=== PATIENT | female | born 1965 | race Two or more races ===

== ENCOUNTER 2016-09-30 14:18 | Emergency (ER) | payer MEDICARE, MEDICAID ==
--- NOTE | 2016-09-30 17:50 | RAD ---
Indication: Right knee pain and swelling. 4 views of the right knee demonstrates no fracture. Mild medial osteophyte formation is noted. No fracture is identified. IMPRESSION: No fracture of the right knee is noted.
[2016-09-30] MEDS ORDERED: HYDROcodone/ACETAMIN 5-325 MG* 1 TAB PO ONE (18:24)
--- NOTE | 2016-09-30 19:05 | RAD ---
Indication: Pain and swelling of the right knee. CT of the right knee was obtained in the axial plane. Coronal and sagittal reconstructed images were obtained. In the subcutaneous tissue of the right knee in the lateral aspect of the right knee there is a large fluid collection measuring 8.5 cm in length x 8.8 cm in width x 3.8 cm in AP dimension. It is heterogeneous in density with some areas of hypodensity and this is consistent with a subcutaneous hematoma. This does not appear to be within the joint space. There is no fracture of the knee joint. Degenerative changes of the patellofemoral joint is noted. IMPRESSION: LARGE FLUID COLLECTION IN THE LATERAL ASPECT OF THE RIGHT KNEE MEASURING 8.5 X 8.8 X 3.8 CM WHICH IS HETEROGENEOUS AND IS CONSISTENT WITH A SUBCUTANEOUS HEMATOMA. NO EXTENSION INTO THE KNEE JOINT IS NOTED. NO FRACTURE OF THE KNEE IS IDENTIFIED. DEGENERATIVE CHANGES OF THE PATELLOFEMORAL JOINT IS PRESENT.
[2016-09-30 19:55] VITALS: BP 133/78
--- NOTE | 2016-09-30 20:06 | ED ---
Lower Extremity - HPI Summary HPI Summary: Patient presents with right knee pain and swelling. She fell 3 weeks ago on her knee, but did not have any issues with walking or activity. This morning she awoke with her symptoms. She denies new injury or insult to the knee. She has known arthritis. She is active and admits she could have squated or bent yesterday, but does not remember any moment of pain. She took one of her husbands [place] 10/325mg with good relief. She has an ulcer and is unable to take NSAIDs. She has not iced or elevated the knee. No N/T. No calf pain or pain with weight bearing, but the knee "feels tight". 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 Mechanism Of Injury: Unknown Onset of Pain: Hours Onset/Duration: Still Present Severity Initially: Moderate Severity Currently: Mild Pain Intensity: 2 Pain Scale Used: 0-10 Numeric Timing: Constant Location: Is Discrete @ - right knee Character Of Pain: Aching, Stiffness Associated Signs And Symptoms: Positive: Swelling, Bruising - mature, Knee Pain Aggravating Factor(s): Movement Alleviating Factor(s): Nothing Able to Bear Weight: Yes - Allergies/Home Medications Allergies/Adverse Reactions: Allergies Allergy/AdvReac Type Severity Reaction Status Date / Time Aspirin [ASA] Allergy See Comment Verified 09/11/15 16:24 PMH/Surg Hx/FS Hx/Imm Hx Endocrine/Hematology History: Denies: Hx Diabetes Cardiovascular History: Denies: Hx Congestive Heart Failure - Surgical History Surgery Procedure, Year, and Place: left oophrectomy Infectious Disease History: No Infectious Disease History: Denies: Traveled Outside the [place] in Last 30 Days - Family History Known Family History: Positive: None - Social History Occupation: Employed Part-time Lives: With Family Alcohol Use: None Substance Use Type: Reports: None Smoking Status (MU): Current Some Day Smoker Cessation Counseling: Patient Advised to Stop Review of Systems Negative: Fever Negative: Shortness Of Breath Positive: Myalgia, Decreased ROM, Edema Positive: Bruising Negative: Paresthesia, Numbness All Other Systems Reviewed And Are Negative: Yes Physical Exam Triage Information Reviewed: Yes Vital Signs On Initial Exam: Initial Vitals Temp Pulse Resp BP Pulse Ox 97 F 91 15 148/87 97 09/30/16 14:22 09/30/16 14:22 09/30/16 14:22 09/30/16 14:22 09/30/16 14:22 Vital Signs Reviewed: Yes Appearance: Positive: Well-Appearing, Well-Nourished, Pain Distress Skin: Positive: Warm, Skin Color Reflects Adequate Perfusion, Dry, Soft Head/Face: Positive: Normal Head/Face Inspection Eyes: Positive: EOMI, JEANETTE, Conjunctiva Clear ENT: Positive: Hearing grossly normal Respiratory/Lung Sounds: Positive: Breath Sounds Present Cardiovascular: Positive: RRR Musculoskeletal: Positive: Limited @ - extension to -10, flexion to 90 with pain , Pain @ - TTP medial joint line, Edema Right - knee Neurological: Positive: Sensory/Motor Intact, Alert, Oriented to Person Place, Time, NV Bundle Intact Distally, Abnormal Gait Psychiatric: Positive: Affect/Mood Appropriate AVPU Assessment: Alert Diagnostics - Vital Signs Vital Signs Temp Pulse Resp BP Pulse Ox 09/30/16 19:54 97.3 F 86 16 133/78 09/30/16 15:45 96.9 F 85 20 136/85 98 09/30/16 14:22 97 F 91 15 148/87 97 - Laboratory Lab Statement: Any lab studies that have been ordered have been reviewed, and results considered in the medical decision making process. - Radiology No standard instances Xray Interpretation: No Acute Changes Radiology Interpretation Completed By: Radiologist - CT No standard instances CT Interpretation: Positive (See Comments) CT Interpretation Completed By: Radiologist - joint effusion Lower Extremity Course/Dx - Diagnoses Differential Diagnosis/HQI/PQRI: Positive: Arthritis, Bursitis, Cellulitis, Contusion, Dislocation, Fracture (Closed), Infection, Sprain, Strain Provider Diagnoses: Right knee pain, Effusion of right knee Discharge - Discharge Plan Condition: Stable Disposition: HOME Prescriptions: traMADol TAB* [Ultram*] 50 mg PO Q6HR PRN #20 tab MDD 4 PRN Reason: Pain Patient Education Materials: Swollen Knee Joint (ED), RICE Therapy (ED) Referrals: Duglas Rosario MD [Primary Care Provider] - Additional Instructions: Elevate your knee above your heart, wear your MANPREET bandage for compression, and apply ice for 20 minutes several times daily to decrease swelling and pain. Use Tramadol to decrease pain and rest your knee. Follow-up with your primary care provider in 5-7 days for evaluation and possible referral to an orthopedic doctor. Return to the emergency department if your symptoms worsen.
== END 2016-09-30 19:54 | disposition home or self-care (01) ==
LOC: ED 14:18
DX: M25.461 Effusion, right knee (principal); M25.561 Pain in right knee
CPT/HCPCS: 99282

== ENCOUNTER 2018-01-05 17:11 | Inpatient (IN) | payer MEDICARE, MEDICAID ==
--- OUTSIDE RECORDS SUMMARY | 2018-01-05 18:11 | XMS REPORT ---
:1965 External Reference #:[id number] Author Organization [employer] Address [address] [place] [address] Phone [phone] Care Team Providers Name Role Phone Duglas Rosario MD Primary Care Physician Unavailable Payers Type Date Identification Numbers Payment Provider Subscriber Medicare Primary Policy Number: [id number] Medicare [place] PayID: [id number] [address] [place] [address] [facility] Policy Number: [id number] Medicaid [place] Group Name: 1 1 [address] PayID: [id number] [place] [address] Problems Description No Information Family History Date Family Member(s) Problem(s) Comments General Cancer General Rheumatoid Arthritis Social History Type Date Description Comments Marital Status Lives With Occupation Currently Working Cigarette Use current cigarette smoker Cigarette Use Patient is a current cigarette smoker, smokes every day ETOH Use Denies alcohol use Smoking Patient is a current smoker, smokes every day Recreational Drug Use Denies Drug Use Daily Caffeine Consumes on average 5-10 cups of regular coffee per day Exercise Type/Frequency Exercises sporadically Allergies, Adverse Reactions, Alerts Date Description Reaction Status Severity Comments 11/05/2016 Aspirin active Medications Medication Date Status Form Strength Qnty SIG Indications Ordering Provider Plaquenil 01/05 Active Tablets 200mg 60tab 1 by mouth s every day for 1 [place], week then 2 by M.D. mouth daily ongoing Prednisone 01/05 Active Tablets 10mg 60tab take 4 tabs by s mouth daily for [place], 4 days then 3 M.D. tabs daily for 4 days then 4 tabs for 2 days then 1 tab for 4 days then d/c Methotrexate 04/07 Active Tablets 2.5mg 60tab take 4 s capsules/tablet [place], s by mouth once M.D. weekly on saturdays Folic Acid 04/07 Active Tablets 1mg 180ta take 2 bs capsule/tablet [place], daily by mouth M.D. Polyethylene Active Unknown Glycol 1000 0000 Metoprolol Active Tablets 50mg 1 by mouth Unknown Succinate ER /0000 ER 24HR every day Combivent Active Aerosol 20-100mcg 1 puffs 4-6 Unknown Respimat /0000 /Act times daily as needed Voltaren Active Gel 1% apply 2 grams Unknown /0000 twice daily as needed for pain to the hands Paxil Active Tablets 40mg 1 by mouth Unknown /0000 every day Breo Ellipta Active Aerosol 100-25mcg 1 puff inhaled Unknown /0000 /Inh daily Ferrous Active Tablets 325mg 1 by mouth Unknown Sulfate /0000 every day Multivitamin Active Tablets 1 by mouth Unknown Adult /0000 every day Vitamin C Active Capsules 500-400mg 1 by mouth Unknown /0000 -Unit every day W/Vitamin E Nexium Active Capsules 40mg 1 by mouth Unknown /0000 DR every day Ranitidine 150 Active Tablets 150mg one by mouth Unknown Maximum /0000 twice a day Strength Ondansetron Active Tablets 8mg 1 by mouth Unknown /0000 Dispers three times a day as needed nausea or headache Hydrocodone-Ac Active Tablets 5-325mg 1 tab by mouth Unknown etaminophen /0000 every 4- 6 hours as needed pain Pravastatin Active Tablets 40mg 1 tablet daily Unknown Sodium /0000 at bedtime Meclizine HCL Active Tablets 25mg 1 tablet every Unknown /0000 8 hours as needed for vertigo Astepro Active Solution 0.15% 1 spray each Unknown /0000 annmarie twice a day as needed Soma Active Tablets 350mg 1 tab by mouth Unknown /0000 every day and 1 tab by mouth as needed Singulair Active Packet 4mg Unknown /0000 Reglan Active Tablets 10mg 1 tablet every Unknown /0000 6 hours as needed nausea; may crush Zolpidem Active Tablets 5mg Unknown Tartrate Diclofenac Active Tablets 75mg take 1 tablet Unknown Sodium 0000 DR twice a day with food Prednisone 11/12 Hx Tablets 10mg 90tab take 4 tabs by s mouth daily for [place], - 2 days then 3 M.D. 01/05 tabs daily for 2 days then 2 tabs for 2 days then 1 tab daily ongoing Enbrel 11/12 Hx Solution 50mg/ml 4unit [facility] R[facility] [place], - ct 50mg every week M.D. 01/05 Plaquenil Hx Tablets 200mg 1 by mouth Unknown /0000 every day for 1 - week then 2 by 05/23 mouth daily ongoing Tramadol HCL Hx Tablets 50mg 1-2 tablets Unknown /0000 every 6 hours - as needed 04/07 Immunizations CPT Code Status Date Vaccine Reaction Lot # [id number] Given 05/26/2017 Pneumococcal Conjugate no immediate reaction [id number] Vaccine 13 Valent For noted Intramuscular Use Vital Signs Date Vital Result Comment 01/05/2018 Height 63 inches 5'3" Heart Rate 101 /min BP Systolic Sitting 112 mmHg BP Diastolic Sitting 78 mmHg Respiratory Rate 14 /min O2 % BldC Oximetry 94 % 11/12/2017 Height 63 inches 5'3" Heart Rate 80 /min BP Systolic Sitting 110 mmHg BP Diastolic Sitting 70 mmHg Respiratory Rate 14 /min Pain Level 7 10/27/2017 Height 63 inches 5'3" Weight 179.00 lb Heart Rate 88 /min BP Systolic Sitting 124 mmHg BP Diastolic Sitting 78 mmHg Respiratory Rate 14 /min Pain Level 5 BMI (Body Mass Index) 31.7 kg/m2 05/26/2017 Height 63 inches 5'3" Weight 191.00 lb Heart Rate 80 /min BP Systolic Sitting 110 mmHg BP Diastolic Sitting 70 mmHg Respiratory Rate 14 /min Pain Level 6 BMI (Body Mass Index) 33.8 kg/m2 05/26/2017 Height 63 inches 5'3" Weight 189.00 lb w/ shoes Heart Rate 88 /min BP Systolic 94 mmHg Lue, reg cuff BP Diastolic 38 mmHg Lue, reg cuff BP Systolic Sitting 94 mmHg Rue, reg cuff BP Diastolic Sitting 60 mmHg Rue, reg cuff Respiratory Rate 16 /min O2 % BldC Oximetry 95 % on Ra BMI (Body Mass Index) 33.5 kg/m2 Neck Circumference in inches 14 04/07/2017 Height 63 inches 5'3" Weight 184.00 lb Heart Rate 75 /min BP Systolic Sitting 121 mmHg BP Diastolic Sitting 89 mmHg Respiratory Rate 14 /min Pain Level 6 BMI (Body Mass Index) 32.6 kg/m2 11/05/2016 Height 63 inches 5'3" Weight 176.00 lb Heart Rate 80 /min BP Systolic 120 mmHg BP Diastolic 80 mmHg Respiratory Rate 16 /min Body Temperature 97.8 F BMI (Body Mass Index) 31.2 kg/m2 Results Test Date Test Result H/L Range Note Quantiferon Gold TB 12/01/2017 QuantiFERON-Tb Gold Plus Negative Negative 1 TB1 Ag minus Nil Result 0 IU/mL TB2 Ag minus Nil Result -0.01 IU/mL TB Mitogen minus Nil Result > 10.00 IU/mL TB Nil Result 0.03 IU/mL 2 Laboratory test finding 10/27/2017 Erythrocyte Sed Rate 51 mm/Hr High 0- 30 C Reactive Protein 81.18 mg/L High < 5.00 3 CBC Auto Diff 10/27/2017 White Blood Count 8.4 10^3/uL 3.5-10.8 Red Blood Count 4.04 10^6/uL 4.00-5.40 Hemoglobin 13.0 g/dL 12.0-16.0 Hematocrit 39 % 35-47 Mean Corpuscular Volume 96 fL 80-97 Mean Corpuscular Hemoglobin 32 pg High 27-31 Mean Corpuscular HGB Conc 34 g/dL 31-36 Red Cell Distribution Width 16 % High 10.5-15 Platelet Count 412 10^3/uL 150-450 Mean Platelet Volume 7.5 um3 7.4-10.4 Abs Neutrophils 6.0 10^3/uL 1.5-7.7 Abs Lymphocytes 1.4 10^3/uL 1.0-4.8 Abs Monocytes 0.8 10^3/uL 0-0.8 Abs Eosinophils 0.1 10^3/uL 0-0.6 Abs Basophils 0 10^3/uL 0-0.2 Abs Nucleated RBC 0 10^3/uL Granulocyte % 71.9 % 38-83 Lymphocyte % 16.7 % Low 25-47 Monocyte % 9.4 % High 0-7 Eosinophil % 1.4 % 0-6 Basophil % 0.6 % 0-2 Nucleated Red Blood Cells % 0 Comp Metabolic Panel 10/27/2017 Sodium 138 mmol/L Low 139-145 Potassium 4.1 mmol/L 3.5-5.0 Chloride 108 mmol/L 101-111 Co2 Carbon Dioxide 21 mmol/L Low 22-32 Anion Gap 9 mmol/L 2-11 Glucose 94 mg/dL 70-100 Blood Urea Nitrogen 12 mg/dL 6-24 Creatinine 0.75 mg/dL 0.51-0.95 BUN/Creatinine Ratio 16.0 8-20 Calcium 8.9 mg/dL 8.6-10.3 Total Protein 6.4 g/dL 6.4-8.9 Albumin 3.6 g/dL 3.2-5.2 Globulin 2.8 g/dL 2-4 Albumin/Globulin Ratio 1.3 1-3 Total Bilirubin 0.20 mg/dL 0.2-1.0 Alkaline Phosphatase 117 U/L High 34-104 Alt 50 U/L 7-52 Ast 29 U/L 13-39 Egfr Non- 81.1 >60 Egfr 104.4 >60 4 Laboratory test finding 08/12/2017 TSH (Thyroid Stim Horm) 1.29 mcIU/mL 0.34-5.60 Vitamin D Total 25(Oh) 27.8 ng/mL 20-50 Hemoglobin A1c (Glyco HGB) 5.5 % 4.0-5.6 5 Iron & Iron Binding Capacity 08/12/2017 Iron 54 g/dL 50-212 Unsaturated Iron Binding 204 g/dL Total Iron Binding Capacity 258 g/dL 250-450 Transferrin 184 mg/dL Low 203-362 % Iron Saturation 21 % 15-55 Laboratory test finding 08/12/2017 Uric Acid 1.5 mg/dL Low 2.3-6.6 Lipid Profile (Trig/Chol/HDL) 08/12/2017 Triglycerides 202 mg/dL 6 Cholesterol 206 mg/dL 7 HDL Cholesterol 36.6 mg/dL 8 LDL Cholesterol 129 mg/dL 9 Comp Metabolic Panel 08/12/2017 Sodium 135 mmol/L 133-145 Potassium 4.5 mmol/L 3.5-5.0 Chloride 108 mmol/L 101-111 Co2 Carbon Dioxide 19 mmol/L Low 22-32 Anion Gap 8 mmol/L 2-11 Glucose 141 mg/dL High 70-100 Blood Urea Nitrogen 11 mg/dL 6-24 Creatinine 0.68 mg/dL 0.51-0.95 BUN/Creatinine Ratio 16.2 8-20 Calcium 8.4 mg/dL Low 8.6-10.3 Total Protein 6.0 g/dL Low 6.4-8.9 Albumin 3.6 g/dL 3.2-5.2 Globulin 2.4 g/dL 2-4 Albumin/Globulin Ratio 1.5 1-3 Total Bilirubin 0.30 mg/dL 0.2-1.0 Alkaline Phosphatase 82 U/L 34-104 Alt 19 U/L 7-52 Ast 13 U/L 13-39 Egfr Non- 90.9 >60 Egfr 116.9 >60 10 CBC Auto Diff 08/12/2017 White Blood Count 7.6 10^3/uL 3.5-10.8 Red Blood Count 4.21 10^6/uL 4.0-5.4 Hemoglobin 13.7 g/dL 12.0-16.0 Hematocrit 40 % 35-47 Mean Corpuscular Volume 96 fL 80-97 Mean Corpuscular Hemoglobin 33 pg High 27-31 Mean Corpuscular HGB Conc 34 g/dL 31-36 Red Cell Distribution Width 16 % High 10.5-15 Platelet Count 283 10^3/uL 150-450 Mean Platelet Volume 7.8 um3 7.4-10.4 Abs Neutrophils 6.0 10^3/uL 1.5-7.7 Abs Lymphocytes 1.0 10^3/uL 1.0-4.8 Abs Monocytes 0.5 10^3/uL 0-0.8 Abs Eosinophils 0.1 10^3/uL 0-0.6 Abs Basophils 0.1 10^3/uL 0-0.2 Abs Nucleated RBC 0 10^3/uL Granulocyte % 79.1 % 38-83 Lymphocyte % 13.2 % Low 25-47 Monocyte % 6.3 % 0-7 Eosinophil % 0.7 % 0-6 Basophil % 0.7 % 0-2 Nucleated Red Blood Cells % 0.1 Laboratory test finding 08/12/2017 Erythrocyte Sed Rate 23 mm/Hr 0-30 C Reactive Protein 17.05 mg/L High < 5.00 11 Laboratory test finding 04/07/2017 Erythrocyte Sed Rate 10 mm/Hr 0-30 12 C Reactive Protein 5.83 mg/L High < 5.00 13 Rheumatoid Factor <15 IU/mL <15 14 Hepatitis Acute Panel 04/07/2017 Hepatitis C Antibody Nonreactive Nonreactive 15 Hepatitis A AB Igm Nonreactive Nonreactive 16 Hepatitis B Core AB Igm Nonreactive Nonreactive 17 Hepatitis B Surface Ag Nonreactive Nonreactive 18 Connective Tissue Panel 04/07/2017 Anti-Nuclear Antibody < 0.1 U 19 Cyclic Citrullinated Peptide <15.6 U 20 Interpretation See Comment 21 Laboratory test finding 04/07/2017 Creatine Kinase(CK) 86 U/L 10-223 22 1 No interferon-gamma response to M. tuberculosis antigens was detected. Infection with M. tuberculosis is unlikely. A single negative result does not exclude infection with M. tuberculosis. In patients at high risk for M.tuberculosis infection, a second test should be considered in accordance with the 2017 ATS/IDSA/CDC Clinical Practice Guidelines for Diagnosis of Tuberculosis in Adults and Children [Clemente GOMEZ et. al. Clin. Infect. Dis. 2017;64(2):111-115]. 2 Test Performed by: [facility] [address] [place] [address] 3 Acute inflammation: >10.00 4 Because ethnic data is not always readily available, this report includes an eGFR for both -Americans and non- Americans. The National Kidney Disease Education Program (NKDEP) does not endorse the use of the MDRD equation for patients that are not between the ages of 18 and 70, are , have extremes of body size, muscle mass, or nutritional status, or are non- or non-. According to the National Kidney Foundation, irrespective of diagnosis, the stage of the disease is based on the level of kidney function: Stage Description GFR(mL/min/1.73 m(2)) 1 Kidney damage with normal or decreased GFR 90 2 Kidney damage with mild decrease in GFR 60-89 3 Moderate decrease in GFR 30-59 4 Severe decrease in GFR 15-29 5 Kidney failure <15 (or dialysis) 5 Therapeutic target for the treatment of diabetes mellitus patients is <7% HBA1C, and in selective patients <6.0%. Please refer to [place] [employer] Association diabetic care guidelines for further information. 6 Desirable: <150 Borderline High: 150-199 High: 200-499 Very High: >500 7 Desirable: <200 Borderline High: 200-239 High: >239 8 Low: <40 Desirable: 40-60 High: >60 9 Desirable: <100 Near Optimal: 100-129 Borderline High: 130-159 High: 160-189 Very High: >189 10 Because ethnic data is not always readily available, this report includes an eGFR for both -Americans and non- Americans. The National Kidney Disease Education Program (NKDEP) does not endorse the use of the MDRD equation for patients that are not between the ages of 18 and 70, are , have extremes of body size, muscle mass, or nutritional status, or are non- or non-. According to the National Kidney Foundation, irrespective of diagnosis, the stage of the disease is based on the level of kidney function: Stage Description GFR(mL/min/1.73 m(2)) 1 Kidney damage with normal or decreased GFR 90 2 Kidney damage with mild decrease in GFR 60-89 3 Moderate decrease in GFR 30-59 4 Severe decrease in GFR 15-29 5 Kidney failure <15 (or dialysis) 11 Acute inflammation: >10.00 12 Please check today 13 Acute inflammation: >10.00 14 Test Performed by: [address] [id number] 15 Please check today 16 Please check today 17 Please check today 18 Please check today 19 REFERENCE VALUE <=1.0 (Negative) 20 REFERENCE VALUE <20.0 (Negative) 21 Tests for antibodies to dsDNA and MANDI antigens are not performed automatically unless the ROC result is > or= 3.0 U. Studies performed at [facility] indicate that positive ROC results <3.0 U are rarely accompanied by positive second order tests. Test Performed by: [address] [id number] 22 Please check today Procedures Description No Information Encounters Type Date Location Provider CPT E/M Dx Office Visit 11/12/2017 Rheumatology Services Claudio Aaron M.D. 86197 M06.09 4:20p [facility] Z79.899 R70.0 R74.8 Office Visit 10/27/2017 4:00p Rhe[facility]ology Services Claudio Aaron 53221 M06.09 [facility] Wan.D. Z79.899 L30.9 R06.83 Office Visit 05/26/2017 10:00a [facility] [place] [address] R06.83 Services [facility] R40.0 G47.50 F17.210 J45.909 E66.09 Z68.33 Office Visit 05/26/2017 4:00p Rheumatology Services Claudio Aaron 22325 M06.09 [facility] Wan.[place]. Z79.899 M25.559 M17.0 Z23 Office Visit 04/07/2017 10:00a Rheumatology Services Claudio Aaron [address]7048 M05.79 [facility] Wan.D. Z79.899 M79.1 R06.83 M17.0 M25.559 Office Visit 11/05/2016 9:00a [facility] [place], [address] M19.071 Dereck Francois Plan of Care Future Appointment(s):02/02/2018 2:40 pm - Claudio Aaron M.D. 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
--- NOTE | 2018-01-05 19:09 | ED ---
Neck Pain - HPI Summary HPI Summary: The pt is a 52 y/o female accompanied by her presenting to the [facility] c/ o SOB for 2 weeks , worsened 5 days ago. She feels like someone is strangling her. The pt notes facial edema, neck pain and tenderness, SOB, cough, insomnia, and chills and sweats. She saw Dr. Galen Snyder MD today for these symptoms and he sent her for an outpatient CXR and had labs done. The results of the xray showed bilateral hilar masses with widening of the mediastinum suggestive of lymphadenopathy and bilateral pleural effusions, new since 05/26/17. Dr. Aaron advised pt to come to the ED for further eval after this report coupled with her symptosm. For her RA, she has been treated with Methotrexate, steroids and recently Enbrel (etanercept) 50 mg /mL injection. Last dose of the Enbrel was a few weeks ago. Home Medications Medication Instructions Recorded Confirmed Type Carisoprodol TAB* [Soma TAB*] 350 mg PO DAILY PRN 08/09/14 09/07/15 History Hydrocodone Bitartrate [Zohydro ER] 10 - 20 mg PO Q6HR 08/09/14 09/07/15 History Hydroxychloroquine TAB* [Plaquenil 200 mg PO BID 08/09/14 09/07/15 History TAB*] Metoclopramide TAB* [Reglan TAB*] 10 mg PO Q8H 08/09/14 09/07/15 History Montelukast Sodium TAB* [Singulair 10 mg PO DAILY 08/09/14 09/07/15 History TAB*] Azelastine 0.15% NASAL(NF) 1 spray NASAL BID 09/08/14 09/07/15 History [Astepro 0.15% NASAL (NF)] Meclizine TAB* [Antivert TAB*] 25 mg PO Q6H PRN 09/08/14 09/07/15 History PARoxetine HCL TAB* [Paxil TAB*] 40 mg PO DAILY 09/08/14 09/07/15 History Pantoprazole Sodium [Protonix] 20 mg PO DAILY 09/08/14 09/07/15 History Polyethylene Glycol 3350* 17 gm PO DAILY 09/07/15 09/07/15 History [Miralax*] raNITIdine HCl [Ranitidine Maximum 150 mg PO BEDTIME 09/07/15 09/07/15 History Streng] traMADol TAB* [Ultram*] 50 mg PO Q6HR PRN #20 tab MDD 4 09/30/16 Rx Vital Signs: Temp Pulse Resp BP Pulse Ox 97.5 F 91 20 116/75 94 01/05/18 17:33 01/05/18 17:33 01/05/18 17:33 01/05/18 17:33 01/05/18 17:33 - History of Current Complaint Chief Complaint: EDNeckComplaint Stated Complaint: SWELLING NECK AREA/FEELS LIKE CANT BREATHE Time Seen by Provider: 01/05/18 17:18 Hx Obtained From: Patient, Family/Mold Presser - , Medical Records - from Dr. Araon Onset/Duration Of Injury/Symptoms: Weeks - 2 weeks Mechanism Of Injury: No Known Trauma Timing: Constant, Lasting Weeks - 2 weeks Onset/Duration: Gradual Onset, Worse Since - 5 days ago Severity Initially: Moderate Severity Currently: Moderate Pain Intensity: 7 Pain Scale Used: 0-10 Numeric Location: Discrete At: - The neck Character: Other: - Suffocating Aggravating Factors: Position - lying down Alleviating Factors: Nothing Associated Signs & Symptoms: Positive: Swelling - Risk Factors Meningitis Risk Factors: Immune Deficiency - Allergies/Home Medications Allergies/Adverse Reactions: Allergies Allergy/AdvReac Type Severity Reaction Status Date / Time aspirin Allergy Rash Verified 01/05/18 18:04 Home Medications: Home Medications Zolpidem TAB* 10 mg PO BEDTIME 01/05/18 [History Confirmed 01/05/18] Hydrocodone/Acetaminophen [Hydrocodone-Acetamin 10-325 mg] 1 - 2 tab PO Q6H PRN 01/06/18 [History Confirmed 01/06/18] Metoprolol Succinate 50 mg PO BID 01/06/18 [History Confirmed 01/06/18] PMH/Surg Hx/FS Hx/Imm Hx Previously Healthy: No Endocrine/Hematology History: Denies: Hx Diabetes Cardiovascular History: Reports: Hx Hypertension Denies: Hx Congestive Heart Failure GI History: Reports: Hx Gastroesophageal Reflux Disease Musculoskeletal History: Reports: Hx Rheumatoid Arthritis Neurological History: Reports: Other Neuro Impairments/Disorders - Carpal Tunnel syndrome Psychiatric History: Denies: Other Psychiatric Issues/Disorders - Cancer History Hx Hematologic Symptoms: No Hx Chemotherapy: No Hx Radiation Therapy: No Hx Palliative Cancer Treatment: No - Surgical History Surgery Procedure, Year, and Place: left oophrectomy due to torsion, shoulder surgery, pelvic surgery, carpal tunnel release - Immunization History Date of Tetanus Vaccine: <10 years Immunizations Up to Date: Yes Infectious Disease History: No Infectious Disease History: Denies: Traveled Outside the [place] in Last 30 Days - Family History Known Family History: Positive: Other - [place]-mother - Social History Occupation: Employed Part-time Lives: With Family Alcohol Use: None Substance Use Type: Reports: None Smoking Status (MU): Current Every Day Smoker Review of Systems Constitutional: Other - Positive: Insomnia Positive: Chills, Skin Diaphoresis, Other - feeling of suffocation at her neck, 15 lb weight loss Positive: Other - Positive: facial edema, neck tenderness,neck pain Cardiovascular: Negative Positive: Shortness Of Breath, Cough Gastrointestinal: Negative Positive: Other - dysphagia Skin: Negative Neurological: Negative Psychological: Normal All Other Systems Reviewed And Are Negative: Yes Physical Exam - Summary Physical Exam Summary: Appearance: ill-appearing, moderate pain distress, well-nourished Skin: Warm, color reflects adequate perfusion, dry Head: Normal Head/Face inspection, atraumatic Eyes: Conjunctiva clear ENT: Normal inspection, pharynx clear, mucous membranes moist Neck: Supple, +bilateral nodes, swelling bilat, left worse than right Respiratory: Scattered rhonchi and wheezes throughout Cardio: RRR, No murmur, pulses normal, brisk capillary refill Abdomen: Soft, nontender, no masses, nondistended Bowel sounds: Present Musculoskeletal: Strength Intact/ROM intact, no calf tenderness, no edema. Psychological: Normal Neuro: A&O x3, CN II-XII intact, motor function 5/5, sensation intact, cerebellar normal Triage Information Reviewed: Yes Vital Signs On Initial Exam: Initial Vitals Temp Pulse Resp BP Pulse Ox 97.5 F 91 20 116/75 94 01/05/18 17:33 01/05/18 17:33 01/05/18 17:33 01/05/18 17:33 01/05/18 17:33 Vital Signs Reviewed: Yes Diagnostics - Vital Signs Vital Signs Temp Pulse Resp BP Pulse Ox 01/05/18 17:33 97.5 F 91 20 116/75 94 - Laboratory Result Diagrams: 01/07/18 06:28 01/07/18 06:28 Lab Statement: Any lab studies that have been ordered have been reviewed, and results considered in the medical decision making process. - CT Chest/ Thorax CTA CT Interpretation Completed By: Radiologist - IMPRESSION: 1. Primary lung neoplasm versus a mediastinal mass with etiologies including lymphoma, thymic carcinoma, germ cell neoplasm, and less likely liposarcoma. Recommend tissue biopsy. 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 2. Pleural effusions and lung nodules would make the patient stage ALICIA. Recommend abdomen pelvis CT for full characterization. 3. No pulmonary emboli. The ED physician has reviewed this radiology report. Neck CT CT Interpretation Completed By: Radiologist - IMPRESSION: 1. Mediastinal neoplasm infiltrating the inferior neck with associated abnormal metastatic lymph nodes. Etiologies include primary lung neoplasm, lymphoma, thymic carcinoma, germ cell neoplasm, and less likely liposarcoma. 2. Retropharyngeal effusion with abnormal mucosal thickening of the hypopharynx although a clear lesion is not seen. Direct visualization is recommended. 3. Right thyroid lobe nodule. ACR White Paper guidelines (Michael JK, et al. JACR 2015;12(2):143-50) suggest that no follow-up is necessary. 4. Bilateral TMJ subluxation. The ED physician has reviewed this radiology report. - EKG 1943 Cardiac Rate: NL EKG Rhythm: Sinus Rhythm ST Segment: Non-Specific Ectopy: None EKG Interpretation: nl AVIVCT, nl QTc, axis -14, no acute changes EKG Comparison: Other - no prior to compare Re-Evaluation - Re-Evaluation First Eval Re-Evaluation Time: 21:00 Change: Improved - Discussed with the pt about the pending radiology results and possibility of a transfer. BP= 134/91; Pulse=96; O2 sat= 94 bpm Second Eval Re-Evaluation Time: 22:15 Comment: advised that Dr. Arellano states pt can have biopsy and further evaluation at [facility] No need for transfer. Neck Course/Dx - Course Course Of Treatment: 21:50 - Discussed possible transfer with Dr. Jasmina Arellano MD (oncologist) and she recommended no need for transfer and treating the pt at [facility]. - Diagnoses Differential Dx/HQI/PQRI: Positive: Adenitis, Neoplasm Provider Diagnoses: Mediastinal mass, Superior vena cava compression syndrome, Rheumatoid arthritis , Hilar mass, Bilateral pleural effusion - Physician Notifications Discussed Care Of Patient With: Dr. Aristeo Simmons MD - Vascular Surgeon - [facility] Time Discussed With Above Provider: 21:37 Instructed by Provider To: Admit As Inpatient Discharge - Sign-Out/Discharge Documenting (check all that apply): Patient Departure - admit - Discharge Plan Condition: Stable Disposition: ADMITTED TO [facility] - Billing Disposition and Condition Condition: STABLE Disposition: Admitted to [facility] - Attestation Statements Document Initiated by Scribe: Yes Documenting Scribe: Nae Joiner Provider For Whom Scribe is Documenting (Include Credential): Dr. Elisha Lyman MD Scribe Attestation: Nae Miller , scribed for Dr. Elisha Lyman MD on 01/07/18 at 2124. Scribe Documentation Reviewed: Yes Provider Attestation: The documentation as recorded by the shainaibNae mckeon accurately reflects the service I personally performed and the decisions made by me, Dr. Elisha Lyman MD
[2018-01-05] MEDS ORDERED: Iohexol 350* (CONTRAST) 500 ML MDV IV ONE (19:39)
[2018-01-05 19:40] LABS: ABS Basophils 0.1 10^3/ul (0-0.2); ABS Eosinophils 0.1 10^3/ul (0-0.6); ABS Lymphocytes 1.1 10^3/ul (1.0-4.8); ABS Monocytes 1.5 10^3/ul (0-0.8); ABS Neutrophils 7.8 10^3/ul (1.5-7.7); ABS Nucleated RBC 0 10^3/ul; Eosinophil % 0.8 % (0-6); Hematocrit 36 % (35-47); Hemoglobin 12.1 g/dl (12.0-16.0); Lymphocyte % 10.8 % (25-47); Mean Corpuscular HGB Conc 33 g/dl (31-36); Mean Corpuscular Hemoglobin 32 pg (27-31); Mean Corpuscular Volume 96 fL (80-97); Mean Platelet Volume 7.1 um3 (7.4-10.4); Nucleated Red Blood Cells % 0; Platelet Count 532 10^3/ul (150-450); Red Blood Count 3.81 10^6/ul (4.00-5.40); Red Cell Distribution Width 16 % (10.5-15); White Blood Count 10.6 10^3/ul (3.5-10.8)
[2018-01-05] MEDS ORDERED: Morphine VIAL* 10 MG/ML 1 ML VIAL IV ONE (19:54)
[2018-01-05 20:20] LABS: INR 1.19 (0.77-1.02)
[2018-01-05] MEDS ORDERED: NS 0.9% 1000 ML* 1,000 ML IV ONE (20:41)
--- NOTE | 2018-01-05 21:17 | RAD ---
EXAM: CT Angiography Chest With Intravenous Contrast CLINICAL HISTORY: 52 years old, female; Abnormal findings; Abnormal radiologic exam of lung or chest; Patient HX: Abnormal chest xray; Additional info: Hilar mass, mediast widening on cxr, inc d dimer. Injection x 2 due to poor opacification on 1st injection TECHNIQUE: Axial computed tomographic angiography images of the chest with intravenous contrast using pulmonary embolism protocol. All CT scans at this facility use at least one of these dose optimization techniques: automated exposure control; mA and/or kV adjustment per patient size (includes targeted exams where dose is matched to clinical indication); or iterative reconstruction. MIP reconstructed images were created and reviewed. Coronal and sagittal reformatted images were created and reviewed. CONTRAST: 138 mL of OMNIPAQUE 350 administered intravenously. COMPARISON: OT - CXR CHEST PA LAT 2 VWS 2017-05-26 11:33 FINDINGS: Pulmonary arteries: Pulmonary arteries are well opacified to the subsegmental branches. Normal caliber main pulmonary artery. No filling defects throughout the pulmonary artery tree. Aorta: Normal caliber aorta with no evidence of dissection or rupture. Lungs: Infiltrated mass encases the bilateral kaila, left greater than right, with narrowing of the central airways, the pulmonary arteries, and the pulmonary veins. Mass extends throughout the anterior, middle, and superior mediastinum with encasement of the aorta and partial encasement of the main pulmonary artery. There is additional occlusion of the innominate vein and high-grade stenosis of the upper SVC. Maximal mass measurement of 14.1 x 11.5 cm (series 6, image 43). Normal esophagus. Bilateral perihilar consolidation with adjacent groundglass opacification and intralobular septal thickening involving the bilateral upper lobes. Anterior segment right upper lobe pulmonary nodule measures 0.7 cm (series 3, image 22). More subtle groundglass nodules are seen throughout the anterior segment right upper lobe with example nodules measuring 0.4 and 0.2 cm (series 3, image 27). Solid pulmonary nodule lateral basal segment left lower lobe measures 0.4 cm (series 3, image 48). Compressive atelectasis posterior bilateral lower lobes. Pleural space: Moderate bilateral pleural effusions. No pneumothorax. Heart: Small pericardial effusion. No cardiac enlargement. No evidence of RV dysfunction. Bones/joints: No fractures. No suspicious bone lesions. No dislocation. Soft tissues: Normal. Lymph nodes: Subcarinal/level VII enlarged node measures 2.5 cm (series 6, image 62). Difficult to assess enlarged hilar lymph nodes versus primary neoplasm. Adrenals: No adrenal nodules. IMPRESSION: 1. Primary lung neoplasm versus a mediastinal mass with etiologies including lymphoma, thymic carcinoma, germ cell neoplasm, and less likely liposarcoma. Recommend tissue biopsy. 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 2. Pleural effusions and lung nodules would make the patient stage ALICIA. Recommend abdomen pelvis CT for full characterization. 3. No pulmonary emboli.
--- NOTE | 2018-01-05 21:30 | RAD ---
EXAM: CT Neck With Intravenous Contrast CLINICAL HISTORY: 52 years old, female; Pain; Throat pain; Additional info: SOB, throat tight, neck swelling, TECHNIQUE: Axial computed tomography images of the neck with intravenous contrast. All CT scans at this facility use at least one of these dose optimization techniques: automated exposure control; mA and/or kV adjustment per patient size (includes targeted exams where dose is matched to clinical indication); or iterative reconstruction. Coronal and sagittal reformatted images were created and reviewed. CONTRAST: 50 mL of OMNIPAQUE 350 administered intravenously. COMPARISON: No relevant prior studies available. FINDINGS: Oropharynx: Normal. No tonsillar enlargement. No peritonsillar fluid collections. Hypopharynx: Wall thickening of the inferior hypopharynx with effacement of the bilateral vallecula and high-grade narrowing of the subglottic airway. No clearly visualized mass. Larynx: See above. Trachea: Normal. Retropharyngeal space: Large retropharyngeal effusion. Submandibular/parotid glands: Normal. Glands are normal in size. No mass. Thyroid: Low attenuating right thyroid nodule measures 1.1 cm no peripheral enhancement or calcification. No additional thyroid nodules. Bones/joints: Bilateral TMJ subluxation with the mandibular condyles resting on the articular eminence. No fractures. No suspicious bone lesions. Soft tissues: Normal. Vasculature: See below. Lymph nodes: Enlarged bilateral cervical chain lymph nodes examples include left level IV node measuring 1.4 cm (series 2, image 32), right level V node measuring 1.5 cm (series 2, image 27), and left supraclavicular node measuring 1.5 cm (series 2, image 23). Lung apices: Perihilar consolidation with adjacent groundglass ossification and interlobar septal thickening of the visualized upper lobes. Pleural space: Partially visualized moderate bilateral pleural effusions. Mediastinum: Partially visualized anterior and superior mediastinal mass infiltrating and encasing the aortic arch and arch vessels which causes high grade stenosis of the SVC and the inferior left internal jugular vein with occlusion of the innominate vein. The mass partially extends into the lower neck involving the visceral space and bilateral carotid spaces. IMPRESSION: 1. Mediastinal neoplasm infiltrating the inferior neck with associated abnormal metastatic lymph nodes. Etiologies include primary lung neoplasm, lymphoma, thymic carcinoma, germ cell neoplasm, and less likely liposarcoma. 2. Retropharyngeal effusion with abnormal mucosal thickening of the hypopharynx although a clear lesion is not seen. Direct visualization is recommended. 3. Right thyroid lobe nodule. ACR White Paper guidelines (Michael JK, et al. JACR 2015;12(2):143-50) suggest that no follow-up is necessary. 4. Bilateral TMJ subluxation.
[2018-01-05] MEDS ORDERED: traMADol TAB* 50 MG PO PRN ×2 (22:37→23:15)
[2018-01-05] MEDS ORDERED: Melatonin 3 MG TAB PO PRN (22:37)
[2018-01-05] MEDS ORDERED: Acetaminophen TAB* 325 MG PO PRN (22:37)
[2018-01-05] MEDS ORDERED: HYDROmorphone INJ* 1 MG/ML CARPUJECT SYRINGE IV PRN (22:53)
[2018-01-05] MEDS ORDERED: Meclizine TAB* 12.5 MG PO PRN (23:15)
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
[2018-01-05] MEDS: HYDROmorphone INJ* 0.5 MG/0.5 ML SYRINGE IV PRN (23:31)
[2018-01-05] MEDS: NS 0.9% 1000 ML* 1,000 ML IV SCH (23:35)
[2018-01-06] MEDS ORDERED: oxyCODONE TAB* 5 MG TAB PO PRN
[2018-01-06] MEDS: Metoclopramide TAB* 10 MG PO SCH ×4 (00:01→23:24)
[2018-01-06] MEDS: Zolpidem TAB* 10 MG PO SCH ×2 (00:02→20:09)
[2018-01-06] MEDS: HYDROmorphone INJ* 0.5 MG/0.5 ML SYRINGE IV PRN ×5 (02:50→20:39)
[2018-01-06] MEDS: Carisoprodol TAB* 350 MG PO PRN (02:52)
[2018-01-06] MEDS: ALPRAZolam TAB* 0.5 MG PO PRN ×2 (02:55→18:11)
[2018-01-06] MEDS: Omeprazole CAP* 20 MG PO SCH (06:18)
[2018-01-06] MEDS: Docusate CAP* 100 MG PO SCH ×2 (08:43→20:09)
[2018-01-06] MEDS: Montelukast Sodium TAB* 5 MG PO SCH (08:44)
[2018-01-06] MEDS: PARoxetine HCL TAB* 40 MG PO SCH (08:45)
[2018-01-06] MEDS: Hydroxychloroquine TAB* 200 MG PO SCH ×2 (08:45→20:09)
[2018-01-06] MEDS: Polyethylene Glycol 3350* 17 GM PACKET PO SCH (08:47)
[2018-01-06] MEDS ORDERED: PANTOPRAZOLE SODIUM 20 MG PO SCH (09:00)
[2018-01-06] MEDS: PTO:Azelastine 0.15% NASAL(NF) 30 ML BTL BOTH NARES SCH ×2 (09:10→23:06)
--- NOTE | 2018-01-06 09:17 | PN ---
Subjective Date of Service: 01/06/18 Interval History: Patient seen and examined at bedside. Denies fever or diarrhea. Reports chills, shortness of breath, chest discomfort (intermittent, that she describes as "cramps", nausea and vomiting. She reports that she has had bilateral neck swelling for about a week and a half. She also reports difficulty swallowing, but is able to swallow water. Family History: Unchanged from Admission Social History: Unchanged from Admission Past Medical History: Unchanged from Admission Objective Active Medications: Acetaminophen (Tylenol Tab*) 650 mg PO Q6H PRN Reason: FEVER/PAIN Alprazolam (Xanax Tab*) 0.5 mg PO Q6H PRN Reason: ANXIETY Azelastine HCl (Astepro 0.15% Nasal (Nf)) 1 spray BOTH NARES BID TEDDY Carisoprodol (Soma Tab*) 350 mg PO DAILY PRN Reason: SPASMS - MUSCLE Docusate Sodium (Colace Cap*) 200 mg PO BID TEDDY Famotidine (Pepcid Tab*) 20 mg PO BEDTIME TEDDY; Protocol Heparin Sodium (Porcine) (Heparin Vial(*)) 5,000 units SUBCUT Q8HR TEDDY Hydromorphone HCl (Dilaudid Inj*) 0.5 mg IV Q2H PRN Reason: PAIN Hydroxychloroquine Sulfate (Plaquenil Tab*) 200 mg PO BID TEDDY Sodium Chloride (Ns 0.9% 1000 Ml*) 1,000 mls @ 50 mls/hr IV PER RATE TEDDY Meclizine HCl (Antivert Tab*) 25 mg PO Q6H PRN Reason: DIZZINESS Melatonin (Melatonin) 3 mg PO BEDTIME PRN; Protocol Reason: Sleep Metoclopramide HCl (Reglan Tab*) 10 mg PO Q8H TEDDY Montelukast Sodium (Singulair Tab*) 10 mg PO DAILY TEDDY Omeprazole (Prilosec Cap*) 20 mg PO DAILY@0600 TEDDY Ondansetron HCl (Zofran Odt Tab*) 4 mg PO Q6H PRN Reason: n/v Oxycodone HCl (Roxycodone Tab*) 5 mg PO Q6H PRN Reason: PAIN Paroxetine HCl (Paxil Tab*) 40 mg PO DAILY TEDDY Polyethylene Glycol/Electrolytes (Miralax*) 17 gm PO DAILY TEDDY Tramadol HCl (Ultram*) 50 mg PO Q6HR PRN Reason: PAIN Zolpidem Tartrate (Ambien Tab*) 10 mg PO BEDTIME TEDDY Vital Signs - 8 hr 01/06/18 01/06/18 01/06/18 02:50 02:52 02:54 Temperature Pulse Rate Respiratory 22 22 Rate Blood Pressure (mmHg) O2 Sat by Pulse 97 Oximetry 01/06/18 01/06/18 01/06/18 02:55 03:41 03:59 Temperature 98.9 F Pulse Rate 110 Respiratory 22 16 20 Rate Blood Pressure 131/74 (mmHg) O2 Sat by Pulse 90 Oximetry 01/06/18 01/06/18 01/06/18 05:40 05:56 08:05 Temperature Pulse Rate Respiratory 20 20 24 Rate Blood Pressure (mmHg) O2 Sat by Pulse Oximetry Oxygen Devices in Use Now: None Appearance: NAD, sitting up in bed Ears/Nose/Mouth/Throat: Mucous Membranes Moist Neck: - - Bilateral neck and SVC swelling Respiratory: Symmetrical Chest Expansion and Respiratory Effort, Clear to Auscultation Cardiovascular: NL Sounds; No Murmurs; No JVD, RRR Abdominal: NL Sounds; No Tenderness; No Distention Extremities: No Edema Skin: No Rash or Ulcers Neurological: Alert and Oriented x 3, NL Muscle Strength and Tone Lines/Tubes/Other Access: Clean, Dry and Intact Peripheral IV - site benign Nutrition: Taking PO's Result Diagrams: 01/05/18 19:28 01/05/18 19:28 Assess/Plan/Problems-Billing Assessment: Ms. Osborne is a 52 yo female with PMH significant for RA, anemai, HLD, HTN, GERD , BPV, depression, anxiety and fibromyalgia who presented to the emergency room with complaints of shortness of breath and was found to have bilateral hilar masses and SVC syndrome. - Patient Problems (1) Hilar mass Code(s): R91.8 - OTHER NONSPECIFIC ABNORMAL FINDING OF LUNG FIELD SNOMED Code( s): 220192832 Comment: - Bilateral hilar masses with L>R supraclavicular masses and associated extrinsic SVC syndrome - Oncology consult, input appreciated - Biopsy pending for later today - Continue supportive care and pain management (2) Rheumatoid arthritis Code(s): M06.9 - RHEUMATOID ARTHRITIS, UNSPECIFIED SNOMED Code(s): 30830803 Comment: - Continue hydroxychloroquine (3) HTN (hypertension) Code(s): I10 - ESSENTIAL (PRIMARY) HYPERTENSION SNOMED Code(s): 32876059 Comment: - SBP 110-140's - Continue to monitor (4) HLD (hyperlipidemia) Code(s): E78.5 - HYPERLIPIDEMIA, UNSPECIFIED SNOMED Code(s): 94591390 Comment: - Resume heart healthy diet when taking PO (5) GERD (gastroesophageal reflux disease) Code(s): K21.9 - GASTRO-ESOPHAGEAL REFLUX DISEASE WITHOUT ESOPHAGITIS SNOMED Code(s): 381969971 Comment: - Continue ranitidine, pantoprazole, and metoclopramide (6) BPV (benign positional vertigo) Code(s): H81.10 - BENIGN PAROXYSMAL VERTIGO, UNSPECIFIED EAR SNOMED Code(s): 770646846 Comment: - Continue meclizine PRN (7) Depression Code(s): F32.9 - MAJOR DEPRESSIVE DISORDER, SINGLE EPISODE, UNSPECIFIED SNOMED Code(s): 35300966 Comment: - with anxiety - Continue paroxetine and alprazolam PRN (8) Fibromyalgia Code(s): M79.7 - FIBROMYALGIA SNOMED Code(s): 959990384 Comment: - Continue hydrocodone, tramadol and carisoprodol (9) Allergic rhinitis Code(s): J30.9 - ALLERGIC RHINITIS, UNSPECIFIED SNOMED Code(s): 60262004 Comment: - Continue azelastine nasal (10) DVT prophylaxis Code(s): HEQ6042 - SNOMED Code(s): 863686676 Comment: - SCDs and SQ heparin (11) Full code status Code(s): Z78.9 - OTHER SPECIFIED HEALTH STATUS SNOMED Code(s): 998961091 Status and Disposition: Inpatient. Discharge to home when medically stable.
[2018-01-06] MEDS: Ondansetron ODT TAB* 4 MG PO PRN ×2 (09:40→20:19)
[2018-01-06] MEDS ORDERED: Ondansetron INJ* 2 MG/ML VIAL IV PRN ×2 (09:49→13:07)
[2018-01-06] MEDS ORDERED: HYDROcodone/ACETAM 10-325 MG(NF) 1 TAB PO PRN (10:02)
[2018-01-06] MEDS ORDERED: HYDROmorphone INJ* 0.5 MG/0.5 ML SYRINGE ONE (12:59)
[2018-01-06] MEDS ORDERED: oxyCODONE/Acetamin 5/325 MG* TAB PO PRN (13:07)
[2018-01-06] MEDS ORDERED: Naloxone* 0.4 MG/ML 1 ML VIAL IV PRN (13:07)
[2018-01-06] MEDS ORDERED: Lidocaine 1% INJ* 10 MG/ML 30 ML SDV ONE (13:19)
[2018-01-06] MEDS ORDERED: fentaNYL* 50 MCG/ML 2 ML VIAL (100 MCG VIAL) ONE ×5 (13:33→17:12)
[2018-01-06] MEDS ORDERED: Midazolam* 1 MG/ML 5 ML VIAL (5 MG) ONE (13:34)
[2018-01-06] MEDS ORDERED: ROPIVACAINE 5 MG/ML 30 ML BTL (0.5%) ONE (13:44)
[2018-01-06] MEDS ORDERED: Saline NASAL SPRAY 0.65%* BTL BOTH NARES PRN (13:45)
[2018-01-06] MEDS ORDERED: KETAMINE HCL* 50 MG/ML 10 ML VIAL ONE (14:02)
[2018-01-06] MEDS ORDERED: Midazolam* 1 MG/ML 2 ML VIAL (2 MG) ONE ×4 (14:04→15:18)
[2018-01-06] MEDS ORDERED: Lidocaine 2% PF * 5 ML VIAL ONE (15:47)
[2018-01-06] MEDS ORDERED: Propofol* 10 MG/ML 20 ML BTL IV PUSH ONE (15:47)
[2018-01-06] MEDS: fentaNYL* 50 MCG/ML 2 ML VIAL (100 MCG VIAL) IV PRN ×3 (16:56→17:16)
[2018-01-06] MEDS: Hydrocodone/Acetamin 10/325 1 TAB PO PRN ×2 (17:42→20:41)
[2018-01-06] MEDS: Famotidine TAB* 20 MG PO SCH (20:08)
[2018-01-06] MEDS: Metoprolol Succinate XL TAB* 50 MG PO SCH (20:09)
[2018-01-06] MEDS: NS 0.9% 1000 ML* 1,000 ML IV SCH (20:23)
[2018-01-06] MEDS ORDERED: Albuterol/Ipratropium NEB.SOL* Albuterol 2.5 MG/Ipratropium 0.5 MG 3 ML INH PRN (21:10)
--- NOTE | 2018-01-06 22:11 | CONS ---
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 HISTORY OF PRESENT ILLNESS: Little Osborne is a 52-year-old female with a longstanding history of rheumatoid arthritis and hypertension. She reports that she has noticed over the past month that there has been some increased difficulty with breathing and swelling in her neck on both sides, mostly on the left.She did receive a course of prednisone from Dr Aaron as she was transitioning to [facility] and her symptoms improved and then worsened within days of stopping the prednisone. This is markedly worsened over the past 2 weeks and even since admission yesterday reports that she is having more difficulty swallowing along with more difficulty with her breathing. She reports that because of lack of nutrition from this difficulty swallowing and from her decreased energy level, she has lost approximately 15 pounds over the past several weeks. Associated with this, she has also had drenching night sweats to the point of feeling totally soaked from her neck to her feet when waking up in the morning. She denies any associated fevers. She has had some cough, but this is nonproductive. She denies any palpitations. Only chest discomfort is that in the upper chest on the left associated with swelling. She denies any significant headaches, tingling, numbness, weakness, visual changes. PAST MEDICAL HISTORY: 1. Rheumatoid arthritis for many years, had been on Plaquenil for many year and about 6 months ago due to lack of control of symptoms was changed to methotrexate 5 pills weekly and then approximately 2 weeks ago was started on Enbrel injections once a week. 2. Hypertension. 3. GERD. 4. Depression. 5. Anxiety. 6. Benign positional vertigo. 7. Hyperlipidemia. PAST SURGICAL HISTORY: She is status post left salpingo-oophorectomy secondary to torsion, status post right carpal tunnel release, has had bilateral lower extremity fractures and repairs. MEDICATIONS: At the time of admission include: 1. Soma 350 mg up to b.i.d. p.r.n. 2. Hydrocodone 10 to 20 mg q.6 hours p.r.n. 3. Reglan 10 mg q.8 hours p.r.n. 4. Singulair 10 mg daily. 5. Astepro 0.15% nasal spray b.i.d. 6. Meclizine 25 mg q.6 hours p.r.n. 7. Paxil 40 mg daily. 8. Pantoprazole 20 mg daily. 9. MiraLax 17 g daily. 10. Ranitidine 150 mg at h.s. ALLERGIES: To ASPIRIN. FAMILY HISTORY: Mother at age 64 with a brain tumor. Father at age 76. No other family history of malignancies. SOCIAL HISTORY: The patient lives with her and her 17-year-old son. 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 No alcohol. Does not smoke cigarettes. Does smoke hookah on a regular basis. REVIEW OF SYSTEMS: Energy level has been diminished recently. No significant change in bowel or bladder habits. Does have some heartburn without marked change recently and somewhat controlled on medications. Respiratory and cardiac as discussed above. Rheumatoid arthritis is not under the best of control. She needs to take narcotics on a regular basis. Emotionally, she is extremely anxious and worried about the situation. She has underlying depression. Review of systems is otherwise negative, except as discussed above. PHYSICAL EXAM: A 52-year-old female who appears to be in moderate distress on lying down, although seems to be reasonably comfortable on sitting. Respiratory rate of 16 to 20, temperature T-max at 98.9. Blood pressure 141/ 78. Pulse 102. HEENT: PERRL, EOMI. No erythema or exudates. There is fullness in the neck bilaterally, especially on the left. She is extremely tender to touch in the left neck in supraclavicular region, although one can palpate adenopathy there, although one cannot feel for long due to her sensitivity. No axillary adenopathy is noted. Heart: Regular rate and rhythm without murmurs, rubs, or gallops. Lungs: Clear. No wheezes, no rhonchi. Abdomen: Soft, nontender without masses or organomegaly. Extremities: No edema. Neurologic Exam: Cranial nerves III to XII are intact. Motor is 5/5 throughout. The patient is alert and oriented x3. DIAGNOSTIC STUDIES/LAB DATA: White count 10,600; H and H 36/12.1; platelet count 532,000 with an essentially normal differential. Chemistry studies: Sodium 137, potassium 3.9, chloride 104, bicarb 24, BUN 12, creatinine 0.66, glucose 102. LFTs without significant abnormalities. AST is 40 and ALT is 56. Alk phos mildly elevated at 170. Bilirubin normal at 0.2. Albumin is slightly diminished at 3. CRP is markedly elevated at 225. CT scan reveals massive adenopathy in the mediastinum. This measured up to 15 cm in transverse diameter. This adenopathy is encasing the bilateral kaila with narrowing on the central airways, pulmonary arteries, and pulmonary vein, extends throughout anterior middle and superior mediastinum. In addition, there was occlusion of the innominate vein and high-grade stenosis of the SVC. There was also modest adenopathy seen in the neck in the supraclavicular region on the CT scan of the neck. Largest lymph node seemed separately as 2.5 cm subcarinal lymph node. Lungs with several small nodules, but none over 5 to 6 mm. 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 This patient will need an expedited workup and biopsy. Situation has been discussed not only with hospitalists team, but also Dr. Sierra of Surgery, but also with Dr. Toribio of Radiation Therapy. Arrangements are made for the patient to have a lymph node biopsy performed today in the operating room. If the patient were to worsen significantly, radiation therapy could be started at any point after the biopsy is obtained. Clearly one should not give steroids until after the biopsy. One could also use steroids on empiric basis once adequate tissue has been obtained. It is unclear whether this represents a lymphoid malignancy such as either Hodgkin's or non-Hodgkin's lymphoma or whether this might represent primary carcinoma. If this is either lymphoma or small cell; one would expect fairly rapid response to chemotherapy. In spite of this, I believe it is most likely that the patient will have a short course of radiation and potentially steroids while awaiting pathology from the biopsy. The patient will continue to be followed in the hospital. Further workup with CT of the abdomen and pelvis along with other labs will also be needed Thank you for this consult. [id number]/[facility] #: [id number] [facility] MEDICAL CENTERScotty
[2018-01-06] MEDS: Heparin VIAL(*) 5000 UNITS/ML VIAL (FIVE THOUSAND) SUBCUT SCH (23:24)
--- NOTE | 2018-01-07 02:00 | OP ---
CC: Duglas Rosario MD; Jim Lomax MD; Claudio Aaron MD * DATE OF OPERATION: 01/06/18 - ROOM #411 DATE OF : 65 SURGEON: Iglesia Thomas MD CUTTING [employer]ING PRESS OPERATOR: Светлана Herrera MD and MOSES Rojas ANESTHESIOLOGIST: Rosalee Lam MD ANESTHESIA: Regional and local neck. PRE-OP DIAGNOSIS: Mediastinal mass and left neck mass. POST-OP DIAGNOSIS: Mediastinal mass and left neck mass. OPERATIVE PROCEDURE: Open biopsy of left neck mass. ESTIMATED BLOOD LOSS: 30 mL. IV FLUIDS: Crystalloid. SPECIMEN: Left neck mass. DRAINS: None. COMPLICATIONS: None. COUNTS: The instrument, needle, sponge counts were correct. DESCRIPTION OF PROCEDURE: The patient was brought to the operative room, was placed on the table supine. Sequential compression devices were placed in both lower extremities. Intravenous sedation was administered. Left neck superficial cervical block was performed by Dr. Lam. The patient was positioned semi benitez with the neck turned to the right. She was prepped and draped in the usual sterile fashion and a time-out was performed. Local anesthetic was infiltrated into the area of the proposed incision. A collar type incision was made toward the left side just superior to the left clavicular head where the mass had been identified on imaging. The subcutaneous tissues were divided with cautery and platysma was divided with cautery. The sternal and clavicular heads of the sternocleidal mastoid muscle were identified and between the two was a firm mass of what appeared as large lymphatic tissue. A portion of this was sharply incised and submitted to pathology fresh for touch, prep and frozen section. Pathologist requested additional tissue and therefore a larger specimen was taken approximately 1 cubic centimeter of tissue was excised sharply and then there was venous bleeding that was rather brisk and ultimately had to be controlled by oversewing it with 6-0 Prolene suture. Direct pressure was also applied with Surgicel. After assuring hemostasis, site was closed with 3-0 Vicryl to approximate the platysma and 4-0 Vicryl to close the skin in running subcuticular fascia. Steri-Strips were applied. The patient tolerated the procedure well and was transferred to Recovery stable. [id number]/[facility] #: [id number] [facility]
[2018-01-07] MEDS: HYDROmorphone INJ* 0.5 MG/0.5 ML SYRINGE IV PRN ×6 (03:09→22:22)
[2018-01-07] MEDS: Hydrocodone/Acetamin 10/325 1 TAB PO PRN ×3 (03:11→18:32)
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
[2018-01-07] MEDS: Heparin VIAL(*) 5000 UNITS/ML VIAL (FIVE THOUSAND) SUBCUT SCH ×3 (05:36→22:16)
[2018-01-07] MEDS: Omeprazole CAP* 20 MG PO SCH (05:38)
[2018-01-07 07:03] LABS: ABS Basophils 0 10^3/ul (0-0.2); ABS Eosinophils 0 10^3/ul (0-0.6); ABS Lymphocytes 0.8 10^3/ul (1.0-4.8); ABS Monocytes 1.1 10^3/ul (0-0.8); ABS Neutrophils 6.8 10^3/ul (1.5-7.7); ABS Nucleated RBC 0 10^3/ul; Eosinophil % 0.5 % (0-6); Hematocrit 36 % (35-47); Lymphocyte % 8.8 % (25-47); Mean Corpuscular HGB Conc 34 g/dl (31-36); Mean Corpuscular Hemoglobin 32 pg (27-31); Mean Corpuscular Volume 96 fL (80-97); Mean Platelet Volume 7.3 um3 (7.4-10.4); Nucleated Red Blood Cells % 0.1; Platelet Count 469 10^3/ul (150-450); Red Blood Count 3.72 10^6/ul (4.00-5.40); Red Cell Distribution Width 16 % (10.5-15); White Blood Count 8.8 10^3/ul (3.5-10.8)
[2018-01-07 07:27] LABS: EGFR Non-African American 95.7 (>60)
[2018-01-07] MEDS: Metoprolol Succinate XL TAB* 50 MG PO SCH ×2 (08:33→19:44)
[2018-01-07] MEDS: PARoxetine HCL TAB* 40 MG PO SCH (08:34)
[2018-01-07] MEDS: Metoclopramide TAB* 10 MG PO SCH ×3 (08:34→22:30)
[2018-01-07] MEDS: Docusate CAP* 100 MG PO SCH ×2 (08:35→19:45)
[2018-01-07] MEDS: Montelukast Sodium TAB* 5 MG PO SCH (08:35)
[2018-01-07] MEDS: Hydroxychloroquine TAB* 200 MG PO SCH ×2 (08:35→19:47)
[2018-01-07] MEDS: PTO:Azelastine 0.15% NASAL(NF) 30 ML BTL BOTH NARES SCH ×2 (08:44→21:22)
[2018-01-07] MEDS: Polyethylene Glycol 3350* 17 GM PACKET PO SCH (08:44)
[2018-01-07] MEDS ORDERED: methylPREDNISolone 125 MG* 2 ML VIAL IV ONE (10:49)
[2018-01-07] MEDS: Allopurinol TAB* 300 MG PO SCH (11:18)
[2018-01-07] MEDS ORDERED: Iohexol 300* (CONTRAST) 10 ML SDV IV ONE (12:11)
--- NOTE | 2018-01-07 13:59 | ECHO ---
Patient: CORINNE STERLING I [facility] Rec#: [id number] : 1965 Date: 01/07/2018 Age: 52y Height: 160 cm / 63.0 in Weight: 80 kg / 176.3 lbs Sex: F BSA: 1.83 Room#: [facility] Admit Date#: 01/05/2018 Type: Inpatient Referring: Jim Lomax MD Reading: Bronwyn Palm MD Printing Press Operator: Sarah BarraganRDCS,RDMS Transthoracic Echocardiogram Indication: SOB BP: 137/76 HR: 86 Rhythm: NSR Findings History: Lung/mediastinal mass, SVC syndrome. HTN, HLD, GERD Technical Comments: The study quality is fair. Patient unable to lay flat. Left Ventricle: The left ventricular chamber size is normal.lower limits of normal. Global left ventricular wall motion and contractility are within normal limits.Normal to hyperdynamic systolic function. The estimated ejection fraction is 60-65%. The assessment of diastolic function is non-diagnostic. Left Atrium: The left atrium is moderately dilated. Right Ventricle: The right ventricle is mildly dilated. The right ventricular global systolic function is mildly reduced.[place] relatively hypokinetic. Right Atrium: The right atrial cavity size is normal. Aortic Valve: The aortic valve is trileaflet. Systolic excursion of the aortic valve is normal. There is no evidence of aortic regurgitation. There is no evidence of aortic stenosis. Mitral Valve: The mitral valve leaflets appear normal. There is no evidence of mitral regurgitation. There is no evidence of mitral stenosis. Tricuspid Valve: The tricuspid valve leaflets are normal. There is trace tricuspid regurgitation. Unable to estimate the right ventricular systolic pressure. Pulmonic Valve: The pulmonic valve appears normal. There is no evidence of pulmonic regurgitation. Pericardium: There is a small pericardial effusion. Aorta: The aortic root appears normal. The aortic arch is not well visualized. Pulmonary Artery: The main pulmonary artery appears normal. Venous: The inferior vena cava appears normal in size. There is a greater than 50% respiratory change in the inferior vena cava dimension. Conclusions The left ventricular chamber size is lower limits of normal. Global left ventricular wall motion and contractility are within normal limits.Normal to hyperdynamic systolic function. The estimated ejection fraction is 60-65%. The right ventricle is mildly dilated. The right ventricular global systolic function is mildly reduced, the apex relatively hypokinetic/dysynchronous. There is trace tricuspid regurgitation. Unable to estimate the right ventricular systolic pressure. There is a small concentric pericardial effusion, no consistant data to suggest tampanade/contrictive physiology identified on 2 d, M mode and PW Dopper w/respiratory measures. Image aquisition limited by inability to lay flat. No prior study to compare. Measurements Name Value Normal Range RVIDd (AP) 2D 3.4 cm (0.9 - 2.6) RVDdMajor (2D) 4 cm (2.2 - 4.4) RAd ISD 4CH 4.4 cm (3.4 - 4.9) RA (A4C)W 4.6 cm (2.9 - 4.6) IVSd (2D) 1.1 cm (0.6 - 1) LVPWd (2D) 1 cm (0.6 - 1) LVIDd (2D) 3.6 cm (3.6 - 5.4) LVIDs (2D) 2.3 cm - LV FS (2D) 37 % (25 - 45) Aortic Annulus 2 cm (1.4 - 2.6) Ao root diameter (2D) 2.6 cm (2.1 - 3.5) Ascending Ao 2.8 cm (2.1 - 3.4) LA dimension (AP) 2D 3.6 cm (2.3 - 3.8) LAd ISD 4CH 4.9 cm (2.9 - 5.3) LA ISD 4CH W 4 cm (2.5 - 4.5) Name Value Normal Range LA ESV BP (A/L) index 28 ml/m2 - Name Value Normal Range MV E-wave Vmax 0.7 m/sec - MV deceleration time 164 msec - MV A-wave Vmax 0.5 m/sec - MV E:A ratio 1.2 ratio - LV septal e' Vmax 0.1 m/sec - LV lateral e' Vmax 0.09 m/sec - LV E:e' septal ratio 7 ratio - LV E:e' lateral ratio 8 ratio - Name Value Normal Range AV Vmax 1.5 m/sec - AV VTI 29 cm - AV peak gradient 9 mmHg - AV mean gradient 5 mmHg - LVOT Vmax 1 m/sec - LVOT VTI 16 cm - LVOT peak gradient 4 mmHg - LVOT mean gradient 2 mmHg - Name Value Normal Range RAP 8 mmHg - IVC diameter 1.7 cm - Name Value Normal Range PV Vmax 0.7 m/sec - PV peak gradient 2 mmHg -
--- NOTE | 2018-01-07 14:15 | RAD ---
CLINICAL HISTORY: staging for lymphoma COMPARISON: December 24, 2006 CT of the chest dated January 05, 2018 TECHNIQUE: Multiple contiguous axial CT scans were obtained of the abdomen and pelvis after the administration of intravenous contrast. Coronal and sagittal multiplanar reformations are submitted for review. Oral contrast was administered. Delayed images were obtained through the abdomen. FINDINGS: LUNG BASES: There are large bilateral pleural effusions with compressive atelectasis of the lower lobes bilaterally. Again noted is mediastinal soft tissue corresponding to the findings noted on previous CT of the chest. LIVER: There are ill-defined low-attenuation lesions of the liver seen on axial image 22, measuring 1.4 cm in size, and 33, measuring 1.9 cm in size. The liver measures 19 cm in long axis. These are located in segments 4A and 4B respectively. BILE DUCTS: There is no intrahepatic or extrahepatic biliary dilatation. GALLBLADDER: The gallbladder is normal, without pericholecystic inflammatory change. PANCREAS: The pancreas is normal, without mass or ductal dilatation. SPLEEN: Normal in size and appearance. UPPER GI TRACT: Evaluation of the gastrointestinal tract is limited by incomplete gastric distention. The upper GI tract is unremarkable. SMALL BOWEL AND MESENTERY: The small bowel is normal in contour, course, and caliber. There is no obstruction or dilatation. COLON: The colon is normal in contour, course, caliber. There is no pericolonic inflammatory change. ADRENALS: Normal bilaterally. KIDNEYS: The kidneys are normal in shape, size, contour, and axis. There is no hydronephrosis or nephrolithiasis. BLADDER: The bladder is smooth in contour. PELVIC ORGANS: The uterus and adnexa are grossly normal for technique. AORTA: The aorta is normal. IVC: Unremarkable LYMPH NODES: There is no lymphadenopathy by size criteria. ABDOMINAL WALL: There is no evidence for abdominal wall hernia. BONES AND SOFT TISSUES: Mild degenerative changes are noted. There is chronic post traumatic deformity of the left inferior pubic ramus. OTHER: None IMPRESSION: 1. HEPATOMEGALY. 2. THERE ARE 2 LOW-ATTENUATION LESIONS OF THE LIVER, IN SEGMENTS 4A AND 4B. THEREFORE A LESION IS SUSPICIOUS FOR METASTATIC DISEASE GIVEN THE HISTORY OF NEOPLASM. THE IVB LESION MAY REPRESENT FOCAL FAT, THOUGH METASTATIC DISEASE IS ALSO WITHIN THE DIFFERENTIAL. 3. AGAIN NOTED ARE BILATERAL PLEURAL EFFUSIONS WITH ABNORMAL MEDIASTINAL SOFT TISSUE NOTED ON THE PREVIOUS CT OF THE CHEST.
--- NOTE | 2018-01-07 14:56 | PN ---
Subjective Date of Service: 01/07/18 Interval History: Pt stated that her swallowing is "much better" after the Solu Medrol infusion. Yestarday she had no problems eating a sandwich Family History: Unchanged from Admission Social History: Unchanged from Admission Past Medical History: Unchanged from Admission Objective Active Medications: Acetaminophen (Tylenol Tab*) 650 mg PO Q6H PRN PRN Reason: FEVER/PAIN Hydrocodone Bitart/Acetaminophen ([place] 10/325 (Nf)) 2 tab PO Q6H PRN PRN Reason: PAIN Last Admin: 01/07/18 09:11 Dose: 2 tab Albuterol/Ipratropium (Duoneb (Albuterol 2.5 Mg/Ipratropium 0.5 Mg)) 1 neb INH Q4H PRN PRN Reason: SOB/WHEEZING Allopurinol (Zyloprim Tab*) 300 mg PO DAILY TEDDY Last Admin: 01/07/18 11:18 Dose: 300 mg Alprazolam (Xanax Tab*) 0.5 mg PO Q6H PRN PRN Reason: ANXIETY Last Admin: 01/06/18 18:11 Dose: 0.5 mg Azelastine HCl (Astepro 0.15% Nasal (Nf)) 1 spray BOTH NARES BID [facility] Last Admin: 01/07/18 08:44 Dose: Not Given Carisoprodol (Soma Tab*) 350 mg PO DAILY PRN PRN Reason: SPASMS - MUSCLE Last Admin: 01/06/18 02:52 Dose: 350 mg Docusate Sodium (Colace Cap*) 200 mg PO BID [facility] Last Admin: 01/07/18 08:35 Dose: 200 mg Famotidine (Pepcid Tab*) 20 mg PO BEDTIME [facility]; Protocol Last Admin: 01/06/18 20:08 Dose: 20 mg Heparin Sodium (Porcine) (Heparin Vial(*)) 5,000 units SUBCUT Q8HR [facility] Last Admin: 01/07/18 05:36 Dose: 5,000 units Hydromorphone HCl (Dilaudid Inj*) 0.5 mg IV Q2H PRN PRN Reason: PAIN Last Admin: 01/07/18 12:22 Dose: 0.5 mg Hydroxychloroquine Sulfate (Plaquenil Tab*) 200 mg PO BID [facility] Last Admin: 01/07/18 08:35 Dose: 200 mg Meclizine HCl (Antivert Tab*) 25 mg PO Q6H PRN PRN Reason: DIZZINESS Last Admin: 01/06/18 20:20 Dose: 25 mg Melatonin (Melatonin) 3 mg PO BEDTIME PRN; Protocol PRN Reason: Sleep Metoclopramide HCl (Reglan Tab*) 10 mg PO Q8H [facility] Last Admin: 01/07/18 08:34 Dose: 10 mg Metoprolol Succinate (Toprol Xl Tab*) 50 mg PO BID [facility] Last Admin: 01/07/18 08:33 Dose: 50 mg Montelukast Sodium (Singulair Tab*) 10 mg PO DAILY [facility] Last Admin: 01/07/18 08:35 Dose: 10 mg Omeprazole (Prilosec Cap*) 20 mg PO DAILY@0600 [facility] Last Admin: 01/07/18 05:38 Dose: 20 mg Ondansetron HCl (Zofran Odt Tab*) 4 mg PO Q6H PRN PRN Reason: n/v Last Admin: 01/06/18 20:19 Dose: 4 mg Ondansetron HCl (Zofran Inj*) 4 mg IV Q6H PRN PRN Reason: NAUSEA Paroxetine HCl (Paxil Tab*) 40 mg PO DAILY [facility] Last Admin: 01/07/18 08:34 Dose: 40 mg Polyethylene Glycol/Electrolytes (Miralax*) 17 gm PO DAILY [facility] Last Admin: 01/07/18 08:44 Dose: Not Given Sodium Chloride (Sodium Chloride 0.65% Nasal [place]*) 1 spray BOTH NARES Q4H PRN PRN Reason: CONGESTION Tramadol HCl (Ultram*) 50 mg PO Q6HR PRN PRN Reason: PAIN Last Admin: 01/06/18 08:05 Dose: 50 mg Zolpidem Tartrate (Ambien Tab*) 10 mg PO BEDTIME [facility] Last Admin: 01/06/18 20:09 Dose: 10 mg Vital Signs - 8 hr 01/07/18 01/07/18 01/07/18 07:21 08:00 08:40 Temperature 97.9 F Pulse Rate 98 Respiratory 18 20 20 Rate Blood Pressure 140/88 (mmHg) O2 Sat by Pulse 95 95 Oximetry 01/07/18 01/07/18 01/07/18 09:11 09:40 11:10 Temperature Pulse Rate Respiratory 20 18 20 Rate Blood Pressure (mmHg) O2 Sat by Pulse Oximetry 01/07/18 12:22 Temperature Pulse Rate Respiratory 20 Rate Blood Pressure (mmHg) O2 Sat by Pulse Oximetry Oxygen Devices in Use Now: Nasal Cannula Appearance: 52 yo F in nAD, aAOx3 Eyes: No Scleral Icterus, PERRLA Ears/Nose/Mouth/Throat: NL Teeth, Lips, Gums, Mucous Membranes Moist Neck: NL Appearance and Movements; NL JVP, Trachea Midline, - - lymphadenopathy in b/l supraclavicular and anterior cervical region. Marked edema of base of the neck Respiratory: Symmetrical Chest Expansion and Respiratory Effort, - - decreased breath sounds at b/l bases Cardiovascular: NL Sounds; No Murmurs; No JVD Abdominal: NL Sounds; No Tenderness; No Distention, No Hepatosplenomegaly Lymphatic: No Cervical Adenopathy Extremities: No Clubbing, Cyanosis Skin: No Nodules or Sclerosis, - - left base of neck with steri strips in place , no dehiscence or wound drainage noted Neurological: Alert and Oriented x 3, NL Muscle Strength and Tone Result Diagrams: 01/07/18 06:28 01/07/18 06:28 Microbiology and Other Data: Microbiology 01/05/18 19:58 Aerobic Blood Culture - Preliminary Blood Venous No Growth Day 1 Anaerobic Blood Culture - Preliminary No Growth Day 1 01/05/18 19:28 Aerobic Blood Culture - Preliminary Blood Venous No Growth Day 1 Anaerobic Blood Culture - Preliminary No Growth Day 1 Assess/Plan/Problems-Billing Assessment: Ms. Osborne is a 52 yo female with PMH significant for RA, anemai, HLD, HTN, GERD , BPV, depression, anxiety and fibromyalgia who presented to the emergency room with complaints of shortness of breath and was found to have bilateral hilar masses and SVC syndrome. - Patient Problems (1) Hilar mass Comment: - Bilateral hilar masses with L>R supraclavicular masses and associated extrinsic SVC syndrome - Oncology consult appreciated - Biopsy done on 01/06/18, prelim dx: Hodgkin lymphoma. Solu Medrol started - CT abd pelvis shows two liver lesions-one of them likely metastatic (2) Depression Comment: - with anxiety - Continue paroxetine and alprazolam PRN (3) Fibromyalgia Comment: - Continue hydrocodone, tramadol and carisoprodol (4) HTN (hypertension) Comment: - SBP 110-140's - Continue lopressor (5) Rheumatoid arthritis Comment: - Continue hydroxychloroquine (6) DVT prophylaxis Comment: - SCDs and SQ heparin Status and Disposition: Inpatient.
[2018-01-07] MEDS: ALPRAZolam TAB* 0.5 MG PO PRN (18:31)
[2018-01-07] MEDS: Famotidine TAB* 20 MG PO SCH (19:45)
[2018-01-07] MEDS: Zolpidem TAB* 10 MG PO SCH (19:45)
--- NOTE | 2018-01-07 21:01 | RADMED ---
RADIATION ONCOLOGY INPATIENT CONSULTATION NOTE: DATE OF CONSULT: 01/07/18 - ROOM #[id number] REFERRING PHYSICIAN: Dr. Lomax. DIAGNOSIS: Mediastinal mass, superior vena cava syndrome. PERFORMANCE STATUS: ECOG 3. HISTORY OF PRESENT ILLNESS: Little Osborne is a 52-year-old woman with history of rheumatoid arthritis. Over the past 2 weeks, she has developed increasing discomfort in the chest and left neck with swelling and shortness of breath. This was brought to medical attention and her evaluation includes CT scan of the neck and chest performed 01/05/18, which identifies extensive bilateral mediastinal mass with adenopathy extending into the supraclavicular area with narrowing of the superior vena cava and bilateral pleural effusions. Yesterday , she underwent open biopsy of a left lower neck lymph node, pathology pending. She has had drenching night sweats, and 15-pound weight loss in the past 2 weeks, fatigue, weakness, some dysphagia and significant shortness of breath. She is referred for consideration of emergent palliative radiation therapy. PAST MEDICAL HISTORY: Mediastinal mass, as in the history of present illness. History of rheumatoid arthritis, hypertension, hyperlipidemia, fibromyalgia, and reflux. MEDICATIONS: As per the inpatient record include: 1. Tylenol. 2. Hydrocodone. 3. Albuterol. 4. Allopurinol. 5. Xanax. 6. Astepro. 7. Soma. 8. Colace. 9. Pepcid. 10. Dilaudid. 11. Plaquenil. 12. Antivert. 13. Melatonin. 14. Reglan. 15. Toprol. 16. Singulair. 17. Prilosec. 18. Zofran. 19. Paxil. 20. Ultram. 21. Ambien. ALLERGIES: ASPIRIN. FAMILY HISTORY: Significant for her mother who had brain tumor. SOCIAL HISTORY: She does not smoke cigarettes, but does use hookah regularly. PHYSICAL EXAM: Vital Signs: Temperature 97.9, pulse rate 98, respiratory rate 18, oxygen saturation 95% on nasal cannula 4 L, blood pressure 140/88. General : She is awake, alert, oriented, in no acute distress. Normocephalic, atraumatic. Neck and facial swelling. Tenderness over the surgical incision in the left neck limiting exam. Lungs with coarse rhonchi and dullness in the lower lung field. Abdomen: Soft, nontender. No mass. No organomegaly. Extremities: No cyanosis or edema. RADIOLOGY: Reviewed, as in the history of present illness. ASSESSMENT AND PLAN: Little Osborne is a 52-year-old woman with newly diagnosed extensive mediastinal mass and adenopathy extending into the neck from presumed malignancy. The appearance and symptomatology are concerning for aggressive lymphoma or perhaps small cell lung cancer, with other underlying etiologies perhaps less likely. I did review her history as well as the radiographic findings, and discussed at some length with the patient, as she is already well informed and familiar. I explained the potential use of palliative radiation therapy for respiratory and vascular compromise related to extensive mediastinal mass. I described the logistics and rationale, risks, benefits, and alternatives as well as the acute and long-term frequency and uncommon toxicities with regard to radiation therapy for her situation. I explained that in almost every circumstance pathological confirmation of malignancy, and is preferred over use of radiation therapy based on radiographic findings, but if her shortness of breath is severe enough, radiation therapy could even be considered without pathological confirmation. I did answer her questions to the best of my ability. I will discuss with Pathology to see when they may have some information from her biopsy, and we will follow up also with Dr. Lomax in terms of her overall management. Thank you for giving me the opportunity to participate in the care of this very pleasant patient. ADDENDUM: On 01/07/18 noon, early preliminary evaluation with limited pathological data indicates suspected lymphoma, perhaps Hodgkin's type. Her breathing has been relatively stable, and after discussion with Dr. Lomax, his plan is for steroid treatment and potentially chemotherapy if a diagnosis can be confirmed in short order. She will be under close observation, and thoracic radiation therapy could be offered from a palliative point of view with little notice, perhaps within 1 day. For now, I will put her plan for radiation therapy on hold. If Hodgkin's lymphoma were confirmed, she would be potentially a candidate for consolidative radiation therapy for bulky mediastinal disease following chemotherapy. [id number]/[facility] #: [id number] [facility]
[2018-01-07] MEDS: Ondansetron ODT TAB* 4 MG PO PRN (22:23)
--- NOTE | 2018-01-07 23:23 | PRO ---
PULMONARY FUNCTION TEST REPORT: DATE OF PROCEDURE: 01/05/18 CLINICAL INFORMATION: 52-year-old female with recently diagnosed Hodgkin's lymphoma. REFERRING MD: Dr. Jim Lomax. COMMENTS: Pulmonary function testing equipment was quality controlled. The patient was able to follow instructions well; however, the test could not meet ATS criteria due to poor effort by the patient. INTERPRETATION: Forced vital capacity is 1.40 L or 42% predicted. FEV1 is 1.05 L or 40% predicted. FEV1/FVC is 94% predicted. Flow volume loop is of poor technical quality. Diffusion capacity is 54% predicted and corrected to 106% predicted when adjusted for alveolar ventilation. IMPRESSION: Technically limited study with suggestion of possible restriction, diffusion capacity appeared to be mildly decreased, however corrected to normal when adjusted for alveolar ventilation. [id number]/[facility] #: [id number] MTDD
[2018-01-08] MEDS ORDERED: HYDROmorphone INJ1* 1 MG/ML SYRINGE ONE (03:02)
[2018-01-08] MEDS: Hydrocodone/Acetamin 10/325 1 TAB PO PRN ×3 (03:20→15:29)
[2018-01-08] MEDS: HYDROmorphone INJ1* 1 MG/ML SYRINGE IV PRN ×5 (03:20→20:29)
[2018-01-08] MEDS: ALPRAZolam TAB* 0.5 MG PO PRN ×3 (03:25→23:07)
[2018-01-08 05:32] LABS: ABS Basophils 0.1 10^3/ul (0-0.2); ABS Eosinophils 0 10^3/ul (0-0.6); ABS Lymphocytes 1.2 10^3/ul (1.0-4.8); ABS Monocytes 1.2 10^3/ul (0-0.8); ABS Neutrophils 8.5 10^3/ul (1.5-7.7); ABS Nucleated RBC 0 10^3/ul; Eosinophil % 0.1 % (0-6); Hematocrit 34 % (35-47); Hemoglobin 11.1 g/dl (12.0-16.0); Lymphocyte % 11.1 % (25-47); Mean Corpuscular HGB Conc 33 g/dl (31-36); Mean Corpuscular Hemoglobin 31 pg (27-31); Mean Corpuscular Volume 96 fL (80-97); Mean Platelet Volume 7.3 um3 (7.4-10.4); Nucleated Red Blood Cells % 0; Platelet Count 594 10^3/ul (150-450); Red Blood Count 3.55 10^6/ul (4.00-5.40); Red Cell Distribution Width 16 % (10.5-15)
[2018-01-08] MEDS: Omeprazole CAP* 20 MG PO SCH (05:57)
[2018-01-08] MEDS: Heparin VIAL(*) 5000 UNITS/ML VIAL (FIVE THOUSAND) SUBCUT SCH ×3 (05:57→21:00)
--- NOTE | 2018-01-08 08:51 | PN ---
Progress Note - Progress Note Date of Service: 01/08/18 SOAP: Subjective: still having neck discomfort and difficulty breathing while lying flat. Objective: Vital Signs Temp Pulse Resp BP Pulse Ox 97.6 F 89 18 125/88 93 01/08/18 03:15 01/08/18 03:15 01/08/18 05:46 01/08/18 03:15 01/08/18 03:15 perr eomi op moist poor dentition left neck fullness, dressing in place CTA s1 s2 nl soft nt +Bs no le edema A+O x 3, nonfocal neurological exam Laboratory Results - last 24 hr 01/08/18 01/08/18 05:06 05:06 WBC 11.0 H RBC 3.55 L Hgb 11.1 L Hct 34 L MCV 96 MCH 31 MCHC 33 RDW 16 H Plt Count 594 H D MPV 7.3 L Neut % (Auto) 77.0 Lymph % (Auto) 11.1 L [place] % (Auto) 11.3 H Eos % (Auto) 0.1 Baso % (Auto) 0.5 Absolute Neuts (auto) 8.5 H Absolute Lymphs (auto) 1.2 Absolute Monos (auto) 1.2 H Absolute Eos (auto) 0 Absolute Basos (auto) 0.1 Absolute Nucleated RBC 0 Nucleated RBC % 0 Lactate Dehydrogenase 240 Acetaminophen (Tylenol Tab*) 650 mg PO Q6H PRN PRN Reason: FEVER/PAIN Hydrocodone Bitart/Acetaminophen ([place] 10/325 (Nf)) 2 tab PO Q6H PRN PRN Reason: PAIN Last Admin: 01/08/18 03:20 Dose: 2 tab Albuterol/Ipratropium (Duoneb (Albuterol 2.5 Mg/Ipratropium 0.5 Mg)) 1 neb INH Q4H PRN PRN Reason: SOB/WHEEZING Allopurinol (Zyloprim Tab*) 300 mg PO DAILY TDEDY Last Admin: 01/07/18 11:18 Dose: 300 mg Alprazolam (Xanax Tab*) 0.5 mg PO Q6H PRN PRN Reason: ANXIETY Last Admin: 01/08/18 03:25 Dose: 0.5 mg Azelastine HCl (Astepro 0.15% Nasal (Nf)) 1 spray BOTH NARES BID TEDDY Last Admin: 01/07/18 21:22 Dose: Not Given Carisoprodol (Soma Tab*) 350 mg PO DAILY PRN PRN Reason: SPASMS - MUSCLE Last Admin: 01/06/18 02:52 Dose: 350 mg Docusate Sodium (Colace Cap*) 200 mg PO BID [facility] Last Admin: 01/07/18 19:45 Dose: 200 mg Famotidine (Pepcid Tab*) 20 mg PO BEDTIME [facility]; Protocol Last Admin: 01/07/18 19:45 Dose: 20 mg Heparin Sodium (Porcine) (Heparin Vial(*)) 5,000 units SUBCUT Q8HR [facility] Last Admin: 01/08/18 05:57 Dose: 5,000 units Hydromorphone HCl (Dilaudid Inj1s*) 0.5 mg IV Q2H PRN PRN Reason: PAIN Last Admin: 01/08/18 03:20 Dose: 0.5 mg Hydroxychloroquine Sulfate (Plaquenil Tab*) 200 mg PO BID [facility] Last Admin: 01/07/18 19:47 Dose: 200 mg Meclizine HCl (Antivert Tab*) 25 mg PO Q6H PRN PRN Reason: DIZZINESS Last Admin: 01/06/18 20:20 Dose: 25 mg Melatonin (Melatonin) 3 mg PO BEDTIME PRN; Protocol PRN Reason: Sleep Last Admin: 01/07/18 22:23 Dose: 3 mg Metoclopramide HCl (Reglan Tab*) 10 mg PO Q8H [facility] Last Admin: 01/07/18 22:30 Dose: 10 mg Metoprolol Succinate (Toprol Xl Tab*) 50 mg PO BID [facility] Last Admin: 01/07/18 19:44 Dose: 50 mg Montelukast Sodium (Singulair Tab*) 10 mg PO DAILY [facility] Last Admin: 01/07/18 08:35 Dose: 10 mg Omeprazole (Prilosec Cap*) 20 mg PO DAILY@0600 [facility] Last Admin: 01/08/18 05:57 Dose: 20 mg Ondansetron HCl (Zofran Odt Tab*) 4 mg PO Q6H PRN PRN Reason: n/v Last Admin: 01/07/18 22:23 Dose: 4 mg Ondansetron HCl (Zofran Inj*) 4 mg IV Q6H PRN PRN Reason: NAUSEA Paroxetine HCl (Paxil Tab*) 40 mg PO DAILY [facility] Last Admin: 01/07/18 08:34 Dose: 40 mg Polyethylene Glycol/Electrolytes (Miralax*) 17 gm PO DAILY [facility] Last Admin: 01/07/18 08:44 Dose: Not Given Sodium Chloride (Sodium Chloride 0.65% Nasal [place]*) 1 spray BOTH NARES Q4H PRN PRN Reason: CONGESTION Tramadol HCl (Ultram*) 50 mg PO Q6HR PRN PRN Reason: PAIN Last Admin: 01/06/18 08:05 Dose: 50 mg Zolpidem Tartrate (Ambien Tab*) 10 mg PO BEDTIME [facility] Last Admin: 01/07/18 19:45 Dose: 10 mg Assessment: 52 yo F w newly diagnosed classical hodgkin lymphoma. She appears to have bulky stage IV disease by imaging. As we can not get a PET scan I would like to fully stage her with a bone marrow biopsy. In terms of the liver lesions, I am not convinced that they are not just focal fatty sparing and will get an US to help characterize better. I discussed this diagnosis with Little at length. We reviewed the curative intent to treatment, and the rationale for ABVD. She will have formal chemotherapy teaching today and will start therapy later today. Her Echo and DLCO are appropriate for therapy and her HIV and hepatitis panels are pending. Plan: -ABVD cycle 1 day 1 today with formal chemo teaching -allopurinol on board -bone marrow bx and aspiration today -RUQ US -ok to use peripheral line for therapy, will get PORT once mass shrunk and pressures better -heparin sq full code
[2018-01-08] MEDS: Carisoprodol TAB* 350 MG PO PRN ×2 (09:25→16:53)
[2018-01-08] MEDS: Polyethylene Glycol 3350* 17 GM PACKET PO SCH (10:26)
[2018-01-08] MEDS: Allopurinol TAB* 300 MG PO SCH (11:34)
[2018-01-08] MEDS: Montelukast Sodium TAB* 5 MG PO SCH (11:34)
[2018-01-08] MEDS: Metoclopramide TAB* 10 MG PO SCH ×3 (11:34→23:07)
[2018-01-08] MEDS: PARoxetine HCL TAB* 40 MG PO SCH (11:34)
[2018-01-08] MEDS: PTO:Azelastine 0.15% NASAL(NF) 30 ML BTL BOTH NARES SCH ×2 (11:35→20:28)
[2018-01-08] MEDS: Docusate CAP* 100 MG PO SCH ×2 (11:35→20:28)
[2018-01-08] MEDS: Metoprolol Succinate XL TAB* 50 MG PO SCH ×2 (11:36→20:27)
[2018-01-08] MEDS: Hydroxychloroquine TAB* 200 MG PO SCH ×2 (11:37→20:27)
[2018-01-08] MEDS ORDERED: Lidocaine 2% MPF* 2 ML VIAL INJ ONE (12:00)
--- NOTE | 2018-01-08 12:14 | RAD ---
HISTORY: lesions seen on CT, staging COMPARISONS: CT dated January 07, 2018 TECHNIQUE: Multiple transverse and longitudinal ultrasound images were obtained of the right upper quadrant of the abdomen using grayscale and color Doppler imaging. FINDINGS: LIVER: The liver is normal in shape, size, contour, and echogenicity. There are no focal parenchymal masses. The liver lesions noted on CT are not visible on sonography. There is normal hepatopedal flow of the portal vein on Doppler imaging. BILIARY TREE: There is no intrahepatic biliary dilatation. The common duct is ectatic . The common duct measures 1 cm. GALLBLADDER: The gallbladder is well-visualized. There is no cholelithiasis, gallbladder wall thickening, pericholecystic fluid, or sonographic Barron sign. PANCREAS: The head of the pancreas is unremarkable. The tail of the pancreas is not well visualized secondary to overlying bowel gas. RIGHT KIDNEY: The right kidney is normal in shape, size, contour, and echogenicity. There is no hydronephrosis or nephrolithiasis. The right kidney measures 10 x 3.7 x 5.7 cm. AORTA AND IVC: The aorta and IVC are unremarkable. FLUID: Bilateral pleural effusions are noted. OTHER FINDINGS: None. IMPRESSION: 1. THE HEPATIC LESIONS NOTED ON CT ARE NOT VISIBLE ON SONOGRAPHY. 2. ECTATIC COMMON DUCT UP TO 1 CM. 3. BILATERAL PLEURAL EFFUSIONS.
[2018-01-08] MEDS ORDERED: LORazepam INJ* 2 MG/ML 1 ML VIAL IV PUSH ONE (12:15)
[2018-01-08] MEDS ORDERED: LORazepam INJ* 2 MG/ML 1 ML VIAL ONE (12:25)
[2018-01-08] MEDS ORDERED: Palonosetron* 0.25 MG in PREMIX* 0 ML IVPB ONE (12:45)
[2018-01-08] MEDS ORDERED: Dexamethasone IV* 8 MG in PREMIX* 0 ML IVPB ONE (13:00)
[2018-01-08] MEDS ORDERED: Fosaprepitant IV* 150 MG in NS 0.9% 250 ML* 145 ML IVPB ONE (13:00)
[2018-01-08] MEDS ORDERED: Dexamethasone IV* 4 MG/ML 1 ML (4 MG) ONE (13:07)
--- NOTE | 2018-01-08 13:09 | PROCNOTE ---
Hematology/Oncology Procedure Hematology/Oncology Procedure Note: Written informed consent obtained. Patient was lightly sedated with 1mg IV lorazepam. Time out completed. R PSIS was identified, prepped and draped in a sterile fashion. Local anesthesia with 2% lidocaine. Bone marrow aspiration and core biopsy successfully collected. Pressure applied to site, pressure dressing created. Patient tolerated procedure well.
[2018-01-08] MEDS ORDERED: DOXORUBICIN IVPB ONE (14:00)
[2018-01-08] MEDS ORDERED: VINBLASTINE IVPB ONE (14:15)
[2018-01-08] MEDS ORDERED: BLEOMYCIN IVPB ONE (14:30)
[2018-01-08] MEDS ORDERED: NS 0.9% IVPB ONE ×2 (14:30→15:00)
[2018-01-08] MEDS ORDERED: DACARBAZINE IVPB ONE (15:00)
[2018-01-08] MEDS: Famotidine TAB* 20 MG PO SCH (20:27)
[2018-01-08] MEDS: Zolpidem TAB* 10 MG PO SCH (20:59)
[2018-01-08] MEDS: Ondansetron ODT TAB* 4 MG PO PRN (21:01)
[2018-01-09] MEDS: Omeprazole CAP* 20 MG PO SCH (05:01)
[2018-01-09] MEDS: Heparin VIAL(*) 5000 UNITS/ML VIAL (FIVE THOUSAND) SUBCUT SCH ×3 (05:01→21:30)
[2018-01-09] MEDS: Metoclopramide TAB* 10 MG PO SCH ×3 (07:31→22:41)
[2018-01-09] MEDS: HYDROmorphone INJ1* 1 MG/ML SYRINGE IV PRN ×3 (07:32→22:42)
[2018-01-09 07:36] LABS: ABS Basophils 0 10^3/ul (0-0.2); ABS Eosinophils 0 10^3/ul (0-0.6); ABS Lymphocytes 0.8 10^3/ul (1.0-4.8); ABS Monocytes 0.5 10^3/ul (0-0.8); ABS Neutrophils 5.5 10^3/ul (1.5-7.7); ABS Nucleated RBC 0 10^3/ul; Eosinophil % 0.1 % (0-6); Hematocrit 34 % (35-47); Hemoglobin 11.6 g/dl (12.0-16.0); Lymphocyte % 12.3 % (25-47); Mean Corpuscular HGB Conc 34 g/dl (31-36); Mean Corpuscular Hemoglobin 32 pg (27-31); Mean Corpuscular Volume 96 fL (80-97); Mean Platelet Volume 7.8 um3 (7.4-10.4); Nucleated Red Blood Cells % 0.1; Platelet Count 436 10^3/ul (150-450); Red Cell Distribution Width 16 % (10.5-15); White Blood Count 6.8 10^3/ul (3.5-10.8)
[2018-01-09] MEDS: Carisoprodol TAB* 350 MG PO PRN ×2 (07:39→16:10)
[2018-01-09 07:47] LABS: EGFR Non-African American 109.2 (>60)
[2018-01-09] MEDS: Montelukast Sodium TAB* 5 MG PO SCH (10:11)
[2018-01-09] MEDS: Allopurinol TAB* 300 MG PO SCH (10:12)
[2018-01-09] MEDS: Hydroxychloroquine TAB* 200 MG PO SCH ×2 (10:13→21:28)
[2018-01-09] MEDS: Metoprolol Succinate XL TAB* 50 MG PO SCH ×3 (10:13→21:35)
[2018-01-09] MEDS: Hydrocodone/Acetamin 10/325 1 TAB PO PRN ×2 (10:13→16:09)
[2018-01-09] MEDS: PARoxetine HCL TAB* 40 MG PO SCH (10:13)
[2018-01-09] MEDS: ALPRAZolam TAB* 0.5 MG PO PRN ×2 (10:17→22:41)
[2018-01-09] MEDS: Docusate CAP* 100 MG PO SCH ×2 (10:21→21:29)
[2018-01-09] MEDS: Polyethylene Glycol 3350* 17 GM PACKET PO SCH (10:21)
[2018-01-09] MEDS: PTO:Azelastine 0.15% NASAL(NF) 30 ML BTL BOTH NARES SCH ×2 (10:36→21:32)
[2018-01-09] MEDS: Famotidine TAB* 20 MG PO SCH (21:27)
[2018-01-09] MEDS: Zolpidem TAB* 10 MG PO SCH (21:28)
[2018-01-09] MEDS ORDERED: methylPREDNISolone 125 MG* 2 ML VIAL IV ONE (22:00)
[2018-01-10] MEDS: Omeprazole CAP* 20 MG PO SCH (05:30)
[2018-01-10] MEDS: Heparin VIAL(*) 5000 UNITS/ML VIAL (FIVE THOUSAND) SUBCUT SCH (05:31)
[2018-01-10] MEDS: Carisoprodol TAB* 350 MG PO PRN ×2 (05:46→11:46)
[2018-01-10] MEDS: Hydrocodone/Acetamin 10/325 1 TAB PO PRN ×2 (05:47→11:46)
[2018-01-10 06:52] LABS: ABS Basophils 0 10^3/ul (0-0.2); ABS Eosinophils 0 10^3/ul (0-0.6); ABS Lymphocytes 0.5 10^3/ul (1.0-4.8); ABS Monocytes 0.3 10^3/ul (0-0.8); ABS Neutrophils 4.5 10^3/ul (1.5-7.7); ABS Nucleated RBC 0 10^3/ul; Eosinophil % 0 % (0-6); Hematocrit 32 % (35-47); Hemoglobin 10.7 g/dl (12.0-16.0); Lymphocyte % 8.7 % (25-47); Mean Corpuscular HGB Conc 34 g/dl (31-36); Mean Corpuscular Hemoglobin 32 pg (27-31); Mean Corpuscular Volume 95 fL (80-97); Mean Platelet Volume 7.8 um3 (7.4-10.4); Nucleated Red Blood Cells % 0.1; Platelet Count 321 10^3/ul (150-450); Red Blood Count 3.34 10^6/ul (4.00-5.40); Red Cell Distribution Width 16 % (10.5-15); White Blood Count 5.3 10^3/ul (3.5-10.8)
[2018-01-10 07:08] LABS: EGFR Non-African American 142.7 (>60); Uric Acid 2.1 mg/dL (2.3-6.6)
[2018-01-10] MEDS: Metoclopramide TAB* 10 MG PO SCH (08:22)
[2018-01-10] MEDS: HYDROmorphone INJ1* 1 MG/ML SYRINGE IV PRN (08:26)
[2018-01-10] MEDS: Docusate CAP* 100 MG PO SCH (10:15)
[2018-01-10] MEDS: Montelukast Sodium TAB* 5 MG PO SCH (10:16)
[2018-01-10] MEDS: Metoprolol Succinate XL TAB* 50 MG PO SCH (10:16)
[2018-01-10] MEDS: PARoxetine HCL TAB* 40 MG PO SCH (10:17)
[2018-01-10] MEDS: Hydroxychloroquine TAB* 200 MG PO SCH (10:17)
[2018-01-10] MEDS: PTO:Azelastine 0.15% NASAL(NF) 30 ML BTL BOTH NARES SCH (10:17)
[2018-01-10] MEDS: Allopurinol TAB* 300 MG PO SCH (10:17)
[2018-01-10] MEDS: Polyethylene Glycol 3350* 17 GM PACKET PO SCH ×2 (10:17→10:19)
[2018-01-10] MEDS: ALPRAZolam TAB* 0.5 MG PO PRN (10:22)
[2018-01-10 11:09] VITALS: BP 124/69
[2018-01-10] MEDS: Ondansetron ODT TAB* 4 MG PO PRN (11:50)
== END 2018-01-10 14:30 | disposition home or self-care (01) | DRG 824 ==
LOC: ED 17:11 → MED 22:33 → OBSVTOIN 22:33 → MED 01-09 15:51
PROVIDERS: ADMIT Hospitalist; ATTEND Internal Medicine Hematology & Oncology
PROC: 07B20ZX Excision of Left Neck Lymphatic, Open Approach, Diagnostic (ICD-10-PCS; principal; 2018-01-06 13:30)
PROC: 07DR3ZX Extraction of Iliac Bone Marrow, Percutaneous Approach, Diagnostic (ICD-10-PCS; 2018-01-08)
PROC: 3E03305 Introduction of Other Antineoplastic into Peripheral Vein, Percutaneous Approach (ICD-10-PCS; 2018-01-08)
DX: C81.11 Nodular sclerosis Hodgkin lymphoma, lymph nodes of head, face, and neck (principal); I87.1 Compression of vein; J90 Pleural effusion, not elsewhere classified; M06.9 Rheumatoid arthritis, unspecified; I10 Essential (primary) hypertension; E78.2 Mixed hyperlipidemia; K21.9 Gastro-esophageal reflux disease without esophagitis; F32.9 Major depressive disorder, single episode, unspecified; F41.9 Anxiety disorder, unspecified; M79.7 Fibromyalgia; J30.9 Allergic rhinitis, unspecified; F17.200 Nicotine dependence, unspecified, uncomplicated; E66.9 Obesity, unspecified; H81.10 Benign paroxysmal vertigo, unspecified ear; R06.00 Dyspnea, unspecified; R13.10 Dysphagia, unspecified; Z88.8 Allergy status to other drugs, medicaments and biological substances; Z90.721 Acquired absence of ovaries, unilateral; Z80.8 Family history of malignant neoplasm of other organs or systems; Z83.79 Family history of other diseases of the digestive system; Z68.31 Body mass index [BMI] 31.0-31.9, adult
CPT/HCPCS: 36415; 70491; 71048; 71275; 74177; 76705; 80048; 80053; 81025; 82533; 82550; 82553; 83605; 83615; 83880; 84145; 84484; 84550; 85025; 85060; 85097; 85379; 85610; 85652; 85730; 86140; 86703; 86704; 86803; 87040; 87340; 88184; 88187; 88188; 88189; 88305; 88311; 88313; 88331; 88341; 88342; 93005; 93306; 94010; 94640; 94729; 94762; 99284; 99406; A9270-GY; J1100; J1170; J1453; J1644; J2060; J2250; J2270; J2469; J2704; J2795; J2930; J3010; J9000; J9040; J9130; J9360; Q9967

== ENCOUNTER 2018-04-16 15:12 | Day surgery (SDC) | payer MEDICARE, MEDICAID ==
[~2018-04-16 15:12] MED LIST: Buffered Lidocaine 0.9% SYRIN* 5 ML/SYR SYRINGE INTRADERM ONE; Famotidine IV* 10 MG/ML 2 ML (20 mg) IV ONE
[2018-04-16] MEDS ORDERED: Famotidine IV* 10 MG/ML 2 ML (20 mg) ONE (15:26)
[2018-04-16] MEDS ORDERED: Midazolam* 1 MG/ML 2 ML VIAL (2 MG) ONE ×2 (16:08→17:29)
[2018-04-16] MEDS ORDERED: fentaNYL* 50 MCG/ML 2 ML VIAL (100 MCG VIAL) ONE (16:08)
[2018-04-16] MEDS ORDERED: Acetaminophen IV 1GM/100ML * 1,000 MG/100 ML VIAL IVPB ONE (16:30)
[2018-04-16] MEDS ORDERED: Lidocaine 1% INJ* 10 MG/ML 30 ML SDV ONE (16:45)
[2018-04-16] MEDS ORDERED: Lidocaine 2% PF * 5 ML VIAL ONE (17:00)
[2018-04-16] MEDS ORDERED: Dexmedetomidine* 200 MCG/2 ML 2 ML VIAL ONE (17:03)
[2018-04-16] MEDS ORDERED: Metoclopramide IV* 5 MG/ML 2 ML VIAL IV PRN (17:51)
[2018-04-16] MEDS ORDERED: fentaNYL* 50 MCG/ML 2 ML VIAL (100 MCG VIAL) IV PRN (17:51)
[2018-04-16] MEDS ORDERED: Ondansetron INJ* 2 MG/ML VIAL IV PRN (17:51)
[2018-04-16] MEDS ORDERED: Naloxone* 0.4 MG/ML 1 ML VIAL IV PRN (17:51)
[2018-04-16 18:55] VITALS: BP 106/66
--- NOTE | 2018-04-17 06:16 | OP ---
CC: [facility] * DATE OF OPERATION: 04/16/18 - SDS DATE OF : 65 SURGEON: Santy Sierra MD HEALTH INFORMATION CODER: None. ANESTHESIOLOGIST: Dr. Morales ANESTHESIA: LMAC. PRE-OP DIAGNOSIS: Hodgkin's lymphoma. POST-OP DIAGNOSIS: Hodgkin's lymphoma. OPERATIVE PROCEDURE: Placement of right subclavian 8-Turkish PowerPort. DESCRIPTION OF PROCEDURE: The patient was supine on the operative table. After adequate intravenous sedation and Rubens Hugger warmer and intravenous antibiotics, the right neck and chest region were prepped with antiseptic, draped in a sterile fashion. Local infiltrative anesthesia was administered. Approximately, 3 cm right subclavian incision was carried out and inferior pocket was created and subclavian vein puncture was carried out. Guidewire passed under fluoroscopic guidance. Catheter passed through the peel-away introducer, measured, and cut at 23.5 cm and attached to the port, which was sutured in the pocket with 3-0 Vicryl and 2-0 Prolene. The pocket was closed with 3-0 Vicryl and the skin with 5-0 Vicryl followed by Steri-Strips. There is good blood return from the port and is flushed with saline and heparinized solution. She tolerated the procedure well. He was brought to recovery in good condition. There are no complications, no drains, no pathologic specimens. Sponge and instrument counts correct and estimated blood loss is 10 mL. [id number] #: [id number] MTDD
== END 2018-04-16 19:01 | disposition home or self-care (01) ==
LOC: OR 15:12
PROVIDERS: ATTEND Surgery
DX: C81.90 Hodgkin lymphoma, unspecified, unspecified site (principal); Z72.0 Tobacco use; Z86.718 Personal history of other venous thrombosis and embolism; Z79.01 Long term (current) use of anticoagulants; I10 Essential (primary) hypertension; F41.8 Other specified anxiety disorders; M06.9 Rheumatoid arthritis, unspecified
CPT/HCPCS: 71045; 76000; C1788; J1642; J2250; J3010

== ENCOUNTER 2018-04-21 10:43 | Inpatient (IN) | payer MEDICARE, MEDICAID ==
[2018-04-21] MEDS ORDERED: Acetaminophen TAB* 325 MG PO PRN (10:46)
[2018-04-21] MEDS ORDERED: Morphine VIAL* 10 MG/ML 1 ML VIAL IV ONE (10:46)
--- OUTSIDE RECORDS SUMMARY | 2018-04-21 10:47 | XMS REPORT | Continuity of Care Document ---
:1965 External Reference #:[id number] Author Name Pam Schmidt Care Team Providers Name Role Phone Duglas Rosario MD Primary Care Physician Unavailable Payers Type Date Identification Numbers Payment Provider Subscriber Policy Number: [id number] Medicare Wyclarissa Guzmanl PayID: [id number] [address] [place] [address] Policy Number: [id number] Medicaid Corinne Osborne Group Name: 1 1 [address] PayID: [id number] [place] [address] Advance Directives Description No Information Available Problems Date Description Provider Status Onset: 01/07/2018 Hodgkin's disease of extranodal Leida Gonzalez M.D. Active AND/OR solid organ site Onset: 01/05/2018 Anxiety state Enoch Brownlee II, M.D. Active Onset: 01/05/2018 Major depressive disorder, single Enoch Brownlee II, M.D. Active episode, unspecified Onset: 01/05/2018 Essential hypertension Enoch Brownlee II, M.D. Active Onset: 01/05/2018 Rheumatoid arthritis Enoch Brownlee II, M.D. Active Onset: 01/05/2018 Other nonspecific abnormal finding Enoch Brownlee II, M.D. Active of lung field Family History Date Family Member(s) Problem(s) Comments General Cancer General Rheumatoid Arthritis Social History Type Date Description Comments Sex Unknown Marital Status Lives With Occupation Currently Working Tobacco Use Start: Unknown current cigarette smoker Tobacco Use Start: Unknown Patient is a current cigarette smoker, smokes every day Smoking Status Reviewed: 11/27/18 Patient is a current cigarette smoker, smokes every day ETOH Use Denies alcohol use Tobacco Use Start: Unknown Patient is a current smoker, smokes every day Recreational Drug Use Denies Drug Use Exercise Type/Frequency Exercises sporadically Allergies, Adverse Reactions, Alerts Date Description Reaction Status Severity Comments 11/05/2016 Aspirin Active Medications Medication Date Status Form Strength Qnty SIG Indications Ordering Provider Plaquenil 01/05 Active Tablets 200mg 60tab 1 by mouth R61 s every day for 1 Galen, week then 2 by M.D. mouth daily ongoing Methotrexate 04/07 Active Tablets 2.5mg 60tab take 4 M05.79 s capsules/tablet Galen, s by mouth once M.D. weekly on saturdays Metoprolol Active Tablets 50mg 1 by mouth Unknown Succinate ER /0000 ER 24HR every day Paxil Active Tablets 40mg 1 by mouth Unknown /0000 every day Breo Ellipta Active Aerosol 100-25mcg 1 puff inhaled Unknown /0000 /Inh daily Multivitamin Active Tablets 1 by mouth Unknown Adult /0000 every day Nexium Active Capsules 40mg 1 by mouth [...] tablet daily Unknown Sodium /0000 at bedtime Soma Active Tablets 350mg 1 tab by mouth Unknown /0000 every day and 1 tab by mouth as needed Singulair Active Packet 4mg Unknown /0000 Reglan Active Tablets 10mg 1 tablet every Unknown /0000 6 hours as needed nausea; may crush Zolpidem Active Tablets 5mg Unknown Tartrate /0000 Diclofenac Active Tablets 75mg take 1 tablet Unknown Sodium /0000 DR twice a day with food Xarelto Active Tablets 20mg take one tab Unknown /0000 per day Prednisone 01/05 Hx Tablets 10mg 60tab take 4 tabs by R61 s mouth daily for Galen, 4 days then 3 M.D. tabs daily for 4 days then 4 tabs for 2 days then 1 tab for 4 days then d/c Prednisone 11/12 Hx Tablets 10mg 90tab take 4 tabs by s mouth daily for Galen, - 2 days then 3 M.D. 01/05 tabs daily for 2 days then 2 tabs for 2 days then 1 tab daily ongoing Enbrel 11/12 Hx Solution 50mg/ml 4unit inject R61 Auto-Inje s subcutaneously Galen, - ct 50mg every week M.D. 01/05 Folic Acid 04/07 Hx Tablets 1mg 180ta take 2 M05.79 bs capsule/tablet Galen, daily by mouth M.D. Polyethylene 00 Hx Unknown Glycol 1000 /0000 Combivent Hx Aerosol 20-100mcg 1 puffs 4-6 Unknown Respimat /0000 /Act times daily as needed Voltaren Hx Gel 1% apply 2 grams Unknown /0000 twice daily as needed for pain to the hands Ferrous Hx Tablets 325mg 1 by mouth Unknown Sulfate /0000 every day Vitamin C Hx Capsules 500-400mg 1 by mouth Unknown /0000 -Unit every day W/Vitamin E Meclizine HCL Hx Tablets 25mg 1 tablet every Unknown /0000 8 hours as needed for vertigo Astepro Hx Solution 0.15% 1 spray each Unknown /0000 annmarie twice a day as needed Plaquenil Hx Tablets 200mg 1 by mouth Unknown /0000 every day for 1 - week then 2 by 05/23 mouth daily ongoing Tramadol HCL Hx Tablets 50mg 1-2 tablets Unknown /0000 every 6 hours - as needed 04/07 Immunizations CPT Code Status Date Vaccine Reaction Lot # [id number] Given 05/26/2017 Pneumococcal Conjugate no immediate reaction [id number] Vaccine 13 Valent For noted Intramuscular Use Vital Signs Date Vital Result Comment 04/14/2018 1:52pm Height 63 inches 5'3" Weight 162.00 lb Heart Rate 60 /min BP Systolic 92 mmHg BP Diastolic 70 mmHg Respiratory Rate 16 /min Body Temperature 98.5 F BMI (Body Mass Index) 28.7 kg/m2 01/05/2018 2:48pm Height 63 inches 5'3" Heart Rate 101 /min BP Systolic Sitting 112 mmHg BP Diastolic Sitting 78 mmHg Respiratory Rate 14 /min O2 % BldC Oximetry 94 % 11/12/2017 4:34pm Height 63 inches 5'3" Heart Rate 80 /min BP Systolic Sitting 110 mmHg BP Diastolic Sitting 70 mmHg Respiratory Rate 14 /min Pain Level 7 10/27/2017 4:18pm Height 63 inches 5'3" Weight 179.00 lb Heart Rate 88 /min BP Systolic Sitting 124 mmHg BP Diastolic Sitting 78 mmHg Respiratory Rate 14 /min Pain Level 5 BMI (Body Mass Index) 31.7 kg/m2 05/26/2017 4:17pm Height 63 inches 5'3" Weight 191.00 lb Heart Rate 80 /min BP Systolic Sitting 110 mmHg BP Diastolic Sitting 70 mmHg Respiratory Rate 14 /min Pain Level 6 BMI (Body Mass Index) 33.8 kg/m2 05/26/2017 9:37am Height 63 inches 5'3" Weight 189.00 lb [...] kg/m2 Neck Circumference in inches 14 04/07/2017 10:31am Height 63 inches 5'3" Weight 184.00 lb Heart Rate 75 /min BP Systolic Sitting 121 mmHg BP Diastolic Sitting 89 mmHg Respiratory Rate 14 /min Pain Level 6 BMI (Body Mass Index) 32.6 kg/m2 11/05/2016 9:13am Height 63 inches 5'3" Weight 176.00 lb Heart Rate 80 /min BP Systolic 120 mmHg BP Diastolic 80 mmHg Respiratory Rate 16 /min Body Temperature 97.8 F BMI (Body Mass Index) 31.2 kg/m2 Results Test Date Facility Test Result H/L Range Note Laboratory test 01/06/2018 [facility] Surgical SEE RESULT [address] [place] [address] [phone] Laboratory test 01/05/2018 [facility] Erythrocyte Sed 85 mm/Hr High 0-[address] [place] [address] [phone] C Reactive Protein 231.93 mg/L High <8.01 CBC Auto Diff 01/05/2018 [facility] White Blood 10.6 10^3/uL N 3.5-10.[address] [place] [address] [phone] Red Blood Count 3.83 10^6/uL Low 4.00-5.40 Hemoglobin 12.3 g/dL N 12.0-16.0 Hematocrit 37 % N 35-47 Mean Corpuscular Volume 96 fL N 80-97 Mean Corpuscular Hemoglobin 32 pg High 27-31 Mean Corpuscular HGB Conc 33 g/dL N 31-36 Red Cell Distribution Width 16 % High 10.5-15 Platelet Count 588 10^3/uL High 150-450 Mean Platelet Volume 7.3 um3 Low 7.4-10.4 Abs Neutrophils 7.9 10^3/uL High 1.5-7.7 Abs Lymphocytes 1.2 10^3/uL N 1.0-4.8 Abs Monocytes 1.4 10^3/uL High 0-0.8 Abs Eosinophils 0.1 10^3/uL N 0-0.6 Abs Basophils 0.1 10^3/uL N 0-0.2 Abs Nucleated RBC 0 10^3/uL Granulocyte % 74.0 % N 38-83 Lymphocyte % 11.7 % Low 25-47 Monocyte % 13.2 % High 0-7 Eosinophil % 0.5 % N 0-6 Basophil % 0.6 % N 0-2 Nucleated Red Blood Cells % 0 Comp Metabolic Panel 01/05/2018 [facility] Sodium 138 mmol/L N 135-[address] [place] [address] [phone] Potassium 4.2 mmol/L N 3.5-5.0 Chloride 105 mmol/L N 101-111 Co2 Carbon Dioxide 24 mmol/L N 22-32 Anion Gap 9 mmol/L N 2-11 Glucose 95 mg/dL N 70-100 Blood Urea Nitrogen 13 mg/dL N 6-24 Creatinine 0.81 mg/dL N 0.51-0.95 BUN/Creatinine Ratio 16.0 N 8-20 Calcium 8.7 mg/dL N 8.6-10.3 Total Protein 5.8 g/dL Low 6.4-8.9 Albumin 3.1 g/dL Low 3.2-5.2 Globulin 2.7 g/dL N 2-4 Albumin/Globulin Ratio 1.1 N 1-3 Total Bilirubin 0.20 mg/dL N 0.2-1.0 Alkaline Phosphatase 173 U/L High 34-104 Alt 59 U/L High 7-52 Ast 48 U/L High 13-39 Egfr Non- 74.3 >60 Egfr 89.8 >60 2 Laboratory test finding 01/05/2018 [facility] Cortisol 8.00 g/ dL [address] [place] [address] [phone] D Dimer Quantitative 748 ng/mL High Less Than 230 4 Quantiferon 12/01/2017 [facility] QuantiFERON-Tb Negative Negative 5 Gold TB [address] [place] [address] [phone] TB1 Ag minus Nil Result 0 IU/mL TB2 Ag minus Nil Result -0.01 IU/mL TB Mitogen minus Nil Result > 10.00 IU/mL TB Nil Result 0.03 IU/mL 6 Laboratory test 10/27/2017 [facility] Erythrocyte Sed 51 mm/Hr High 0-[address] [place] [address] [phone] C Reactive Protein 81.18 mg/L High < 5.00 7 CBC Auto Diff 10/27/2017 [facility] White Blood 8.4 10^3/uL N 3.5-10.[address] [place] [address] [phone] Red Blood Count 4.04 10^6/uL N 4.00-5.40 Hemoglobin 13.0 g/dL N 12.0-16.0 Hematocrit 39 % N 35-47 Mean Corpuscular Volume 96 fL N 80-97 Mean Corpuscular Hemoglobin 32 pg High 27-31 Mean Corpuscular HGB Conc 34 g/dL N 31-36 Red Cell Distribution Width 16 % High 10.5-15 Platelet Count 412 10^3/uL N 150-450 Mean Platelet Volume 7.5 um3 N 7.4-10.4 Abs Neutrophils 6.0 10^3/uL N 1.5-7.7 Abs Lymphocytes 1.4 10^3/uL N 1.0-4.8 Abs Monocytes 0.8 10^3/uL N 0-0.8 Abs Eosinophils 0.1 10^3/uL N 0-0.6 Abs Basophils 0 10^3/uL N 0-0.2 Abs Nucleated RBC 0 10^3/uL Granulocyte % 71.9 % N 38-83 Lymphocyte % 16.7 % Low 25-47 Monocyte % 9.4 % High 0-7 Eosinophil % 1.4 % N 0-6 Basophil % 0.6 % N 0-2 Nucleated Red Blood Cells % 0 Comp Metabolic Panel 10/27/2017 [facility] Sodium 138 mmol/L Low 139-[address] [place] [address] [phone] Potassium 4.1 mmol/L N 3.5-5.0 Chloride 108 mmol/L N 101-111 Co2 Carbon Dioxide 21 mmol/L Low 22-32 Anion Gap 9 mmol/L N 2-11 Glucose 94 mg/dL N 70-100 Blood Urea Nitrogen 12 mg/dL N 6-24 Creatinine 0.75 mg/dL N 0.51-0.95 BUN/Creatinine Ratio 16.0 N 8-20 Calcium 8.9 mg/dL N 8.6-10.3 Total Protein 6.4 g/dL N 6.4-8.9 Albumin 3.6 g/dL N 3.2-5.2 Globulin 2.8 g/dL N 2-4 Albumin/Globulin Ratio 1.3 N 1-3 Total Bilirubin 0.20 mg/dL N 0.2-1.0 Alkaline Phosphatase 117 U/L High 34-104 Alt 50 U/L N 7-52 Ast 29 U/L N 13-39 Egfr Non- 81.1 >60 Egfr 104.4 >60 8 Laboratory test 08/12/2017 [facility] TSH (Thyroid 1.29 mcIU/mL N 0.34-5.[address] Stim Horm) [place] [address] [phone] Vitamin D Total 25(Oh) 27.8 ng/mL N 20-50 Hemoglobin A1c (Glyco HGB) 5.5 % N 4.0-5.6 9 Iron & Iron Binding 08/12/2017 [facility] Iron 54 g/dL N 50- [address] [place] [address] [phone] Unsaturated Iron Binding 204 g/dL Total Iron Binding Capacity 258 g/dL N 250-450 Transferrin 184 mg/dL Low 203-362 % Iron Saturation 21 % N 15-55 Laboratory test 08/12/2017 [facility] Uric Acid 1.5 mg/dL Low 2.3-6.[address] [place] [address] [phone] Lipid Profile 08/12/2017 [facility] Triglycerides 202 mg/dL 10 (Trig/Chol/HDL) [address] [place] [address] [phone] Cholesterol 206 mg/dL 11 HDL Cholesterol 36.6 mg/dL 12 LDL Cholesterol 129 mg/dL 13 Comp Metabolic Panel 08/12/2017 [facility] Sodium 135 mmol/L N 133-145 [address] [place] [address] [phone] Potassium 4.5 mmol/L N 3.5-5.0 Chloride 108 mmol/L N 101-111 Co2 Carbon Dioxide 19 mmol/L Low 22-32 Anion Gap 8 mmol/L N 2-11 Glucose 141 mg/dL High 70-100 Blood Urea Nitrogen 11 mg/dL N 6-24 Creatinine 0.68 mg/dL N 0.51-0.95 BUN/Creatinine Ratio 16.2 N 8-20 Calcium 8.4 mg/dL Low 8.6-10.3 Total Protein 6.0 g/dL Low 6.4-8.9 Albumin 3.6 g/dL N 3.2-5.2 Globulin 2.4 g/dL N 2-4 Albumin/Globulin Ratio 1.5 N 1-3 Total Bilirubin 0.30 mg/dL N 0.2-1.0 Alkaline Phosphatase 82 U/L N 34-104 Alt 19 U/L N 7-52 Ast 13 U/L N 13-39 Egfr Non- 90.9 >60 Egfr 116.9 >60 14 CBC Auto Diff 08/12/2017 [facility] White Blood 7.6 10^3/uL N 3.5-10.[address] [place] [address] [phone] Red Blood Count 4.21 10^6/uL N 4.0-5.4 Hemoglobin 13.7 g/dL N 12.0-16.0 Hematocrit 40 % N 35-47 Mean Corpuscular Volume 96 fL N 80-97 Mean Corpuscular Hemoglobin 33 pg High 27-31 Mean Corpuscular HGB Conc 34 g/dL N 31-36 Red Cell Distribution Width 16 % High 10.5-15 Platelet Count 283 10^3/uL N 150-450 Mean Platelet Volume 7.8 um3 N 7.4-10.4 Abs Neutrophils 6.0 10^3/uL N 1.5-7.7 Abs Lymphocytes 1.0 10^3/uL N 1.0-4.8 Abs Monocytes 0.5 10^3/uL N 0-0.8 Abs Eosinophils 0.1 10^3/uL N 0-0.6 Abs Basophils 0.1 10^3/uL N 0-0.2 Abs Nucleated RBC 0 10^3/uL Granulocyte % 79.1 % N 38-83 Lymphocyte % 13.2 % Low 25-47 Monocyte % 6.3 % N 0-7 Eosinophil % 0.7 % N 0-6 Basophil % 0.7 % N 0-2 Nucleated Red Blood Cells % 0.1 Laboratory test 08/12/2017 [facility] Erythrocyte Sed 23 mm/Hr N 0-[address] [place] [address] [phone] C Reactive Protein 17.05 mg/L High < 5.00 15 Laboratory test 04/07/2017 [facility] Erythrocyte Sed 10 mm/Hr N 0-30 [address] [place] [address] [phone] C Reactive Protein 5.83 mg/L High < 5.00 17 Rheumatoid Factor <15 IU/mL <15 18 Hepatitis 04/07/2017 [facility] Hepatitis C Nonreactive Nonreactive 19 Acute Panel [address] [place] [address] [phone] Hepatitis A AB Igm Nonreactive Nonreactive 20 Hepatitis B Core AB Igm Nonreactive Nonreactive 21 Hepatitis B Surface Ag Nonreactive Nonreactive 22 Connective Tissue 04/07/2017 [facility] Anti-Nuclear < 0.1 U [address] [place] [address] [phone] Cyclic Citrullinated Peptide <15.6 U 24 Interpretation See Comment 25 Laboratory test 04/07/2017 [facility] Creatine 86 U/L N 10- 223 [address] Kinase(CK) [place] [address] [phone] 1 SEE RESULT BELOW Name: CORINNE OSBORNE I : [address]: Jim Lomax MD Acct: [id number] Unit: [id number] AGE: 52 Location: [place] [address] Re01/05/18 Dis: 01/10/18 SEX: F Status: DIS IN SPEC: [id number] CRISTELA: 01/06/18-[address] [facility] [address]: Iglesia Thomas MD REQ: [id number] RECD: 01/06/18 STATUS: ALESSANDRO ALBA DR: Po Ellington MD _ ORDERED: FS 1ST PER SPEC/2, LEVEL 4/2, IMMUNO-FIRST, IMMUNO-ADDL/6 Flow cytometry has been performed at [place], [place]. The testing reveals: FINAL DIAGNOSIS: Specimen Source: Flow cytometry immunophenotypic analysis: Interpretative data: Blasts: 1% of WBCs Lymphocytes: 14% of WBCs B-cells: 3% of lymphocytes with no evidence of light chain striction or other immunophenotypic abnormality. T-cells/NK cells: No aberrant population detected. Markers tested: CD3, CD10, CD16, CD19, CD34, CD45, kappa surface light chains , lambda surface light chains, 7-AAD. Quality Assessment: Acceptable Viability: Acceptable Viable lymphocytes (7-AAD): 94% of gated Specimen received within validated guidelines. A Carrizales-Giemsa stained slide prepared from the flow cytometry specimen was examined for quality purposes. Electronically signed by: Osmel Seaman MD 01/14/18 1629 Technical component performed by: [facility] [place] [address] Incising Machine Operator: Jose Mcmullen II, MD, PhD. CONTINUED ON NEXT PAGE DEPARTMENT OF PATHOLOGY, [address] [place] [address] Osmel Seaman M.D. Director [facility] # [id number] RUN DATE: 01/15/18 [facility] LAB LIVE PAGE 2 Patient: CORINNE OSBORNE Paul [id number] (Continued) ADDENDUM (Continued) Addendum Signed (signature on file) Osmel Seaman MD 1450 FINAL DIAGNOSIS 1. Lymph node, left neck, incisional biopsy: -- Classical Hodgkin lymphoma, nodular sclerosis type; see comment. 2. Lymph node, left neck, additional tissue, incisional biopsy: -- Classical Hodgkin lymphoma, nodular sclerosis type; see comment. COMMENT: Histologic sections show lymphoid tissue with effaced alissa architecture, thick sclerotic bands, and a mixed infiltrate of small lymphocytes, eosinophils, and large atypical cells. Atypical cells are mononucleated and binucleated with prominent nucleoli, irregular nuclear contours, and a bizarre Wallace-Carol Ann appearance. Immunohistochemical stains, with appropriately reacting controls, were performed with the following results: CD3 negative in large atypical cells CD20 negative in large atypical cells PAX-5 weakly focally positive in large atypical cells CD15 positive in large atypical cells CD30 weakly positive in large atypical cells TOM negative in large atypical cells CD45 negative in large atypical cells The morphology and immunoprofile support the diagnosis. Dr. Seaman reviewed this case in intradepartmental consultation and agrees with the diagnosis. The findings were discussed with Dr. Lomax and Dr. Toribio. CONTINUED ON NEXT PAGE DEPARTMENT OF PATHOLOGY, [address] [place] [address] Osmel Seaman M.D. Director [facility] # [id number] RUN DATE: 01/15/18 [facility] LAB LIVE PAGE 3 Patient: CORINNE OSBORNE I [id number] (Continued) PATHOLOGY SURGICAL CONSULT (Continued) PATHOLOGY SURGICAL CONSULT Frozen section (FS)/Touch Prep (TP)/Gross Consult (GC) 1. FS) Lymph node, left neck, biopsy: a. Inflamed fibrous tissue. (EP) b. Defer to permanent. (EP) Findings discussed with Dr. Thomas on 01/06/18 at 1547 2. FS) Lymph node, left neck, excision: a. Fibrous and lymphoid tissue. (EP) b. Defer to permanent. (EP) c. Specimen sent for flow cytometry. (EP) Findings discussed with Dr. Thomas on 01/06/18 at 1628 PRE-OPERATIVE DIAGNOSIS Left neck mass GROSS DESCRIPTION 1. The specimen is received fresh labeled, Lymph Node, Left Neck, and consists of a 0.8 x 0.8 x 0.5 cm vasquez-pink rubbery lymphoid tissue fragment. The specimen is trisected and a welding equipment sales representative section is submitted for frozen section microscopy. The frozen section residue is submitted in cassette FS. The remaining specimen is submitted for flow cytometry. 2. The specimen is received fresh labeled, Lymph Node, Left Neck Additional Tissue, and consists of a 2.1 x 1.4 x 0.9 cm vasquez-white rubbery lymph node with a small amount of adherent yellow fat. The cut surface is glistening vasquez. The specimen is serially sectioned and a welding equipment sales representative section is submitted for frozen section microscopy. The frozen section residue and the remaining specimen are submitted in cassettes FS and B. A welding equipment sales representative section is submitted for flow cytometry. Signed by and Reported on: Violette Wise MD 01/07/18 1452 END OF REPORT DEPARTMENT OF PATHOLOGY, [address] [place] [address] Osmel Seaman M.D. Director [facility] # [id number] 2 Because ethnic data is not always readily [...] 15-29 5 Kidney failure <15 (or dialysis) 3 AM 8.7-22.4 PM <10 4 Please note: The following may produce a false positive D Dimer test: - Rheumatoid factor greater than 60 IU/ml - Plasma hemoglobin greater than 0.05 gm/dl - Bilirubin greater than 50 mg/dl - Lipids greater than 1000 mg/dl - FDP greater than 20 ug/ml 5 No interferon-gamma response to M. tuberculosis antigens was detected. Infection with M. tuberculosis is unlikely. A single negative result does not exclude infection with M. tuberculosis. In patients at high risk for M.tuberculosis infection, a second test should be considered in accordance with the 2017 ATS/IDSA/CDC Clinical Practice Guidelines for Diagnosis of Tuberculosis in Adults and Children [Lewinschaon DM et. al. Clin. Infect. Dis. 2017;64(2):111-115]. 6 Test Performed by: [address] [address] 7 Acute inflammation: >10.00 8 Because ethnic data is not always readily [...] 15-29 5 Kidney failure <15 (or dialysis) 9 Therapeutic target for the treatment of diabetes mellitus patients is <7% HBA1C, and in selective patients <6.0%. Please refer to [place] [employer] diabetic care guidelines for further information. 10 Desirable: <150 Borderline High: 150-199 High: 200-499 Very High: >500 11 Desirable: <200 Borderline High: 200-239 High: >239 12 Low: <40 Desirable: 40-60 High: >60 13 Desirable: <100 Near Optimal: 100-129 Borderline High: 130-159 High: 160-189 Very High: >189 14 Because ethnic data is not always readily [...] 15-29 5 Kidney failure <15 (or dialysis) 15 Acute inflammation: >10.00 16 Please check today 17 Acute inflammation: >10.00 18 Test Performed by: [address] [address] 19 Please check today 20 Please check today 21 Please check today 22 Please check today 23 REFERENCE VALUE <=1.0 (Negative) 24 REFERENCE VALUE <20.0 (Negative) 25 Tests for antibodies to dsDNA and MANDI antigens are not performed automatically unless the ROC result is > or= 3.0 U. Studies performed at [facility] indicate that positive ROC results <3.0 U are rarely accompanied by positive second order tests. Test Performed by: [facility] - [address] [address] 26 Please check today Procedures Date Code Description Status 01/07/2018 47731 ECHO Transthorasic Realtime 2D W Doppler & Color Flow Hosp Completed 01/06/2018 50809 Biopsy/Excision Deep Cervical Node(S) Completed 01/05/2018 95031 Diffusing Capacity Completed 01/05/2018 52333 Spirometry Incl Graphic Record Completed Encounters Type Date Location Provider Dx Diagnosis Office Visit 01/07/2018 [facility] Leida Gonzalez, C81.90 Hodgkin lymphoma, 2:41p Assarturo gomez M.D. unspecified, Hospitalists unspecified site I10 Essential (primary) hypertension M06.9 Rheumatoid arthritis, unspecified Office Visit 01/06/[address] [facility] [address] Almeida R91.8 Other 2:41p Assocarturo NP nonspecific Hospitalists abnormal finding of lung field M06.9 Rheumatoid arthritis, unspecified I10 Essential (primary) hypertension Office Visit 01/05/2018 [facility] Enoch Brownlee R91.8 Other 2:40p Asspatricia,arturo PEREZ M.D. nonspecific Hospitalists abnormal finding of lung field M06.9 Rheumatoid arthritis, unspecified I10 Essential (primary) hypertension F32.9 Major depressive disorder, single episode, unspecified F41.9 Anxiety disorder, unspecified Office Visit 01/05/2018 2:40p Rheumatology Claudio M06.09 [facility] M.[facility]. arthritis w/o rheumatoid factor, multiple sites Z79.899 Other press offbearer (current) drug therapy R70.0 Elevated erythrocyte sedimentation rate R61 Generalized hyperhidrosis R60.0 Localized edema Office Visit 11/12/2017 4:20p Rheumatology Claudio M06.09 [facility] M.D. arthritis w/o rheumatoid factor, multiple sites Z79.899 Other press offbearer (current) drug therapy R70.0 Elevated erythrocyte sedimentation rate R74.8 Abnormal levels of other serum enzymes Office Visit 10/27/2017 4:00p Rheumatology Claudio M06.09 [facility] M.D. arthritis w/o rheumatoid factor, multiple sites Z79.899 Other chcf (current) drug therapy L30.9 Dermatitis, unspecified R06.83 Snoring Office Visit 05/26/2017 10:00a Pulmonology [facility] Sleep Francisca Flip, R06.83 [facility] R40.0 Somnolence G47.50 Parasomnia, unspecified F17.210 Nicotine dependence, cigarettes, uncomplicated J45.909 Unspecified asthma, uncomplicated E66.09 Other obesity due to excess calories Z68.33 Body mass index (BMI) 33.0-33.9, adult Office Visit 05/26/2017 4:00p Rheumatology Claudio M06.09 [facility] M.D. arthritis w/o rheumatoid factor, multiple sites Z79.899 Other chcf (current) drug therapy M25.559 Pain in unspecified hip M17.0 Bilateral primary osteoarthritis of knee Z23 Encounter for immunization Office Visit 04/07/2017 10:00a Rheumatology Claudio Aaron, M05.79 Rheu [facility] w rheu factor mult site w/o org/sys involv Z79.899 Other press offbearer (current) drug therapy M79.1 Myalgia R06.83 Snoring M17.0 Bilateral primary osteoarthritis of knee M25.559 Pain in unspecified hip Office Visit 11/05/2016 Orthopedic Wei M19.071 Primary 9:00a [facility] Willis osteoarthritis, C.M.A. right ankle and foot Plan of Treatment Future Appointment(s):04/16/2018 4:00 pm - Santy Sierra M.D. at [facility]
[2018-04-21 11:07] LABS: ABS Basophils 0.1 10^3/ul (0-0.2); ABS Eosinophils 0.3 10^3/ul (0-0.6); ABS Lymphocytes 0.8 10^3/ul (1.0-4.8); ABS Monocytes 1.2 10^3/ul (0-0.8); ABS Neutrophils 4.2 10^3/ul (1.5-7.7); ABS Nucleated RBC 0 10^3/ul; Eosinophil % 3.9 %; Hematocrit 34 % (35-47); Hemoglobin 11.8 g/dl (12.0-16.0); Lymphocyte % 12.5 %; Mean Corpuscular HGB Conc 34 g/dl (31-36); Mean Corpuscular Hemoglobin 30 pg (27-31); Mean Corpuscular Volume 87 fL (80-97); Nucleated Red Blood Cells % 0; Platelet Count 312 10^3/ul (150-450); Red Blood Count 3.91 10^6/ul (4.00-5.40); Red Cell Distribution Width 16 % (10.5-15); White Blood Count 6.5 10^3/ul (3.5-10.8)
[2018-04-21 11:24] LABS: Albumin 3.1 g/dL (3.2-5.2); BUN/Creatinine Ratio 16.9 (8-20); Calcium 8.7 mg/dL (8.6-10.3); EGFR Non-African American 106.6 (>60); Globulin 3.1 g/dL (2-4); Potassium 4.3 mmol/L (3.5-5.0); Total Bilirubin 0.3 mg/dL (0.2-1.0); Total Protein 6.2 g/dL (6.4-8.9)
[2018-04-21] MEDS: Morphine VIAL* 4 MG/ML VIAL (1 ml vial) IV PRN ×2 (11:47→13:46)
[2018-04-21 12:28] LABS: C Reactive Protein 208.05 mg/L (<8.01)
--- NOTE | 2018-04-21 13:29 | CONSULT ---
Consult Consult: Consultation Note -- Critical Care Requesting Physician: Sheri putnam NP Reason for consult: hypoxic resp failure, pneumonia, PE Limitations in history/physical: none Date of consult: 04/21/2018 HPI: 53y F w/pmhx of RA (on plaquenil/methotrexate/prednisone)(recently off prednisone before chemo), SVC syndrome, Hodgkins Lymphoma (started on ABVD chemo tx 12/2017 x3 cycles), DVT 01/2018 (placed on Xarelto); patient presented to Oncology on 04/20, had complaints of progressive shortness of breath and low grade temps. She was sent for a CT chest and found to have a pulmonary embolism in RUL (while on xarelto) and bilateral infiltrates. She was changed to lovenox SQ for AC. She has a history of infiltrates on CXR but given resp symptoms and low grade temps, she was sent to pulm f/u 04/21. She initially refused to go to hospital 04/20 and wanted to wait. Today at Dr Ross office she was tachypneic 30-40, hypoxic 80s, sent to ER directly. She is currently in bed, no distress. NC 2 L, no distress. no n/v/abd pain/ diarrhea. no leg cramps. SOB for 3 weeks, progressive, cough+, mild sputum+, central chest pain all the time. no LE edema. Admitted to ICU. started on bactrim tx. ROS: negative except for pertinent positives mentioned above. PMHx: anxiety, depression, fibromyalgia, HLD, PUD, RA, DM, RA (on plaquenil/ methotrexate/prednisone)(recently off prednisone before chemo), SVC syndrome, Hodgkins Lymphoma (started on ABVD chemo tx 12/2017 x3 cycles), DVT 01/2018 ( placed on Xarelto) PSHx: carpal tunnel, left oophorectomy, pelvis fracture [address] [place] Family History: skin cancer in mother Social History: Alcohol-none, Smoking-active, Drug use-none; Job-working; family - Allergies: Allergies Allergy/AdvReac Type Severity Reaction Status Date / Time banana Allergy Severe Swelling Verified 04/16/18 15:43 Of Face,Lips,& Throat chocolate flavor Allergy Severe Swelling Verified 04/16/18 15:43 Of Face,Lips,& Throat aspirin Allergy Intermediate Rash Verified 04/16/18 15:43 Home Medications: Hydroxychloroquine TAB* [Plaquenil TAB*] 200 mg PO BID 08/09/14 [History Confirmed 04/21/18] Metoclopramide TAB* [Reglan TAB*] 10 mg PO Q8H 08/09/14 [History Confirmed 04/21] Montelukast Sodium TAB* [Singulair 5 mg TAB*] 10 mg PO QAM 08/09/14 [History Confirmed 04/21/18] Meclizine TAB* [Antivert 12.5 TAB*] 25 mg PO Q4HR 09/08/14 [History Confirmed ] PARoxetine HCL TAB* [Paxil TAB*] 40 mg PO QAM 09/08/14 [History Confirmed ] raNITIdine HCl [Ranitidine Maximum Streng] 150 mg PO BEDTIME 09/07/15 [History Confirmed 04/21/18] traMADol TAB* [Ultram*] 50 mg PO Q6HR PRN #20 tab MDD 4 09/30/16 [Rx Confirmed 04/21/18] Hydrocodone/Acetaminophen [Hydrocodone-Acetamin 10-325 mg] 1 - 2 tab PO Q6H PRN 01/06/18 [History Confirmed 04/21/18] ALPRAZolam TAB* [Xanax TAB*] 0.5 mg PO Q6H PRN #120 tab MDD 2 mg 01/10/18 [Rx Confirmed 04/21/18] Polyethylene Glycol 3350* [Miralax*] 17 gm PO DAILY PRN #0 01/10/18 [Rx Confirmed 04/21/18] Allopurinol TAB* [Zyloprim 300 MG TAB*] 300 mg PO QAM 04/15/18 [History Confirmed 04/21/18] Carisoprodol TAB* [Soma TAB*] 350 mg PO Q4HR 04/21/18 [History Confirmed ] DiMENhydriNATE TAB* [DraMAMine TAB*] 50 mg PO DAILY 04/21/18 [History Confirmed 04/21/18] Enoxaparin(*) [Lovenox(*)] 100 mg SUBCUT Q24HR 04/21/18 [History Confirmed 04/21] Omeprazole CAP* [Prilosec CAP* 20 MG] 20 mg PO BID 04/21/18 [History Confirmed 04/21/18] Ondansetron ODT TAB* [Zofran 4 MG Odt TAB*] 4 mg PO Q4HR 04/21/18 [History Confirmed 04/21/18] Ondansetron TAB* [Zofran 4 MG Tab*] 8 mg PO Q6H PRN 04/21/18 [History Confirmed 04/21/18] Ramipril CAP* [Altace CAP*] 10 mg PO DAILY 04/21/18 [History Confirmed 04/21/18] Sulfamethox/Trimethoprim DS* [Bactrim DS 800/160 TAB*] 1 tab PO TID 04/21/18 [ History Confirmed 04/21/18] Zolpidem TAB* [Ambien TAB*] 5 - 10 mg PO BEDTIME PRN 04/21/18 [History Confirmed 04/21/18] predniSONE TAB* [Deltasone 20 MG TAB*] 60 mg PO DAILY 04/21/18 [History Confirmed 04/21/18] Tele: NSR Vitals: Vital Signs Temp 98.1 F 04/21/18 11:33 Pulse 91 04/21/18 12:01 Resp 24 04/21/18 12:01 BP 111/68 04/21/18 12:00 Pulse Ox 93 04/21/18 12:01 Intake & Output 04/20/18 04/21/18 04/21/18 18:59 06:59 18:59 Weight 68.5 kg O2/Vent: 2L NC Infusions: heplock Current Medications: Acetaminophen (Tylenol Tab*) 650 mg PO Q4H PRN PRN Reason: FEVER/HEADACHE Hydrocodone Bitart/Acetaminophen (Hydrocodone/Acetam 10-325 Mg(N) 1 tab PO Q6H PRN PRN Reason: PAIN Albuterol (Ventolin 2.5 Mg/3 Ml Neb.Mary*) 2.5 mg INH Q4H PRN PRN Reason: SOB/WHEEZING Enoxaparin Sodium (Lovenox(*)) 100 mg SUBCUT DAILY [facility] Trimethoprim/Sulfamethoxazole (456 mg/ Dextrose) 528.5 mls @ 264.25 mls/hr IVPB Q8H [facility] Methylprednisolone Sodium Succinate (Solu-Medrol 40 Mg) 60 mg IV Q12H [facility] Montelukast Sodium (Singulair Tab*) 10 mg PO QAM [facility] Morphine Sulfate (Morphine Vial*) 2 mg IV Q2H PRN PRN Reason: PAIN Last Admin: 04/21/18 11:47 Dose: 2 mg Omeprazole (Prilosec Cap*) 20 mg PO BID [facility] Ondansetron HCl (Zofran Inj*) 4 mg IV Q4H PRN PRN Reason: NAUSEA/VOMITING Physical Exam: General: awake, alert, no distress, no diaphoresis Head: normocephalic, atraumatic HEENT: no pallor, no icterus, moist mucous membranes Neck: soft, supple, no jvd, no stridor CVS: normal rate, regular, no murmur Resp: bilateral air entry, bilateral rhales++, no wheeze, no rhonchi, no acc muscle use Abdomen: soft, nontender, nondistended, bowel sounds present Ext: pulses+, warm, no edema Skin: intact Neuro: awake, alert, orientedx3, moving all extremities, no gross focal deficit Labs: Laboratory Results - last 24 hr 04/21/18 04/21/18 04/21/18 10:32 10:32 10:32 WBC 6.5 RBC 3.91 L Hgb 11.8 L Hct 34 L MCV 87 MCH 30 MCHC 34 RDW 16 H Plt Count 312 MPV 8.0 Neut % (Auto) 63.9 Lymph % (Auto) 12.5 Gray % (Auto) 18.8 Eos % (Auto) 3.9 Baso % (Auto) 0.9 Absolute Neuts (auto) 4.2 Absolute Lymphs (auto) 0.8 L Absolute Monos (auto) 1.2 H Absolute Eos (auto) 0.3 Absolute Basos (auto) 0.1 Absolute Nucleated RBC 0 Nucleated RBC % 0 ESR Sodium 136 Potassium 4.3 Chloride 104 Carbon Dioxide 25 Anion Gap 7 BUN 10 Creatinine 0.59 Est GFR ( Amer) 129.0 Est GFR (Non-Af Amer) 106.6 BUN/Creatinine Ratio 16.9 Glucose 114 H Lactic Acid 0.4 L Calcium 8.7 Total Bilirubin 0.30 AST 37 ALT 48 Alkaline Phosphatase 219 H Lactate Dehydrogenase Total Creatine Kinase 28 CK-MB (CK-2) 1.1 Troponin I 0.02 C-Reactive Protein Total Protein 6.2 L Albumin 3.1 L Globulin 3.1 Albumin/Globulin Ratio 1.0 04/21/18 04/21/18 11:47 11:47 WBC RBC Hgb Hct MCV MCH MCHC RDW Plt Count MPV Neut % (Auto) Lymph % (Auto) Gray % (Auto) Eos % (Auto) Baso % (Auto) Absolute Neuts (auto) Absolute Lymphs (auto) Absolute Monos (auto) Absolute Eos (auto) Absolute Basos (auto) Absolute Nucleated RBC Nucleated RBC % ESR 92 H Sodium Potassium Chloride Carbon Dioxide Anion Gap BUN Creatinine Est GFR ( Amer) Est GFR (Non-Af Amer) BUN/Creatinine Ratio Glucose Lactic Acid Calcium Total Bilirubin AST ALT Alkaline Phosphatase Lactate Dehydrogenase 446 H Total Creatine Kinase CK-MB (CK-2) Troponin I C-Reactive Protein 208.05 H Total Protein Albumin Globulin Albumin/Globulin Ratio Imaging: CTA chest 04/20 - RUL PE, bilateral interstitial infiltrates+ Assessment: 53y F w/pmhx of RA (on plaquenil/methotrexate/prednisone)(recently off prednisone before chemo, only on plaquenil), SVC syndrome, Hodgkins Lymphoma (started on ABVD chemo tx 12/2017 x3 cycles), DVT 01/2018 (placed on Xarelto); patient presented to Oncology on 04/20, had complaints of progressive shortness of breath and low grade temps x3 weeks, mild cough+, mild sputum+. She was sent for a CT chest and found to have a pulmonary embolism in RUL ( while on xarelto) and bilateral infiltrates. She was changed to lovenox SQ for AC. She has a history of infiltrates on CXR but given resp symptoms and low grade temps, she was sent to pulm f/u 04/21. She initially refused to go to hospital 04/20 and wanted to wait. Today at Dr Ross office she was tachypneic 30-40, hypoxic 80s, sent to ER directly. -Acute hypoxic respiratory failure -Suspected Bilateral pneumonia, CABP vs atypical -DVT with RUL PE -Hodgkins lymphoma, on chemo Plan: Neuro- awake/alert. delirium prec. CVS- BP stable, HR stable. trop neg. EKG some twave inv V1-V2. LA neg. IVF as needed. IV abx pending, started on bactrim for suspected PCP. -TTE to eval LV function; was on chemo which can be cardiotoxic. Resp- hypoxic in office; now on 2L NC, sats low 90s. no distress. CTA reviewed. CXR repeat now. -PE is small, prior DVT+. no tpa indicated. now on lovenox 100mg sq bid. -bilateral infiltrates, atypical, send sputum culture for PCP. on bactrim now. ID consult for further Abx coverage, would prob rec HCAP coverage. -also on bleomycin chemo can also cause lung fibrosis -bronchodilators prn; solumedrol 60mg iv q12h -may need bronchoscopy, discussed with pulmonary. ID- afebrile. wbc normal. CTA with PE and bilateral interstitial infiltrates. send blood and sputum culture. send strept and leg ag. send PCP. may need bronch. started Bactrim tx (day#1). GI- regular diet. PPI for PUD. Renal- Cr okay. no acidosis. IVF prn. Heme- hg stable. plt okay. Hodgkins, on chemo, as per oncology. Lovenox 1mg/kg for DVT/PE. Endo- - Musculsk- pressure ulcer prophylaxis. Bedrest. Wounds- none Nutrition- regular diet DVT prophylaxis: lovenox sq bid GI prophylaxis: ppi Central Line: no Arterial Line: no Garcia Cathetor: no Disposition: ICU Code Status: full code Vinay Olvera MD Senior Administrator Support (Electronically Signed)
[2018-04-21] MEDS ORDERED: HYDROcodone/ACETAM 10-325 MG(NF) 1 TAB PO PRN (13:34)
[2018-04-21] MEDS ORDERED: Albuterol 2.5 MG/3 ML NEB.SOL* (0.083%) INH PRN (13:39)
[2018-04-21] MEDS: Ondansetron INJ* 2 MG/ML VIAL IV PRN ×2 (13:42→20:22)
[2018-04-21] MEDS: SULFAMETHOXAZOLE IVPB SCH ×2 (13:55→21:56)
[2018-04-21] MEDS: D5W IVPB SCH ×2 (13:55→21:56)
[2018-04-21] MEDS: TRIMETH IVPB SCH ×2 (13:55→21:56)
[2018-04-21] MEDS ORDERED: HYDROmorphone INJ1* 1 MG/ML SYRINGE ONE ×2 (14:49→18:12)
[2018-04-21] MEDS: Montelukast Sodium TAB* 10 MG PO SCH (14:51)
[2018-04-21] MEDS: HYDROmorphone INJ1* 1 MG/ML SYRINGE IV SLOW PU PRN ×2 (14:51→17:55)
[2018-04-21] MEDS: Enoxaparin(*) 100 MG/ML SYR SUBCUT SCH (16:59)
[2018-04-21] MEDS: Omeprazole CAP (NF) 20 MG CAP.DR PO SCH (16:59)
[2018-04-21] MEDS: Hydrocodone/Acetamin 10/325 1 TAB PO PRN (17:03)
--- NOTE | 2018-04-21 17:25 | ECHO ---
Patient: CORINNE STERLING Rec#: [id number] : 1965 Date: 04/21/2018 Age: 53y Height: 160 cm / 63.0 in Weight: 80 kg / 176.3 lbs Sex: F BSA: 1.83 Room#: [facility] Admit Date#: 04/21/2018 Type: Inpatient Referring: Sheri Saunders Reading: Coleman Anderson MD Employment Training Specialist: Ct Leal RDCS CC: Duglas Rosario MD Transthoracic Echocardiogram Indication: Chest pain, pulmonary embolism. BP: 100/71 HR: 91 Rhythm: NSR Findings History: HLD, HTN, chemotherapy, s/p powerport insertion, lung/mediastinal mass, Hodgkin's lymphoma. Technical Comments: The study quality is fair. Completed at 1255. Left Ventricle: The left ventricular chamber size is normal. There is no left ventricular hypertrophy. Global left ventricular wall motion and contractility are within normal limits. There is normal left ventricular systolic function. The estimated ejection fraction is 60-65%. The left ventricular diastolic filling pattern is consistent with pseudonormalization. Left Atrium: The left atrium is mildly dilated. Right Ventricle: Moderator Band present. The right ventricle is moderately dilated. The right ventricular global systolic function is moderately reduced. Right Atrium: The right atrium is mildly dilated. Aortic Valve: The aortic valve is trileaflet. There is no evidence of aortic valve thickening. There is no evidence of aortic regurgitation. There is no evidence of aortic stenosis. Mitral Valve: The mitral valve leaflets do not appear thickened. There is a trace of mitral regurgitation. There is no evidence of mitral stenosis. Tricuspid Valve: The tricuspid valve leaflets are normal. There is mild tricuspid regurgitation. The right ventricular systolic pressure is estimated at 37 mmHg. There is evidence of mild pulmonary hypertension. There is no tricuspid stenosis. Pulmonic Valve: The pulmonic valve appears normal. There is a trace pulmonic regurgitation. There is no pulmonic stenosis. Pericardium: There is no significant pericardial effusion. A pericardial fat pad is visualized. Aorta: There is no dilatation of the ascending aorta. There is no dilatation of the aortic arch. The aortic root is normal in size. Pulmonary Artery: The main pulmonary artery appears normal. Venous: The inferior vena cava appears normal in size. There is a greater than 50% respiratory change in the inferior vena cava dimension. Summary: There are no significant changes when compared to the previous study done on 01/07/18 Conclusions Global left ventricular wall motion and contractility are within normal limits. There is normal left ventricular systolic function. The estimated ejection fraction is 60-65%. The right ventricular global systolic function is moderately reduced. There is no evidence of aortic regurgitation. There is a trace of mitral regurgitation. There is mild tricuspid regurgitation. There is evidence of mild pulmonary hypertension. There is no significant pericardial effusion. There are no significant changes when compared to the previous study done on 01/07/18 Measurements Name Value Normal Range RVIDd (AP) 2D 3.4 cm (0.9 - 2.6) RVDdMajor (2D) 5.1 cm (2.2 - 4.4) RAd ISD 4CH 5.2 cm (3.4 - 4.9) RA (A4C)W 4.7 cm (2.9 - 4.6) IVSd (2D) 0.9 cm (0.6 - 1) LVPWd (2D) 0.8 cm (0.6 - 1) LVIDd (2D) 4.3 cm (3.6 - 5.4) LVIDs (2D) 2.7 cm - LV FS (2D) 36 % (25 - 45) Aortic Annulus 2.1 cm (1.4 - 2.6) Ao root diameter (2D) 2.9 cm (2.1 - 3.5) Ascending Ao 3.1 cm (2.1 - 3.4) Aortic arch 2.5 cm (1.8 - 3.4) LA dimension (AP) 2D 4.4 cm (2.3 - 3.8) LAd ISD 4CH 5.1 cm (2.9 - 5.3) LA ISD 4CH W 4.2 cm (2.5 - 4.5) Name Value Normal Range LA ESV BP (A/L) index 35 ml/m2 - Name Value Normal Range MV E-wave Vmax 0.7 m/sec - MV deceleration time 173 msec - MV A-wave Vmax 0.6 m/sec - MV E:A ratio 1.1 ratio - LV septal e' Vmax 0.09 m/sec - LV lateral e' Vmax 0.09 m/sec - LV E:e' septal ratio 7.78 ratio - LV E:e' lateral ratio 7.78 ratio - Name Value Normal Range AV Vmax 1.3 m/sec - AV VTI 26.5 cm - AV peak gradient 7 mmHg - AV mean gradient 4 mmHg - LVOT Vmax 1 m/sec - LVOT VTI 19.5 cm - LVOT peak gradient 4 mmHg - LVOT mean gradient 2 mmHg - JILLIAN Vmax 0.5 m/sec - Name Value Normal Range TR Vmax 2.9 m/sec - TR peak gradient 34 mmHg - RAP 3 mmHg - RVSP 37 mmHg - IVC diameter 1.8 cm - Name Value Normal Range PV Vmax 1 m/sec - PV peak gradient 4 mmHg -
[2018-04-21] MEDS ORDERED: HYDROmorphone INJ* 1 MG/ML CARPUJECT SYRINGE IV SLOW PU PRN (18:11)
[2018-04-21] MEDS ORDERED: HYDROmorphone INJ1* 1 MG/ML SYRINGE IV SLOW PU PRN (18:18)
[2018-04-21] MEDS ORDERED: methylPREDNISolone 125 MG* 2 ML VIAL IV SCH (21:00)
[2018-04-21] MEDS: methylPREDNISolone SOD 40 MG* 1 ML VIAL IV SCH (21:19)
[2018-04-21] MEDS: Zolpidem TAB* 5 MG PO PRN (22:21)
[2018-04-22] MEDS: HYDROmorphone INJ1* 1 MG/ML SYRINGE IV SLOW PU PRN ×7 (00:12→20:24)
[2018-04-22] MEDS: Hydrocodone/Acetamin 10/325 1 TAB PO PRN ×3 (00:52→14:56)
[2018-04-22] MEDS: SULFAMETHOXAZOLE IVPB SCH ×2 (05:18→17:26)
[2018-04-22] MEDS: TRIMETH IVPB SCH ×2 (05:18→17:26)
[2018-04-22] MEDS: D5W IVPB SCH ×2 (05:18→17:26)
[2018-04-22] MEDS: methylPREDNISolone SOD 40 MG* 1 ML VIAL IV SCH ×2 (07:33→20:19)
[2018-04-22] MEDS: Omeprazole CAP (NF) 20 MG CAP.DR PO SCH ×2 (07:40→17:25)
[2018-04-22] MEDS: Montelukast Sodium TAB* 10 MG PO SCH (07:40)
[2018-04-22] MEDS: Enoxaparin(*) 100 MG/ML SYR SUBCUT SCH (07:40)
[2018-04-22] MEDS: Ondansetron INJ* 2 MG/ML VIAL IV PRN (08:57)
[2018-04-22] MEDS ORDERED: Metoclopramide IV* 5 MG/ML 2 ML VIAL ONE (10:19)
[2018-04-22] MEDS: Metoclopramide IV* 5 MG/ML 2 ML VIAL IV PRN (10:23)
[2018-04-22] MEDS: Carisoprodol TAB* 350 MG PO SCH ×2 (10:44→20:18)
[2018-04-22] MEDS: ALPRAZolam TAB* 0.5 MG PO PRN ×3 (10:45→22:08)
[2018-04-22] MEDS: PROCHLORPERAZINE INJ 5 MG/ML 2 ML VIAL IV PRN (10:57)
--- NOTE | 2018-04-22 11:01 | PN ---
Progress Note - Progress Note Date of Service: 04/22/18 SOAP: Subjective: [Slight improvement in dyspnea since admission. Still requiring 8-10L supp O2. No other significant changes.] Objective: [ Laboratory Results - last 24 hr 04/21/18 04/21/18 04/21/18 10:32 10:32 10:32 WBC 6.5 RBC 3.91 L Hgb 11.8 L Hct 34 L MCV 87 MCH 30 MCHC 34 RDW 16 H Plt Count 312 MPV 8.0 Neut % (Auto) 63.9 Lymph % (Auto) 12.5 [place] % (Auto) 18.8 Eos % (Auto) 3.9 Baso % (Auto) 0.9 Absolute Neuts (auto) 4.2 Absolute Lymphs (auto) 0.8 L Absolute Monos (auto) 1.2 H Absolute Eos (auto) 0.3 Absolute Basos (auto) 0.1 Absolute Nucleated RBC 0 Nucleated RBC % 0 ESR Sodium 136 Potassium 4.3 Chloride 104 Carbon Dioxide 25 Anion Gap 7 BUN 10 Creatinine 0.59 Est GFR ( Amer) 129.0 Est GFR (Non-Af Amer) 106.6 BUN/Creatinine Ratio 16.9 Glucose 114 H Lactic Acid 0.4 L Calcium 8.7 Total Bilirubin 0.30 AST 37 ALT 48 Alkaline Phosphatase 219 H Lactate Dehydrogenase Total Creatine Kinase 28 CK-MB (CK-2) 1.1 Troponin I 0.02 C-Reactive Protein Total Protein 6.2 L Albumin 3.1 L Globulin 3.1 Albumin/Globulin Ratio 1.0 Influenza A (Rapid) Influenza B (Rapid) 04/21/18 04/21/18 04/21/18 11:47 11:47 15:26 WBC RBC Hgb Hct MCV MCH MCHC RDW Plt Count MPV Neut % (Auto) Lymph % (Auto) [place] % (Auto) Eos % (Auto) Baso % (Auto) Absolute Neuts (auto) Absolute Lymphs (auto) Absolute Monos (auto) Absolute Eos (auto) Absolute Basos (auto) Absolute Nucleated RBC Nucleated RBC % ESR 92 H Sodium Potassium Chloride Carbon Dioxide Anion Gap BUN Creatinine Est GFR ( Amer) Est GFR (Non-Af Amer) BUN/Creatinine Ratio Glucose Lactic Acid Calcium Total Bilirubin AST ALT Alkaline Phosphatase Lactate Dehydrogenase 446 H Total Creatine Kinase CK-MB (CK-2) Troponin I C-Reactive Protein 208.05 H Total Protein Albumin Globulin Albumin/Globulin Ratio Influenza A (Rapid) Negative Influenza B (Rapid) Negative Vital Signs Temp Pulse Resp BP Pulse Ox 98.3 F 77 30 110/84 94 04/22/18 07:57 04/22/18 10:01 04/22/18 10:01 04/22/18 10:00 04/22/18 10:01 Acetaminophen (Tylenol Tab*) 650 mg PO Q4H PRN PRN Reason: FEVER/HEADACHE Hydrocodone Bitart/Acetaminophen ([place] 10/325 (Nf)) 1 tab PO Q6H PRN PRN Reason: PAIN Last Admin: 04/22/18 07:39 Dose: 1 tab Albuterol (Ventolin 2.5 Mg/3 Ml Neb.Mary*) 2.5 mg INH Q4H PRN PRN Reason: SOB/WHEEZING Alprazolam (Xanax Tab*) 0.5 mg PO Q6H PRN PRN Reason: ANXIETY Carisoprodol (Soma Tab*) 350 mg PO Q8H [facility] Stop: 04/24/18 03:01 Enoxaparin Sodium (Lovenox(*)) 100 mg SUBCUT DAILY [facility] Last Admin: 04/22/18 07:40 Dose: 100 mg Hydromorphone HCl (Dilaudid Inj1s*) 1 mg IV SLOW PU Q3H PRN PRN Reason: PAIN Trimethoprim/Sulfamethoxazole (456 mg/ Dextrose) 528.5 mls @ 264.25 mls/hr IVPB Q8H [facility] Last Admin: 04/22/18 05:18 Dose: 264.25 mls/hr Methylprednisolone Sodium Succinate (Solu-Medrol 40 Mg) 60 mg IV Q12H [facility] Last Admin: 04/22/18 07:33 Dose: 60 mg Metoclopramide HCl (Reglan Iv*) 5 mg IV Q6H PRN PRN Reason: NAUSEA/VOMITING Last Admin: 04/22/18 10:23 Dose: 5 mg Montelukast Sodium (Singulair Tab*) 10 mg PO QAM [facility] Last Admin: 04/22/18 07:40 Dose: 10 mg Omeprazole (Prilosec Cap*) 20 mg PO BID@0730,1630 [facility] Last Admin: 04/22/18 07:40 Dose: 20 mg Ondansetron HCl (Zofran Inj*) 4 mg IV Q4H PRN PRN Reason: NAUSEA/VOMITING Last Admin: 04/22/18 08:57 Dose: 4 mg Prochlorperazine Edisylate (Compazine Inj*) 5 mg IV Q12H PRN PRN Reason: NAUSEA/VOMITING Zolpidem Tartrate (Ambien Tab*) 5 mg PO BEDTIME PRN PRN Reason: INSOMNIA Last Admin: 04/21/18 22:21 Dose: 5 mg Exam: Gen: 53 yo female who appears uncomfortable CV: RRR, no m/r/g Resp: few exp wheezes and faint rhonchi diffusely Abd: soft, nonTTP Ext: no LE edema Assessment: [53 yo female with Hodgkins lymphoma, RA, recent PE while anticoagulated with Xarelto who was admitted with severe hypoxia and associated dyspnea.] Plan: [1. Acute respiratory failure - requiring 8-10L supp O2 to maintain sats in low to mid 90s - extensive interstitial changes on CT - differential includes PCP, bleomycin induced pulm toxicity, atypical PNA, PE induced hypoxia with chronic interstitial lung disease - bronchoscopy would be helpful to differentiate - pending pulm recommendations - ID consult pending - cont Bactrim and high dose corticosteroids - broaden abx coverage until bronch 2. PE - Xarelto failure - cont Lovenox 1.5mg/kg daily 3. Hodgkins lymphoma - good response by PET on ABVD - s/p C4A with bleomycin held 4. RA Dispo: cont ICU level care at this time]
--- NOTE | 2018-04-22 12:11 | PN ---
Progress Note - Progress Note Date of Service: 04/22/18 Note: Progress Note -- Critical Care 24 hour events: -awake, alert. cough+, slightly increased SOB; on 8-10L NC now -no distress, chest pain intermittent+ Tele: NSR Vitals: Vital Signs Temp 97.3 F 04/22/18 11:44 Pulse 72 04/22/18 11:01 Resp 33 04/22/18 11:01 BP 114/75 04/22/18 11:00 Pulse Ox 98 04/22/18 11:01 Intake & Output 04/21/18 04/22/18 04/22/18 18:59 06:59 18:59 Intake Total 560 655 240 Output Total 200 500 Balance 560 455 -260 Weight 68.5 kg 70.035 kg Intake: IV Fluids 530 BACTRIM 530 Oral 560 125 240 Output: Urine 200 500 Other: Estimated Void Medium # Voids 1 O2/Vent: 8-10L NC Infusions: heplock Current Medications: Acetaminophen (Tylenol Tab*) 650 mg PO Q4H PRN PRN Reason: FEVER/HEADACHE Hydrocodone Bitart/Acetaminophen ([place] 10/325 (Nf)) 1 tab PO Q6H PRN PRN Reason: PAIN Last Admin: 04/22/18 07:39 Dose: 1 tab Albuterol (Ventolin 2.5 Mg/3 Ml Neb.Mary*) 2.5 mg INH Q4H PRN PRN Reason: SOB/WHEEZING Alprazolam (Xanax Tab*) 0.5 mg PO Q6H PRN PRN Reason: ANXIETY Last Admin: 04/22/18 10:45 Dose: 0.5 mg Carisoprodol (Soma Tab*) 350 mg PO Q8H [facility] Stop: 04/24/18 03:01 Last Admin: 04/22/18 10:44 Dose: 350 mg Enoxaparin Sodium (Lovenox(*)) 100 mg SUBCUT DAILY [facility] Last Admin: 04/22/18 07:40 Dose: 100 mg Hydromorphone HCl (Dilaudid Inj1s*) 1 mg IV SLOW PU Q3H PRN PRN Reason: PAIN Last Admin: 04/22/18 10:55 Dose: 1 mg Trimethoprim/Sulfamethoxazole (456 mg/ Dextrose) 528.5 mls @ 264.25 mls/hr IVPB Q8H [facility] Last Admin: 04/22/18 05:18 Dose: 264.25 mls/hr Doxycycline Hyclate 100 mg/ (Sodium Chloride) 250 mls @ 250 mls/hr IVPB Q12H [facility] Ceftriaxone Sodium 1 gm/ (Sodium Chloride) 50 mls @ 200 mls/hr IVPB Q24H [facility] Methylprednisolone Sodium Succinate (Solu-Medrol 40 Mg) 60 mg IV Q12H [facility] Last Admin: 04/22/18 07:33 Dose: 60 mg Metoclopramide HCl (Reglan Iv*) 5 mg IV Q6H PRN PRN Reason: NAUSEA/VOMITING Last Admin: 04/22/18 10:23 Dose: 5 mg Montelukast Sodium (Singulair Tab*) 10 mg PO QAM [facility] Last Admin: 04/22/18 07:40 Dose: 10 mg Omeprazole (Prilosec Cap*) 20 mg PO BID@0730,1630 [facility] Last Admin: 04/22/18 07:40 Dose: 20 mg Ondansetron HCl (Zofran Inj*) 4 mg IV Q4H PRN PRN Reason: NAUSEA/VOMITING Last Admin: 04/22/18 08:57 Dose: 4 mg Prochlorperazine Edisylate (Compazine Inj*) 5 mg IV Q12H PRN PRN Reason: NAUSEA/VOMITING Last Admin: 04/22/18 10:57 Dose: 5 mg Zolpidem Tartrate (Ambien Tab*) 5 mg PO BEDTIME PRN PRN Reason: INSOMNIA Last Admin: 04/21/18 22:21 Dose: 5 mg Physical Exam: General: awake, alert, no distress, no diaphoresis Head: normocephalic, atraumatic HEENT: no pallor, no icterus, moist mucous membranes Neck: soft, supple, no jvd, no stridor CVS: normal rate, regular, no murmur Resp: bilateral air entry, decreased bilateral rhales+, no wheeze, scattered rhonchi+, no acc muscle use Abdomen: soft, nontender, nondistended, bowel sounds present Ext: pulses+, warm, no edema Skin: intact Neuro: awake, alert, orientedx3, moving all extremities, no gross focal deficit Labs: Laboratory Results - last 24 hr 04/21/18 04/21/18 04/21/18 11:47 11:47 15:26 ESR 92 H Lactate Dehydrogenase 446 H C-Reactive Protein 208.05 H Influenza A (Rapid) Negative Influenza B (Rapid) Negative Imaging: CTA chest 04/20 - RUL PE, bilateral interstitial infiltrates+ Assessment: 53y F w/pmhx of RA (on plaquenil/methotrexate/prednisone)(recently off prednisone before chemo, only on plaquenil), SVC syndrome, Hodgkins Lymphoma (started on ABVD chemo tx 12/2017 x3 cycles), DVT 01/2018 (placed on Xarelto); patient presented to Oncology on 04/20, had complaints of progressive shortness of breath and low grade temps x3 weeks, mild cough+, mild sputum+. She was sent for a CT chest and found to have a pulmonary embolism in RUL ( while on xarelto) and bilateral infiltrates. She was changed to lovenox SQ for AC. She has a history of infiltrates on CXR but given resp symptoms and low grade temps, she was sent to pulm f/u 04/21. She initially refused to go to hospital 04/20 and wanted to wait. Today at Dr Ross office she was tachypneic 30-40, hypoxic 80s, sent to ER directly. -Acute hypoxic respiratory failure -Suspected Bilateral pneumonia, CABP vs atypical vs bleo induced lung fibrosis -DVT with RUL PE -Hodgkins lymphoma, on chemo Plan: Neuro- awake/alert. delirium prec. CVS- BP stable, HR stable. trop neg. EKG some twave inv V1-V2. IVF as needed. -IV abx; bactrim for suspected PCP, empiric bacterial/atypical coverage -TTE with intact LV function, mild-mod RV dysfunction Resp- -hypoxic, on 8-10L; may need hflow -CXR 04/21 stable infiltrates -cont steroids and IV abx -sputum for pcp/culture; if stable can consider bronchoscopy but if O2 requiriements increasing may be risky now -bleomycin toxicity vs atypical pneumonia are differentials; PE+ but not as big -cont Lovenox BID AC -bronchodilators prn; solumedrol 60mg iv q12h ID- afebrile. CTA with PE and bilateral interstitial infiltrates. send blood and sputum culture.neg strept/leg ag. send PCP. may need bronch. Bactrim tx ( day#2); start ceftriaxone/doxy (day#1). GI- regular diet. PPI for PUD. Renal- Cr okay. no acidosis. IVF prn. Heme- hg stable. plt okay. Hodgkins, on chemo, as per oncology. Lovenox 1mg/kg for DVT/PE. -we discussed that LDH elevated now, but wasnt during hodgkins tx; may be pointing toward LDH from PCP Endo- - Musculsk- pressure ulcer prophylaxis. Bedrest. oob to chair as tolerated Wounds- none Nutrition- regular diet DVT prophylaxis: lovenox sq bid GI prophylaxis: ppi Central Line: no Arterial Line: no Garcia Cathetor: no Disposition: ICU Code Status: full code Total critical care time 35 min, not including procedures/teaching Vinay Olvera MD [employer] Analyst (Electronically Signed)
[2018-04-22] MEDS ORDERED: Collagenase 250 MG/GM OINT* 30 GM TOPICAL SCH (13:30)
[2018-04-22] MEDS: cefTRIAXone(*) 1 GM in NS 0.9% 50 ML* 50 ML IVPB SCH (13:36)
[2018-04-22] MEDS: DOXYcycline IV* 100 MG in NS 0.9% 250 ML* 250 ML IVPB SCH (14:50)
--- NOTE | 2018-04-22 15:08 | PN ---
Progress Note - Progress Note Date of Service: 04/22/18 - Pulm f/u note Note: Pt seen and examined at bedside. Pt reports cough, slight improveent in SOB. Chest discomfort is improved with Dilaudid. Active Medications Generic Name Dose Route Start Last Admin Trade Name Freq PRN Reason Stop Dose Admin Acetaminophen 650 mg 04/21/18 10:46 Tylenol Tab* PO Q4H PRN FEVER/HEADACHE Hydrocodone Bitart/Acetaminophen 1 tab 04/21/18 14:00 04/22/18 07:39 [place] 10/325 (Nf) PO 1 tab Q6H PRN Administration PAIN Albuterol 2.5 mg 04/21/18 13:39 Ventolin 2.5 Mg/3 Ml Neb.Mary* INH Q4H PRN SOB/WHEEZING Alprazolam 0.5 mg 04/22/18 10:15 04/22/18 10:45 Xanax Tab* PO 0.5 mg Q6H PRN Administration ANXIETY Carisoprodol 350 mg 04/22/18 11:00 04/22/18 10:44 Soma Tab* PO 04/24/18 03:01 350 mg Q8H [facility] Administration Enoxaparin Sodium 100 mg 04/21/18 16:00 04/22/18 07:40 Lovenox(*) SUBCUT 100 mg DAILY [facility] Administration Hydromorphone HCl 1 mg 04/22/18 10:39 04/22/18 13:36 Dilaudid Inj1s* IV SLOW PU 1 mg Q3H PRN Administration PAIN Trimethoprim/Sulfamethoxazole 528.5 mls @ 264.25 mls/hr 04/21/18 13:30 05:18 456 mg/ Dextrose IVPB 264.25 mls/hr Q8H [facility] Administration Doxycycline Hyclate 100 mg/ 250 mls @ 250 mls/hr 04/22/18 14:00 Sodium Chloride IVPB Q12H [facility] Ceftriaxone Sodium 1 gm/ 50 mls @ 200 mls/hr 04/22/18 13:00 04/22/18 13:36 Sodium Chloride IVPB 200 mls/hr Q24H [facility] Administration Methylprednisolone Sodium Succinate 60 mg 04/21/18 21:00 04/22/18 07:33 Solu-Medrol 40 Mg IV 60 mg Q12H [facility] Administration Metoclopramide HCl 5 mg 04/22/18 10:15 04/22/18 10:23 Reglan Iv* IV 5 mg Q6H PRN Administration NAUSEA/VOMITING Montelukast Sodium 10 mg 04/21/18 14:00 04/22/18 07:40 Singulair Tab* PO 10 mg QAM [facility] Administration Omeprazole 20 mg 04/21/18 16:30 04/22/18 07:40 Prilosec Cap* PO 20 mg BID@0730,1630 [facility] Administration Ondansetron HCl 4 mg 04/21/18 13:14 04/22/18 08:57 Zofran Inj* IV 4 mg Q4H PRN Administration NAUSEA/VOMITING Prochlorperazine Edisylate 5 mg 04/22/18 10:15 04/22/18 10:57 Compazine Inj* IV 5 mg Q12H PRN Administration NAUSEA/VOMITING Zolpidem Tartrate 5 mg 04/21/18 21:47 04/21/18 22:21 Ambien Tab* PO 5 mg BEDTIME PRN Administration INSOMNIA Vital Signs Temp Pulse Resp BP Pulse Ox 97.3 F 76 34 111/73 96 04/22/18 11:44 04/22/18 13:01 04/22/18 13:36 04/22/18 13:00 04/22/18 13:01 O/E: Pt in NAD HEENT: PERRLA, no JVD Lungs: Diminished air entry b/l CVS: S1, S2+, regular Abd: Soft, BS+ Ext: Normal ROM Skin: No rash Neuro: No focal deficits Laboratory Results - last 24 hr 04/21/18 15:26 Influenza A (Rapid) Negative Influenza B (Rapid) Negative I/R: 53 y o f, smoker with h/o RA on Methotrexate until past 3 months, has been on prednisone recently for 1-2 months, recently dx with HOdgkins lymphoma and was started on ABVP Pt with worsening SOB, hypoxia recently Pt has h/o DVT on Xarelto, found to have PE affecting segmental branch of RUL. Pt also found to have GGO and interstial prominance Pt with acute hypoxic resp failure Differentials- PCP likely, also being covered for other bacterial etiologies. Inflammatory sec to RA and drug induced sec to Bleo and methotrexate also in differential Pt with these air space opacities seen in Dec 2017, not very clear at that time as she had signficant pl effusions b/l due to dense adenopathy Lymphoma involving lungs also in differential, though less likely Pt on Bactrim and Solumedrol for PCP coverage Bronchoscopy on hold given concern with worsening of hypoxia Stable on 6-8L O2 C/w Lovenox for PCP ECHO reviewed, no change from last ECHO, no evidence of rt heart strain c/w abx Desaturates with coughing and slight movement Will continue to need close monitoring in ICU
--- NOTE | 2018-04-22 16:41 | CONS ---
CONSULTATION REPORT: DATE OF CONSULT: 04/22/18 REQUESTING PROVIDER: Sheri Dean NP CONSULTING SERVICE: Infectious Disease. REASON FOR CONSULTATION: Fever, dyspnea. IMPRESSION: 1. Fever, bilateral ground-glass opacification on CT, recent pulmonary embolus , acute hypoxemic respiratory failure. Differential diagnosis does include infectious pneumonia including Pneumocystis for which she has been covered, other atypicals and viral are a strong consideration. I think fungal less likely given the pattern of ground-glass opacification. [place] endemic [place], had a negative QuantiFERON this summer before chemotherapy and the radiographic appearance does not suggest tuberculosis reactivation. 2. Rheumatoid arthritis. 3. History of superior vena cava syndrome and left neck mass due to Hodgkin's lymphoma, treated with ABVD and corticosteroids. Stopped bleomycin in February due to dyspnea. RECOMMENDATIONS: Agree with Bactrim and corticosteroids as well as atypical coverage. The influenza PCR was negative. We will add PCR for human metapneumovirus and agree with bronchoscopy if it is feasible for cultures. HISTORY OF PRESENT ILLNESS: This is a 53-year-old woman with Hodgkin's lymphoma undergoing chemotherapy and in mid February developed dyspnea, so her bleomycin was stopped. She had some swelling in her left leg, so she had a CT that shows pulmonary embolus. It also showed bilateral ground-glass opacification and had become more and more dyspneic, so was directed to the emergency room from the oncology office. She was started on Bactrim and IV corticosteroids. She has tolerated that well. Her LDH is in the 400 range. She is producing minimum sputum and no hemoptysis. Urine Legionella and pneumococcal antigens are negative as are blood cultures. Today, she has ongoing dyspnea with occasional cough. No hemoptysis. Appetite is decreased, it has been for a few days. She has had drenching sweats since her Hodgkin's diagnosis in the summer, but without fever or chills until the last day or two. MEDICATIONS: 1. Tylenol. 2. Albuterol. 3. Carisoprodol. 4. Enoxaparin. 5. Methylprednisolone. 6. Omeprazole. 7. IV Bactrim. ALLERGIES: To ASPIRIN. FAMILY HISTORY: Mother had skin cancer. SOCIAL HISTORY: She lives with her . No pets. No travel. Last trip back home to [place] was 5 years ago. No TB contacts as a kid that she knew of. REVIEW OF SYSTEMS: A 14-point review of systems all negative except as noted above in the history of present illness. PHYSICAL EXAM: Vital Signs: Temperature 36.8, T-max 36.8, heart rate 74, respiratory rate 20, blood pressure 114/75, oxygen saturation 98% on 10 L. In general, she is awake, not in distress. Neurologic: She is oriented x3. Follows all commands, answers all questions. Moves all extremities. HEENT: There is no conjunctival hemorrhage. Oropharynx: Without lesions. Neck is supple without mass. Heart: Regular rate and rhythm without murmurs, rubs, or gallops. Lungs are clear to auscultation bilaterally. Abdomen: Soft, nontender, nondistended. There are bowel sounds present. Skin: There is no rash or splinter hemorrhage. Musculoskeletal: There is no spine tenderness to palpation. There is left calf enlargement without tenderness. LABORATORY DATA: White blood cell count 6, hemoglobin 11.8, platelets 312,000. Sed rate 92. Influenza PCR negative. Creatinine 0.6. CRP 210. Please see impressions and recommendations outlined above, which I have discussed with MOSES Souza. Thanks for asking me to see Ms. Osborne in consultation. [id number]/CPS #: [id number] DERIK
[2018-04-22] MEDS: Zolpidem TAB* 5 MG PO PRN (22:08)
[2018-04-23] MEDS: DOXYcycline IV* 100 MG in NS 0.9% 250 ML* 250 ML IVPB SCH ×2 (01:13→14:11)
[2018-04-23] MEDS: HYDROmorphone INJ1* 1 MG/ML SYRINGE IV SLOW PU PRN ×6 (01:20→21:03)
[2018-04-23] MEDS: Hydrocodone/Acetamin 10/325 1 TAB PO PRN ×2 (01:39→19:55)
[2018-04-23] MEDS: SULFAMETHOXAZOLE IVPB SCH ×3 (02:26→18:06)
[2018-04-23] MEDS: TRIMETH IVPB SCH ×3 (02:26→18:06)
[2018-04-23] MEDS: D5W IVPB SCH ×3 (02:26→18:06)
[2018-04-23] MEDS: Carisoprodol TAB* 350 MG PO SCH ×3 (04:49→18:07)
[2018-04-23 07:02] LABS: Hematocrit 34 % (35-47); Hemoglobin 11.1 g/dl (12.0-16.0); Mean Corpuscular HGB Conc 33 g/dl (31-36); Mean Corpuscular Hemoglobin 29 pg (27-31); Mean Corpuscular Volume 88 fL (80-97); Mean Platelet Volume 7.6 fL (7.4-10.4); Platelet Count 358 10^3/ul (150-450); Red Blood Count 3.82 10^6/ul (4.00-5.40); Red Cell Distribution Width 16 % (10.5-15); White Blood Count 9.5 10^3/ul (3.5-10.8)
[2018-04-23 07:18] LABS: Calcium 8.7 mg/dL (8.6-10.3); EGFR Non-African American 104.6 (>60)
[2018-04-23] MEDS: Montelukast Sodium TAB* 10 MG PO SCH (08:59)
[2018-04-23] MEDS: Omeprazole CAP (NF) 20 MG CAP.DR PO SCH ×2 (08:59→16:21)
[2018-04-23] MEDS: Enoxaparin(*) 100 MG/ML SYR SUBCUT SCH (09:00)
[2018-04-23] MEDS: methylPREDNISolone SOD 40 MG* 1 ML VIAL IV SCH ×2 (09:00→21:03)
[2018-04-23] MEDS: Ondansetron INJ* 2 MG/ML VIAL IV PRN (09:37)
--- NOTE | 2018-04-23 11:08 | PN ---
Progress Note - Progress Note Date of Service: 04/23/18 SOAP: Subjective: []Very tired. Still SOB with intermittent chest pain. De-SATs with any exertion, recovering with O2 via NC. Feels her fingers are darker then normal, "they don't look normal." C/o pain all over. Feels pain meds are the only thing that give her a little relief. Normal BMs, normal UO. Medications: Acetaminophen (Tylenol Tab*) 650 mg PO Q4H PRN PRN Reason: FEVER/HEADACHE Hydrocodone Bitart/Acetaminophen ([place] 10/325 (Nf)) 1 tab PO Q6H PRN PRN Reason: PAIN Last Admin: 04/23/18 01:39 Dose: 1 tab Albuterol (Ventolin 2.5 Mg/3 Ml Neb.Mary*) 2.5 mg INH Q4H PRN PRN Reason: SOB/WHEEZING Last Admin: 04/22/18 15:08 Dose: 2.5 mg Alprazolam (Xanax Tab*) 0.5 mg PO Q6H PRN PRN Reason: ANXIETY Last Admin: 04/22/18 22:08 Dose: 0.5 mg Carisoprodol (Soma Tab*) 350 mg PO Q8H [facility] Stop: 04/24/18 03:01 Last Admin: 04/23/18 04:49 Dose: 350 mg Enoxaparin Sodium (Lovenox(*)) 100 mg SUBCUT DAILY [facility] Last Admin: 04/23/18 09:00 Dose: 100 mg Hydromorphone HCl (Dilaudid Inj1s*) 1 mg IV SLOW PU Q3H PRN PRN Reason: PAIN Last Admin: 04/23/18 09:00 Dose: 1 mg Doxycycline Hyclate 100 mg/ (Sodium Chloride) 250 mls @ 250 mls/hr IVPB Q12H [facility] Last Admin: 04/23/18 01:13 Dose: 250 mls/hr Ceftriaxone Sodium 1 gm/ (Sodium Chloride) 50 mls @ 200 mls/hr IVPB Q24H [facility] Last Admin: 04/22/18 13:36 Dose: 200 mls/hr Trimethoprim/Sulfamethoxazole (456 mg/ Dextrose) 528.5 mls @ 264.25 mls/hr IVPB 0200,1000,1800 [facility] Last Admin: 04/23/18 10:31 Dose: 264.25 mls/hr Methylprednisolone Sodium Succinate (Solu-Medrol 40 Mg) 60 mg IV Q12H [facility] Last Admin: 04/23/18 09:00 Dose: 60 mg Metoclopramide HCl (Reglan Iv*) 5 mg IV Q6H PRN PRN Reason: NAUSEA/VOMITING Last Admin: 04/22/18 10:23 Dose: 5 mg Montelukast Sodium (Singulair Tab*) 10 mg PO QAM [facility] Last Admin: 04/23/18 08:59 Dose: 10 mg Omeprazole (Prilosec Cap*) 20 mg PO BID@0730,1630 [facility] Last Admin: 04/23/18 08:59 Dose: 20 mg Ondansetron HCl (Zofran Inj*) 4 mg IV Q4H PRN PRN Reason: NAUSEA/VOMITING Last Admin: 04/23/18 09:37 Dose: 4 mg Prochlorperazine Edisylate (Compazine Inj*) 5 mg IV Q12H PRN PRN Reason: NAUSEA/VOMITING Last Admin: 04/22/18 10:57 Dose: 5 mg Zolpidem Tartrate (Ambien Tab*) 5 mg PO BEDTIME PRN PRN Reason: INSOMNIA Last Admin: 04/22/18 22:08 Dose: 5 mg Objective: [] Vital Signs Temp Pulse Resp BP Pulse Ox 97.2 F 71 25 93/55 96 04/23/18 07:51 04/23/18 06:01 04/23/18 09:00 04/23/18 06:00 04/23/18 06:01 A&Ox3, EOMI, neuro grossly non-focal H[place]ALGO, no obvious deformities. Good cap. refill and no evidence for cyanosis HRR, S1S2 LS dim. bilat., RR 22-28 +BS, abd. soft and on-tender +PP=bilat., no edema, no cyanosis to feet Laboratory Results - last 24 hr 04/23/18 04/23/18 06:50 06:50 WBC 9.5 RBC 3.82 L Hgb 11.1 L Hct 34 L MCV 88 MCH 29 MCHC 33 RDW 16 H Plt Count 358 MPV 7.6 Sodium 135 Potassium 5.0 Chloride 103 Carbon Dioxide 25 Anion Gap 7 BUN 12 Creatinine 0.60 Est GFR ( Amer) 126.5 Est GFR (Non-Af Amer) 104.6 BUN/Creatinine Ratio 20.0 Glucose 109 H Calcium 8.7 Assessment: []53 yo female with Hodgkins Lymphoma s/p C4A ABVD with progressive SOB and new hypoxia admitted with ICU with resp. failure r/t bilat pneumonia with question of PCP vs. other process (Bleomycin held r/t toxicity following C3A). Plan: []1. Continue current plan of care, discussed at length with intesivist, currently on broad spectrum coverage, cont.'s steroids, and supportive care. 2. Plan for bronch tomorrow with biopsy/culture, NPO after midnight
[2018-04-23] MEDS: ALPRAZolam TAB* 0.5 MG PO PRN ×2 (11:23→23:00)
--- NOTE | 2018-04-23 11:28 | PN ---
Progress Note - Progress Note Date of Service: 04/23/18 Note: Progress Note -- Critical Care 24 hour events: -awake, alert. cough+, SOB when moving around; on 5L NC -no distress, chest pain intermittent+ Tele: NSR Vitals: Vital Signs Temp 97.2 F 04/23/18 07:51 Pulse 71 04/23/18 06:01 Resp 28 04/23/18 11:23 BP 93/55 04/23/18 06:00 Pulse Ox 96 04/23/18 06:01 Intake & Output 04/22/18 04/23/18 04/23/18 18:59 06:59 18:59 Intake Total 1265 1897 Output Total 1625 800 600 Balance -360 1097 -600 Weight 67.6 kg Intake: IV Fluids 625 146 BACTRIM 583 NS (0.9%) 146 ceftriaxone 42 IVPB 831 NS (0.9%) 831 Oral 640 920 Output: Urine 1625 800 600 O2/Vent: 5-6L NC Infusions: heplock Current Medications: Acetaminophen (Tylenol Tab*) 650 mg PO Q4H PRN PRN Reason: FEVER/HEADACHE Hydrocodone Bitart/Acetaminophen ([place] 10/325 (Nf)) 1 tab PO Q6H PRN PRN Reason: PAIN Last Admin: 04/23/18 01:39 Dose: 1 tab Albuterol (Ventolin 2.5 Mg/3 Ml Neb.Mary*) 2.5 mg INH Q4H PRN PRN Reason: SOB/WHEEZING Last Admin: 04/22/18 15:08 Dose: 2.5 mg Alprazolam (Xanax Tab*) 0.5 mg PO Q6H PRN PRN Reason: ANXIETY Last Admin: 04/23/18 11:23 Dose: 0.5 mg Carisoprodol (Soma Tab*) 350 mg PO Q8H [facility] Stop: 04/24/18 03:01 Last Admin: 04/23/18 04:49 Dose: 350 mg Enoxaparin Sodium (Lovenox(*)) 100 mg SUBCUT DAILY [facility] Last Admin: 04/23/18 09:00 Dose: 100 mg Hydromorphone HCl (Dilaudid Inj1s*) 1 mg IV SLOW PU Q3H PRN PRN Reason: PAIN Last Admin: 04/23/18 09:00 Dose: 1 mg Doxycycline Hyclate 100 mg/ (Sodium Chloride) 250 mls @ 250 mls/hr IVPB Q12H [facility] Last Admin: 04/23/18 01:13 Dose: 250 mls/hr Ceftriaxone Sodium 1 gm/ (Sodium Chloride) 50 mls @ 200 mls/hr IVPB Q24H [facility] Last Admin: 04/22/18 13:36 Dose: 200 mls/hr Trimethoprim/Sulfamethoxazole (456 mg/ Dextrose) 528.5 mls @ 264.25 mls/hr IVPB 0200,1000,1800 [facility] Last Admin: 04/23/18 10:31 Dose: 264.25 mls/hr Methylprednisolone Sodium Succinate (Solu-Medrol 40 Mg) 60 mg IV Q12H [facility] Last Admin: 04/23/18 09:00 Dose: 60 mg Metoclopramide HCl (Reglan Iv*) 5 mg IV Q6H PRN PRN Reason: NAUSEA/VOMITING Last Admin: 04/22/18 10:23 Dose: 5 mg Montelukast Sodium (Singulair Tab*) 10 mg PO QAM [facility] Last Admin: 04/23/18 08:59 Dose: 10 mg Omeprazole (Prilosec Cap*) 20 mg PO BID@0730,1630 [facility] Last Admin: 04/23/18 08:59 Dose: 20 mg Ondansetron HCl (Zofran Inj*) 4 mg IV Q4H PRN PRN Reason: NAUSEA/VOMITING Last Admin: 04/23/18 09:37 Dose: 4 mg Prochlorperazine Edisylate (Compazine Inj*) 5 mg IV Q12H PRN PRN Reason: NAUSEA/VOMITING Last Admin: 04/22/18 10:57 Dose: 5 mg Zolpidem Tartrate (Ambien Tab*) 5 mg PO BEDTIME PRN PRN Reason: INSOMNIA Last Admin: 04/22/18 22:08 Dose: 5 mg Physical Exam: General: awake, alert, no distress, no diaphoresis Head: normocephalic, atraumatic HEENT: no pallor, no icterus, moist mucous membranes Neck: soft, supple, no jvd, no stridor CVS: normal rate, regular, no murmur Resp: bilateral air entry, decreased bilateral rhales+, no wheeze, scattered rhonchi+, no acc muscle use Abdomen: soft, nontender, nondistended, bowel sounds present Ext: pulses+, warm, no edema Skin: intact Neuro: awake, alert, orientedx3, moving all extremities, no gross focal deficit Labs: Laboratory Results - last 24 hr 04/23/18 04/23/18 06:50 06:50 WBC 9.5 RBC 3.82 L Hgb 11.1 L Hct 34 L MCV 88 MCH 29 MCHC 33 RDW 16 H Plt Count 358 MPV 7.6 Sodium 135 Potassium 5.0 Chloride 103 Carbon Dioxide 25 Anion Gap 7 BUN 12 Creatinine 0.60 Est GFR ( Amer) 126.5 Est GFR (Non-Af Amer) 104.6 BUN/Creatinine Ratio 20.0 Glucose 109 H Calcium 8.7 Imaging: CTA chest 04/20 - RUL PE, bilateral interstitial infiltrates+ Assessment: 53y F w/pmhx of RA (on plaquenil/methotrexate/prednisone)(recently off prednisone before chemo, only on plaquenil), SVC syndrome, Hodgkins Lymphoma (started on ABVD chemo tx 12/2017 x3 cycles), DVT 01/2018 (placed on Xarelto); patient presented to Oncology on 04/20, had complaints of progressive shortness of breath and low grade temps x3 weeks, mild cough+, mild sputum+. She was sent for a CT chest and found to have a pulmonary embolism in RUL ( while on xarelto) and bilateral infiltrates. She was changed to lovenox SQ for AC. She has a history of infiltrates on CXR but given resp symptoms and low grade temps, she was sent to pulm f/u 04/21. She initially refused to go to hospital 04/20 and wanted to wait. Today at Dr Ross office she was tachypneic 30-40, hypoxic 80s, sent to ER directly. -Acute hypoxic respiratory failure -Suspected Bilateral pneumonia, CABP vs atypical vs bleo induced lung fibrosis -DVT with RUL PE -Hodgkins lymphoma, on chemo Plan: Neuro- awake/alert. delirium prec. CVS- BP stable but lower 90s, HR stable. start NS 60cc/hr. -IV abx; bactrim for suspected PCP, empiric bacterial/atypical coverage -TTE with intact LV function, mild-mod RV dysfunction Resp- -hypoxia; on NC 5 L; SOB on exertion; if any escalating O2 req may transition to hiflow. -CXR today -cont steroids and IV abx -plan for bronchoscopy tomorrow if O2 req not high and she appears stable, discussed with Dr garnett. -bleomycin toxicity vs atypical pneumonia are differentials; PE+ but not as big -cont Lovenox BI1.5mg/kg AC -bronchodilators prn; solumedrol 60mg iv q12h ID- afebrile. CTA with PE and bilateral interstitial infiltrates. Blood cx neg. Pending bronch/sputum culture and staining. Empiric Bactrim tx (day#3); ceftriaxone/doxy (day#2). GI- regular diet. PPI for PUD. Renal- Cr okay. no acidosis. IVF NS 60cc/hr started. Heme- hg stable. plt okay. Hodgkins, on chemo, as per oncology. Lovenox 1.5mg/ kg for DVT/PE. -we discussed that LDH elevated now, but wasnt during hodgkins tx; may be pointing toward LDH from PCP Endo- - Musculsk- pressure ulcer prophylaxis. Bedrest. oob to chair as tolerated Wounds- none Nutrition- regular diet DVT prophylaxis: lovenox sq bid GI prophylaxis: ppi Central Line: no Arterial Line: no Garcia Cathetor: no Disposition: ICU Code Status: full code Vinay Olvera MD Childcare Administrator (Electronically Signed)
[2018-04-23] MEDS: NS 0.9% 1000 ML* 1,000 ML IV SCH (12:13)
[2018-04-23] MEDS: cefTRIAXone(*) 1 GM in NS 0.9% 50 ML* 50 ML IVPB SCH (13:09)
[2018-04-23] MEDS: PROCHLORPERAZINE INJ 5 MG/ML 2 ML VIAL IV PRN (16:21)
[2018-04-23] MEDS: Zolpidem TAB* 5 MG PO PRN (21:17)
[2018-04-24] MEDS: DOXYcycline IV* 100 MG in NS 0.9% 250 ML* 250 ML IVPB SCH ×2 (01:09→15:58)
[2018-04-24] MEDS: Hydrocodone/Acetamin 10/325 1 TAB PO PRN ×2 (02:08→15:57)
[2018-04-24] MEDS: Carisoprodol TAB* 350 MG PO SCH (02:08)
[2018-04-24] MEDS: SULFAMETHOXAZOLE IVPB SCH ×3 (03:10→21:42)
[2018-04-24] MEDS: TRIMETH IVPB SCH ×3 (03:10→21:42)
[2018-04-24] MEDS: D5W IVPB SCH ×3 (03:10→21:42)
[2018-04-24 05:18] LABS: Hematocrit 35 % (35-47); Hemoglobin 11.5 g/dl (12.0-16.0); Mean Corpuscular HGB Conc 33 g/dl (31-36); Mean Corpuscular Hemoglobin 29 pg (27-31); Mean Corpuscular Volume 88 fL (80-97); Mean Platelet Volume 7.7 fL (7.4-10.4); Platelet Count 367 10^3/ul (150-450); Red Blood Count 3.98 10^6/ul (4.00-5.40); Red Cell Distribution Width 16 % (10.5-15); White Blood Count 9.1 10^3/ul (3.5-10.8)
[2018-04-24 05:33] LABS: BUN/Creatinine Ratio 21.3 (8-20); Calcium 8.4 mg/dL (8.6-10.3); EGFR Non-African American 102.6 (>60); Potassium 4.5 mmol/L (3.5-5.0)
[2018-04-24] MEDS: HYDROmorphone INJ1* 1 MG/ML SYRINGE IV SLOW PU PRN ×3 (08:03→20:49)
[2018-04-24] MEDS: Montelukast Sodium TAB* 10 MG PO SCH (08:25)
[2018-04-24] MEDS: Omeprazole CAP (NF) 20 MG CAP.DR PO SCH ×2 (08:25→15:57)
[2018-04-24] MEDS: methylPREDNISolone SOD 40 MG* 1 ML VIAL IV SCH ×2 (08:25→20:51)
[2018-04-24] MEDS: Enoxaparin(*) 100 MG/ML SYR SUBCUT SCH (08:26)
[2018-04-24] MEDS: Ondansetron INJ* 2 MG/ML VIAL IV PRN ×2 (08:48→20:46)
--- NOTE | 2018-04-24 09:28 | PN ---
Progress Note - Progress Note Date of Service: 04/24/18 - Pulm note Note: Pt seen and examined at bedside. Pt reports feeling better, chest pain is improved. Intermittent dry cough, continues to require 6L O2. Active Medications Generic Name Dose Route Start Last Admin Trade Name Freq PRN Reason Stop Dose Admin Acetaminophen 650 mg 04/21/18 10:46 Tylenol Tab* PO Q4H PRN FEVER/HEADACHE Hydrocodone Bitart/Acetaminophen 1 tab 04/21/18 14:00 04/24/18 02:08 [place] 10/325 (Nf) PO 1 tab Q6H PRN Administration PAIN Albuterol 2.5 mg 04/21/18 13:39 04/22/18 15:08 Ventolin 2.5 Mg/3 Ml Neb.Mary* INH 2.5 mg Q4H PRN Administration SOB/WHEEZING Alprazolam 0.5 mg 04/22/18 10:15 04/23/18 23:00 Xanax Tab* PO 0.5 mg Q6H PRN Administration ANXIETY Enoxaparin Sodium 100 mg 04/21/18 16:00 04/24/18 08:26 Lovenox(*) SUBCUT 100 mg DAILY TEDDY Administration Hydromorphone HCl 1 mg 04/22/18 10:39 04/24/18 08:03 Dilaudid Inj1s* IV SLOW PU 1 mg Q3H PRN Administration PAIN Doxycycline Hyclate 100 mg/ 250 mls @ 250 mls/hr 04/22/18 14:00 04/24/18 01: 09 Sodium Chloride IVPB 250 mls/hr Q12H TEDDY Administration Ceftriaxone Sodium 1 gm/ 50 mls @ 200 mls/hr 04/22/18 13:00 04/23/18 13:09 Sodium Chloride IVPB 200 mls/hr Q24H TEDDY Administration Trimethoprim/Sulfamethoxazole 528.5 mls @ 264.25 mls/hr 04/22/18 18:00 03:10 456 mg/ Dextrose IVPB 264.25 mls/hr 0200,1000,1800 TEDDY Administration Sodium Chloride 1,000 mls @ 60 mls/hr 04/23/18 11:30 04/23/18 12:13 Ns 0.9% 1000 Ml* IV 60 mls/hr .PER RATE TEDDY Administration Methylprednisolone Sodium Succinate 60 mg 04/21/18 21:00 04/24/18 08:25 Solu-Medrol 40 Mg IV 60 mg Q12H TEDDY Administration Metoclopramide HCl 5 mg 04/22/18 10:15 04/22/18 10:23 Reglan Iv* IV 5 mg Q6H PRN Administration NAUSEA/VOMITING Montelukast Sodium 10 mg 04/21/18 14:00 04/24/18 08:25 Singulair Tab* PO 10 mg QAM TEDDY Administration Omeprazole 20 mg 04/21/18 16:30 04/24/18 08:25 Prilosec Cap* PO 20 mg BID@0730,1630 TEDDY Administration Ondansetron HCl 4 mg 04/21/18 13:14 04/24/18 08:48 Zofran Inj* IV 4 mg Q4H PRN Administration NAUSEA/VOMITING Prochlorperazine Edisylate 5 mg 04/22/18 10:15 04/23/18 16:21 Compazine Inj* IV 5 mg Q12H PRN Administration NAUSEA/VOMITING Zolpidem Tartrate 5 mg 04/21/18 21:47 04/23/18 21:17 Ambien Tab* PO 5 mg BEDTIME PRN Administration INSOMNIA Vital Signs Temp Pulse Resp BP Pulse Ox 97.4 F 70 20 100/63 94 04/24/18 07:50 04/24/18 08:18 04/24/18 08:18 04/24/18 06:00 04/24/18 08:18 O/E: Pt in NAD HEENT: PERRLA, No JVD Lungs: Diminished air entry b/l, no wheeze, crackles at bases CVS: S1, S2+, regular Abd: Soft, BS+ Ext: No edema Neuro: No focal deficits Skin: NO rash Laboratory Results - last 24 hr 04/24/18 04/24/18 05:09 05:09 WBC 9.1 RBC 3.98 L Hgb 11.5 L Hct 35 MCV 88 MCH 29 MCHC 33 RDW 16 H Plt Count 367 MPV 7.7 Sodium 132 L Potassium 4.5 Chloride 100 L Carbon Dioxide 23 Anion Gap 9 BUN 13 Creatinine 0.61 Est GFR ( Amer) 124.1 Est GFR (Non-Af Amer) 102.6 BUN/Creatinine Ratio 21.3 H Glucose 200 H Calcium 8.4 L I/R: 53 y o f, smoker with h/o RA on Methotrexate until past 3 months, has been on prednisone recently for 1-2 months, recently dx with Hodgkins lymphoma and was started on ABVP Pt with worsening SOB, hypoxia recently Pt has h/o DVT on Xarelto, found to have PE affecting segmental branch of RUL. Pt also found to have GGO and interstitial prominence Pt with acute hypoxic resp failure, improving Differentials- PCP likely, also being covered for other bacterial etiologies. Inflammatory sec to RA and drug induced sec to Bleo and methotrexate also in differential Pt with these air space opacities seen in Dec 2017, not very clear at that time as she had signficant pl effusions b/l due to dense adenopathy Lymphoma involving lungs also in differential, though less likely Pt on Bactrim and Solumedrol for PCP coverage Bronchoscopy scheduled today Will perform BAL and transbronchial biopsy Procedure was discussed in detail with pt Associated risks and benefits were discussed Risk of pneumothorax and worsening of hypoxia and possible need for intubation was discussed Risk of bleeding was also discussed Pt has DVT/PE and will need to be on Lovenox as she had developed PE inpsite of being on Xarelto Will administer FFP if any bleeding Pt would like to proceed with bronchoscopy at this time She also discussed with her over phone Stable on 6L O2 ECHO reviewed, no change from last ECHO, no evidence of rt heart strain c/w abx Will continue to need close monitoring in ICU
[2018-04-24] MEDS ORDERED: Naloxone* 0.4 MG/ML 1 ML VIAL IV PRN (11:00)
[2018-04-24] MEDS ORDERED: Ondansetron INJ* 2 MG/ML VIAL IV PRN (11:00)
[2018-04-24] MEDS ORDERED: fentaNYL* 50 MCG/ML 2 ML VIAL (100 MCG VIAL) ONE (11:22)
[2018-04-24] MEDS ORDERED: Levalbuterol 1.25MG/0.5ML NEB ONE (11:27)
[2018-04-24] MEDS: fentaNYL* 50 MCG/ML 2 ML VIAL (100 MCG VIAL) IV PRN ×2 (11:28→11:49)
[2018-04-24] MEDS ORDERED: HYDROmorphone INJ1* 1 MG/ML SYRINGE ONE (11:34)
[2018-04-24] MEDS: PROCHLORPERAZINE INJ 5 MG/ML 2 ML VIAL IV PRN (13:44)
[2018-04-24] MEDS: cefTRIAXone(*) 1 GM in NS 0.9% 50 ML* 50 ML IVPB SCH (15:01)
--- NOTE | 2018-04-24 16:45 | PN ---
Progress Note - Progress Note Date of Service: 04/24/18 SOAP: Subjective: [She reports feeling slightly better this am. Currently requiring 6L supp O2. Bronchoscopy planned for later today] Objective: [ Laboratory Results - last 24 hr 04/24/18 04/24/18 05:09 05:09 WBC 9.1 RBC 3.98 L Hgb 11.5 L Hct 35 MCV 88 MCH 29 MCHC 33 RDW 16 H Plt Count 367 MPV 7.7 Sodium 132 L Potassium 4.5 Chloride 100 L Carbon Dioxide 23 Anion Gap 9 BUN 13 Creatinine 0.61 Est GFR ( Amer) 124.1 Est GFR (Non-Af Amer) 102.6 BUN/Creatinine Ratio 21.3 H Glucose 200 H Calcium 8.4 L Acetaminophen (Tylenol Tab*) 650 mg PO Q4H PRN PRN Reason: FEVER/HEADACHE Hydrocodone Bitart/Acetaminophen ([place] 10/325 (Nf)) 1 tab PO Q6H PRN PRN Reason: PAIN Last Admin: 04/24/18 15:57 Dose: 1 tab Albuterol (Ventolin 2.5 Mg/3 Ml Neb.Mary*) 2.5 mg INH Q4H PRN PRN Reason: SOB/WHEEZING Last Admin: 04/22/18 15:08 Dose: 2.5 mg Alprazolam (Xanax Tab*) 0.5 mg PO Q6H PRN PRN Reason: ANXIETY Last Admin: 04/23/18 23:00 Dose: 0.5 mg Enoxaparin Sodium (Lovenox(*)) 100 mg SUBCUT DAILY TEDDY Last Admin: 04/24/18 08:26 Dose: 100 mg Hydromorphone HCl (Dilaudid Inj1s*) 1 mg IV SLOW PU Q3H PRN PRN Reason: PAIN Last Admin: 04/24/18 11:34 Dose: 1 mg Doxycycline Hyclate 100 mg/ (Sodium Chloride) 250 mls @ 250 mls/hr IVPB Q12H TEDDY Last Admin: 04/24/18 15:58 Dose: 250 mls/hr Ceftriaxone Sodium 1 gm/ (Sodium Chloride) 50 mls @ 200 mls/hr IVPB Q24H TEDDY Last Admin: 04/24/18 15:01 Dose: 200 mls/hr Trimethoprim/Sulfamethoxazole (456 mg/ Dextrose) 528.5 mls @ 264.25 mls/hr IVPB 0200,1000,1800 [facility] Last Admin: 04/24/18 12:52 Dose: 264.25 mls/hr Sodium Chloride (Ns 0.9% 1000 Ml*) 1,000 mls @ 60 mls/hr IV .PER RATE [facility] Last Admin: 04/23/18 12:13 Dose: 60 mls/hr Methylprednisolone Sodium Succinate (Solu-Medrol 40 Mg) 60 mg IV Q12H [facility] Last Admin: 04/24/18 08:25 Dose: 60 mg Metoclopramide HCl (Reglan Iv*) 5 mg IV Q6H PRN PRN Reason: NAUSEA/VOMITING Last Admin: 04/22/18 10:23 Dose: 5 mg Montelukast Sodium (Singulair Tab*) 10 mg PO QAM [facility] Last Admin: 04/24/18 08:25 Dose: 10 mg Omeprazole (Prilosec Cap*) 20 mg PO BID@0730,1630 [facility] Last Admin: 04/24/18 15:57 Dose: 20 mg Ondansetron HCl (Zofran Inj*) 4 mg IV Q4H PRN PRN Reason: NAUSEA/VOMITING Last Admin: 04/24/18 08:48 Dose: 4 mg Prochlorperazine Edisylate (Compazine Inj*) 5 mg IV Q12H PRN PRN Reason: NAUSEA/VOMITING Last Admin: 04/24/18 13:44 Dose: 5 mg Zolpidem Tartrate (Ambien Tab*) 5 mg PO BEDTIME PRN PRN Reason: INSOMNIA Last Admin: 04/23/18 21:17 Dose: 5 mg Vital Signs: Temp Pulse Resp BP Pulse Ox 98.2 F 102 31 106/75 88 04/24/18 11:24 04/24/18 16:00 04/24/18 16:00 04/24/18 12:31 04/24/18 16:00 Exam: Gen: 53 yo female who is in NAD CV: RRR, no m/r/g Resp: few exp wheezes Abd: soft, nonTTP Ext: no LE edema Assessment: [53 yo female with Hodgkins lymphoma, RA, recent PE while anticoagulated with Xarelto who was admitted with severe hypoxia and associated dyspnea.] Plan: [1. Acute respiratory failure - now slightly improved - extensive interstitial changes on CT - differential includes PCP, bleomycin induced pulm toxicity, atypical PNA, PE induced hypoxia with chronic interstitial lung disease - bronchoscopy planned for later today will be helpful to differentiate - ID consult appreciated - cont Bactrim, doxcycline and high dose corticosteroids 2. PE - Xarelto failure - cont Lovenox 1.5mg/kg daily 3. Hodgkins lymphoma - good response by PET on ABVD - s/p C4A with bleomycin held 4. RA Dispo: cont ICU level care at this time]
[2018-04-24] MEDS: ALPRAZolam TAB* 0.5 MG PO PRN (17:07)
[2018-04-24] MEDS: NS 0.9% 1000 ML* 1,000 ML IV SCH (17:47)
[2018-04-24] MEDS ORDERED: LORazepam INJ* 2 MG/ML 1 ML VIAL IV PUSH ONE (17:59)
[2018-04-25] MEDS: Zolpidem TAB* 5 MG PO PRN ×2 (00:36→22:42)
[2018-04-25] MEDS: HYDROmorphone INJ1* 1 MG/ML SYRINGE IV SLOW PU PRN ×7 (00:38→23:02)
--- NOTE | 2018-04-25 00:48 | PRO ---
BRONCHOSCOPY REPORT: DATE OF PROCEDURE: 04/24/18 PROCEDURE PERFORMED: Bronchoscopy with bronchoalveolar lavage and transbronchial biopsy. PRE-PROCEDURAL DIAGNOSES: Lung infiltrates with ground-glass and reticulonodular infiltrates, being treated for pneumonia and pneumocystis pneumonia. ANESTHESIA: General anesthesia. ANESTHESIOLOGIST: Dr. Corea. DESCRIPTION OF PROCEDURE: Informed consent was obtained from the patient prior to the procedure after all the risks and benefits were thoroughly explained. Risk of pneumothorax and risk of bleeding were also explained to the patient and informed consent was obtained. Appropriate time-out was performed prior to the procedure. The patient was lying supine on operating room table. The patient was intubated with size 8.0 endotracheal tube. The patient was being manually bagged with no PEEP during the procedure to decrease the risk of pneumothorax. Flexible Olympus bronchoscope was inserted through ET tube for airway inspection. ET tube positioning was confirmed to be 2 cm above the level of yulissa, was slowly withdrawn back. Thick white secretions were found on both sides and were suctioned out. Bronchoalveolar lavage was obtained from right middle lobe. Specimen was being sent to Cytology to rule out PCP and also was sent to microbiology for cultures. Bronchoscope was then advanced into right lower lobe and transbronchial biopsies were obtained with 6 passes. No bleeding was noted during the procedure. The patient was able to tolerate the procedure. She was extubated and seen in Recovery in optimal condition. Specimen was sent to Pathology in formalin. [id number] #: [id number] MTDD
[2018-04-25] MEDS: PROCHLORPERAZINE INJ 5 MG/ML 2 ML VIAL IV PRN ×2 (01:27→21:26)
[2018-04-25] MEDS: Ondansetron INJ* 2 MG/ML VIAL IV PRN ×2 (02:12→08:31)
[2018-04-25] MEDS ORDERED: Al Hydrox/Mg Hydrox/Simet LIQ* 30 ML UDC PO PRN (02:16)
[2018-04-25] MEDS: DOXYcycline IV* 100 MG in NS 0.9% 250 ML* 250 ML IVPB SCH ×2 (03:09→16:01)
[2018-04-25] MEDS: D5W IVPB SCH ×4 (04:25→21:40)
[2018-04-25] MEDS: SULFAMETHOXAZOLE IVPB SCH ×4 (04:25→21:40)
[2018-04-25] MEDS: TRIMETH IVPB SCH ×4 (04:25→21:40)
[2018-04-25 05:54] LABS: Hematocrit 35 % (35-47); Hemoglobin 11.5 g/dl (12.0-16.0); Mean Corpuscular HGB Conc 33 g/dl (31-36); Mean Corpuscular Hemoglobin 29 pg (27-31); Mean Corpuscular Volume 88 fL (80-97); Mean Platelet Volume 7.7 fL (7.4-10.4); Platelet Count 379 10^3/ul (150-450); Red Blood Count 4.03 10^6/ul (4.00-5.40); Red Cell Distribution Width 17 % (10.5-15); White Blood Count 11.4 10^3/ul (3.5-10.8)
[2018-04-25 06:11] LABS: BUN/Creatinine Ratio 16.7 (8-20); Calcium 8.5 mg/dL (8.6-10.3); EGFR Non-African American 93.7 (>60); Potassium 4.5 mmol/L (3.5-5.0)
[2018-04-25] MEDS: Enoxaparin(*) 100 MG/ML SYR SUBCUT SCH (08:28)
[2018-04-25] MEDS: Montelukast Sodium TAB* 10 MG PO SCH (08:30)
[2018-04-25] MEDS: Omeprazole CAP (NF) 20 MG CAP.DR PO SCH ×2 (08:30→16:35)
[2018-04-25] MEDS: methylPREDNISolone SOD 40 MG* 1 ML VIAL IV SCH ×2 (08:32→21:17)
[2018-04-25] MEDS: Metoclopramide IV* 5 MG/ML 2 ML VIAL IV PRN (09:41)
--- NOTE | 2018-04-25 10:31 | PN ---
Progress Note - Progress Note Date of Service: 04/25/18 SOAP: Subjective: []Feeling a little better, breathing is fine sitting still. Difficult when tries to move. No fevers. Not in pain. Eating fine. Acetaminophen (Tylenol Tab*) 650 mg PO Q4H PRN PRN Reason: FEVER/HEADACHE Hydrocodone Bitart/Acetaminophen ([place] 10/325 (Nf)) 1 tab PO Q6H PRN PRN Reason: PAIN Last Admin: 04/24/18 15:57 Dose: 1 tab Al Hydrox/Mg Hydrox/Simethicone (Maalox Plus*) 30 ml PO Q6H PRN PRN Reason: INDIGESTION Albuterol (Ventolin 2.5 Mg/3 Ml Neb.Mary*) 2.5 mg INH Q4H PRN PRN Reason: SOB/WHEEZING Last Admin: 04/22/18 15:08 Dose: 2.5 mg Alprazolam (Xanax Tab*) 0.5 mg PO Q6H PRN PRN Reason: ANXIETY Last Admin: 04/24/18 17:07 Dose: 0.5 mg Enoxaparin Sodium (Lovenox(*)) 100 mg SUBCUT DAILY [facility] Last Admin: 04/25/18 08:28 Dose: 100 mg Hydromorphone HCl (Dilaudid Inj1s*) 1 mg IV SLOW PU Q3H PRN PRN Reason: PAIN Last Admin: 04/25/18 08:27 Dose: 1 mg Doxycycline Hyclate 100 mg/ (Sodium Chloride) 250 mls @ 250 mls/hr IVPB Q12H [facility] Last Admin: 04/25/18 03:09 Dose: 250 mls/hr Ceftriaxone Sodium 1 gm/ (Sodium Chloride) 50 mls @ 200 mls/hr IVPB Q24H [facility] Last Admin: 04/24/18 15:01 Dose: 200 mls/hr Trimethoprim/Sulfamethoxazole (456 mg/ Dextrose) 528.5 mls @ 264.25 mls/hr IVPB 0200,1000,1800 [facility] Last Admin: 04/25/18 04:25 Dose: 264.25 mls/hr Sodium Chloride (Ns 0.9% 1000 Ml*) 1,000 mls @ 60 mls/hr IV .PER RATE [facility] Last Admin: 04/24/18 17:47 Dose: 60 mls/hr Methylprednisolone Sodium Succinate (Solu-Medrol 40 Mg) 60 mg IV Q12H [facility] Last Admin: 04/25/18 08:32 Dose: 60 mg Metoclopramide HCl (Reglan Iv*) 5 mg IV Q6H PRN PRN Reason: NAUSEA/VOMITING Last Admin: 04/25/18 09:41 Dose: 5 mg Montelukast Sodium (Singulair Tab*) 10 mg PO QAM [facility] Last Admin: 04/25/18 08:30 Dose: 10 mg Omeprazole (Prilosec Cap*) 20 mg PO BID@0730,1630 [facility] Last Admin: 04/25/18 08:30 Dose: 20 mg Ondansetron HCl (Zofran Inj*) 4 mg IV Q4H PRN PRN Reason: NAUSEA/VOMITING Last Admin: 04/25/18 08:31 Dose: 4 mg Prochlorperazine Edisylate (Compazine Inj*) 5 mg IV Q12H PRN PRN Reason: NAUSEA/VOMITING Last Admin: 04/25/18 01:27 Dose: 5 mg Zolpidem Tartrate (Ambien Tab*) 5 mg PO BEDTIME PRN PRN Reason: INSOMNIA Last Admin: 04/25/18 00:36 Dose: 5 mg Objective: [] Vital Signs Temp Pulse Resp BP Pulse Ox 97.4 F 83 22 116/75 97 04/25/18 08:00 04/25/18 10:01 04/25/18 10:01 04/25/18 10:00 04/25/18 10:01 Exam: Gen: 53 yo female who is in NAD CV: RRR, no m/r/g Resp: few exp wheezes Abd: soft, nonTTP Ext: no LE edema Assessment: [53 yo female with Hodgkins lymphoma, RA, recent PE while anticoagulated with Xarelto who was admitted with severe hypoxia and associated dyspnea. Bronchoscope negative for PCP but while on Bactrim. Ddx: bleomycin or infection. ] Plan: [1. Acute respiratory failure - now slightly improved again. - cont Bactrim, doxcycline and high dose corticosteroids - Case d/w Dr. Castelan, try to go to [place] today and off high flow. 2. PE - Xarelto failure - cont Lovenox 1.5mg/kg daily 3. Hodgkins lymphoma - good response by PET on ABVD - s/p C4A with bleomycin held - Will need to resume AVD when stable. 4. RA. Currently on steroids. 5. BS increased on steroids, follow.
--- NOTE | 2018-04-25 12:51 | PN ---
Progress Note - Progress Note Date of Service: 04/25/18 - Pulm f/u note Note: Pt seen and examined at bedside. Pt reprots feeling better this am. Chest discomfort is improved. Has mild intermittent cough Active Medications Generic Name Dose Route Start Last Admin Trade Name Freq PRN Reason Stop Dose Admin Acetaminophen 650 mg 04/21/18 10:46 Tylenol Tab* PO Q4H PRN FEVER/HEADACHE Hydrocodone Bitart/Acetaminophen 1 tab 04/21/18 14:00 04/24/18 15:57 [place] 10/325 (Nf) PO 1 tab Q6H PRN Administration PAIN Al Hydrox/Mg Hydrox/Simethicone 30 ml 04/25/18 02:16 Maalox Plus* PO Q6H PRN INDIGESTION Albuterol 2.5 mg 04/21/18 13:39 04/22/18 15:08 Ventolin 2.5 Mg/3 Ml Neb.Mary* INH 2.5 mg Q4H PRN Administration SOB/WHEEZING Alprazolam 0.5 mg 04/22/18 10:15 04/24/18 17:07 Xanax Tab* PO 0.5 mg Q6H PRN Administration ANXIETY Docusate Sodium 100 mg 04/25/18 12:30 Colace Cap* PO BID TEDDY Enoxaparin Sodium 100 mg 04/21/18 16:00 04/25/18 08:28 Lovenox(*) SUBCUT 100 mg DAILY TEDDY Administration Hydromorphone HCl 1 mg 04/22/18 10:39 04/25/18 12:15 Dilaudid Inj1s* IV SLOW PU 1 mg Q3H PRN Administration PAIN Doxycycline Hyclate 100 mg/ 250 mls @ 250 mls/hr 04/22/18 14:00 04/25/18 03: 09 Sodium Chloride IVPB 250 mls/hr Q12H TEDDY Administration Ceftriaxone Sodium 1 gm/ 50 mls @ 200 mls/hr 04/22/18 13:00 04/24/18 15:01 Sodium Chloride IVPB 200 mls/hr Q24H TEDDY Administration Trimethoprim/Sulfamethoxazole 528.5 mls @ 264.25 mls/hr 04/22/18 18:00 11:03 456 mg/ Dextrose IVPB 264.25 mls/hr 0200,1000,1800 TEDDY Administration Sodium Chloride 1,000 mls @ 60 mls/hr 04/23/18 11:30 04/24/18 17:47 Ns 0.9% 1000 Ml* IV 60 mls/hr .PER RATE TEDDY Administration Lorazepam 1 mg 04/25/18 13:00 04/25/18 12:15 Ativan Inj* IV PUSH 04/25/18 13:01 1 mg ONCE ONE Administration Methylprednisolone Sodium Succinate 60 mg 04/21/18 21:00 04/25/18 08:32 Solu-Medrol 40 Mg IV 60 mg Q12H TEDDY Administration Metoclopramide HCl 5 mg 04/22/18 10:15 04/25/18 09:41 Reglan Iv* IV 5 mg Q6H PRN Administration NAUSEA/VOMITING Montelukast Sodium 10 mg 04/21/18 14:00 04/25/18 08:30 Singulair Tab* PO 10 mg QAM TEDDY Administration Omeprazole 20 mg 04/21/18 16:30 04/25/18 08:30 Prilosec Cap* PO 20 mg BID@0730,1630 TEDDY Administration Ondansetron HCl 4 mg 04/21/18 13:14 04/25/18 08:31 Zofran Inj* IV 4 mg Q4H PRN Administration NAUSEA/VOMITING Prochlorperazine Edisylate 5 mg 04/22/18 10:15 04/25/18 01:27 Compazine Inj* IV 5 mg Q12H PRN Administration NAUSEA/VOMITING Zolpidem Tartrate 5 mg 04/21/18 21:47 04/25/18 00:36 Ambien Tab* PO 5 mg BEDTIME PRN Administration INSOMNIA Vital Signs Temp Pulse Resp BP Pulse Ox 96.5 F 87 22 120/71 95 04/25/18 11:27 04/25/18 11:01 04/25/18 12:15 04/25/18 11:00 04/25/18 11:01 O/E: Pt in NAD HEENT: PERRLA, No JVD Lungs: Diminished air entry b/l, no wheeze CVS: S1, S2+, regular Abd: Soft, BS+ Ext: No edema Neuro: No focal deficits Skin: No rash Laboratory Results - last 24 hr 04/25/18 04/25/18 05:35 05:35 WBC 11.4 H RBC 4.03 Hgb 11.5 L Hct 35 MCV 88 MCH 29 MCHC 33 RDW 17 H Plt Count 379 MPV 7.7 Sodium 132 L Potassium 4.5 Chloride 99 L Carbon Dioxide 24 Anion Gap 9 BUN 11 Creatinine 0.66 Est GFR ( Amer) 113.4 Est GFR (Non-Af Amer) 93.7 BUN/Creatinine Ratio 16.7 Glucose 170 H Calcium 8.5 L I/R: 53 y o f, smoker with h/o RA on Methotrexate until past 3 months, has been on prednisone recently for 1-2 months, recently dx with Hodgkins lymphoma and was started on ABVP Pt with worsening SOB, hypoxia recently Pt has h/o DVT on Xarelto, found to have PE affecting segmental branch of RUL. Pt also found to have GGO and interstitial prominence Pt with acute hypoxic resp failure, improving Differentials- PCP likely, BAL negative, transbronchial biopsies pending. Inflammatory sec to RA and drug induced sec to Bleo and methotrexate also in differential Pt with these air space opacities seen in Dec 2017, not very clear at that time as she had signficant pl effusions b/l due to dense adenopathy Lymphoma involving lungs also in differential, though less likely Pt on Bactrim and Solumedrol for PCP coverage. Will continue inspite of negative BAL for PCP Bronchoscopy was performed 04/24- BAL and transbronchial biopsies obtained Transbronchial biopsy results pending Needing high flow, will titrate to nasal cannula ECHO reviewed, no change from last ECHO, no evidence of rt heart strain c/w abx and steroids at current dose Will continue to need close monitoring in ICU today
[2018-04-25] MEDS: LORazepam INJ* 2 MG/ML 1 ML VIAL ONE ×2 (12:57→14:35)
[2018-04-25] MEDS ORDERED: LORazepam INJ* 2 MG/ML 1 ML VIAL IV PUSH ONE (13:00)
[2018-04-25] MEDS ORDERED: LORazepam INJ* 2 MG/ML 1 ML VIAL ONE (14:34)
[2018-04-25] MEDS: Levalbuterol 1.25MG/0.5ML NEB INH PRN ×2 (14:56→19:36)
[2018-04-25] MEDS: Levalbuterol 1.25MG/0.5ML NEB ONE ×2 (14:56→17:08)
[2018-04-25] MEDS: cefTRIAXone(*) 1 GM in NS 0.9% 50 ML* 50 ML IVPB SCH (15:07)
[2018-04-25] MEDS: Docusate CAP* 100 MG PO SCH ×2 (15:09→21:17)
[2018-04-26] MEDS: DOXYcycline IV* 100 MG in NS 0.9% 250 ML* 250 ML IVPB SCH ×2 (01:33→13:40)
[2018-04-26] MEDS: TRIMETH IVPB SCH ×3 (02:57→18:48)
[2018-04-26] MEDS: SULFAMETHOXAZOLE IVPB SCH ×3 (02:57→18:48)
[2018-04-26] MEDS: D5W IVPB SCH ×3 (02:57→18:48)
[2018-04-26] MEDS: HYDROmorphone INJ1* 1 MG/ML SYRINGE IV SLOW PU PRN ×5 (05:05→22:04)
[2018-04-26 05:11] LABS: Hematocrit 37 % (35-47); Hemoglobin 11.8 g/dl (12.0-16.0); Mean Corpuscular HGB Conc 32 g/dl (31-36); Mean Corpuscular Hemoglobin 28 pg (27-31); Mean Corpuscular Volume 87 fL (80-97); Mean Platelet Volume 7.8 fL (7.4-10.4); Platelet Count 383 10^3/ul (150-450); Red Blood Count 4.17 10^6/ul (4.00-5.40); Red Cell Distribution Width 17 % (10.5-15); White Blood Count 14.2 10^3/ul (3.5-10.8)
[2018-04-26 05:23] LABS: INR 1.06 (0.77-1.02)
[2018-04-26 05:29] LABS: Albumin 3.2 g/dL (3.2-5.2); Albumin/Globulin Ratio 1.2 (1-3); BUN/Creatinine Ratio 19.1 (8-20); Calcium 8.8 mg/dL (8.6-10.3); EGFR Non-African American 90.5 (>60); Globulin 2.7 g/dL (2-4); Potassium 4.8 mmol/L (3.5-5.0); Total Bilirubin 0.2 mg/dL (0.2-1.0); Total Protein 5.9 g/dL (6.4-8.9)
[2018-04-26 05:39] LABS: ABS Basophils 0 10^3/ul (0-0.2); ABS Eosinophils 0 10^3/ul (0-0.6); ABS Lymphocytes 1.2 10^3/ul (1.0-4.8); ABS Monocytes 0.7 10^3/ul (0-0.8); ABS Neutrophils 12.3 10^3/ul (1.5-7.7); ABS Nucleated RBC 0 10^3/ul; Eosinophil % 0.1 %; Lymphocyte % 8.4 %; Nucleated Red Blood Cells % 0.1
[2018-04-26] MEDS: Omeprazole CAP (NF) 20 MG CAP.DR PO SCH ×2 (08:54→17:23)
[2018-04-26] MEDS: Enoxaparin(*) 100 MG/ML SYR SUBCUT SCH (08:56)
[2018-04-26] MEDS: Montelukast Sodium TAB* 10 MG PO SCH (08:57)
[2018-04-26] MEDS: Docusate CAP* 100 MG PO SCH ×2 (08:58→22:03)
[2018-04-26] MEDS: methylPREDNISolone SOD 40 MG* 1 ML VIAL IV SCH ×2 (09:02→22:04)
[2018-04-26] MEDS: Metoclopramide IV* 5 MG/ML 2 ML VIAL IV PRN ×2 (09:25→22:15)
[2018-04-26] MEDS: PROCHLORPERAZINE INJ 5 MG/ML 2 ML VIAL IV PRN (09:25)
--- NOTE | 2018-04-26 09:31 | PN ---
Progress Note - Progress Note Date of Service: 04/26/18 - Pulm f/u note Note: Pt seen and examined at bedside. O/N events: Desaturates quickly with movement Has been requiring high FiO2 Was able to cough thick phleghm with blood tinge Remains tachycardic Active Medications Generic Name Dose Route Start Last Admin Trade Name Freq PRN Reason Stop Dose Admin Acetaminophen 650 mg 04/21/18 10:46 Tylenol Tab* PO Q4H PRN FEVER/HEADACHE Hydrocodone Bitart/Acetaminophen 1 tab 04/21/18 14:00 04/24/18 15:57 [place] 10/325 (Nf) PO 1 tab Q6H PRN Administration PAIN Al Hydrox/Mg Hydrox/Simethicone 30 ml 04/25/18 02:16 Maalox Plus* PO Q6H PRN INDIGESTION Alprazolam 0.5 mg 04/22/18 10:15 04/24/18 17:07 Xanax Tab* PO 0.5 mg Q6H PRN Administration ANXIETY Docusate Sodium 100 mg 04/25/18 12:30 04/26/18 08:58 Colace Cap* PO 100 mg BID TEDDY Administration Enoxaparin Sodium 100 mg 04/21/18 16:00 04/26/18 08:56 Lovenox(*) SUBCUT 100 mg DAILY TEDDY Administration Hydromorphone HCl 1 mg 04/22/18 10:39 04/26/18 09:13 Dilaudid Inj1s* IV SLOW PU 1 mg Q3H PRN Administration PAIN Doxycycline Hyclate 100 mg/ 250 mls @ 250 mls/hr 04/22/18 14:00 04/26/18 01: 33 Sodium Chloride IVPB 250 mls/hr Q12H TEDDY Administration Ceftriaxone Sodium 1 gm/ 50 mls @ 200 mls/hr 04/22/18 13:00 04/25/18 15:07 Sodium Chloride IVPB 200 mls/hr Q24H TEDDY Administration Trimethoprim/Sulfamethoxazole 528.5 mls @ 264.25 mls/hr 04/22/18 18:00 02:57 456 mg/ Dextrose IVPB 264.25 mls/hr 0200,1000,1800 TEDDY Administration Levalbuterol HCl 1.25 mg 04/25/18 14:46 04/25/18 19:36 Xopenex 1.25 Mg/0.5 Ml Neb.Mary* INH 1.25 mg Q6H PRN Administration SOB/WHEEZING Methylprednisolone Sodium Succinate 60 mg 04/21/18 21:00 04/26/18 09:02 Solu-Medrol 40 Mg IV 60 mg Q12H TEDDY Administration Metoclopramide HCl 5 mg 04/22/18 10:15 04/25/18 09:41 Reglan Iv* IV 5 mg Q6H PRN Administration NAUSEA/VOMITING Montelukast Sodium 10 mg 04/21/18 14:00 04/26/18 08:57 Singulair Tab* PO 10 mg QAM TEDDY Administration Omeprazole 20 mg 04/21/18 16:30 04/26/18 08:54 Prilosec Cap* PO 20 mg BID@0730,1630 TEDDY Administration Ondansetron HCl 4 mg 04/21/18 13:14 04/25/18 08:31 Zofran Inj* IV 4 mg Q4H PRN Administration NAUSEA/VOMITING Prochlorperazine Edisylate 5 mg 04/22/18 10:15 04/25/18 21:26 Compazine Inj* IV 5 mg Q12H PRN Administration NAUSEA/VOMITING Zolpidem Tartrate 5 mg 04/21/18 21:47 04/25/18 22:42 Ambien Tab* PO 5 mg BEDTIME PRN Administration INSOMNIA Vital Signs Temp Pulse Resp BP Pulse Ox 99.3 F 84 32 108/72 96 04/26/18 08:00 04/26/18 07:01 04/26/18 09:13 04/26/18 07:00 04/26/18 07:01 O/E: Pt in NAD, sitting up in chair HEENT: PERRLA, No JVD Lungs: Slightly improved aeration, coarse breath sounds, no wheeze CVS: S1, S2+, regular, tachycardia Abd: Soft, BS+ Ext: No edema Neuro: Alert, awake, oriented X4, No focal deficits Skin: No rash Laboratory Results - last 24 hr 04/26/18 04/26/18 04/26/18 04:50 04:50 04:50 WBC 14.2 H RBC 4.17 Hgb 11.8 L Hct 37 MCV 87 MCH 28 MCHC 32 RDW 17 H Plt Count 383 MPV 7.8 Neut % (Auto) 86.2 Lymph % (Auto) 8.4 [place] % (Auto) 5.0 Eos % (Auto) 0.1 Baso % (Auto) 0.3 Absolute Neuts (auto) 12.3 H Absolute Lymphs (auto) 1.2 Absolute Monos (auto) 0.7 Absolute Eos (auto) 0 Absolute Basos (auto) 0 Absolute Nucleated RBC 0 Nucleated RBC % 0.1 INR (Anticoag Therapy) 1.06 H APTT 28.0 Sodium 131 L Potassium 4.8 Chloride 97 L Carbon Dioxide 24 Anion Gap 10 BUN 13 Creatinine 0.68 Est GFR ( Amer) 109.5 Est GFR (Non-Af Amer) 90.5 BUN/Creatinine Ratio 19.1 Glucose 196 H Calcium 8.8 Total Bilirubin 0.20 AST 16 ALT 37 Alkaline Phosphatase 134 H Total Protein 5.9 L Albumin 3.2 Globulin 2.7 Albumin/Globulin Ratio 1.2 I/R: 53 y o f, smoker with h/o RA on Methotrexate until past 3 months, has been on prednisone recently for 1-2 months, recently dx with Hodgkins lymphoma and was started on ABVP 1. Acute hypoxic resp failure 2. Reticular and GGO infiltrates on CT chest- PCP versus drug induced 3. Hodgkins lymphoma 4. PE/DVT Differentials- PCP likely, BAL negative, transbronchial biopsies pending. Inflammatory sec to RA and drug induced sec to Bleo and methotrexate also in differential Pt with these air space opacities seen in Dec 2017, not very clear at that time as she had signficant pl effusions b/l due to dense adenopathy Lymphoma involving lungs also in differential, though less likely Pt has h/o DVT on Xarelto, found to have PE affecting segmental branch of RUL. Pt also found to have GGO and interstitial prominence Pt with significant hypoxia, still requiring high flow Will attempt to wean FiO2 as tolerated Will c/w metanebs to assist with mucus clearance Pt with anxiety that responds to Ativan prn Pt on Bactrim and Solumedrol for PCP coverage. Will continue inspite of negative BAL for PCP Bronchoscopy was performed 04/24- BAL and transbronchial biopsies obtained Transbronchial biopsy results pending c/w broad spectrum abx and steroids at current dose Septic w/u negative to date C/w Lovenox for PE OOB to chair as tolerated Full code Pt and updated on plan of care Will continue to need close monitoring in ICU
[2018-04-26] MEDS: Levalbuterol 1.25MG/0.5ML NEB INH PRN (10:52)
[2018-04-26] MEDS: cefTRIAXone(*) 1 GM in NS 0.9% 50 ML* 50 ML IVPB SCH (12:40)
[2018-04-26] MEDS ORDERED: LORazepam INJ* 2 MG/ML 1 ML VIAL IV PUSH PRN (12:48)
[2018-04-26] MEDS: Ondansetron INJ* 2 MG/ML VIAL IV PRN ×2 (15:09→20:23)
[2018-04-26] MEDS: Scopolamine 1.5 mg* PATCH TRANSDERM SCH (22:02)
[2018-04-26] MEDS: Zolpidem TAB* 5 MG PO PRN (22:03)
[2018-04-27] MEDS ORDERED: D5W 500 ML BAG* 500 ML ONE (02:33)
[2018-04-27] MEDS ORDERED: HYDROmorphone INJ* 0.5 MG/0.5 ML SYRINGE ONE (02:33)
[2018-04-27] MEDS ORDERED: NS 0.9% 250 ML* 250 ML ONE (02:33)
[2018-04-27] MEDS: DOXYcycline IV* 100 MG in NS 0.9% 250 ML* 250 ML IVPB SCH ×2 (02:35→14:11)
[2018-04-27] MEDS: TRIMETH IVPB SCH ×3 (04:17→19:17)
[2018-04-27] MEDS: SULFAMETHOXAZOLE IVPB SCH ×3 (04:17→19:17)
[2018-04-27] MEDS: D5W IVPB SCH ×3 (04:17→19:17)
[2018-04-27] MEDS: Omeprazole CAP (NF) 20 MG CAP.DR PO SCH ×2 (07:42→16:55)
[2018-04-27] MEDS: Hydrocodone/Acetamin 10/325 1 TAB PO PRN ×3 (07:42→19:23)
[2018-04-27] MEDS: Ondansetron INJ* 2 MG/ML VIAL IV PRN (07:47)
--- NOTE | 2018-04-27 08:35 | PN ---
Date of Service: 04/27/18 Critical Care Services: 53F with RA, Hodgkins Lymphoma s/p ABVD presented with respiratory failure requiring HFNC. PNA vs drug reaction vs pcp. Small PE. 04/27: Titrated down to 10L wall o2. Bronch cultures neg. Awaiting biopsy results. Vital Signs: Temp Pulse Resp BP SpO2 FiO2 98.2 F 103 16 132/81 97 70 04/27/18 08:00 04/27/18 08:10 04/27/18 08:10 04/27/18 08:00 04/27/18 08:10 04/27 03:20 Physical Exam: Gen - tachypneic, nad heent - ncat, eomi, perrl neck - no jvd cv - s1/s2, tachy lungs - +ronchi, +crackles at bases abd - soft, nt ext - no cce neuro - non-focal Fluid Balance (Past 24 Hours): I= O= Net Intake & Output 04/25/18 04/26/18 04/27/18 04/28/18 06:59 06:59 06:59 06:59 Intake Total 3433 4660 1769 Output Total 4675 4350 1250 Balance -1242 310 519 Weight 66.4 kg 65 kg 62.7 kg Intake: IV Fluids 2425 724 1009 ABX - DOXYCYCLINE 297 BACTRIM 855 46 LR 450 NS (0.9%) 823 724 963 IVPB 808 3936 540 ABX - DOXYCYCLINE 268 BACTRIM 510 540 NS (0.9%) 808 1175 abx 1983 Oral 200 220 Output: Urine 4675 3800 1250 Garcia 550 Labs: Pending Studies: CXR 04/26 #. No significant change in bilateral alveolar and interstitial consolidation without associated pleural effusions suspicious for ARDS. CTA Chest 04/20 IMPRESSION: 1. SOLITARY PULMONARY EMBOLUS NOTED IN A RIGHT UPPER LOBE SEGMENTAL ARTERY. 2. EXTENSIVE BILATERAL INTERSTITIAL AND GROUNDGLASS INFILTRATES. 3. MEDIASTINAL MASS DECREASED IN SIZE FROM THE PRIOR CT ANGIOGRAM STUDY. Impression: 53F with RA, Hodgkins Lymphoma s/p ABVD presented with respiratory failure requiring HFNC. PNA vs drug reaction vs pcp. Small PE. Plan: Neuro - pain control CV - bp stable Pulm - hypoxic respiratory failure - unclear etiology - Pna vs drug toxicity vs RA - off HFNC this am - c/w steroids and taper ID - afebrile - wbc increasing likely 2/2 steroids - less likely pna but without clear alternative diagnosis will c/w ceftriaxone/ doxy - bactrim for pcp - f/u cultures GI - diet as tolerated Renal - monitor bmp Heme - PE - previously on xarelto - c/w lovenox Endo - elevated fs - 2/2 steroids - monitor for now Rheum - RA - on solumedrol Lines - port PPx - gi/dvt Full Code Critical Care Time: 60 mins
[2018-04-27] MEDS: Montelukast Sodium TAB* 10 MG PO SCH (09:05)
[2018-04-27] MEDS: Enoxaparin(*) 100 MG/ML SYR SUBCUT SCH (09:05)
[2018-04-27] MEDS: methylPREDNISolone SOD 40 MG* 1 ML VIAL IV SCH ×2 (09:05→21:43)
[2018-04-27] MEDS: Docusate CAP* 100 MG PO SCH ×2 (09:05→21:44)
[2018-04-27] MEDS: ALPRAZolam TAB* 0.5 MG PO PRN (09:29)
[2018-04-27] MEDS ORDERED: Ibuprofen TAB* 400 MG PO PRN (11:06)
--- NOTE | 2018-04-27 11:12 | PN ---
Progress Note - Progress Note Date of Service: 04/27/18 SOAP: Subjective: []Feels a lot better. Still very anxious. Still has pain (chronic in nature r/ t fibromyalgia and RA). Less chest pain. Passing gas, but constipated. Has not been getting up much. Medications: Acetaminophen (Tylenol Tab*) 650 mg PO Q4H PRN PRN Reason: FEVER/HEADACHE Hydrocodone Bitart/Acetaminophen ([place] 10/325 (Nf)) 1 tab PO Q4HR PRN PRN Reason: PAIN Al Hydrox/Mg Hydrox/Simethicone (Maalox Plus*) 30 ml PO Q6H PRN PRN Reason: INDIGESTION Alprazolam (Xanax Tab*) 0.5 mg PO Q6H PRN PRN Reason: ANXIETY Last Admin: 04/27/18 09:29 Dose: 0.5 mg Docusate Sodium (Colace Cap*) 100 mg PO BID [facility] Last Admin: 04/27/18 09:05 Dose: 100 mg Enoxaparin Sodium (Lovenox(*)) 100 mg SUBCUT DAILY [facility] Last Admin: 04/27/18 09:05 Dose: 100 mg Hydromorphone HCl (Dilaudid Inj*) 1 mg IV SLOW PU Q6H PRN PRN Reason: PAIN Doxycycline Hyclate 100 mg/ (Sodium Chloride) 250 mls @ 250 mls/hr IVPB Q12H [facility] Last Admin: 04/27/18 02:35 Dose: 250 mls/hr Ceftriaxone Sodium 1 gm/ (Sodium Chloride) 50 mls @ 200 mls/hr IVPB Q24H [facility] Last Admin: 04/26/18 12:40 Dose: 200 mls/hr Trimethoprim/Sulfamethoxazole (456 mg/ Dextrose) 528.5 mls @ 264.25 mls/hr IVPB 0200,1000,1800 [facility] Last Admin: 04/27/18 04:17 Dose: 264.25 mls/hr Ibuprofen (Motrin Tab*) 400 mg PO Q6H PRN PRN Reason: PAIN Levalbuterol HCl (Xopenex 1.25 Mg/0.5 Ml Neb.Mary*) 1.25 mg INH Q6H PRN PRN Reason: SOB/WHEEZING Last Admin: 04/26/18 10:52 Dose: 1.25 mg Lorazepam (Ativan Inj*) 1 mg IV PUSH BID PRN PRN Reason: ANXIETY Methylprednisolone Sodium Succinate (Solu-Medrol 40 Mg) 60 mg IV Q12H [facility] Last Admin: 04/27/18 09:05 Dose: 60 mg Metoclopramide HCl (Reglan Iv*) 5 mg IV Q6H PRN PRN Reason: NAUSEA/VOMITING Last Admin: 04/26/18 22:15 Dose: 5 mg Montelukast Sodium (Singulair Tab*) 10 mg PO QAM [facility] Last Admin: 04/27/18 09:05 Dose: 10 mg Omeprazole (Prilosec Cap*) 20 mg PO BID@0730,1630 [facility] Last Admin: 04/27/18 07:42 Dose: 20 mg Ondansetron HCl (Zofran Inj*) 4 mg IV Q4H PRN PRN Reason: NAUSEA/VOMITING Last Admin: 04/27/18 07:47 Dose: 4 mg Pharmacy Profile Note (Scopolamine Patch Remove*) 1 note PATCH OFF 2100 TEDDY Prochlorperazine Edisylate (Compazine Inj*) 5 mg IV Q12H PRN PRN Reason: NAUSEA/VOMITING Last Admin: 04/26/18 09:25 Dose: 5 mg Scopolamine (Transderm-Scop 1.5 Mg Patch*) 1 patch TRANSDERM Q72H [facility] Last Admin: 04/26/18 22:02 Dose: 1 patch Senna (Senokot Tab*) 2 tab PO BEDTIME PRN PRN Reason: CONSTIPATION Zolpidem Tartrate (Ambien Tab*) 5 mg PO BEDTIME PRN PRN Reason: INSOMNIA Last Admin: 04/26/18 22:03 Dose: 5 mg Objective: [] Vital Signs Temp Pulse Resp BP Pulse Ox 98.2 F 85 19 120/79 99 04/27/18 08:00 04/27/18 10:01 04/27/18 10:01 04/27/18 10:00 04/27/18 10:01 A&Ox3, EOMI, communicating clearly, neuro grossly non-focal HRR, S1S2, SR on tele LS clear bilat. without rhonchi +BS, abd. soft and non-tender No edema noted H[place]AL[place], moves independently in bed. Microbiology 04/24/18 10:57 Gram Stain - Final Misc Fluid (See Comment) - Bronchial Washing Body Fluid Culture - Preliminary YEAST [place] Mucilaginosa Normal [place] 04/21/18 10:32 Aerobic Blood Culture - Final Blood Line No Growth Day 5 Anaerobic Blood Culture - Final No Growth Day 5 04/24/18 10:57 Acid Fast Bacilli Smear - Final Body Fluid - Bronchial Washing 04/21/18 20:41 Legionella Urinary Antigen - Final Urine Negative Legionella Antigen Streptococcus pneumoniae Ag Screen - Final Negative S. pneumo Antigen 04/21/18 11:48 Influenza Types A,B Antigen - Final Nasal Specimen received for Influenza A/B Molecular testing 04/21/18 11:39 Nasal Screen MRSA (PCR) - Final Nasal Mrsa Not Detected 04/21/18 11:20 Nasal Screen MRSA (PCR) - Final Nasal Mrsa Not Detected Assessment: []53 yo female admitted with resp. distress slowly improving with broad spectrum abx. Bronchoscopy 04/24 with final cultures pending. Off vapotherm this AM and down to 10 L via NC. Plan: []Cont. current abx., ID following as well Recommend weaning off IV pain and anti-anxiety meds, add Ibuprofen Add senna Cont. O2 weaning Goal of transition to floor tomorrow AM
[2018-04-27] MEDS: cefTRIAXone(*) 1 GM in NS 0.9% 50 ML* 50 ML IVPB SCH (13:48)
[2018-04-27] MEDS: HYDROmorphone INJ* 0.5 MG/0.5 ML SYRINGE IV SLOW PU PRN ×2 (15:27→21:43)
--- NOTE | 2018-04-27 17:54 | PN ---
Progress Note - Progress Note Date of Service: 04/27/18 - Pulm f/u note Note: Pt seen and examined at bedside. FiO2 requirements slightly improving. Is upset that she is not receiving IV anxiety meds and pain meds Active Medications Generic Name Dose Route Start Last Admin Trade Name Freq PRN Reason Stop Dose Admin Acetaminophen 650 mg 04/21/18 10:46 Tylenol Tab* PO Q4H PRN FEVER/HEADACHE Hydrocodone Bitart/Acetaminophen 1 tab 04/27/18 11:06 04/27/18 14:41 [place] 10/325 (Nf) PO 1 tab Q4HR PRN Administration PAIN Al Hydrox/Mg Hydrox/Simethicone 30 ml 04/25/18 02:16 Maalox Plus* PO Q6H PRN INDIGESTION Alprazolam 0.5 mg 04/27/18 09:07 04/27/18 09:29 Xanax Tab* PO 0.5 mg Q6H PRN Administration ANXIETY Docusate Sodium 100 mg 04/25/18 12:30 04/27/18 09:05 Colace Cap* PO 100 mg BID TEDDY Administration Enoxaparin Sodium 100 mg 04/21/18 16:00 04/27/18 09:05 Lovenox(*) SUBCUT 100 mg DAILY TEDDY Administration Hydromorphone HCl 1 mg 04/27/18 09:09 04/27/18 15:27 Dilaudid Inj* IV SLOW PU 1 mg Q6H PRN Administration PAIN Doxycycline Hyclate 100 mg/ 250 mls @ 250 mls/hr 04/22/18 14:00 04/27/18 14: 11 Sodium Chloride IVPB 250 mls/hr Q12H TEDDY Administration Ceftriaxone Sodium 1 gm/ 50 mls @ 200 mls/hr 04/22/18 13:00 04/27/18 13:48 Sodium Chloride IVPB 200 mls/hr Q24H TEDDY Administration Trimethoprim/Sulfamethoxazole 528.5 mls @ 264.25 mls/hr 04/22/18 18:00 11:30 456 mg/ Dextrose IVPB 264.25 mls/hr 0200,1000,1800 TEDDY Administration Ibuprofen 400 mg 04/27/18 11:06 04/27/18 11:13 Motrin Tab* PO 400 mg Q6H PRN Administration PAIN Levalbuterol HCl 1.25 mg 04/25/18 14:46 04/26/18 10:52 Xopenex 1.25 Mg/0.5 Ml Neb.Mary* INH 1.25 mg Q6H PRN Administration SOB/WHEEZING Lorazepam 1 mg 04/27/18 09:09 Ativan Inj* IV PUSH BID PRN ANXIETY Methylprednisolone Sodium Succinate 60 mg 04/21/18 21:00 04/27/18 09:05 Solu-Medrol 40 Mg IV 60 mg Q12H TEDDY Administration Metoclopramide HCl 5 mg 04/22/18 10:15 04/26/18 22:15 Reglan Iv* IV 5 mg Q6H PRN Administration NAUSEA/VOMITING Montelukast Sodium 10 mg 04/21/18 14:00 04/27/18 09:05 Singulair Tab* PO 10 mg QAM TEDDY Administration Omeprazole 20 mg 04/21/18 16:30 04/27/18 16:55 Prilosec Cap* PO 20 mg BID@0730,1630 TEDDY Administration Ondansetron HCl 4 mg 04/21/18 13:14 04/27/18 07:47 Zofran Inj* IV 4 mg Q4H PRN Administration NAUSEA/VOMITING Pharmacy Profile Note 1 note 04/29/18 21:00 Scopolamine Patch Remove* PATCH OFF 2100 TEDDY Prochlorperazine Edisylate 5 mg 04/22/18 10:15 04/26/18 09:25 Compazine Inj* IV 5 mg Q12H PRN Administration NAUSEA/VOMITING Scopolamine 1 patch 04/26/18 21:00 04/26/18 22:02 Transderm-Scop 1.5 Mg Patch* TRANSDERM 1 patch Q72H TEDDY Administration Senna 2 tab 04/27/18 09:09 Senokot Tab* PO BEDTIME PRN CONSTIPATION Zolpidem Tartrate 5 mg 04/21/18 21:47 04/26/18 22:03 Ambien Tab* PO 5 mg BEDTIME PRN Administration INSOMNIA Vital Signs Temp Pulse Resp BP Pulse Ox 97.4 F 108 16 126/80 94 04/27/18 16:00 04/27/18 17:01 04/27/18 17:01 04/27/18 17:00 04/27/18 17:01 O/E: Pt in NAD, sitting up in chair HEENT: PERRLA, No JVD Lungs: Slightly improved aeration, coarse breath sounds, no wheeze CVS: S1, S2+, regular, tachycardia Abd: Soft, BS+ Ext: No edema Neuro: Alert, awake, oriented X4, No focal deficits Skin: No rash Labs: No new labs I/R: 53 y o f, smoker with h/o RA on Methotrexate until past 3 months, has been on prednisone recently for 1-2 months, recently dx with Hodgkins lymphoma and was started on ABVP 1. Acute hypoxic resp failure 2. Reticular and GGO infiltrates on CT chest- PCP versus drug induced 3. Hodgkins lymphoma 4. PE/DVT Pt with significant hypoxia, FiO2 requirements improving Will c/w metanebs to assist with mucus clearance Pt with anxiety that responds to Ativan prn Pt on Bactrim and Solumedrol for PCP coverage. Will continue for 3 week course Bronchoscopy was performed 04/24- BAL and transbronchial biopsies obtained Transbronchial biopsy results pending c/w broad spectrum abx and steroids at current dose Septic w/u negative to date C/w Lovenox for PE OOB to chair as tolerated Full code Pt and updated on plan of care Will continue to need close monitoring in ICU
[2018-04-27] MEDS: Zolpidem TAB* 5 MG PO PRN (22:03)
[2018-04-28] MEDS: Ondansetron INJ* 2 MG/ML VIAL IV PRN ×4 (00:01→21:30)
[2018-04-28] MEDS: DOXYcycline IV* 100 MG in NS 0.9% 250 ML* 250 ML IVPB SCH ×2 (02:10→13:52)
[2018-04-28] MEDS: D5W IVPB SCH ×3 (03:18→18:32)
[2018-04-28] MEDS: TRIMETH IVPB SCH ×3 (03:18→18:32)
[2018-04-28] MEDS: SULFAMETHOXAZOLE IVPB SCH ×3 (03:18→18:32)
[2018-04-28] MEDS: HYDROmorphone INJ* 0.5 MG/0.5 ML SYRINGE IV SLOW PU PRN (03:24)
[2018-04-28 06:31] LABS: Hematocrit 39 % (35-47); Hemoglobin 12.8 g/dl (12.0-16.0); Mean Corpuscular HGB Conc 33 g/dl (31-36); Mean Corpuscular Hemoglobin 29 pg (27-31); Mean Corpuscular Volume 87 fL (80-97); Platelet Count 383 10^3/ul (150-450); Red Blood Count 4.45 10^6/ul (4.00-5.40); Red Cell Distribution Width 17 % (10.5-15)
[2018-04-28] MEDS: Docusate CAP* 100 MG PO SCH ×2 (07:34→21:31)
[2018-04-28] MEDS: Omeprazole CAP (NF) 20 MG CAP.DR PO SCH ×2 (07:34→15:19)
[2018-04-28] MEDS: Enoxaparin(*) 100 MG/ML SYR SUBCUT SCH (07:34)
[2018-04-28] MEDS: Montelukast Sodium TAB* 10 MG PO SCH (07:34)
[2018-04-28 07:36] LABS: Calcium 8.6 mg/dL (8.6-10.3); Potassium 4.8 mmol/L (3.5-5.0)
[2018-04-28 07:42] LABS: EGFR Non-African American 100.7 (>60)
[2018-04-28 07:46] LABS: ABS Basophils 0.1 10^3/ul (0-0.2); ABS Eosinophils 0 10^3/ul (0-0.6); ABS Lymphocytes 1.1 10^3/ul (1.0-4.8); ABS Monocytes 0.9 10^3/ul (0-0.8); ABS Neutrophils 12.9 10^3/ul (1.5-7.7); ABS Nucleated RBC 0 10^3/ul; Eosinophil % 0.2 %; Lymphocyte % 7.4 %; Nucleated Red Blood Cells % 0
[2018-04-28] MEDS: HYDROmorphone INJ1* 1 MG/ML SYRINGE IV SLOW PU PRN ×3 (09:10→21:30)
[2018-04-28] MEDS: methylPREDNISolone SOD 40 MG* 1 ML VIAL IV SCH ×2 (09:10→21:31)
[2018-04-28] MEDS ORDERED: Caspofungin(NF) 70 MG in NS 0.9% 250 ML* 250 ML IVPB ONE (09:44)
--- NOTE | 2018-04-28 09:46 | PN ---
Date of Service: 04/28/18 Critical Care Services: 53F with RA, Hodgkins Lymphoma s/p ABVD presented with respiratory failure requiring HFNC. PNA vs drug reaction vs pcp. Small PE. 04/27: Titrated down to 10L wall o2. Bronch cultures neg. Awaiting biopsy results. 04/28: Stable o2 requirement since yesterday. BAL with yeast and rothia micilaginosa Vital Signs: Temp Pulse Resp BP SpO2 FiO2 96.2 F 87 30 112/71 95 70 04/28/18 07:42 04/28/18 07:00 04/28/18 09:10 04/28/18 07:00 04/28/18 07:00 04/28 00:00 Physical Exam: Gen - tachypneic, nad heent - ncat, eomi, perrl neck - no jvd cv - s1/s2, tachy lungs - +ronchi, +crackles at bases abd - soft, nt ext - no cce neuro - non-focal Fluid Balance (Past 24 Hours): I= O= Net Intake & Output 04/26/18 04/27/18 04/28/18 04/29/18 06:59 06:59 06:59 06:59 Intake Total 4660 1769 3573 Output Total 4350 1250 2550 700 Balance 990 074 2928 -700 Weight 65 kg 62.7 kg 63.3 kg Intake: IV Fluids 724 1009 2833 ABX - DOXYCYCLINE 250 BACTRIM 46 2320 NS (0.9%) 724 963 213 ceftriaxone 50 IVPB 3936 540 ABX - DOXYCYCLINE 268 BACTRIM 510 540 NS (0.9%) 1175 abx 1983 Oral 220 740 Output: Urine 3800 1250 2550 700 Garcia 550 Labs: Laboratory Results - last 24 hr 04/28/18 04/28/18 06:10 06:10 WBC 15.0 H RBC 4.45 Hgb 12.8 Hct 39 MCV 87 MCH 29 MCHC 33 RDW 17 H Plt Count 383 MPV 8.0 Neut % (Auto) 85.9 Lymph % (Auto) 7.4 [place] % (Auto) 6.1 Eos % (Auto) 0.2 Baso % (Auto) 0.4 Absolute Neuts (auto) 12.9 H Absolute Lymphs (auto) 1.1 Absolute Monos (auto) 0.9 H Absolute Eos (auto) 0 Absolute Basos (auto) 0.1 Absolute Nucleated RBC 0 Nucleated RBC % 0 Sodium 130 L Potassium 4.8 Chloride 95 L Carbon Dioxide 24 Anion Gap 11 BUN 18 Creatinine 0.62 Est GFR ( Amer) 121.8 Est GFR (Non-Af Amer) 100.7 BUN/Creatinine Ratio 29.0 H Glucose 171 H Calcium 8.6 Magnesium 2.0 Studies: CXR 04/26 #. No significant change in bilateral alveolar and interstitial consolidation without associated pleural effusions suspicious for ARDS. CTA Chest 04/20 IMPRESSION: 1. SOLITARY PULMONARY EMBOLUS NOTED IN A RIGHT UPPER LOBE SEGMENTAL ARTERY. 2. EXTENSIVE BILATERAL INTERSTITIAL AND GROUNDGLASS INFILTRATES. 3. MEDIASTINAL MASS DECREASED IN SIZE FROM THE PRIOR CT ANGIOGRAM STUDY. Impression: 53F with RA, Hodgkins Lymphoma s/p ABVD presented with respiratory failure requiring HFNC. PNA vs drug reaction vs pcp. Small PE. Plan: Neuro - pain control CV - bp stable - check ekg Pulm - hypoxic respiratory failure - unclear etiology - Pna vs drug toxicity vs RA - off HFNC this am - c/w steroids and taper ID - afebrile - wbc increasing likely 2/2 steroids - less likely pna but without clear alternative diagnosis will c/w ceftriaxone/ doxy - bactrim for pcp - f/u cultures - will add caspofungin and discuss with ID GI - diet as tolerated Renal - monitor bmp Heme - PE - previously on xarelto - c/w lovenox Endo - elevated fs - 2/2 steroids - monitor for now Rheum - RA - on solumedrol Lines - port PPx - gi/dvt Full Code Critical Care Time: 45 mins
[2018-04-28] MEDS ORDERED: Anidulafungin* 200 MG in NS 0.9% 250 ML* 200 ML IVPB ONE (11:00)
[2018-04-28] MEDS: Hydrocodone/Acetamin 10/325 1 TAB PO PRN ×2 (11:50→18:32)
[2018-04-28] MEDS: cefTRIAXone(*) 1 GM in NS 0.9% 50 ML* 50 ML IVPB SCH (13:46)
[2018-04-28] MEDS: ALPRAZolam TAB* 0.5 MG PO PRN ×2 (13:52→21:31)
[2018-04-28] MEDS: LORazepam INJ* 2 MG/ML 1 ML VIAL IV PUSH PRN (19:59)
[2018-04-28] MEDS: Zolpidem TAB* 5 MG PO PRN (21:31)
[2018-04-29] MEDS: DOXYcycline IV* 100 MG in NS 0.9% 250 ML* 250 ML IVPB SCH ×2 (01:33→14:25)
[2018-04-29] MEDS: D5W IVPB SCH ×3 (02:45→17:24)
[2018-04-29] MEDS: SULFAMETHOXAZOLE IVPB SCH ×3 (02:45→17:24)
[2018-04-29] MEDS: TRIMETH IVPB SCH ×3 (02:45→17:24)
[2018-04-29] MEDS: HYDROmorphone INJ1* 1 MG/ML SYRINGE IV SLOW PU PRN ×2 (04:29→10:35)
[2018-04-29] MEDS: ALPRAZolam TAB* 0.5 MG PO PRN ×2 (04:29→17:34)
[2018-04-29] MEDS: Ondansetron INJ* 2 MG/ML VIAL IV PRN ×2 (04:50→14:31)
[2018-04-29 04:57] LABS: Hematocrit 37 % (35-47); Hemoglobin 12.1 g/dl (12.0-16.0); Mean Corpuscular HGB Conc 33 g/dl (31-36); Mean Corpuscular Hemoglobin 29 pg (27-31); Mean Corpuscular Volume 88 fL (80-97); Platelet Count 348 10^3/ul (150-450); Red Blood Count 4.21 10^6/ul (4.00-5.40); Red Cell Distribution Width 17 % (10.5-15); White Blood Count 14.3 10^3/ul (3.5-10.8)
[2018-04-29 05:18] LABS: Blood Urea Nitrogen 17 mg/dL (6-24); CO2 Carbon Dioxide 24 mmol/L (22-32); Calcium 8.6 mg/dL (8.6-10.3); Chloride 98 mmol/L (101-111); EGFR Non-African American 90.5 (>60); Glucose 167 mg/dL (70-100); Sodium 131 mmol/L (135-145)
[2018-04-29 05:42] LABS: Anion Gap 9 mmol/L (2-11)
[2018-04-29 06:04] LABS: ABS Basophils 0 10^3/ul (0-0.2); ABS Eosinophils 0 10^3/ul (0-0.6); ABS Lymphocytes 1.1 10^3/ul (1.0-4.8); ABS Monocytes 0.5 10^3/ul (0-0.8); ABS Neutrophils 12.6 10^3/ul (1.5-7.7); ABS Nucleated RBC 0 10^3/ul; Eosinophil % 0.2 %; Lymphocyte % 7.4 %; Nucleated Red Blood Cells % 0
[2018-04-29 06:06] LABS: Lymphocytes % 7 %; Monocytes % 1 %; Neutrophil % 87 %
[2018-04-29 06:07] LABS: Immature Granulocytes 5 % (0-9); Metamyelocytes % 2 % (0-2); Myelocytes % 1 % (0-1)
[2018-04-29 06:16] LABS: ABS Neutrophils 13.2 10^3/ul (1.5-7.7)
[2018-04-29] MEDS: Omeprazole CAP (NF) 20 MG CAP.DR PO SCH ×2 (08:22→17:24)
[2018-04-29] MEDS: Docusate CAP* 100 MG PO SCH ×2 (08:22→20:19)
[2018-04-29] MEDS: Montelukast Sodium TAB* 10 MG PO SCH (08:22)
[2018-04-29] MEDS: Hydrocodone/Acetamin 10/325 1 TAB PO PRN ×3 (08:22→17:30)
[2018-04-29] MEDS: Enoxaparin(*) 100 MG/ML SYR SUBCUT SCH (08:22)
[2018-04-29] MEDS: methylPREDNISolone SOD 40 MG* 1 ML VIAL IV SCH ×2 (08:23→20:19)
[2018-04-29] MEDS: LORazepam INJ* 2 MG/ML 1 ML VIAL IV PUSH PRN ×2 (08:26→20:18)
[2018-04-29] MEDS ORDERED: Caspofungin(NF) 50 MG in NS 0.9% 250 ML* 250 ML IVPB SCH (09:00)
[2018-04-29] MEDS ORDERED: Carisoprodol TAB* 350 MG PO PRN (10:32)
--- NOTE | 2018-04-29 10:36 | PN ---
Date of Service: 04/29/18 Critical Care Services: 53F with RA, Hodgkins Lymphoma s/p ABVD presented with respiratory failure requiring HFNC. PNA vs drug reaction vs pcp. Small PE. 04/27: Titrated down to 10L wall o2. Bronch cultures neg. Awaiting biopsy results. 04/28: Stable o2 requirement since yesterday. BAL with yeast and rothia micilaginosa 04/28: Patient feeling slightly better. Remains on 10L O2. Vital Signs: Temp Pulse Resp BP SpO2 FiO2 97.5 F 93 18 117/73 98 70 04/29/18 07:47 04/29/18 10:01 04/29/18 10:01 04/29/18 10:00 04/29/18 10:01 04/28 00:00 Physical Exam: Gen - tachypneic, nad heent - ncat, eomi, perrl neck - no jvd cv - s1/s2, tachy lungs - +ronchi, +crackles at bases abd - soft, nt ext - no cce neuro - non-focal Fluid Balance (Past 24 Hours): I= O= Net Intake & Output 04/27/18 04/28/18 04/29/18 04/30/18 06:59 06:59 06:59 06:59 Intake Total 1769 3573 3090 Output Total 1250 2550 2230 1000 Balance 519 1023 860 -1000 Weight 62.7 kg 63.3 kg 65.7 kg Intake: IV Fluids 1009 2833 1317 ABX - DOXYCYCLINE 250 50 Anidulafungin 53 BACTRIM 46 2320 1056 NS (0.9%) 963 213 158 ceftriaxone 50 IVPB 540 793 ABX - DOXYCYCLINE 250 BACTRIM 540 543 Oral 220 740 980 Output: Urine 1250 2550 2230 1000 Other: Date of Last Bowel 04/29/18 Movement # Bowel Movements 1 Estimated Stool Amount Large Labs: Laboratory Results - last 24 hr 04/29/18 04/29/18 04:44 04:44 WBC 14.3 H RBC 4.21 Hgb 12.1 Hct 37 MCV 88 MCH 29 MCHC 33 RDW 17 H Plt Count 348 MPV 8.0 Neut % (Auto) 88.5 Lymph % (Auto) 7.4 [place] % (Auto) 3.7 Eos % (Auto) 0.2 Baso % (Auto) 0.2 Absolute Neuts (auto) 12.6 H Absolute Lymphs (auto) 1.1 Absolute Monos (auto) 0.5 Absolute Eos (auto) 0 Absolute Basos (auto) 0 Absolute Nucleated RBC 0 Immature Gran % 5 Neutrophils % 87 Band Neutrophils % 2 Lymphocytes % 7 Monocytes % 1 Metamyelocytes % 2 Myelocytes % 1 Nucleated RBC % 0 Abs Neuts (Manual) 13.2 H Abs Lymphs (Manual) 1.0 Abs Monocytes (Manual) 0.1 Normal RBC Morphology Normal Sodium 131 L Potassium TNP Chloride 98 L Carbon Dioxide 24 Anion Gap 9 BUN 17 Creatinine 0.68 Est GFR ( Amer) 109.5 Est GFR (Non-Af Amer) 90.5 BUN/Creatinine Ratio 25.0 H Glucose 167 H Calcium 8.6 Magnesium 2.0 Studies: CXR 04/26 #. No significant change in bilateral alveolar and interstitial consolidation without associated pleural effusions suspicious for ARDS. CTA Chest 04/20 IMPRESSION: 1. SOLITARY PULMONARY EMBOLUS NOTED IN A RIGHT UPPER LOBE SEGMENTAL ARTERY. 2. EXTENSIVE BILATERAL INTERSTITIAL AND GROUNDGLASS INFILTRATES. 3. MEDIASTINAL MASS DECREASED IN SIZE FROM THE PRIOR CT ANGIOGRAM STUDY. Impression: 53F with RA, Hodgkins Lymphoma s/p ABVD presented with respiratory failure requiring HFNC. PNA vs drug reaction vs pcp. Small PE. Plan: Neuro - pain control - xanax/soma prn CV - bp stable Pulm - hypoxic respiratory failure - unclear etiology - Pna vs drug toxicity vs RA - on 10L O2 NC - c/w steroids and taper ID - afebrile - wbc increasing likely 2/2 steroids - less likely pna but without clear alternative diagnosis will c/w ceftriaxone/ doxy - bactrim for pcp - f/u cultures - c/w anidulafungin GI - diet as tolerated Renal - monitor bmp Heme - PE - previously on xarelto - c/w lovenox Endo - elevated fs - 2/2 steroids - monitor for now Rheum - RA - on solumedrol Lines - port PPx - gi/dvt Full Code Stable for transfer to floor Critical Care Time: 40 mins
[2018-04-29] MEDS: Carisoprodol TAB* 350 MG PO PRN ×2 (13:11→17:30)
[2018-04-29] MEDS: Anidulafungin* 100 MG in NS 0.9% 100 ML* 100 ML IVPB SCH (13:13)
[2018-04-29] MEDS: cefTRIAXone(*) 1 GM in NS 0.9% 50 ML* 50 ML IVPB SCH (13:13)
[2018-04-29] MEDS: Scopolamine PATCH Remove* 1 NOTE MISC PATCH OFF SCH (20:25)
[2018-04-29] MEDS: Scopolamine 1.5 mg* PATCH TRANSDERM SCH (20:28)
--- NOTE | 2018-04-29 21:16 | PN ---
Progress Note - Progress Note Date of Service: 04/29/18 - Pulm f/u note Note: Pt seen and examined at bedside. Pt reports feeling better today. FiO2 requirements are improving. Pain is better controlled. Active Medications Generic Name Dose Route Start Last Admin Trade Name Freq PRN Reason Stop Dose Admin Acetaminophen 650 mg 04/21/18 10:46 Tylenol Tab* PO Q4H PRN FEVER/HEADACHE Hydrocodone Bitart/Acetaminophen 2 tab 04/29/18 12:37 04/29/18 17:30 [place] 10/325 (Nf) PO 2 tab Q4HR PRN Administration PAIN Al Hydrox/Mg Hydrox/Simethicone 30 ml 04/25/18 02:16 Maalox Plus* PO Q6H PRN INDIGESTION Alprazolam 0.5 mg 04/27/18 09:07 04/29/18 17:34 Xanax Tab* PO 0.5 mg Q6H PRN Administration ANXIETY Carisoprodol 350 mg 04/29/18 12:37 04/29/18 17:30 Soma Tab* PO 350 mg Q4H PRN Administration Anxiety/pain Docusate Sodium 100 mg 04/25/18 12:30 04/29/18 20:19 Colace Cap* PO 100 mg BID TEDDY Administration Enoxaparin Sodium 100 mg 04/21/18 16:00 04/29/18 08:22 Lovenox(*) SUBCUT 100 mg DAILY TEDDY Administration Doxycycline Hyclate 100 mg/ 250 mls @ 250 mls/hr 04/22/18 14:00 04/29/18 14: 25 Sodium Chloride IVPB 250 mls/hr Q12H TEDDY Administration Ceftriaxone Sodium 1 gm/ 50 mls @ 200 mls/hr 04/22/18 13:00 04/29/18 13:13 Sodium Chloride IVPB 200 mls/hr Q24H TEDDY Administration Trimethoprim/Sulfamethoxazole 528.5 mls @ 264.25 mls/hr 04/22/18 18:00 17:24 456 mg/ Dextrose IVPB 264.25 mls/hr 0200,1000,1800 TEDDY Administration Anidulafungin 100 mg/ Sodium 130 mls @ 65 mls/hr 04/29/18 11:00 04/29/18 13: 13 Chloride IVPB 65 mls/hr Q24H TEDDY Administration Ibuprofen 400 mg 12/10/18 11:06 04/27/18 11:13 Motrin Tab* PO 400 mg Q6H PRN Administration PAIN Levalbuterol HCl 1.25 mg 04/25/18 14:46 04/26/18 10:52 Xopenex 1.25 Mg/0.5 Ml Neb.Mary* INH 1.25 mg Q6H PRN Administration SOB/WHEEZING Lorazepam 1 mg 04/27/18 09:09 04/29/18 20:18 Ativan Inj* IV PUSH 1 mg BID PRN Administration ANXIETY Methylprednisolone Sodium Succinate 60 mg 04/21/18 21:00 04/29/18 20:19 Solu-Medrol 40 Mg IV 60 mg Q12H TEDDY Administration Metoclopramide HCl 5 mg 04/22/18 10:15 04/26/18 22:15 Reglan Iv* IV 5 mg Q6H PRN Administration NAUSEA/VOMITING Montelukast Sodium 10 mg 04/21/18 14:00 04/29/18 08:22 Singulair Tab* PO 10 mg QAM TEDDY Administration Omeprazole 20 mg 04/21/18 16:30 04/29/18 17:24 Prilosec Cap* PO 20 mg BID@0730,1630 TEDDY Administration Ondansetron HCl 4 mg 04/21/18 13:14 04/29/18 14:31 Zofran Inj* IV 4 mg Q4H PRN Administration NAUSEA/VOMITING Pharmacy Profile Note 1 note 04/29/18 21:00 04/29/18 20:25 Scopolamine Patch Remove* PATCH OFF Not Given 2100 TEDDY Prochlorperazine Edisylate 5 mg 04/22/18 10:15 04/26/18 09:25 Compazine Inj* IV 5 mg Q12H PRN Administration NAUSEA/VOMITING Scopolamine 1 patch 04/26/18 21:00 04/29/18 20:28 Transderm-Scop 1.5 Mg Patch* TRANSDERM 1 patch Q72H TEDDY Administration Senna 2 tab 04/27/18 09:09 Senokot Tab* PO BEDTIME PRN CONSTIPATION Zolpidem Tartrate 5 mg 04/21/18 21:47 04/28/18 21:31 Ambien Tab* PO 5 mg BEDTIME PRN Administration INSOMNIA Vital Signs Temp Pulse Resp BP Pulse Ox 97.1 F 100 20 114/66 94 04/29/18 19:47 04/29/18 21:00 04/29/18 21:00 04/29/18 21:00 04/29/18 21:00 O/E: Pt in NAD, sitting up in chair HEENT: PERRLA, No JVD Lungs: Slightly improved aeration, no wheeze CVS: S1, S2+, regular, tachycardia Abd: Soft, BS+ Ext: No edema Neuro: Alert, awake, oriented X4, No focal deficits Skin: No rash Laboratory Results - last 24 hr 04/29/18 04/29/18 04:44 04:44 WBC 14.3 H RBC 4.21 Hgb 12.1 Hct 37 MCV 88 MCH 29 MCHC 33 RDW 17 H Plt Count 348 MPV 8.0 Neut % (Auto) 88.5 Lymph % (Auto) 7.4 [place] % (Auto) 3.7 Eos % (Auto) 0.2 Baso % (Auto) 0.2 Absolute Neuts (auto) 12.6 H Absolute Lymphs (auto) 1.1 Absolute Monos (auto) 0.5 Absolute Eos (auto) 0 Absolute Basos (auto) 0 Absolute Nucleated RBC 0 Immature Gran % 5 Neutrophils % 87 Band Neutrophils % 2 Lymphocytes % 7 Monocytes % 1 Metamyelocytes % 2 Myelocytes % 1 Nucleated RBC % 0 Abs Neuts (Manual) 13.2 H Abs Lymphs (Manual) 1.0 Abs Monocytes (Manual) 0.1 Normal RBC Morphology Normal Sodium 131 L Potassium TNP Chloride 98 L Carbon Dioxide 24 Anion Gap 9 BUN 17 Creatinine 0.68 Est GFR ( Amer) 109.5 Est GFR (Non-Af Amer) 90.5 BUN/Creatinine Ratio 25.0 H Glucose 167 H Calcium 8.6 Magnesium 2.0 I/R: 53 y o f, smoker with h/o RA on Methotrexate until past 3 months, has been on prednisone recently for 1-2 months, recently dx with Hodgkins lymphoma and was started on ABVP 1. Acute hypoxic resp failure 2. Reticular and GGO infiltrates on CT chest- PCP versus drug induced 3. Hodgkins lymphoma 4. PE/DVT Pt with improvement in FiO2 requirements Will c/w metanebs to assist with mucus clearance Pt with anxiety that responds to Ativan prn Pt on Bactrim and Solumedrol for PCP coverage. Will continue to complete 3 week course Bronchoscopy was performed 04/24- BAL and transbronchial biopsies obtained Transbronchial biopsy showed chronic inflammation c/w broad spectrum abx and steroids at current dose C/w Lovenox for PE Will attempt low dose Lasix tomorrow OOB to chair as tolerated Full code Pt and updated on plan of care
--- NOTE | 2018-04-29 22:19 | PN ---
Progress Note - Progress Note Date of Service: 04/29/18 SOAP: Subjective: [Reports feeling slightly better today.] Objective: [ Laboratory Results - last 24 hr 04/29/18 04/29/18 04:44 04:44 WBC 14.3 H RBC 4.21 Hgb 12.1 Hct 37 MCV 88 MCH 29 MCHC 33 RDW 17 H Plt Count 348 MPV 8.0 Neut % (Auto) 88.5 Lymph % (Auto) 7.4 [place] % (Auto) 3.7 Eos % (Auto) 0.2 Baso % (Auto) 0.2 Absolute Neuts (auto) 12.6 H Absolute Lymphs (auto) 1.1 Absolute Monos (auto) 0.5 Absolute Eos (auto) 0 Absolute Basos (auto) 0 Absolute Nucleated RBC 0 Immature Gran % 5 Neutrophils % 87 Band Neutrophils % 2 Lymphocytes % 7 Monocytes % 1 Metamyelocytes % 2 Myelocytes % 1 Nucleated RBC % 0 Abs Neuts (Manual) 13.2 H Abs Lymphs (Manual) 1.0 Abs Monocytes (Manual) 0.1 Normal RBC Morphology Normal Sodium 131 L Potassium TNP Chloride 98 L Carbon Dioxide 24 Anion Gap 9 BUN 17 Creatinine 0.68 Est GFR ( Amer) 109.5 Est GFR (Non-Af Amer) 90.5 BUN/Creatinine Ratio 25.0 H Glucose 167 H Calcium 8.6 Magnesium 2.0 Acetaminophen (Tylenol Tab*) 650 mg PO Q4H PRN PRN Reason: FEVER/HEADACHE Hydrocodone Bitart/Acetaminophen ([place] 10/325 (Nf)) 2 tab PO Q4HR PRN PRN Reason: PAIN Last Admin: 04/29/18 17:30 Dose: 2 tab Al Hydrox/Mg Hydrox/Simethicone (Maalox Plus*) 30 ml PO Q6H PRN PRN Reason: INDIGESTION Alprazolam (Xanax Tab*) 0.5 mg PO Q6H PRN PRN Reason: ANXIETY Last Admin: 04/29/18 17:34 Dose: 0.5 mg Carisoprodol (Soma Tab*) 350 mg PO Q4H PRN PRN Reason: Anxiety/pain Last Admin: 04/29/18 17:30 Dose: 350 mg Docusate Sodium (Colace Cap*) 100 mg PO BID TEDDY Last Admin: 04/29/18 20:19 Dose: 100 mg Enoxaparin Sodium (Lovenox(*)) 100 mg SUBCUT DAILY [facility] Last Admin: 04/29/18 08:22 Dose: 100 mg Doxycycline Hyclate 100 mg/ (Sodium Chloride) 250 mls @ 250 mls/hr IVPB Q12H [facility] Last Admin: 04/29/18 14:25 Dose: 250 mls/hr Ceftriaxone Sodium 1 gm/ (Sodium Chloride) 50 mls @ 200 mls/hr IVPB Q24H [facility] Last Admin: 04/29/18 13:13 Dose: 200 mls/hr Trimethoprim/Sulfamethoxazole (456 mg/ Dextrose) 528.5 mls @ 264.25 mls/hr IVPB 0200,1000,1800 [facility] Last Admin: 04/29/18 17:24 Dose: 264.25 mls/hr Anidulafungin 100 mg/ Sodium (Chloride) 130 mls @ 65 mls/hr IVPB Q24H [facility] Last Admin: 04/29/18 13:13 Dose: 65 mls/hr Ibuprofen (Motrin Tab*) 400 mg PO Q6H PRN PRN Reason: PAIN Last Admin: 04/27/18 11:13 Dose: 400 mg Levalbuterol HCl (Xopenex 1.25 Mg/0.5 Ml Neb.Mary*) 1.25 mg INH Q6H PRN PRN Reason: SOB/WHEEZING Last Admin: 04/26/18 10:52 Dose: 1.25 mg Lorazepam (Ativan Inj*) 1 mg IV PUSH BID PRN PRN Reason: ANXIETY Last Admin: 04/29/18 20:18 Dose: 1 mg Methylprednisolone Sodium Succinate (Solu-Medrol 40 Mg) 60 mg IV Q12H [facility] Last Admin: 04/29/18 20:19 Dose: 60 mg Metoclopramide HCl (Reglan Iv*) 5 mg IV Q6H PRN PRN Reason: NAUSEA/VOMITING Last Admin: 04/26/18 22:15 Dose: 5 mg Metoprolol Succinate (Toprol Xl Tab*) 50 mg PO BID [facility] Montelukast Sodium (Singulair Tab*) 10 mg PO QAM [facility] Last Admin: 04/29/18 08:22 Dose: 10 mg Omeprazole (Prilosec Cap*) 20 mg PO BID@0730,1630 [facility] Last Admin: 04/29/18 17:24 Dose: 20 mg Ondansetron HCl (Zofran Inj*) 4 mg IV Q4H PRN PRN Reason: NAUSEA/VOMITING Last Admin: 04/29/18 14:31 Dose: 4 mg Pharmacy Profile Note (Scopolamine Patch Remove*) 1 note PATCH OFF 2100 TEDDY Last Admin: 04/29/18 20:25 Dose: Not Given Prochlorperazine Edisylate (Compazine Inj*) 5 mg IV Q12H PRN PRN Reason: NAUSEA/VOMITING Last Admin: 04/26/18 09:25 Dose: 5 mg Scopolamine (Transderm-Scop 1.5 Mg Patch*) 1 patch TRANSDERM Q72H [facility] Last Admin: 04/29/18 20:28 Dose: 1 patch Senna (Senokot Tab*) 2 tab PO BEDTIME PRN PRN Reason: CONSTIPATION Zolpidem Tartrate (Ambien Tab*) 5 mg PO BEDTIME PRN PRN Reason: INSOMNIA Last Admin: 04/28/18 21:31 Dose: 5 mg Vital Signs: Temp Pulse Resp BP Pulse Ox 97.1 F 100 20 114/66 94 04/29/18 19:47 04/29/18 21:00 04/29/18 21:00 04/29/18 21:00 04/29/18 21:00 Exam: Gen: 53 yo female who is in NAD, accompanied by her CV: RRR, no m/r/g Resp: CTA, no w/c/r Abd: soft, nonTTP Ext: no LE edema Assessment: [53 yo female with Hodgkins lymphoma, RA, recent PE while anticoagulated with Xarelto who was admitted with acute respiratory failure, still of uncertain etiology s/p bronchoscopy.] Plan: [1. Acute respiratory failure - seems to be improving slowly - extensive interstitial changes on CT - differential includes PCP, bleomycin induced pulm toxicity, atypical PNA, PE induced hypoxia with chronic interstitial lung disease - bronchoscopy last week, PCP neg, but suspicion remains high - ID consult appreciated - cont Bactrim, doxcycline, ceftriaxone and high dose corticosteroids - antifungal coverage recently added by court bailiff 2. PE - Xarelto failure - cont Lovenox 1.5mg/kg daily 3. Hodgkins lymphoma - good response by PET on ABVD - s/p C4A with bleomycin held 4. RA 5. Tachycardia - reports she takes metoprolol at home for tachycardia which she has not been receiving here - will verify dose and resume Dispo: respiratory status stable/improving, ok to transfer to floor with continued telemetry Dispo: cont ICU level care at this time Assessment: [] Plan: []
[2018-04-29] MEDS: Zolpidem TAB* 5 MG PO PRN (23:55)
[2018-04-29] MEDS: Metoprolol Succinate XL TAB* 50 MG PO SCH (23:55)
[2018-04-30] MEDS: D5W IVPB SCH ×3 (02:38→17:08)
[2018-04-30] MEDS: TRIMETH IVPB SCH ×3 (02:38→17:08)
[2018-04-30] MEDS: SULFAMETHOXAZOLE IVPB SCH ×3 (02:38→17:08)
[2018-04-30] MEDS: Hydrocodone/Acetamin 10/325 1 TAB PO PRN ×4 (03:25→19:29)
[2018-04-30] MEDS: Carisoprodol TAB* 350 MG PO PRN ×4 (03:25→19:30)
[2018-04-30] MEDS: ALPRAZolam TAB* 0.5 MG PO PRN ×2 (03:36→16:46)
[2018-04-30] MEDS: DOXYcycline IV* 100 MG in NS 0.9% 250 ML* 250 ML IVPB SCH ×2 (04:39→16:00)
[2018-04-30] MEDS ORDERED: Furosemide IV* 10 MG/ML 2 ML VIAL (20 MG) IV SLOW PU ONE (07:08)
[2018-04-30] MEDS: methylPREDNISolone SOD 40 MG* 1 ML VIAL IV SCH ×2 (09:02→19:29)
[2018-04-30] MEDS: Enoxaparin(*) 100 MG/ML SYR SUBCUT SCH (09:11)
[2018-04-30] MEDS: Metoprolol Succinate XL TAB* 50 MG PO SCH ×2 (09:11→19:30)
[2018-04-30] MEDS: Docusate CAP* 100 MG PO SCH ×2 (09:11→19:29)
[2018-04-30] MEDS: Omeprazole CAP (NF) 20 MG CAP.DR PO SCH ×2 (09:11→16:44)
[2018-04-30] MEDS: Montelukast Sodium TAB* 10 MG PO SCH (09:11)
[2018-04-30] MEDS: LORazepam INJ* 2 MG/ML 1 ML VIAL IV PUSH PRN (09:26)
[2018-04-30] MEDS: Metoclopramide IV* 5 MG/ML 2 ML VIAL IV PRN (09:31)
[2018-04-30] MEDS: Ondansetron INJ* 2 MG/ML VIAL IV PRN ×2 (09:33→19:33)
--- NOTE | 2018-04-30 10:32 | PN ---
Progress Note - Progress Note Date of Service: 04/30/18 SOAP: Subjective: [She is very depressed today. Tearful. Her respiratory status is improving and is anxious to get home.] Objective: [ Acetaminophen (Tylenol Tab*) 650 mg PO Q4H PRN PRN Reason: FEVER/HEADACHE Hydrocodone Bitart/Acetaminophen ([place] 10/325 (Nf)) 2 tab PO Q4HR PRN PRN Reason: PAIN Last Admin: 04/30/18 09:26 Dose: 2 tab Al Hydrox/Mg Hydrox/Simethicone (Maalox Plus*) 30 ml PO Q6H PRN PRN Reason: INDIGESTION Alprazolam (Xanax Tab*) 0.5 mg PO Q6H PRN PRN Reason: ANXIETY Last Admin: 04/30/18 03:36 Dose: 0.5 mg Carisoprodol (Soma Tab*) 350 mg PO Q4H PRN PRN Reason: Anxiety/pain Last Admin: 04/30/18 09:26 Dose: 350 mg Citalopram Hydrobromide (Celexa Tab*) 20 mg PO DAILY [facility] Docusate Sodium (Colace Cap*) 100 mg PO BID [facility] Last Admin: 04/30/18 09:11 Dose: 100 mg Enoxaparin Sodium (Lovenox(*)) 100 mg SUBCUT DAILY [facility] Last Admin: 04/30/18 09:11 Dose: 100 mg Doxycycline Hyclate 100 mg/ (Sodium Chloride) 250 mls @ 250 mls/hr IVPB Q12H [facility] Last Admin: 04/30/18 04:39 Dose: 250 mls/hr Ceftriaxone Sodium 1 gm/ (Sodium Chloride) 50 mls @ 200 mls/hr IVPB Q24H [facility] Last Admin: 04/29/18 13:13 Dose: 200 mls/hr Trimethoprim/Sulfamethoxazole (456 mg/ Dextrose) 528.5 mls @ 264.25 mls/hr IVPB 0200,1000,1800 [facility] Last Admin: 04/30/18 02:38 Dose: 264.25 mls/hr Anidulafungin 100 mg/ Sodium (Chloride) 130 mls @ 65 mls/hr IVPB Q24H [facility] Last Admin: 04/29/18 13:13 Dose: 65 mls/hr Ibuprofen (Motrin Tab*) 400 mg PO Q6H PRN PRN Reason: PAIN Last Admin: 04/27/18 11:13 Dose: 400 mg Levalbuterol HCl (Xopenex 1.25 Mg/0.5 Ml Neb.Mary*) 1.25 mg INH Q6H PRN PRN Reason: SOB/WHEEZING Last Admin: 04/26/18 10:52 Dose: 1.25 mg Lorazepam (Ativan Inj*) 1 mg IV PUSH BID PRN PRN Reason: ANXIETY Last Admin: 04/30/18 09:26 Dose: 1 mg Methylprednisolone Sodium Succinate (Solu-Medrol 40 Mg) 60 mg IV Q12H [facility] Last Admin: 04/30/18 09:02 Dose: 60 mg Metoclopramide HCl (Reglan Iv*) 5 mg IV Q6H PRN PRN Reason: NAUSEA/VOMITING Last Admin: 04/30/18 09:31 Dose: 5 mg Metoprolol Succinate (Toprol Xl Tab*) 50 mg PO BID [facility] Last Admin: 04/30/18 09:11 Dose: 50 mg Montelukast Sodium (Singulair Tab*) 10 mg PO QAM [facility] Last Admin: 04/30/18 09:11 Dose: 10 mg Omeprazole (Prilosec Cap*) 20 mg PO BID@0730,1630 [facility] Last Admin: 04/30/18 09:11 Dose: 20 mg Ondansetron HCl (Zofran Inj*) 4 mg IV Q4H PRN PRN Reason: NAUSEA/VOMITING Last Admin: 04/30/18 09:33 Dose: 4 mg Pharmacy Profile Note (Scopolamine Patch Remove*) 1 note PATCH OFF 2100 [facility] Last Admin: 04/29/18 20:25 Dose: Not Given Prochlorperazine Edisylate (Compazine Inj*) 5 mg IV Q12H PRN PRN Reason: NAUSEA/VOMITING Last Admin: 04/26/18 09:25 Dose: 5 mg Scopolamine (Transderm-Scop 1.5 Mg Patch*) 1 patch TRANSDERM Q72H [facility] Last Admin: 04/29/18 20:28 Dose: 1 patch Senna (Senokot Tab*) 2 tab PO BEDTIME PRN PRN Reason: CONSTIPATION Zolpidem Tartrate (Ambien Tab*) 5 mg PO BEDTIME PRN PRN Reason: INSOMNIA Last Admin: 04/29/18 23:55 Dose: 5 mg Vital Signs: Temp Pulse Resp BP Pulse Ox 97.7 F 69 16 109/63 95 04/30/18 03:43 04/30/18 08:01 04/30/18 09:26 04/30/18 08:00 04/30/18 08:01 Exam: Gen: 53 yo female who is in NAD, accompanied by her CV: RRR, no m/r/g Resp: CTA, no w/c/r Abd: soft, nonTTP Ext: no LE edema Psych: tearful Assessment: [53 yo female with Hodgkins lymphoma, RA, recent PE while anticoagulated with Xarelto who was admitted with acute respiratory failure, still of uncertain etiology s/p bronchoscopy.] Plan: [1. Acute respiratory failure - seems to be improving slowly - extensive interstitial changes on CT - differential includes PCP, bleomycin induced pulm toxicity, atypical PNA, PE induced hypoxia with chronic interstitial lung disease - bronchoscopy last week, PCP neg, but suspicion remains high - ID consult appreciated - cont Bactrim, doxcycline, ceftriaxone and high dose corticosteroids - antifungal coverage recently added by kitchen and counter worker, cont for now 2. PE - Xarelto failure - cont Lovenox 1.5mg/kg daily 3. Hodgkins lymphoma - good response by PET on ABVD - s/p C4A with bleomycin held 4. RA 5. Tachycardia - improved since starting home metoprolol 5. Depression - start Celexa - encouraged her to have her bring in projects from home to occupy her Dispo: respiratory status stable/improving, ok to transfer to floor
[2018-04-30] MEDS: cefTRIAXone(*) 1 GM in NS 0.9% 50 ML* 50 ML IVPB SCH (12:55)
[2018-04-30] MEDS ORDERED: Anidulafungin* 100 MG in NS 0.9% 100 ML* 100 ML IVPB SCH (13:00)
[2018-04-30] MEDS: Citalopram TAB* 20 MG PO SCH (13:14)
[2018-04-30] MEDS: Anidulafungin* 100 MG in NS 0.9% 100 ML* 100 ML IVPB SCH (14:22)
--- NOTE | 2018-04-30 16:39 | PN ---
Progress Note - Progress Note Date of Service: 04/30/18 - Pulm f/u Note: Pt seen and examined at bedside. Is sad that she is still in hospital Active Medications Generic Name Dose Route Start Last Admin Trade Name Freq PRN Reason Stop Dose Admin Acetaminophen 650 mg 04/21/18 10:46 Tylenol Tab* PO Q4H PRN FEVER/HEADACHE Hydrocodone Bitart/Acetaminophen 2 tab 04/29/18 12:37 04/30/18 14:13 [place] 10/325 (Nf) PO 2 tab Q4HR PRN Administration PAIN Al Hydrox/Mg Hydrox/Simethicone 30 ml 04/25/18 02:16 Maalox Plus* PO Q6H PRN INDIGESTION Alprazolam 0.5 mg 04/27/18 09:07 04/30/18 03:36 Xanax Tab* PO 0.5 mg Q6H PRN Administration ANXIETY Carisoprodol 350 mg 04/29/18 12:37 04/30/18 14:13 Soma Tab* PO 350 mg Q4H PRN Administration Anxiety/pain Citalopram Hydrobromide 20 mg 04/30/18 11:00 04/30/18 13:14 Celexa Tab* PO 20 mg DAILY [facility] Administration Docusate Sodium 100 mg 04/25/18 12:30 04/30/18 09:11 Colace Cap* PO 100 mg BID TEDDY Administration Enoxaparin Sodium 100 mg 04/21/18 16:00 04/30/18 09:11 Lovenox(*) SUBCUT 100 mg DAILY [facility] Administration Heparin Sodium (Porcine) 5 ml 04/30/18 17:00 Heparin Flush Port (Ivad) FLUSH DAILY TED[facility] Protocol Doxycycline Hyclate 100 mg/ 250 mls @ 250 mls/hr 04/22/18 14:00 04/30/18 16: 00 Sodium Chloride IVPB 250 mls/hr Q12H TEDDY Administration Ceftriaxone Sodium 1 gm/ 50 mls @ 200 mls/hr 04/22/18 13:00 04/30/18 12:55 Sodium Chloride IVPB 200 mls/hr Q24H TEDDY Administration Trimethoprim/Sulfamethoxazole 528.5 mls @ 264.25 mls/hr 04/22/18 18:00 10:31 456 mg/ Dextrose IVPB 264.25 mls/hr 0200,1000,1800 TEDDY Administration Anidulafungin 100 mg/ Sodium 130 mls @ 65 mls/hr 04/30/18 13:00 04/30/18 13: 52 Chloride IVPB 65 mls/hr 1300 TEDDY Administration Ibuprofen 400 mg 04/27/18 11:06 04/27/18 11:13 Motrin Tab* PO 400 mg Q6H PRN Administration PAIN Levalbuterol HCl 1.25 mg 04/25/18 14:46 04/26/18 10:52 Xopenex 1.25 Mg/0.5 Ml Neb.Mary* INH 1.25 mg Q6H PRN Administration SOB/WHEEZING Lorazepam 1 mg 04/27/18 09:09 04/30/18 09:26 Ativan Inj* IV PUSH 1 mg BID PRN Administration ANXIETY Methylprednisolone Sodium Succinate 60 mg 04/21/18 21:00 04/30/18 09:02 Solu-Medrol 40 Mg IV 60 mg Q12H TEDDY Administration Metoclopramide HCl 5 mg 04/22/18 10:15 04/30/18 09:31 Reglan Iv* IV 5 mg Q6H PRN Administration NAUSEA/VOMITING Metoprolol Succinate 50 mg 04/29/18 23:00 04/30/18 09:11 Toprol Xl Tab* PO 50 mg BID TEDDY Administration Montelukast Sodium 10 mg 04/21/18 14:00 04/30/18 09:11 Singulair Tab* PO 10 mg QAM TEDDY Administration Omeprazole 20 mg 04/21/18 16:30 04/30/18 09:11 Prilosec Cap* PO 20 mg BID@0730,1630 TED[facility] Administration Ondansetron HCl 4 mg 04/21/18 13:14 04/30/18 09:33 Zofran Inj* IV 4 mg Q4H PRN Administration NAUSEA/VOMITING Pharmacy Profile Note 1 note 04/29/18 21:00 04/29/18 20:25 Scopolamine Patch Remove* PATCH OFF Not Given [address] [facility] Prochlorperazine Edisylate 5 mg 04/22/18 10:15 04/26/18 09:25 Compazine Inj* IV 5 mg Q12H PRN Administration NAUSEA/VOMITING Scopolamine 1 patch 04/26/18 21:00 04/29/18 20:28 Transderm-Scop 1.5 Mg Patch* TRANSDERM 1 patch Q72H TEDDY Administration Senna 2 tab 04/27/18 09:09 Senokot Tab* PO BEDTIME PRN CONSTIPATION Zolpidem Tartrate 5 mg 04/21/18 21:47 04/29/18 23:55 Ambien Tab* PO 5 mg BEDTIME PRN Administration INSOMNIA Vital Signs Temp Pulse Resp BP Pulse Ox 99.2 F 94 20 106/63 92 04/30/18 12:00 04/30/18 14:00 04/30/18 14:13 04/30/18 13:57 04/30/18 14:00 O/E: Pt in NAD HEENT: PERRLA, No JVD Lungs: Slightly improved aeration, no wheeze CVS: S1, S2+, regular Abd: Soft, BS+ Ext: No edema Neuro: Alert, awake, oriented X4, No focal deficits Skin: No rash Labs: nO new labs I/R: 53 y o f, smoker with h/o RA on Methotrexate until past 3 months, has been on prednisone recently for 1-2 months, recently dx with Hodgkins lymphoma and was started on ABVP 1. Acute hypoxic resp failure 2. Reticular and GGO infiltrates on CT chest- PCP versus drug induced 3. Hodgkins lymphoma 4. PE/DVT Pt with improvement in FiO2 requirements Pt on Bactrim and Solumedrol for PCP coverage. Will continue to complete 3 week course Bronchoscopy was performed 04/24- BAL and transbronchial biopsies obtained Transbronchial biopsy showed chronic inflammation c/w broad spectrum abx and steroids at current dose C/w Lovenox for PE Will attempt low dose Lasix tomorrow OOB to chair as tolerated Full code Pt to be transferred to regular medical floor
[2018-04-30] MEDS: Scopolamine PATCH Remove* 1 NOTE MISC PATCH OFF SCH (21:23)
[2018-04-30] MEDS: Zolpidem TAB* 5 MG PO PRN (23:43)
[2018-05-01] MEDS: DOXYcycline IV* 100 MG in NS 0.9% 250 ML* 250 ML IVPB SCH ×2 (01:18→13:56)
[2018-05-01] MEDS: D5W IVPB SCH ×3 (02:27→17:23)
[2018-05-01] MEDS: TRIMETH IVPB SCH ×3 (02:27→17:23)
[2018-05-01] MEDS: SULFAMETHOXAZOLE IVPB SCH ×3 (02:27→17:23)
[2018-05-01] MEDS: Hydrocodone/Acetamin 10/325 1 TAB PO PRN ×5 (02:29→21:32)
[2018-05-01] MEDS: Carisoprodol TAB* 350 MG PO PRN ×5 (02:32→21:33)
[2018-05-01] MEDS: methylPREDNISolone SOD 40 MG* 1 ML VIAL IV SCH ×2 (08:39→21:34)
[2018-05-01] MEDS: Citalopram TAB* 20 MG PO SCH (08:40)
[2018-05-01] MEDS: Metoprolol Succinate XL TAB* 50 MG PO SCH ×2 (08:40→21:32)
[2018-05-01] MEDS: Enoxaparin(*) 100 MG/ML SYR SUBCUT SCH (08:40)
[2018-05-01] MEDS: Montelukast Sodium TAB* 10 MG PO SCH (08:40)
[2018-05-01] MEDS: Docusate CAP* 100 MG PO SCH ×2 (08:41→21:33)
[2018-05-01] MEDS: ALPRAZolam TAB* 0.5 MG PO PRN ×3 (08:41→21:34)
[2018-05-01] MEDS: Omeprazole CAP (NF) 20 MG CAP.DR PO SCH ×2 (08:41→16:56)
[2018-05-01] MEDS: Ondansetron INJ* 2 MG/ML VIAL IV PRN ×3 (08:59→21:34)
[2018-05-01] MEDS: LORazepam INJ* 2 MG/ML 1 ML VIAL IV PUSH PRN ×2 (08:59→17:36)
[2018-05-01] MEDS: cefTRIAXone(*) 1 GM in NS 0.9% 50 ML* 50 ML IVPB SCH (13:26)
--- NOTE | 2018-05-01 16:51 | PN ---
Progress Note - Progress Note Date of Service: 05/01/18 - Pulm f/u note Note: Pt seen and examined at bedside. Pt reports feeling better. Pt reports that she walked to bathroom and in her room and didnot get significantly winded Active Medications Generic Name Dose Route Start Last Admin Trade Name Freq PRN Reason Stop Dose Admin Acetaminophen 650 mg 04/21/18 10:46 Tylenol Tab* PO Q4H PRN FEVER/HEADACHE Hydrocodone Bitart/Acetaminophen 2 tab 04/29/18 12:37 05/01/18 13:16 [place] 10/325 (Nf) PO 2 tab Q4HR PRN Administration PAIN Al Hydrox/Mg Hydrox/Simethicone 30 ml 04/25/18 02:16 Maalox Plus* PO Q6H PRN INDIGESTION Alprazolam 0.5 mg 04/27/18 09:07 05/01/18 15:03 Xanax Tab* PO 0.5 mg Q6H PRN Administration ANXIETY Carisoprodol 350 mg 04/29/18 12:37 05/01/18 13:16 Soma Tab* PO 350 mg Q4H PRN Administration Anxiety/pain Citalopram Hydrobromide 20 mg 04/30/18 11:00 05/01/18 08:40 Celexa Tab* PO 20 mg DAILY [facility] Administration Docusate Sodium 100 mg 04/25/18 12:30 05/01/18 08:41 Colace Cap* PO 100 mg BID TED[facility] Administration Enoxaparin Sodium 100 mg 04/21/18 16:00 05/01/18 08:40 Lovenox(*) SUBCUT 100 mg DAILY T[facility] Administration Heparin Sodium (Porcine) 5 ml 04/30/18 17:00 05/01/18 08:40 Heparin Flush Port (Ivad) FLUSH 5 ml DAILY TED[facility] Administration Protocol Trimethoprim/Sulfamethoxazole 528.5 mls @ 264.25 mls/hr 04/22/18 18:00 11:01 456 mg/ Dextrose IVPB 264.25 mls/hr 0200,1000,1800 TED[facility] Administration Ibuprofen 400 mg 04/27/18 11:06 04/27/18 11:13 Motrin Tab* PO 400 mg Q6H PRN Administration PAIN Levalbuterol HCl 1.25 mg 04/25/18 14:46 04/26/18 10:52 Xopenex 1.25 Mg/0.5 Ml Neb.Mary* INH 1.25 mg Q6H PRN Administration SOB/WHEEZING Lorazepam 1 mg 04/27/18 09:09 05/01/18 08:59 Ativan Inj* IV PUSH 1 mg BID PRN Administration ANXIETY Methylprednisolone Sodium Succinate 60 mg 04/21/18 21:00 05/01/18 08:39 Solu-Medrol 40 Mg IV 60 mg Q12H TEDDY Administration Metoclopramide HCl 5 mg 04/22/18 10:15 04/30/18 09:31 Reglan Iv* IV 5 mg Q6H PRN Administration NAUSEA/VOMITING Metoprolol Succinate 50 mg 04/29/18 23:00 05/01/18 08:40 Toprol Xl Tab* PO 50 mg BID TEDDY Administration Montelukast Sodium 10 mg 04/21/18 14:00 05/01/18 08:40 Singulair Tab* PO 10 mg QAM TEDDY Administration Omeprazole 20 mg 04/21/18 16:30 05/01/18 08:41 Prilosec Cap* PO 20 mg BID@0730,1630 TEDDY Administration Ondansetron HCl 4 mg 04/21/18 13:14 05/01/18 08:59 Zofran Inj* IV 4 mg Q4H PRN Administration NAUSEA/VOMITING Pharmacy Profile Note 1 note 04/29/18 21:00 04/30/18 21:23 Scopolamine Patch Remove* PATCH OFF 1 patch 2100 TEDDY Administration Prochlorperazine Edisylate 5 mg 04/22/18 10:15 04/26/18 09:25 Compazine Inj* IV 5 mg Q12H PRN Administration NAUSEA/VOMITING Scopolamine 1 patch 04/26/18 21:00 04/29/18 20:28 Transderm-Scop 1.5 Mg Patch* TRANSDERM 1 patch Q72H TEDDY Administration Senna 2 tab 04/27/18 09:09 Senokot Tab* PO BEDTIME PRN CONSTIPATION Zolpidem Tartrate 5 mg 04/21/18 21:47 04/30/18 23:43 Ambien Tab* PO 5 mg BEDTIME PRN Administration INSOMNIA Vital Signs Temp Pulse Resp BP Pulse Ox 98.4 F 79 18 103/56 95 05/01/18 11:32 05/01/18 11:32 05/01/18 15:08 05/01/18 11:32 05/01/18 14:38 O/E: Pt in NAD, sitting up in chair HEENT: PERRLA, No JVD Lungs: Improved aeration, no wheeze CVS: S1, S2+, regular, tachycardia Abd: Soft, BS+ Ext: No edema Neuro: Alert, awake, oriented X4, No focal deficits Skin: No rash Labs: No new labs I/R: 53 y o f, smoker with h/o RA on Methotrexate until past 3 months, has been on prednisone recently for 1-2 months, recently dx with Hodgkins lymphoma and was started on ABVP 1. Acute hypoxic resp failure 2. Reticular and GGO infiltrates on CT chest- PCP versus drug induced 3. Hodgkins lymphoma 4. PE/DVT Pt with improvement in FiO2 requirements, now on 8L O2 Will c/w metanebs to assist with mucus clearance Pt on Bactrim and Solumedrol for PCP coverage. Will continue to complete 3 week course Bronchoscopy was performed 04/24- BAL and transbronchial biopsies obtained Transbronchial biopsy showed chronic inflammation c/w broad spectrum abx and steroids at current dose Will change steroids to 40mg q 12 tomorrow C/w Lovenox for PE OOB to chair as tolerated Full code Pt and updated on plan of care
[2018-05-01] MEDS: Metoclopramide IV* 5 MG/ML 2 ML VIAL IV PRN (20:02)
[2018-05-01] MEDS: Zolpidem TAB* 5 MG PO PRN (21:37)
[2018-05-02] MEDS ORDERED: diPHENhydraMINE PO* 25 MG ONE (00:18)
[2018-05-02] MEDS: Scopolamine PATCH Remove* 1 NOTE MISC PATCH OFF SCH ×2 (00:24→21:24)
[2018-05-02] MEDS: TRIMETH IVPB SCH ×3 (01:58→18:30)
[2018-05-02] MEDS: D5W IVPB SCH ×3 (01:58→18:30)
[2018-05-02] MEDS: SULFAMETHOXAZOLE IVPB SCH ×3 (01:58→18:30)
[2018-05-02] MEDS: Hydrocodone/Acetamin 10/325 1 TAB PO PRN ×6 (01:59→23:16)
[2018-05-02] MEDS: Carisoprodol TAB* 350 MG PO PRN ×6 (02:00→23:16)
[2018-05-02] MEDS: LORazepam INJ* 2 MG/ML 1 ML VIAL IV PUSH PRN ×2 (05:20→16:07)
[2018-05-02 05:42] LABS: Hematocrit 35 % (35-47); Hemoglobin 11.3 g/dl (12.0-16.0); Mean Corpuscular HGB Conc 33 g/dl (31-36); Mean Corpuscular Hemoglobin 29 pg (27-31); Mean Corpuscular Volume 88 fL (80-97); Mean Platelet Volume 7.9 fL (7.4-10.4); Platelet Count 289 10^3/ul (150-450); Red Blood Count 3.92 10^6/ul (4.00-5.40); Red Cell Distribution Width 17 % (10.5-15); White Blood Count 13.3 10^3/ul (3.5-10.8)
[2018-05-02 06:01] LABS: BUN/Creatinine Ratio 32.3 (8-20); Calcium 8.3 mg/dL (8.6-10.3); EGFR Non-African American 95.3 (>60)
[2018-05-02 06:08] LABS: Immature Granulocytes 4 % (0-9); Lymphocytes % 2 %; Metamyelocytes % 2 % (0-2); Myelocytes % 1 % (0-1); Neutrophil % 90 %; Variant Lymph % 4 % (0-6)
[2018-05-02 06:10] LABS: ABS Neutrophils 12.5 10^3/ul (1.5-7.7)
[2018-05-02 06:24] LABS: Potassium 4.9 mmol/L (3.5-5.0)
[2018-05-02] MEDS: Metoprolol Succinate XL TAB* 50 MG PO SCH ×2 (08:06→19:59)
[2018-05-02] MEDS: Omeprazole CAP (NF) 20 MG CAP.DR PO SCH ×2 (08:55→17:58)
[2018-05-02] MEDS: Montelukast Sodium TAB* 10 MG PO SCH (08:55)
[2018-05-02] MEDS: Docusate CAP* 100 MG PO SCH ×2 (08:56→20:07)
[2018-05-02] MEDS: Enoxaparin(*) 100 MG/ML SYR SUBCUT SCH (08:56)
[2018-05-02] MEDS: Citalopram TAB* 20 MG PO SCH (08:56)
[2018-05-02] MEDS: ALPRAZolam TAB* 0.5 MG PO PRN ×2 (08:59→18:02)
[2018-05-02] MEDS: methylPREDNISolone SOD 40 MG* 1 ML VIAL IV SCH ×2 (10:09→20:00)
[2018-05-02] MEDS: Ondansetron INJ* 2 MG/ML VIAL IV PRN (14:22)
[2018-05-02] MEDS: Scopolamine 1.5 mg* PATCH TRANSDERM SCH (20:06)
[2018-05-02] MEDS: diPHENhydraMINE PO* 25 MG PO PRN (23:15)
[2018-05-02] MEDS: Zolpidem TAB* 5 MG PO PRN (23:15)
[2018-05-03] MEDS: D5W IVPB SCH ×3 (01:37→18:10)
[2018-05-03] MEDS: SULFAMETHOXAZOLE IVPB SCH ×3 (01:37→18:10)
[2018-05-03] MEDS: TRIMETH IVPB SCH ×3 (01:37→18:10)
[2018-05-03] MEDS: Hydrocodone/Acetamin 10/325 1 TAB PO PRN ×5 (04:37→21:22)
[2018-05-03] MEDS: Carisoprodol TAB* 350 MG PO PRN ×5 (04:38→21:22)
[2018-05-03] MEDS: LORazepam INJ* 2 MG/ML 1 ML VIAL IV PUSH PRN ×2 (09:20→16:09)
[2018-05-03] MEDS: Omeprazole CAP (NF) 20 MG CAP.DR PO SCH ×2 (09:23→16:09)
[2018-05-03] MEDS: Docusate CAP* 100 MG PO SCH ×2 (09:23→21:20)
[2018-05-03] MEDS: Montelukast Sodium TAB* 10 MG PO SCH (09:23)
[2018-05-03] MEDS: Citalopram TAB* 20 MG PO SCH (09:23)
[2018-05-03] MEDS: Metoprolol Succinate XL TAB* 50 MG PO SCH ×2 (09:24→20:30)
[2018-05-03] MEDS: Enoxaparin(*) 100 MG/ML SYR SUBCUT SCH (09:25)
[2018-05-03] MEDS: methylPREDNISolone SOD 40 MG* 1 ML VIAL IV SCH ×2 (11:00→21:17)
[2018-05-03] MEDS: Ondansetron INJ* 2 MG/ML VIAL IV PRN (13:05)
[2018-05-03] MEDS: ALPRAZolam TAB* 0.5 MG PO PRN ×2 (14:31→21:21)
[2018-05-03] MEDS: Scopolamine PATCH Remove* 1 NOTE MISC PATCH OFF SCH (20:29)
[2018-05-04] MEDS: D5W IVPB SCH (01:42)
[2018-05-04] MEDS: SULFAMETHOXAZOLE IVPB SCH (01:42)
[2018-05-04] MEDS: TRIMETH IVPB SCH (01:42)
[2018-05-04] MEDS: Carisoprodol TAB* 350 MG PO PRN ×5 (02:14→21:21)
[2018-05-04] MEDS: diPHENhydraMINE PO* 25 MG PO PRN ×2 (02:14→21:20)
[2018-05-04] MEDS: Hydrocodone/Acetamin 10/325 1 TAB PO PRN ×5 (02:14→21:20)
[2018-05-04] MEDS: Metoprolol Succinate XL TAB* 50 MG PO SCH ×2 (08:00→21:21)
[2018-05-04] MEDS: Montelukast Sodium TAB* 10 MG PO SCH (08:01)
[2018-05-04] MEDS: Omeprazole CAP (NF) 20 MG CAP.DR PO SCH ×2 (08:01→16:53)
[2018-05-04] MEDS: Citalopram TAB* 20 MG PO SCH (08:01)
[2018-05-04] MEDS: Docusate CAP* 100 MG PO SCH ×2 (08:01→21:21)
[2018-05-04] MEDS: Enoxaparin(*) 100 MG/ML SYR SUBCUT SCH (08:02)
--- NOTE | 2018-05-04 09:06 | PN ---
Progress Note - Progress Note Date of Service: 05/04/18 SOAP: Subjective: []Feeling a lot better today. Was able to do ADLs independently. Less pain, though will have sharp chest discomfort with deep inhalation. Not coughing and less winded. Hopeful for d/c today or tomorrow. Requesting information about her diagnosis. Using inspirometer and feels this helps. Medications: Acetaminophen (Tylenol Tab*) 650 mg PO Q4H PRN PRN Reason: FEVER/HEADACHE Hydrocodone Bitart/Acetaminophen ([place] 10/325 (Nf)) 2 tab PO Q4HR PRN PRN Reason: PAIN Last Admin: 05/04/18 08:00 Dose: 2 tab Al Hydrox/Mg Hydrox/Simethicone (Maalox Plus*) 30 ml PO Q6H PRN PRN Reason: INDIGESTION Alprazolam (Xanax Tab*) 0.5 mg PO Q6H PRN PRN Reason: ANXIETY Last Admin: 05/03/18 21:21 Dose: 0.5 mg Carisoprodol (Soma Tab*) 350 mg PO Q4H PRN PRN Reason: Anxiety/pain Last Admin: 05/04/18 07:59 Dose: 350 mg Citalopram Hydrobromide (Celexa Tab*) 20 mg PO DAILY COUNTS INCLUDE 234 BEDS AT THE [facility] Last Admin: 05/04/18 08:01 Dose: 20 mg Diphenhydramine HCl (Benadryl Po*) 25 mg PO Q6H PRN PRN Reason: ITCHING Last Admin: 05/04/18 02:14 Dose: 25 mg Docusate Sodium (Colace Cap*) 100 mg PO BID COUNTS INCLUDE 234 BEDS AT THE [facility] Last Admin: 05/04/18 08:01 Dose: 100 mg Enoxaparin Sodium (Lovenox(*)) 100 mg SUBCUT DAILY COUNTS INCLUDE 234 BEDS AT THE [facility] Last Admin: 05/04/18 08:02 Dose: 100 mg Heparin Sodium (Porcine) (Heparin Flush Port (Ivad)) 5 ml FLUSH DAILY COUNTS INCLUDE 234 BEDS AT THE [facility]; Protocol Last Admin: 05/04/18 05:36 Dose: 5 ml Trimethoprim/Sulfamethoxazole (456 mg/ Dextrose) 528.5 mls @ 264.25 mls/hr IVPB 0200,1000,1800 COUNTS INCLUDE 234 BEDS AT THE [facility] Last Admin: 05/04/18 01:42 Dose: 264.25 mls/hr Ibuprofen (Motrin Tab*) 400 mg PO Q6H PRN PRN Reason: PAIN Last Admin: 04/27/18 11:13 Dose: 400 mg Levalbuterol HCl (Xopenex 1.25 Mg/0.5 Ml Neb.Mary*) 1.25 mg INH Q6H PRN PRN Reason: SOB/WHEEZING Last Admin: 04/26/18 10:52 Dose: 1.25 mg Lorazepam (Ativan Inj*) 1 mg IV PUSH BID PRN PRN Reason: ANXIETY Last Admin: 05/03/18 16:09 Dose: 1 mg Methylprednisolone Sodium Succinate (Solu-Medrol 40 Mg) 40 mg IV Q12H COUNTS INCLUDE 234 BEDS AT THE [facility] Metoclopramide HCl (Reglan Iv*) 5 mg IV Q6H PRN PRN Reason: NAUSEA/VOMITING Last Admin: 05/01/18 20:02 Dose: 5 mg Metoprolol Succinate (Toprol Xl Tab*) 50 mg PO BID COUNTS INCLUDE 234 BEDS AT THE [facility] Last Admin: 05/04/18 08:00 Dose: 50 mg Montelukast Sodium (Singulair Tab*) 10 mg PO QAM COUNTS INCLUDE 234 BEDS AT THE [facility] Last Admin: 05/04/18 08:01 Dose: 10 mg Omeprazole (Prilosec Cap*) 20 mg PO BID@0730,1630 COUNTS INCLUDE 234 BEDS AT THE [facility] Last Admin: 05/04/18 08:01 Dose: 20 mg Ondansetron HCl (Zofran Inj*) 4 mg IV Q4H PRN PRN Reason: NAUSEA/VOMITING Last Admin: 05/03/18 13:05 Dose: 4 mg Pharmacy Profile Note (Scopolamine Patch Remove*) 1 note PATCH OFF 2100 COUNTS INCLUDE 234 BEDS AT THE [facility] Last Admin: 05/03/18 20:29 Dose: Not Given Prochlorperazine Edisylate (Compazine Inj*) 5 mg IV Q12H PRN PRN Reason: NAUSEA/VOMITING Last Admin: 04/26/18 09:25 Dose: 5 mg Scopolamine (Transderm-Scop 1.5 Mg Patch*) 1 patch TRANSDERM Q72H COUNTS INCLUDE 234 BEDS AT THE [facility] Last Admin: 05/02/18 20:06 Dose: 1 patch Senna (Senokot Tab*) 2 tab PO BEDTIME PRN PRN Reason: CONSTIPATION Zolpidem Tartrate (Ambien Tab*) 5 mg PO BEDTIME PRN PRN Reason: INSOMNIA Last Admin: 05/02/18 23:15 Dose: 5 mg Objective: [] Vital Signs Temp Pulse Resp BP Pulse Ox 97.8 F 79 20 114/63 93 05/04/18 07:36 05/04/18 07:36 05/04/18 08:17 05/04/18 07:36 05/04/18 08:17 A&Ox3, EOMI, neuro grossly non-focal HRR, S1S2 LS clear bilat. +BS, abd. soft and non-tender Microbiology 04/24/18 10:57 Fungal Culture - Preliminary Misc Source (See Comment) - Bronchial Washing Maria Isabel Albicans 04/24/18 10:57 Gram Stain - Final Misc Fluid (See Comment) - Bronchial Washing Body Fluid Culture - Final YEAST [place] Mucilaginosa Normal [place] 04/24/18 10:57 Acid Fast Bacilli Smear - Final Body Fluid - Bronchial Washing 04/21/18 10:32 Aerobic Blood Culture - Final Blood Line No Growth Day 5 Anaerobic Blood Culture - Final No Growth Day 5 04/21/18 20:41 Legionella Urinary Antigen - Final Urine Negative Legionella Antigen Streptococcus pneumoniae Ag Screen - Final Negative S. pneumo Antigen 04/21/18 11:48 Influenza Types A,B Antigen - Final Nasal Specimen received for Influenza A/B Molecular testing 04/21/18 11:39 Nasal Screen MRSA (PCR) - Final Nasal Mrsa Not Detected 04/21/18 11:20 Nasal Screen MRSA (PCR) - Final Nasal Mrsa Not Detected Assessment: []53 yo female currently on receiving chemotherapy treatment for Hodgkin's Lymphoma admitted approx. 2 weeks ago with hypoxia and significant bilat. infiltrates felt r/t PCP pneumonia. Plan: []1. Hypoxia and PCP: slow but steady improvement - transition to PO Bactrim, 1 tab DS TID per ID, today is day - start slow steroid taper, Solumedrol to 40 mg BID (from 60 mg BID) today, transition to PO tomorrow 2. Pain: chronic r/t RA and Fibromyalgia - will plan short script of [place] on d/c and she will f/u with her primary 3. Anxiety: stable, celexa started during admission 4. Hodgkins Lymphoma: plan resumption of chemo once Bactrim completed and will cont. Bactrim prophylaxis dose 5. PE: will cont. Lovenox on d/c Dispo: goal of home tomorrow
[2018-05-04] MEDS: methylPREDNISolone SOD 40 MG* 1 ML VIAL IV SCH ×3 (10:22→21:16)
[2018-05-04] MEDS: Sulfamethox/Trimethoprim DS 800/160* TAB PO SCH ×3 (10:51→21:19)
--- NOTE | 2018-05-04 10:55 | PN ---
Progress Note - Progress Note Date of Service: 05/04/18 - Pulm f/u note Note: Pt seen and examined at bedside this am. Pt reports feeling better, progress in FiO2 requirements over this weekend. Pain is better controlled with current regimen. Is wanting to go home Active Medications Generic Name Dose Route Start Last Admin Trade Name Freq PRN Reason Stop Dose Admin Acetaminophen 650 mg 04/21/18 10:46 Tylenol Tab* PO Q4H PRN FEVER/HEADACHE Hydrocodone Bitart/Acetaminophen 2 tab 04/29/18 12:37 05/04/18 08:00 [place] 10/325 (Nf) PO 2 tab Q4HR PRN Administration PAIN Al Hydrox/Mg Hydrox/Simethicone 30 ml 04/25/18 02:16 Maalox Plus* PO Q6H PRN INDIGESTION Alprazolam 0.5 mg 04/27/18 09:07 05/03/18 21:21 Xanax Tab* PO 0.5 mg Q6H PRN Administration ANXIETY Carisoprodol 350 mg 04/29/18 12:37 05/04/18 07:59 Soma Tab* PO 350 mg Q4H PRN Administration Anxiety/pain Citalopram Hydrobromide 20 mg 04/30/18 11:00 05/04/18 08:01 Celexa Tab* PO 20 mg DAILY TEDDY Administration Diphenhydramine HCl 25 mg 05/01/18 22:25 05/04/18 02:14 Benadryl Po* PO 25 mg Q6H PRN Administration ITCHING Docusate Sodium 100 mg 04/25/18 12:30 05/04/18 08:01 Colace Cap* PO 100 mg BID TEDDY Administration Enoxaparin Sodium 100 mg 04/21/18 16:00 05/04/18 08:02 Lovenox(*) SUBCUT 100 mg DAILY TEDDY Administration Heparin Sodium (Porcine) 5 ml 04/30/18 17:00 05/04/18 05:36 Heparin Flush Port (Ivad) FLUSH 5 ml DAILY TEDDY Administration Protocol Ibuprofen 400 mg 04/27/18 11:06 04/27/18 11:13 Motrin Tab* PO 400 mg Q6H PRN Administration PAIN Levalbuterol HCl 1.25 mg 04/25/18 14:46 04/26/18 10:52 Xopenex 1.25 Mg/0.5 Ml Neb.Mary* INH 1.25 mg Q6H PRN Administration SOB/WHEEZING Lorazepam 1 mg 04/27/18 09:09 05/03/18 16:09 Ativan Inj* IV PUSH 1 mg BID PRN Administration ANXIETY Methylprednisolone Sodium Succinate 40 mg 05/04/18 09:01 Solu-Medrol 40 Mg IV Q12H TEDDY Metoclopramide HCl 5 mg 04/22/18 10:15 05/01/18 20:02 Reglan Iv* IV 5 mg Q6H PRN Administration NAUSEA/VOMITING Metoprolol Succinate 50 mg 04/29/18 23:00 05/04/18 08:00 Toprol Xl Tab* PO 50 mg BID TEDDY Administration Montelukast Sodium 10 mg 04/21/18 14:00 05/04/18 08:01 Singulair Tab* PO 10 mg QAM TEDDY Administration Omeprazole 20 mg 04/21/18 16:30 05/04/18 08:01 Prilosec Cap* PO 20 mg BID@0730,1630 TEDDY Administration Ondansetron HCl 4 mg 04/21/18 13:14 05/03/18 13:05 Zofran Inj* IV 4 mg Q4H PRN Administration NAUSEA/VOMITING Pharmacy Profile Note 1 note 04/29/18 21:00 05/03/18 20:29 Scopolamine Patch Remove* PATCH OFF Not Given 2100 TEDDY Prochlorperazine Edisylate 5 mg 04/22/18 10:15 04/26/18 09:25 Compazine Inj* IV 5 mg Q12H PRN Administration NAUSEA/VOMITING Scopolamine 1 patch 04/26/18 21:00 05/02/18 20:06 Transderm-Scop 1.5 Mg Patch* TRANSDERM 1 patch Q72H TEDDY Administration Senna 2 tab 04/27/18 09:09 Senokot Tab* PO BEDTIME PRN CONSTIPATION Trimethoprim/Sulfamethoxazole 1 tab 05/04/18 10:00 Bactrim Ds 800/160 Tab* PO TID TEDDY Zolpidem Tartrate 5 mg 04/21/18 21:47 05/02/18 23:15 Ambien Tab* PO 5 mg BEDTIME PRN Administration INSOMNIA Vital Signs Temp Pulse Resp BP Pulse Ox 97.8 F 79 20 114/63 93 05/04/18 07:36 05/04/18 07:36 05/04/18 08:17 05/04/18 07:36 05/04/18 08:17 O/E: Pt in NAD HEENT: PERRLA, No JVD Lungs: Coarse breath sounds+ CVS: S1, S2+, regular Abd: Soft, BS+ Ext: No edema Neuro: Alert, awake, oriented X4, No focal deficits Skin: No rash Labs: No new labs CXR: Was personally reviewed- Slight improvement in air space opacities I/R: 53 y o f, smoker with h/o RA on Methotrexate until past 3 months, has been on prednisone recently for 1-2 months, recently dx with Hodgkins lymphoma and was started on ABVP 1. Acute hypoxic resp failure, improved signficantly since admission 2. Reticular and GGO infiltrates on CT chest- PCP versus drug induced 3. Hodgkins lymphoma 4. PE/DVT on Lovenox Pt with improvement in FiO2 requirements, now on 6L O2, was able to get to 3L this weekend Pt on Bactrim and Solumedrol for PCP coverage. Will continue to complete 3 week course of Bactrim Slow prednisone taper over 2 weeks Bronchoscopy was performed 04/24- BAL and transbronchial biopsies obtained Transbronchial biopsy showed chronic inflammation Completed broad spectrum abx C/w Lovenox for PE Pt has O2 at home PT/OT D/c plan as per primary team Will f/u in pulm clinic in 2 weeks
[2018-05-04] MEDS: LORazepam INJ* 2 MG/ML 1 ML VIAL IV PUSH PRN ×2 (12:32→21:16)
[2018-05-04] MEDS: ALPRAZolam TAB* 0.5 MG PO PRN (17:15)
[2018-05-04] MEDS: Scopolamine PATCH Remove* 1 NOTE MISC PATCH OFF SCH (21:03)
[2018-05-04] MEDS: Senna TAB PO PRN (21:20)
[2018-05-04] MEDS: Zolpidem TAB* 5 MG PO PRN (21:45)
[2018-05-05] MEDS: Hydrocodone/Acetamin 10/325 1 TAB PO PRN ×2 (08:00→11:55)
[2018-05-05] MEDS: Metoprolol Succinate XL TAB* 50 MG PO SCH (08:00)
[2018-05-05] MEDS: Sulfamethox/Trimethoprim DS 800/160* TAB PO SCH (08:01)
[2018-05-05] MEDS: methylPREDNISolone SOD 40 MG* 1 ML VIAL IV SCH (08:01)
[2018-05-05] MEDS: Citalopram TAB* 20 MG PO SCH (08:01)
[2018-05-05] MEDS: LORazepam INJ* 2 MG/ML 1 ML VIAL IV PUSH PRN (08:01)
[2018-05-05] MEDS: Montelukast Sodium TAB* 10 MG PO SCH (08:01)
[2018-05-05] MEDS: Docusate CAP* 100 MG PO SCH (08:01)
[2018-05-05] MEDS: Omeprazole CAP (NF) 20 MG CAP.DR PO SCH (08:01)
[2018-05-05] MEDS: Carisoprodol TAB* 350 MG PO PRN ×2 (08:01→11:55)
[2018-05-05] MEDS: Enoxaparin(*) 100 MG/ML SYR SUBCUT SCH (08:04)
[2018-05-05] MEDS: Senna TAB PO PRN (08:05)
[2018-05-05 08:07] VITALS: BP 115/74
[2018-05-05] MEDS: ALPRAZolam TAB* 0.5 MG PO PRN (11:22)
[2018-05-05] MEDS ORDERED: Ondansetron TAB* 4 MG PO ONE (13:00)
--- NOTE | 2018-05-05 13:03 | PN ---
Progress Note - Progress Note Date of Service: 05/05/18 - Pulm f/u note Note: Pt seen and examined at bedside. Pt reports feeling better. She was straining while passing bowels and desaturated. She didnot feel dizzi, was able to ambulate back to her bed. Active Medications Generic Name Dose Route Start Last Admin Trade Name Freq PRN Reason Stop Dose Admin Acetaminophen 650 mg 04/21/18 10:46 Tylenol Tab* PO Q4H PRN FEVER/HEADACHE Hydrocodone Bitart/Acetaminophen 2 tab 04/29/18 12:37 05/05/18 11:55 [place] 10/325 (Nf) PO 2 tab Q4HR PRN Administration PAIN Al Hydrox/Mg Hydrox/Simethicone 30 ml 04/25/18 02:16 Maalox Plus* PO Q6H PRN INDIGESTION Alprazolam 0.5 mg 04/27/18 09:07 05/05/18 11:22 Xanax Tab* PO 0.5 mg Q6H PRN Administration ANXIETY Carisoprodol 350 mg 04/29/18 12:37 05/05/18 11:55 Soma Tab* PO 350 mg Q4H PRN Administration Anxiety/pain Citalopram Hydrobromide 20 mg 04/30/18 11:00 05/05/18 08:01 Celexa Tab* PO 20 mg DAILY TEDDY Administration Diphenhydramine HCl 25 mg 05/01/18 22:25 05/04/18 21:20 Benadryl Po* PO 25 mg Q6H PRN Administration ITCHING Docusate Sodium 100 mg 04/25/18 12:30 05/05/18 08:01 Colace Cap* PO 100 mg BID TEDDY Administration Enoxaparin Sodium 100 mg 04/21/18 16:00 05/05/18 08:04 Lovenox(*) SUBCUT 100 mg DAILY TEDDY Administration Heparin Sodium (Porcine) 5 ml 04/30/18 17:00 05/05/18 11:22 Heparin Flush Port (Ivad) FLUSH 5 ml DAILY TEDDY Administration Protocol Ibuprofen 400 mg 04/27/18 11:06 04/27/18 11:13 Motrin Tab* PO 400 mg Q6H PRN Administration PAIN Levalbuterol HCl 1.25 mg 04/25/18 14:46 04/26/18 10:52 Xopenex 1.25 Mg/0.5 Ml Neb.Mary* INH 1.25 mg Q6H PRN Administration SOB/WHEEZING Lorazepam 1 mg 04/27/18 09:09 05/05/18 08:01 Ativan Inj* IV PUSH 1 mg BID PRN Administration ANXIETY Methylprednisolone Sodium Succinate 40 mg 05/04/18 09:01 05/05/18 08:01 Solu-Medrol 40 Mg IV 40 mg Q12H TEDDY Administration Metoclopramide HCl 5 mg 04/22/18 10:15 05/01/18 20:02 Reglan Iv* IV 5 mg Q6H PRN Administration NAUSEA/VOMITING Metoprolol Succinate 50 mg 04/29/18 23:00 05/05/18 08:00 Toprol Xl Tab* PO 50 mg BID TEDDY Administration Montelukast Sodium 10 mg 04/21/18 14:00 05/05/18 08:01 Singulair Tab* PO 10 mg QAM TEDDY Administration Omeprazole 20 mg 04/21/18 16:30 05/05/18 08:01 Prilosec Cap* PO 20 mg BID@0730,1630 TEDDY Administration Ondansetron HCl 4 mg 04/21/18 13:14 05/03/18 13:05 Zofran Inj* IV 4 mg Q4H PRN Administration NAUSEA/VOMITING Pharmacy Profile Note 1 note 04/29/18 21:00 05/04/18 21:03 Scopolamine Patch Remove* PATCH OFF Not Given 2100 TEDDY Prochlorperazine Edisylate 5 mg 04/22/18 10:15 04/26/18 09:25 Compazine Inj* IV 5 mg Q12H PRN Administration NAUSEA/VOMITING Scopolamine 1 patch 04/26/18 21:00 05/02/18 20:06 Transderm-Scop 1.5 Mg Patch* TRANSDERM 1 patch Q72H TEDDY Administration Senna 2 tab 04/27/18 09:09 05/05/18 08:05 Senokot Tab* PO 2 tab BEDTIME PRN Administration CONSTIPATION Trimethoprim/Sulfamethoxazole 1 tab 05/04/18 10:00 05/05/18 08:01 Bactrim Ds 800/160 Tab* PO 1 tab TID TEDDY Administration Zolpidem Tartrate 5 mg 04/21/18 21:47 05/04/18 21:45 Ambien Tab* PO 5 mg BEDTIME PRN Administration INSOMNIA Vital Signs Temp Pulse Resp BP Pulse Ox 97.6 F 89 22 115/74 93 05/05/18 07:49 05/05/18 07:49 05/05/18 11:55 05/05/18 07:49 05/05/18 08:19 O/E: Pt in NAD HEENT: PERRLA, No JVD Lungs: Coarse breath sounds+, improved aeration CVS: S1, S2+, regular Abd: Soft, BS+ Ext: No edema Neuro: Alert, awake, oriented X4, No focal deficits Skin: No rash Labs: No new labs CXR: - Slight improvement in air space opacities I/R: 53 y o f, smoker with h/o RA on Methotrexate until past 3 months, has been on prednisone recently for 1-2 months, recently dx with Hodgkins lymphoma and was started on ABVP 1. Acute hypoxic resp failure, improved signficantly since admission 2. Reticular and GGO infiltrates on CT chest- PCP versus drug induced 3. Hodgkins lymphoma 4. PE/DVT on Lovenox Pt with improvement in FiO2 requirements, now on 3L O2, might need more with ambulation Pt on Bactrim and Solumedrol for PCP coverage. Will continue to complete 3 week course of Bactrim Slow prednisone taper over 2 weeks Bronchoscopy was performed 04/24- BAL and transbronchial biopsies obtained Transbronchial biopsy showed chronic inflammation Completed broad spectrum abx C/w Lovenox for PE Pt has O2 at home PT/OT D/c plan today Will f/u in pulm clinic in 2 weeks
== END 2018-05-05 14:50 | disposition home or self-care (01) | DRG 177 ==
LOC: ICU 10:43 → MED 04-30 14:24
PROVIDERS: ADMIT Internal Medicine Hematology & Oncology; ATTEND Internal Medicine Hematology & Oncology
PROC: 0BD68ZX Extraction of Right Lower Lobe Bronchus, Via Natural or Artificial Opening Endoscopic, Diagnostic (ICD-10-PCS; 2018-04-24)
PROC: 0B9D8ZX Drainage of Right Middle Lung Lobe, Via Natural or Artificial Opening Endoscopic, Diagnostic (ICD-10-PCS; principal; 2018-04-24 11:00)
DX: B59 Pneumocystosis (principal); J96.01 Acute respiratory failure with hypoxia; I26.99 Other pulmonary embolism without acute cor pulmonale; C81.91 Hodgkin lymphoma, unspecified, lymph nodes of head, face, and neck; I87.1 Compression of vein; F41.9 Anxiety disorder, unspecified; H81.10 Benign paroxysmal vertigo, unspecified ear; F32.9 Major depressive disorder, single episode, unspecified; E78.5 Hyperlipidemia, unspecified; M79.7 Fibromyalgia; H91.90 Unspecified hearing loss, unspecified ear; K21.9 Gastro-esophageal reflux disease without esophagitis; M06.9 Rheumatoid arthritis, unspecified; E11.42 Type 2 diabetes mellitus with diabetic polyneuropathy; F17.210 Nicotine dependence, cigarettes, uncomplicated; J45.909 Unspecified asthma, uncomplicated; E11.65 Type 2 diabetes mellitus with hyperglycemia; Z86.718 Personal history of other venous thrombosis and embolism; Z88.6 Allergy status to analgesic agent; Z90.721 Acquired absence of ovaries, unilateral; Z80.8 Family history of malignant neoplasm of other organs or systems; Z92.21 Personal history of antineoplastic chemotherapy; Z91.018 Allergy to other foods
CPT/HCPCS: 36415; 36591; 71045; 71275; 76000; 80048; 80053; 82550; 82553; 83605; 83615; 83735; 84484; 85025; 85027; 85610; 85652; 85730; 86140; 87040; 87070; 87077; 87102; 87106; 87116; 87205; 87206; 87641; 87899; 88112; 88305; 88312; 93005; 93306; 94640; 94667; 94668; 96374; 99215; 99223; 99232; 99233; 99239; 99406; A9270-GY; G0463; J0348; J0696; J0780; J1170; J1642; J1650; J1940; J2060; J2270; J2405; J2765; J2920; J2930; J3010; Q9967

== ENCOUNTER 2023-05-23 11:51 | Inpatient (IN) ==
[2023-05-23] MEDS ORDERED: Lactated Ringers 1000 ml BAG 1,000 ML IV ONE ×2 (12:28)
[2023-05-23] MEDS ORDERED: Piperacillin/Tazobac 3.375 BAG 3.375 GM/100 ML BAG IV ONE (12:35)
[2023-05-23] MEDS ORDERED: Vancomycin 1,000 MG in NS 0.9% 250 ml 250 ML IVPB ONE (12:35)
[2023-05-23 12:49] LABS: Venous Bicarbonate HCO3 11.4 mmol/L (24-28)
[2023-05-23] MEDS ORDERED: Vancomycin 2,000 MG in NS 0.9% 500 ml BAG 500 ML IVPB ONE (13:00)
[2023-05-23 13:01] LABS: Hematocrit 41.9 % (35-45); Mean Corpuscular Hemoglobin 28.9 pg (27-33); Mean Corpuscular Hgb Conc 33.4 g/dL (31-36); Mean Corpuscular Volume 86.5 fL (80-97); Mean Platelet Volume 8.7 fL (7.5-11.2); Platelet Count 255 10^3/uL (150-450); Red Blood Count 4.85 10^6/uL (3.63-4.92); Red Cell Distribution Width 16.7 % (12-17); White Blood Count 9.9 10^3/uL (3.8-11.8)
[2023-05-23 13:09] LABS: Urine Appearance Cloudy; Urine Bilirubin Negative (Negative); Urine Blood Negative (Negative); Urine Color Amber; Urine Glucose Negative (Negative); Urine Ketones Negative (Negative); Urine Nitrite Negative (Negative); Urine Protein 2+(100 mg/dL) (Negative); Urine Specific Gravity 1.013 (1.002-1.030); Urine Urobilinogen Negative (Negative)
[2023-05-23 13:11] LABS: Activated Partial Thrombo Time 29.8 seconds (26.0-38.0); INR 1.23 (0.83-1.13)
[2023-05-23 13:13] LABS: Urine Amorphous Crystals Present /HPF (Absent); Urine Bacteria Absent (Absent); Urine Granular Casts Present (Absent); Urine Red Blood Cell Absent (Absent); Urine Squamous Epithelial Cell Present (Absent); Urine White Blood Cell Trace(0-5/hpf) (Absent)
[2023-05-23 13:18] LABS: ALT 21 U/L (7-52); Albumin 3.2 g/dL (3.2-5.2); Albumin/Globulin Ratio 1.1 (1-3); Alkaline Phosphatase 257 U/L (35-149); Anion Gap 19 mmol/L (2-16); Blood Urea Nitrogen 49 mg/dL (6-24); C Reactive Protein 436.09 mg/L (<8.01); CO2 Carbon Dioxide 12 mmol/L (22-32); Calcium 6.5 mg/dL (8.6-10.3); Chloride 100 mmol/L (101-111); Creatine Kinase 1089 U/L (10-223); Creatinine, Serum 4.36 mg/dL (0.51-0.95); Glucose 78 mg/dL (70-100); Sodium 131 mmol/L (135-145); Total Bilirubin 0.5 mg/dL (0.2-1.0); Total Protein 6.2 g/dL (6.4-8.9); eGFR CKD-EPI 11.2 (>60)
[2023-05-23 13:19] LABS: High Sens Troponin Baseline 54 pg/mL (<15)
[2023-05-23] MEDS ORDERED: Norepinephrine 4 MG/250mL D5W 4,000 MCG/250 ML BAG IV ONE ×2 (13:20→16:15)
[2023-05-23] MEDS: Norepinephrine 4 MG/250mL D5W 4,000 MCG/250 ML BAG IV SCH ×3 (13:30→19:30)
[2023-05-23 13:45] LABS: ABS Eosinophils 0.1 10^3/uL (0.0-0.5); ABS Lymphocytes 0.4 10^3/uL (1.0-4.8); ABS Monocytes 0.9 10^3/uL (0.0-0.9); ABS Neutrophils 8.5 10^3/uL (1.5-7.6); ABS Nucleated RBC 0.01 10^3/ul; Eosinophil % 0.6 %; Lymphocyte % 3.8 %; Nucleated Red Blood Cells % 0.1 %/100WBC (0.0-0.8)
[2023-05-23 13:46] LABS: RBC Morphology Normal (Normal)
[2023-05-23 15:00] LABS: PCO2 Arterial 38 mmHg (35-45); PO2 Arterial 147 mmHg (80-100)
[2023-05-23] MEDS ORDERED: Succinylcholine 200 mg VIAL 20 mg/ml 10 ml VIAL (200 mg) ONE (15:06)
[2023-05-23] MEDS ORDERED: Rocuronium 50 mg VIAL 10 mg/ml 5 ml VIAL (50 mg) ONE ×2 (15:06→15:46)
[2023-05-23 15:11] LABS: Potassium Redraw 4.7 mmol/L (3.5-5.0)
[2023-05-23] MEDS ORDERED: Sodium Bicarbonate 8.4% SYR 50 ml SYRINGE ONE (15:46)
[2023-05-23] MEDS ORDERED: Etomidate 40 mg/20 ml (2 MG/ML) 20 ml VIAL (40 mg) ONE (15:46)
[2023-05-23] MEDS ORDERED: Midazolam PREMIXBAG 1 MG/ML NS 100 ML IV SCH ×2 (15:55→17:15)
[2023-05-23] MEDS ORDERED: Midazolam 2 mg/2 ml VIAL 1 mg/ml 2 ml VIAL (2 mg) IV SLOW PU ONE (15:59)
[2023-05-23] MEDS ORDERED: fentaNYL INFUSION 50 mcg/mL VL 2,500 MCG/50 ML VIAL IV SCH ×2 (16:00→17:15)
[2023-05-23] MEDS ORDERED: Midazolam 2 mg/2 ml VIAL 1 mg/ml 2 ml VIAL (2 mg) ONE (16:00)
[2023-05-23] MEDS ORDERED: Zosyn per Pharmacy NOTE FOLLOW UP SCH (17:00)
[2023-05-23] MEDS ORDERED: Hydrocortisone INJ 100 MG/2ML 2 ML VIAL IV ONE (17:32)
[2023-05-23] MEDS ORDERED: Vancomycin per Pharmacy 1 EA NOTE FOLLOW UP SCH (19:28)
[2023-05-23] MEDS: Sodium Bicarbonate 8.4% SYR 50 ml SYRINGE IV SCH (19:32)
[2023-05-23] MEDS: Pantoprazole VIAL 40 MG VIAL IV SCH (19:32)
[2023-05-23] MEDS: ZOSYN 3.375 GM Q12H per EXTENDED INFUSION IV SCH (19:57)
[2023-05-23] MEDS: Heparin 5000 UNITS/ML 1 mL VIAL SUBCUT SCH (21:48)
[2023-05-23] MEDS: Norepinephrine *QUAD STRENGTH* 16 mg/250 mL NS (ICU ONLY) IV SCH (22:24)
[2023-05-24] MEDS ORDERED: Albuterol/Ipratropium NEB.SOL (2.5/0.5 MG) 3 ML NEB.SOLN INH PRN (00:18)
[2023-05-24] MEDS: Chlorhexidine MOUTHWASH 0.12% 15 ML UDC TOPICAL SCH ×6 (01:44→21:30)
[2023-05-24] MEDS: Hydrocortisone INJ 100 MG/2ML 2 ML VIAL IV SCH ×4 (01:44→21:30)
[2023-05-24 04:14] LABS: PCO2 Arterial 39 mmHg (35-45); PO2 Arterial 158 mmHg (80-100)
[2023-05-24 04:18] LABS: ABS Eosinophils 0.2 10^3/uL (0.0-0.5); ABS Lymphocytes 0.3 10^3/uL (1.0-4.8); ABS Monocytes 0.5 10^3/uL (0.0-0.9); ABS Neutrophils 10.3 10^3/uL (1.5-7.6); Hematocrit 39.6 % (35-45); Hemoglobin 13.1 g/dL (11.5-14.3); Lymphocyte % 2.6 %; Mean Corpuscular Hemoglobin 28.2 pg (27-33); Mean Corpuscular Volume 85.4 fL (80-97); Mean Platelet Volume 7.6 fL (7.5-11.2); Platelet Count 255 10^3/uL (150-450); Red Blood Count 4.64 10^6/uL (3.63-4.92); Red Cell Distribution Width 17.1 % (12-17); White Blood Count 11.3 10^3/uL (3.8-11.8)
[2023-05-24] MEDS: ZOSYN 3.375 GM Q12H per EXTENDED INFUSION IV SCH ×2 (04:30→17:55)
[2023-05-24 04:46] LABS: Albumin 2.6 g/dL (3.2-5.2); Albumin/Globulin Ratio 0.9 (1-3); Calcium 5.7 mg/dL (8.6-10.3); Creatinine, Serum 2.83 mg/dL (0.51-0.95); Globulin 2.8 g/dL (2-4); Magnesium 1.9 mg/dL (1.9-2.7); Potassium 4.4 mmol/L (3.5-5.0); Total Bilirubin 0.5 mg/dL (0.2-1.0); Total Protein 5.4 g/dL (6.4-8.9); eGFR CKD-EPI 18.7 (>60)
[2023-05-24] MEDS ORDERED: CALCIUM GLUCONATE 1GM/50ML NS 1 GM/50 ML BAG IV ONE (04:59)
[2023-05-24] MEDS: Heparin 5000 UNITS/ML 1 mL VIAL SUBCUT SCH ×3 (05:07→21:30)
[2023-05-24 05:13] LABS: Vancomycin Random 16.6 mcg/mL
[2023-05-24] MEDS ORDERED: Vancomycin Random Level NOTE FOLLOW UP ONE (06:00)
[2023-05-24 09:35] LABS: PCO2 Arterial 40 mmHg (35-45); PO2 Arterial 111 mmHg (80-100)
[2023-05-24] MEDS: fentaNYL INFUSION 50 mcg/mL VL 2,500 MCG/50 ML VIAL IV SCH ×2 (09:39→10:47)
[2023-05-24] MEDS: Midazolam PREMIXBAG 1 MG/ML NS 100 ML IV SCH ×2 (09:41→14:57)
[2023-05-24] MEDS ORDERED: Dextrose 50% Syringe 50 ml 25 GM/50 ML SYRINGE IV PUSH PRN (12:21)
[2023-05-24] MEDS ORDERED: fentaNYL 100 mcg/2 ml 50 MCG/ML VIAL ONE (12:53)
[2023-05-24] MEDS ORDERED: Vancomycin 1000 MG in NS 0.9% 250 ML IVPB ONE (14:00)
[2023-05-24 16:10] LABS: PCO2 Arterial 36 mmHg (35-45); PO2 Arterial 85 mmHg (80-100)
[2023-05-24] MEDS: Levothyroxine 100 MCG/5 ML VIAL IV SCH (16:14)
[2023-05-24] MEDS ORDERED: fentaNYL 100 mcg/2 ml 50 MCG/ML VIAL IV SLOW PU ONE (16:25)
[2023-05-24] MEDS: Pantoprazole VIAL 40 MG VIAL IV SCH (18:29)
[2023-05-24] MEDS ORDERED: Atropine 0.1 MG/ML 10 ml SYR (1 mg) IV PUSH PRN (18:53)
[2023-05-24 19:15] LABS: PCO2 Arterial 35 mmHg (35-45); PO2 Arterial 90 mmHg (80-100)
[2023-05-24 19:36] LABS: Creatinine, Serum 2.16 mg/dL (0.51-0.95); Magnesium 2.1 mg/dL (1.9-2.7); Potassium 3.7 mmol/L (3.5-5.0); eGFR CKD-EPI 25.9 (>60)
[2023-05-24] MEDS: Albuterol/Ipratropium NEB.SOL (2.5/0.5 MG) 3 ML NEB.SOLN INH SCH (19:40)
[2023-05-24 20:12] LABS: TSH Ultra Thyroid Stim Horm 0.16 mcIU/mL (0.34-5.60)
[2023-05-24 20:14] LABS: Free T4 0.68 ng/dL (0.61-1.12)
[2023-05-24 21:44] LABS: PCO2 Arterial 28 mmHg (35-45); PO2 Arterial 144 mmHg (80-100)
[2023-05-24] MEDS: Norepinephrine *QUAD STRENGTH* 16 mg/250 mL NS (ICU ONLY) IV SCH (23:48)
[2023-05-25] MEDS: Albuterol/Ipratropium NEB.SOL (2.5/0.5 MG) 3 ML NEB.SOLN INH SCH ×3 (00:23→07:39)
[2023-05-25] MEDS: Chlorhexidine MOUTHWASH 0.12% 15 ML UDC TOPICAL SCH ×6 (01:53→20:54)
[2023-05-25] MEDS: Hydrocortisone INJ 100 MG/2ML 2 ML VIAL IV SCH ×4 (01:53→20:55)
[2023-05-25] MEDS: fentaNYL INFUSION 50 mcg/mL VL 2,500 MCG/50 ML VIAL IV SCH ×2 (02:50→13:42)
[2023-05-25 03:53] LABS: PCO2 Arterial 33 mmHg (35-45); PO2 Arterial 134 mmHg (80-100)
[2023-05-25] MEDS: Heparin 5000 UNITS/ML 1 mL VIAL SUBCUT SCH (05:05)
[2023-05-25] MEDS: Levothyroxine 100 MCG/5 ML VIAL IV SCH (05:05)
[2023-05-25] MEDS: ZOSYN 3.375 GM Q12H per EXTENDED INFUSION IV SCH (05:07)
[2023-05-25 05:37] LABS: ABS Lymphocytes 0.4 10^3/uL (1.0-4.8); ABS Monocytes 0.4 10^3/uL (0.0-0.9); ABS Neutrophils 11.3 10^3/uL (1.5-7.6); Hematocrit 36.4 % (35-45); Hemoglobin 12.1 g/dL (11.5-14.3); Lymphocyte % 3.2 %; Mean Corpuscular Hemoglobin 28.1 pg (27-33); Mean Corpuscular Hgb Conc 33.3 g/dL (31-36); Mean Corpuscular Volume 84.3 fL (80-97); Mean Platelet Volume 7.2 fL (7.5-11.2); Platelet Count 285 10^3/uL (150-450); Red Blood Count 4.32 10^6/uL (3.63-4.92); White Blood Count 12.1 10^3/uL (3.8-11.8)
[2023-05-25 05:53] LABS: Albumin 2.6 g/dL (3.2-5.2); Albumin/Globulin Ratio 0.9 (1-3); Calcium 6.5 mg/dL (8.6-10.3); Creatinine, Serum 1.68 mg/dL (0.51-0.95); Globulin 2.8 g/dL (2-4); Magnesium 2.2 mg/dL (1.9-2.7); Phosphorus 5.1 mg/dL (2.5-5.0); Potassium 3.6 mmol/L (3.5-5.0); Total Bilirubin 0.4 mg/dL (0.2-1.0); Total Protein 5.4 g/dL (6.4-8.9)
[2023-05-25] MEDS ORDERED: Vancomycin Random Level NOTE FOLLOW UP ONE (06:00)
[2023-05-25 06:32] LABS: Vancomycin Random 16.4 mcg/mL
[2023-05-25] MEDS ORDERED: Albuterol/Ipratropium NEB.SOL (2.5/0.5 MG) 3 ML NEB.SOLN INH PRN (07:08)
[2023-05-25] MEDS ORDERED: CALCIUM GLUCONATE 1GM/50ML NS 1 GM/50 ML BAG IV ONE (08:28)
[2023-05-25] MEDS: Midazolam PREMIXBAG 1 MG/ML NS 100 ML IV SCH ×2 (08:43→23:22)
[2023-05-25 09:44] LABS: PCO2 Arterial 36 mmHg (35-45); PO2 Arterial 118 mmHg (80-100)
[2023-05-25] MEDS ORDERED: Sodium Bicarbonate 8.4% SYR 50 ml SYRINGE IV ONE (10:00)
[2023-05-25] MEDS ORDERED: Acetaminophen IV 1 GM/100ML 1,000 MG/100 ML BAG IV ONE (10:22)
[2023-05-25] MEDS ORDERED: Magnesium Hydroxide LIQ 30 ML UDC PO PRN (10:28)
[2023-05-25] MEDS ORDERED: Senna TAB 8.6 mg TAB PO PRN (10:28)
[2023-05-25] MEDS ORDERED: Polyethylene Glycol 3350 17 GM PACKET PO PRN (10:28)
[2023-05-25] MEDS: Magnesium Hydroxide LIQ 30 ML UDC PO SCH ×2 (11:28→20:54)
[2023-05-25] MEDS ORDERED: Zosyn per Pharmacy NOTE FOLLOW UP SCH ×2 (12:00→15:00)
[2023-05-25] MEDS ORDERED: Vancomycin per Pharmacy 1 EA NOTE FOLLOW UP SCH (15:00)
[2023-05-25] MEDS ORDERED: ZOSYN 3.375 GM Q8H per EXTENDED INFUSION IV SCH (15:00)
[2023-05-25] MEDS ORDERED: Vancomycin 1000 MG in NS 0.9% 250 ML IVPB SCH (17:00)
[2023-05-25] MEDS ORDERED: ceFAZolin 2 GM PREMIX 2 GM/50 ML BAG IV SCH (17:00)
[2023-05-25] MEDS: Pantoprazole VIAL 40 MG VIAL IV SCH (20:54)
[2023-05-25] MEDS: Enoxaparin 40 MG/0.4 ML SYR SUBCUT SCH (20:55)
[2023-05-25] MEDS: ZOSYN 3.375 GM Q8H per EXTENDED INFUSION IV SCH (22:04)
[2023-05-25 22:17] LABS: PCO2 Arterial 39 mmHg (35-45); PO2 Arterial 120 mmHg (80-100)
[2023-05-26] MEDS: Hydrocortisone INJ 100 MG/2ML 2 ML VIAL IV SCH ×3 (03:19→21:57)
[2023-05-26] MEDS: Chlorhexidine MOUTHWASH 0.12% 15 ML UDC TOPICAL SCH ×7 (03:19→21:56)
[2023-05-26] MEDS: fentaNYL INFUSION 50 mcg/mL VL 2,500 MCG/50 ML VIAL IV SCH ×2 (03:32→15:38)
[2023-05-26 04:13] LABS: ABS Lymphocytes 0.5 10^3/uL (1.0-4.8); ABS Monocytes 0.6 10^3/uL (0.0-0.9); ABS Neutrophils 7.4 10^3/uL (1.5-7.6); Hematocrit 33.5 % (35-45); Hemoglobin 11.3 g/dL (11.5-14.3); Lymphocyte % 6.4 %; Mean Corpuscular Hemoglobin 28.3 pg (27-33); Mean Corpuscular Hgb Conc 33.8 g/dL (31-36); Mean Corpuscular Volume 83.8 fL (80-97); Mean Platelet Volume 7.3 fL (7.5-11.2); Platelet Count 260 10^3/uL (150-450); Red Cell Distribution Width 16.9 % (12-17); White Blood Count 8.5 10^3/uL (3.8-11.8)
[2023-05-26 04:28] LABS: Albumin 2.6 g/dL (3.2-5.2); Albumin/Globulin Ratio 1.1 (1-3); Calcium 7.6 mg/dL (8.6-10.3); Creatinine, Serum 1.11 mg/dL (0.51-0.95); Globulin 2.4 g/dL (2-4); Magnesium 2.7 mg/dL (1.9-2.7); Potassium 3.4 mmol/L (3.5-5.0); Total Bilirubin 0.5 mg/dL (0.2-1.0); eGFR CKD-EPI 57.6 (>60)
[2023-05-26] MEDS: Levothyroxine 100 MCG/5 ML VIAL IV SCH (05:47)
[2023-05-26] MEDS: ZOSYN 3.375 GM Q8H per EXTENDED INFUSION IV SCH ×3 (05:47→21:57)
[2023-05-26] MEDS: KCL 20 MEQ/100 ML IVPREMIX 20 MEQ/100 ML BAG IV SCH ×4 (08:06→22:52)
[2023-05-26] MEDS: Magnesium Hydroxide LIQ 30 ML UDC PO SCH ×2 (08:06→21:56)
[2023-05-26] MEDS: Midazolam PREMIXBAG 1 MG/ML NS 100 ML IV SCH (14:02)
[2023-05-26] MEDS: Acetaminophen IV 1 GM/100ML 1,000 MG/100 ML BAG IV PRN (14:19)
[2023-05-26] MEDS: Pantoprazole VIAL 40 MG VIAL IV SCH (17:08)
[2023-05-26] MEDS: Enoxaparin 40 MG/0.4 ML SYR SUBCUT SCH (21:56)
[2023-05-27] MEDS: Chlorhexidine MOUTHWASH 0.12% 15 ML UDC TOPICAL SCH ×7 (01:49→23:42)
[2023-05-27] MEDS: fentaNYL INFUSION 50 mcg/mL VL 2,500 MCG/50 ML VIAL IV SCH ×2 (02:43→16:19)
[2023-05-27] MEDS: Midazolam PREMIXBAG 1 MG/ML NS 100 ML IV SCH ×2 (02:44→16:16)
[2023-05-27 04:26] LABS: ABS Basophils 0.1 10^3/uL (0.0-0.1); ABS Lymphocytes 0.8 10^3/uL (1.0-4.8); ABS Monocytes 0.7 10^3/uL (0.0-0.9); ABS Neutrophils 7.9 10^3/uL (1.5-7.6); ABS Nucleated RBC 0.01 10^3/ul; Hematocrit 33.1 % (35-45); Hemoglobin 10.9 g/dL (11.5-14.3); Lymphocyte % 8.4 %; Mean Corpuscular Hemoglobin 28.1 pg (27-33); Mean Corpuscular Volume 85.1 fL (80-97); Mean Platelet Volume 7.6 fL (7.5-11.2); Nucleated Red Blood Cells % 0.1 %/100WBC (0.0-0.8); Platelet Count 213 10^3/uL (150-450); Red Blood Count 3.89 10^6/uL (3.63-4.92); Red Cell Distribution Width 17.1 % (12-17); White Blood Count 9.4 10^3/uL (3.8-11.8)
[2023-05-27 04:44] LABS: Albumin 2.5 g/dL (3.2-5.2); Albumin/Globulin Ratio 1.1 (1-3); Calcium 7.9 mg/dL (8.6-10.3); Creatinine, Serum 0.89 mg/dL (0.51-0.95); Globulin 2.3 g/dL (2-4); Magnesium 2.6 mg/dL (1.9-2.7); Potassium 4.2 mmol/L (3.5-5.0); Total Bilirubin 0.5 mg/dL (0.2-1.0); Total Protein 4.8 g/dL (6.4-8.9); eGFR CKD-EPI 75.1 (>60)
[2023-05-27] MEDS ORDERED: D5W 1000 ml BAG 1,000 ML IV SCH ×2 (05:00→19:00)
[2023-05-27] MEDS: ZOSYN 3.375 GM Q8H per EXTENDED INFUSION IV SCH (05:41)
[2023-05-27] MEDS: Levothyroxine 100 MCG/5 ML VIAL IV SCH (05:41)
[2023-05-27] MEDS ORDERED: Midazolam 5 mg/5 ml VIAL 1 mg/ml 5 ml VIAL (5 mg) ONE ×2 (08:44→10:24)
[2023-05-27] MEDS ORDERED: Naloxone 0.4 mg VIAL 0.4 mg/ml 1 ml VIAL ONE (08:44)
[2023-05-27] MEDS ORDERED: Flumazenil 0.5 mg/5 ml 0.1 MG/ML 5 ml VIAL ONE (08:44)
[2023-05-27] MEDS ORDERED: fentaNYL 100 mcg/2 ml 50 MCG/ML VIAL ONE (08:44)
[2023-05-27] MEDS ORDERED: Furosemide 40 mg/4 ml IV VIAL IV ONE (08:45)
[2023-05-27] MEDS: Hydrocortisone INJ 100 MG/2ML 2 ML VIAL IV SCH ×2 (09:23→19:38)
[2023-05-27] MEDS: Pantoprazole VIAL 40 MG VIAL IV SCH ×2 (09:24→19:38)
[2023-05-27] MEDS: Magnesium Hydroxide LIQ 30 ML UDC PO SCH ×2 (10:08→19:38)
[2023-05-27 12:43] LABS: Calcium 8.2 mg/dL (8.6-10.3); Creatinine, Serum 0.92 mg/dL (0.51-0.95); Potassium 3.6 mmol/L (3.5-5.0); eGFR CKD-EPI 72.2 (>60)
[2023-05-27] MEDS ORDERED: Midazolam 2 mg/2 ml VIAL 1 mg/ml 2 ml VIAL (2 mg) IV SLOW PU ONE (13:29)
[2023-05-27] MEDS ORDERED: Vancomycin Trough Check NOTE FOLLOW UP ONE ×2 (16:30)
[2023-05-27] MEDS: ceFAZolin 2 GM PREMIX 2 GM/50 ML BAG IVPB SCH (17:53)
[2023-05-27] MEDS: Dexmedetomidine 1,000 MCG in NS 0.9% 250 ml 240 ML IV SCH (19:21)
[2023-05-27] MEDS: Enoxaparin 40 MG/0.4 ML SYR SUBCUT SCH (19:38)
[2023-05-27 20:47] LABS: Calcium 8.2 mg/dL (8.6-10.3); Creatinine, Serum 0.85 mg/dL (0.51-0.95); Potassium 3.2 mmol/L (3.5-5.0); eGFR CKD-EPI 79.4 (>60)
[2023-05-28 00:09] LABS: Calcium 8.2 mg/dL (8.6-10.3); Creatinine, Serum 0.83 mg/dL (0.51-0.95); Potassium 3.4 mmol/L (3.5-5.0); eGFR CKD-EPI 81.7 (>60)
[2023-05-28] MEDS: ceFAZolin 2 GM PREMIX 2 GM/50 ML BAG IVPB SCH ×3 (02:09→18:41)
[2023-05-28] MEDS: Chlorhexidine MOUTHWASH 0.12% 15 ML UDC TOPICAL SCH ×6 (03:46→23:29)
[2023-05-28 04:06] LABS: ABS Lymphocytes 1.3 10^3/uL (1.0-4.8); ABS Monocytes 0.9 10^3/uL (0.0-0.9); ABS Neutrophils 10.2 10^3/uL (1.5-7.6); ABS Nucleated RBC 0.01 10^3/ul; Eosinophil % 0.2 %; Hematocrit 35.6 % (35-45); Hemoglobin 11.8 g/dL (11.5-14.3); Lymphocyte % 10.2 %; Mean Corpuscular Hgb Conc 33.1 g/dL (31-36); Mean Corpuscular Volume 84.6 fL (80-97); Mean Platelet Volume 7.8 fL (7.5-11.2); Nucleated Red Blood Cells % 0.1 %/100WBC (0.0-0.8); Platelet Count 190 10^3/uL (150-450); Red Blood Count 4.21 10^6/uL (3.63-4.92); Red Cell Distribution Width 16.9 % (12-17); White Blood Count 12.4 10^3/uL (3.8-11.8)
[2023-05-28 04:53] LABS: Albumin 2.6 g/dL (3.2-5.2); Albumin/Globulin Ratio 1.1 (1-3); C Reactive Protein 31.32 mg/L (<8.01); Calcium 7.9 mg/dL (8.6-10.3); Creatinine, Serum 0.88 mg/dL (0.51-0.95); Globulin 2.3 g/dL (2-4); Potassium 3.3 mmol/L (3.5-5.0); Total Bilirubin 0.3 mg/dL (0.2-1.0); Total Protein 4.9 g/dL (6.4-8.9); eGFR CKD-EPI 76.1 (>60)
[2023-05-28] MEDS: Midazolam PREMIXBAG 1 MG/ML NS 100 ML IV SCH ×2 (05:06→22:33)
[2023-05-28] MEDS: Levothyroxine 100 MCG/5 ML VIAL IV SCH (05:17)
[2023-05-28] MEDS: Hydrocortisone INJ 100 MG/2ML 2 ML VIAL IV SCH (08:28)
[2023-05-28] MEDS: KCL 20 MEQ/100 ML IVPREMIX 20 MEQ/100 ML BAG IV SCH ×3 (08:28→12:34)
[2023-05-28] MEDS: Pantoprazole VIAL 40 MG VIAL IV SCH ×2 (08:28→21:27)
[2023-05-28] MEDS ORDERED: Furosemide 40 mg/4 ml IV VIAL IV SLOW PU ONE (08:31)
[2023-05-28 10:01] LABS: Resp Rate 26
[2023-05-28 10:03] LABS: PCO2 Arterial 36 mmHg (35-45); PO2 Arterial 99 mmHg (80-100)
[2023-05-28] MEDS ORDERED: Midazolam 5 mg/5 ml VIAL 1 mg/ml 5 ml VIAL (5 mg) ONE (11:44)
[2023-05-28] MEDS ORDERED: Naloxone 0.4 mg VIAL 0.4 mg/ml 1 ml VIAL ONE (11:45)
[2023-05-28] MEDS ORDERED: Flumazenil 0.5 mg/5 ml 0.1 MG/ML 5 ml VIAL ONE (11:45)
[2023-05-28] MEDS ORDERED: Propofol 10 MG/ML 20 ML BTL IV PUSH ONE (12:40)
[2023-05-28] MEDS: fentaNYL INFUSION 50 mcg/mL VL 2,500 MCG/50 ML VIAL IV SCH (16:25)
[2023-05-28] MEDS: Morphine ORAL.SOLN 10 mg 2 mg/ml UDC 5 ml (10 mg) PO SCH ×2 (16:25→21:27)
[2023-05-28] MEDS ORDERED: Rocuronium 50 mg VIAL 10 mg/ml 5 ml VIAL (50 mg) IV ONE ×2 (18:09→20:50)
[2023-05-28] MEDS: Midazolam 5 mg/5 ml VIAL 1 mg/ml 5 ml VIAL (5 mg) IV SLOW PU PRN ×2 (19:08→22:42)
[2023-05-28] MEDS ORDERED: Norepinephrine 4 MG/250mL D5W 4,000 MCG/250 ML BAG IV ONE (20:43)
[2023-05-28] MEDS ORDERED: Ketamine HCL 50 mg/ml 10 ml VIAL (500 MG) IV ONE (20:50)
[2023-05-28] MEDS ORDERED: Rocuronium 50 mg VIAL 10 mg/ml 5 ml VIAL (50 mg) ONE (20:52)
[2023-05-28] MEDS ORDERED: Ketamine HCL 50 mg/ml 10 ml VIAL (500 MG) ONE (20:55)
[2023-05-28] MEDS ORDERED: Norepinephrine 4 MG/250mL D5W 4,000 MCG/250 ML BAG IV SCH (21:00)
[2023-05-28] MEDS: Enoxaparin 40 MG/0.4 ML SYR SUBCUT SCH (21:26)
[2023-05-28] MEDS: Dexmedetomidine 1,000 MCG in NS 0.9% 250 ml 240 ML IV SCH (23:28)
[2023-05-29] MEDS: ceFAZolin 2 GM PREMIX 2 GM/50 ML BAG IVPB SCH ×3 (02:01→17:26)
[2023-05-29] MEDS: Chlorhexidine MOUTHWASH 0.12% 15 ML UDC TOPICAL SCH ×5 (03:57→21:31)
[2023-05-29] MEDS: Morphine ORAL.SOLN 10 mg 2 mg/ml UDC 5 ml (10 mg) PO SCH ×4 (04:02→21:31)
[2023-05-29] MEDS: Levothyroxine 100 MCG/5 ML VIAL IV SCH (04:02)
[2023-05-29] MEDS: Midazolam 5 mg/5 ml VIAL 1 mg/ml 5 ml VIAL (5 mg) IV SLOW PU PRN (04:16)
[2023-05-29 04:39] LABS: Hematocrit 35.8 % (35-45); Hemoglobin 11.8 g/dL (11.5-14.3); Mean Corpuscular Hgb Conc 32.9 g/dL (31-36); Mean Corpuscular Volume 85.1 fL (80-97); Mean Platelet Volume 8.5 fL (7.5-11.2); Platelet Count 184 10^3/uL (150-450); Red Cell Distribution Width 16.7 % (12-17); White Blood Count 12.2 10^3/uL (3.8-11.8)
[2023-05-29 05:33] LABS: Albumin 2.7 g/dL (3.2-5.2); Albumin/Globulin Ratio 1.3 (1-3); Calcium 7.8 mg/dL (8.6-10.3); Creatinine, Serum 0.82 mg/dL (0.51-0.95); Globulin 2.1 g/dL (2-4); Magnesium 1.9 mg/dL (1.9-2.7); Potassium 3.6 mmol/L (3.5-5.0); Total Bilirubin 0.4 mg/dL (0.2-1.0); Total Protein 4.8 g/dL (6.4-8.9); eGFR CKD-EPI 82.9 (>60)
[2023-05-29 06:07] LABS: ABS Eosinophils 0.1 10^3/uL (0.0-0.5); ABS Lymphocytes 1.1 10^3/uL (1.0-4.8); ABS Monocytes 0.7 10^3/uL (0.0-0.9); ABS Neutrophils 10.2 10^3/uL (1.5-7.6); ABS Nucleated RBC 0.02 10^3/ul; Lymphocyte % 8.8 %; Nucleated Red Blood Cells % 0.2 %/100WBC (0.0-0.8); RBC Morphology Normal (Normal)
[2023-05-29] MEDS: KCL 20 MEQ/100 ML IVPREMIX 20 MEQ/100 ML BAG IV SCH ×2 (08:22→12:54)
[2023-05-29] MEDS: Hydrocortisone INJ 100 MG/2ML 2 ML VIAL IV SCH (08:24)
[2023-05-29] MEDS: Pantoprazole VIAL 40 MG VIAL IV SCH ×2 (08:27→21:31)
[2023-05-29] MEDS ORDERED: Furosemide 40 mg/4 ml IV VIAL IV SLOW PU ONE (08:42)
[2023-05-29] MEDS ORDERED: KCL 20 MEQ/100 ML IVPREMIX 20 MEQ/100 ML BAG IV ONE (08:44)
[2023-05-29] MEDS: Dexmedetomidine 1,000 MCG in NS 0.9% 250 ml 240 ML IV SCH ×2 (09:37→17:41)
[2023-05-29] MEDS ORDERED: Midazolam 5 mg/5 ml VIAL 1 mg/ml 5 ml VIAL (5 mg) ONE ×2 (13:05→14:26)
[2023-05-29] MEDS ORDERED: Rocuronium 50 mg VIAL 10 mg/ml 5 ml VIAL (50 mg) IV ONE (14:37)
[2023-05-29] MEDS ORDERED: Rocuronium 50 mg VIAL 10 mg/ml 5 ml VIAL (50 mg) ONE (14:38)
[2023-05-29 16:45] LABS: Calcium 7.9 mg/dL (8.6-10.3); Creatinine, Serum 0.79 mg/dL (0.51-0.95); Potassium 3.9 mmol/L (3.5-5.0); eGFR CKD-EPI 86.7 (>60)
[2023-05-29] MEDS: Midazolam PREMIXBAG 1 MG/ML NS 100 ML IV SCH (20:31)
[2023-05-29] MEDS: Enoxaparin 40 MG/0.4 ML SYR SUBCUT SCH (21:31)
[2023-05-30] MEDS: Chlorhexidine MOUTHWASH 0.12% 15 ML UDC TOPICAL SCH ×6 (00:52→20:24)
[2023-05-30] MEDS: Midazolam 5 mg/5 ml VIAL 1 mg/ml 5 ml VIAL (5 mg) IV SLOW PU PRN (00:53)
[2023-05-30] MEDS: ceFAZolin 2 GM PREMIX 2 GM/50 ML BAG IVPB SCH ×3 (01:57→17:46)
[2023-05-30] MEDS: Dexmedetomidine 1,000 MCG in NS 0.9% 250 ml 240 ML IV SCH ×2 (02:24→12:40)
[2023-05-30] MEDS: fentaNYL INFUSION 50 mcg/mL VL 2,500 MCG/50 ML VIAL IV SCH (02:36)
[2023-05-30] MEDS: Morphine ORAL.SOLN 10 mg 2 mg/ml UDC 5 ml (10 mg) PO SCH ×4 (04:18→21:10)
[2023-05-30 05:16] LABS: Hematocrit 35.2 % (35-45); Hemoglobin 11.6 g/dL (11.5-14.3); Mean Corpuscular Hemoglobin 28.2 pg (27-33); Mean Corpuscular Hgb Conc 33.1 g/dL (31-36); Mean Corpuscular Volume 85.3 fL (80-97); Mean Platelet Volume 8.6 fL (7.5-11.2); Platelet Count 155 10^3/uL (150-450); Red Blood Count 4.12 10^6/uL (3.63-4.92); Red Cell Distribution Width 16.5 % (12-17); White Blood Count 12.2 10^3/uL (3.8-11.8)
[2023-05-30 05:49] LABS: Albumin 2.6 g/dL (3.2-5.2); Albumin/Globulin Ratio 1.1 (1-3); Calcium 7.5 mg/dL (8.6-10.3); Creatinine, Serum 0.73 mg/dL (0.51-0.95); Globulin 2.3 g/dL (2-4); Magnesium 1.8 mg/dL (1.9-2.7); Phosphorus 2.6 mg/dL (2.5-5.0); Potassium 3.6 mmol/L (3.5-5.0); Total Bilirubin 0.4 mg/dL (0.2-1.0); Total Protein 4.9 g/dL (6.4-8.9); eGFR CKD-EPI 95.3 (>60)
[2023-05-30] MEDS: Levothyroxine 100 MCG/5 ML VIAL IV SCH (05:59)
[2023-05-30] MEDS ORDERED: Magnesium Sulfate 2 gm BAG 2 GM/50 ML BAG IVPB ONE (08:33)
[2023-05-30] MEDS: KCL 20 MEQ/100 ML IVPREMIX 20 MEQ/100 ML BAG IV SCH ×3 (09:55→12:44)
[2023-05-30] MEDS: Pantoprazole VIAL 40 MG VIAL IV SCH ×2 (09:55→20:24)
[2023-05-30] MEDS: Hydrocortisone INJ 100 MG/2ML 2 ML VIAL IV SCH (09:55)
[2023-05-30 12:06] LABS: Resp Rate 20
[2023-05-30 12:14] LABS: PCO2 Arterial 33 mmHg (35-45); PO2 Arterial 94 mmHg (80-100)
[2023-05-30] MEDS: Enoxaparin 40 MG/0.4 ML SYR SUBCUT SCH (20:24)
[2023-05-30] MEDS ORDERED: Ketamine HCL 50 mg/ml 10 ml VIAL (500 MG) IV ONE ×2 (22:29→23:30)
[2023-05-30] MEDS ORDERED: Rocuronium 50 mg VIAL 10 mg/ml 5 ml VIAL (50 mg) IV ONE (22:29)
[2023-05-30] MEDS ORDERED: Phenylephrine 40 mcg/mL 10mL (400mcg) SYRINGE ONE (22:50)
[2023-05-31] MEDS ORDERED: Ketamine HCL 50 mg/ml 10 ml VIAL (500 MG) IV ONE (00:10)
[2023-05-31] MEDS ORDERED: Gadoteridol (CONTRAST) 279.3 MG/ML 10 ML IV ONE (00:22)
[2023-05-31] MEDS: Dexmedetomidine 1,000 MCG in NS 0.9% 250 ml 240 ML IV SCH ×2 (01:33→10:04)
[2023-05-31] MEDS: Chlorhexidine MOUTHWASH 0.12% 15 ML UDC TOPICAL SCH ×8 (01:43→23:32)
[2023-05-31] MEDS: ceFAZolin 2 GM PREMIX 2 GM/50 ML BAG IVPB SCH ×3 (01:46→18:14)
[2023-05-31] MEDS: Levothyroxine 100 MCG/5 ML VIAL IV SCH (05:05)
[2023-05-31] MEDS: Morphine ORAL.SOLN 10 mg 2 mg/ml UDC 5 ml (10 mg) PO SCH ×4 (05:05→20:19)
[2023-05-31 05:23] LABS: ABS Basophils 0.1 10^3/uL (0.0-0.1); ABS Eosinophils 0.2 10^3/uL (0.0-0.5); ABS Lymphocytes 0.5 10^3/uL (1.0-4.8); ABS Monocytes 0.6 10^3/uL (0.0-0.9); ABS Neutrophils 15.7 10^3/uL (1.5-7.6); Eosinophil % 1.2 %; Hematocrit 33.4 % (35-45); Hemoglobin 10.7 g/dL (11.5-14.3); Lymphocyte % 3.2 %; Mean Corpuscular Hemoglobin 27.9 pg (27-33); Mean Corpuscular Hgb Conc 32.1 g/dL (31-36); Mean Corpuscular Volume 86.9 fL (80-97); Mean Platelet Volume 9.7 fL (7.5-11.2); Platelet Count 148 10^3/uL (150-450); Red Blood Count 3.84 10^6/uL (3.63-4.92); Red Cell Distribution Width 16.8 % (12-17); White Blood Count 17.1 10^3/uL (3.8-11.8)
[2023-05-31 05:41] LABS: Albumin 2.7 g/dL (3.2-5.2); Albumin/Globulin Ratio 1.2 (1-3); C Reactive Protein 49.83 mg/L (<8.01); Calcium 7.7 mg/dL (8.6-10.3); Creatinine, Serum 0.63 mg/dL (0.51-0.95); Globulin 2.2 g/dL (2-4); Phosphorus 2.7 mg/dL (2.5-5.0); Potassium 3.6 mmol/L (3.5-5.0); Total Bilirubin 0.4 mg/dL (0.2-1.0); Total Protein 4.9 g/dL (6.4-8.9); eGFR CKD-EPI 102.8 (>60)
[2023-05-31] MEDS: Pantoprazole VIAL 40 MG VIAL IV SCH ×2 (07:50→21:15)
[2023-05-31] MEDS: Hydrocortisone INJ 100 MG/2ML 2 ML VIAL IV SCH (07:50)
[2023-05-31 10:18] LABS: PCO2 Arterial 32 mmHg (35-45); PO2 Arterial 100 mmHg (80-100)
[2023-05-31] MEDS ORDERED: Rocuronium 50 mg VIAL 10 mg/ml 5 ml VIAL (50 mg) IV ONE (12:59)
[2023-05-31] MEDS: Enoxaparin 40 MG/0.4 ML SYR SUBCUT SCH (21:15)
[2023-06-01] MEDS: Acetaminophen IV 1 GM/100ML 1,000 MG/100 ML BAG IV PRN (00:14)
[2023-06-01] MEDS ORDERED: hydrALAZINE 20 mg/ml 1 ML Vial IV IV SLOW PU PRN (01:07)
[2023-06-01] MEDS ORDERED: hydrALAZINE 20 mg/ml 1 ML Vial IV ONE (01:12)
[2023-06-01] MEDS: ceFAZolin 2 GM PREMIX 2 GM/50 ML BAG IVPB SCH ×3 (01:32→17:38)
[2023-06-01] MEDS: Morphine ORAL.SOLN 10 mg 2 mg/ml UDC 5 ml (10 mg) PO SCH ×4 (01:59→22:30)
[2023-06-01] MEDS: Chlorhexidine MOUTHWASH 0.12% 15 ML UDC TOPICAL SCH (04:03)
[2023-06-01 04:26] LABS: ABS Basophils 0.1 10^3/uL (0.0-0.1); ABS Eosinophils 0.1 10^3/uL (0.0-0.5); ABS Lymphocytes 0.9 10^3/uL (1.0-4.8); ABS Monocytes 0.8 10^3/uL (0.0-0.9); ABS Nucleated RBC 0.01 10^3/ul; Eosinophil % 0.5 %; Hematocrit 33.7 % (35-45); Hemoglobin 11.1 g/dL (11.5-14.3); Lymphocyte % 4.5 %; Mean Corpuscular Hemoglobin 28.2 pg (27-33); Mean Corpuscular Hgb Conc 32.9 g/dL (31-36); Mean Corpuscular Volume 85.8 fL (80-97); Mean Platelet Volume 9.8 fL (7.5-11.2); Nucleated Red Blood Cells % 0.1 %/100WBC (0.0-0.8); Platelet Count 192 10^3/uL (150-450); Red Blood Count 3.93 10^6/uL (3.63-4.92); Red Cell Distribution Width 16.9 % (12-17); White Blood Count 18.8 10^3/uL (3.8-11.8)
[2023-06-01 04:53] LABS: Calcium 7.4 mg/dL (8.6-10.3); Creatinine, Serum 0.59 mg/dL (0.51-0.95); Magnesium 1.8 mg/dL (1.9-2.7); Potassium 2.9 mmol/L (3.5-5.0); eGFR CKD-EPI 104.4 (>60)
[2023-06-01] MEDS ORDERED: Magnesium Sulfate 2 gm BAG 2 GM/50 ML BAG IVPB ONE (04:58)
[2023-06-01] MEDS: Levothyroxine 100 MCG/5 ML VIAL IV SCH (05:22)
[2023-06-01] MEDS: KCL 20 MEQ/100 ML IVPREMIX 20 MEQ/100 ML BAG IV SCH ×4 (05:25→22:06)
[2023-06-01] MEDS: Pantoprazole VIAL 40 MG VIAL IV SCH ×2 (09:25→20:02)
[2023-06-01] MEDS: Hydrocortisone INJ 100 MG/2ML 2 ML VIAL IV SCH (09:25)
[2023-06-01 17:39] LABS: Calcium 7.6 mg/dL (8.6-10.3); Creatinine, Serum 0.55 mg/dL (0.51-0.95); Potassium 3.1 mmol/L (3.5-5.0); eGFR CKD-EPI 106.2 (>60)
[2023-06-01] MEDS: Enoxaparin 40 MG/0.4 ML SYR SUBCUT SCH (20:02)
[2023-06-02] MEDS: KCL 20 MEQ/100 ML IVPREMIX 20 MEQ/100 ML BAG IV SCH (00:20)
[2023-06-02] MEDS: ceFAZolin 2 GM PREMIX 2 GM/50 ML BAG IVPB SCH ×3 (01:58→18:01)
[2023-06-02 03:33] LABS: PCO2 Arterial 25 mmHg (35-45); PO2 Arterial 98 mmHg (80-100)
[2023-06-02] MEDS: Morphine ORAL.SOLN 10 mg 2 mg/ml UDC 5 ml (10 mg) PO SCH ×4 (04:05→21:20)
[2023-06-02 04:12] LABS: ABS Basophils 0.1 10^3/uL (0.0-0.1); ABS Eosinophils 0.2 10^3/uL (0.0-0.5); ABS Lymphocytes 0.8 10^3/uL (1.0-4.8); ABS Neutrophils 14.9 10^3/uL (1.5-7.6); Eosinophil % 1.1 %; Lymphocyte % 4.6 %; Mean Corpuscular Hemoglobin 27.8 pg (27-33); Mean Corpuscular Hgb Conc 32.2 g/dL (31-36); Mean Corpuscular Volume 86.3 fL (80-97); Mean Platelet Volume 9.9 fL (7.5-11.2); Platelet Count 248 10^3/uL (150-450); Red Blood Count 3.94 10^6/uL (3.63-4.92)
[2023-06-02 04:30] LABS: Calcium 7.7 mg/dL (8.6-10.3); Creatinine, Serum 0.61 mg/dL (0.51-0.95); Potassium 3.6 mmol/L (3.5-5.0); eGFR CKD-EPI 103.6 (>60)
[2023-06-02 05:20] LABS: Folate 17.36 ng/mL (5.90-24.80)
[2023-06-02] MEDS: Levothyroxine 100 MCG/5 ML VIAL IV SCH (05:22)
[2023-06-02] MEDS: Hydrocortisone INJ 100 MG/2ML 2 ML VIAL IV SCH (08:17)
[2023-06-02] MEDS: Pantoprazole VIAL 40 MG VIAL IV SCH ×2 (08:17→21:20)
[2023-06-02] MEDS ORDERED: Potassium Chloride LIQUID 20 MEQ/15 ML LIQUID PO ONE (09:32)
[2023-06-02] MEDS ORDERED: Labetalol IV 5 MG/ML 20 ml VIAL IV PUSH ONE (09:48)
[2023-06-02] MEDS ORDERED: Labetalol IV 5 MG/ML 20 ml VIAL ONE (09:49)
[2023-06-02] MEDS: Enoxaparin 40 MG/0.4 ML SYR SUBCUT SCH (21:20)
[2023-06-03] MEDS: ceFAZolin 2 GM PREMIX 2 GM/50 ML BAG IVPB SCH (01:45)
[2023-06-03] MEDS: Acetaminophen IV 1 GM/100ML 1,000 MG/100 ML BAG IV PRN (04:53)
[2023-06-03] MEDS: Morphine ORAL.SOLN 10 mg 2 mg/ml UDC 5 ml (10 mg) PO SCH ×4 (04:53→22:35)
[2023-06-03 05:01] LABS: ABS Basophils 0.1 10^3/uL (0.0-0.1); ABS Eosinophils 0.3 10^3/uL (0.0-0.5); ABS Lymphocytes 0.9 10^3/uL (1.0-4.8); ABS Neutrophils 11.2 10^3/uL (1.5-7.6); Eosinophil % 1.9 %; Hematocrit 34.5 % (35-45); Hemoglobin 11.2 g/dL (11.5-14.3); Lymphocyte % 6.6 %; Mean Corpuscular Hemoglobin 28.2 pg (27-33); Mean Corpuscular Hgb Conc 32.3 g/dL (31-36); Mean Corpuscular Volume 87.3 fL (80-97); Mean Platelet Volume 9.5 fL (7.5-11.2); Platelet Count 310 10^3/uL (150-450); Red Blood Count 3.96 10^6/uL (3.63-4.92); Red Cell Distribution Width 17.2 % (12-17); White Blood Count 13.5 10^3/uL (3.8-11.8)
[2023-06-03 05:19] LABS: Calcium 7.5 mg/dL (8.6-10.3); Creatinine, Serum 0.55 mg/dL (0.51-0.95); Magnesium 1.8 mg/dL (1.9-2.7); Potassium 3.6 mmol/L (3.5-5.0); eGFR CKD-EPI 106.2 (>60)
[2023-06-03] MEDS ORDERED: Magnesium Sulfate 2 gm BAG 2 GM/50 ML BAG IVPB ONE (06:53)
[2023-06-03] MEDS: Pantoprazole VIAL 40 MG VIAL IV SCH ×2 (07:46→22:34)
[2023-06-03] MEDS: ceFAZolin 2 GM PREMIX 2 GM/50 ML BAG IV SCH ×2 (11:07→18:35)
[2023-06-03] MEDS: Enoxaparin 40 MG/0.4 ML SYR SUBCUT SCH (22:35)
[2023-06-04] MEDS: ceFAZolin 2 GM PREMIX 2 GM/50 ML BAG IV SCH ×2 (02:45→09:14)
[2023-06-04] MEDS: Morphine ORAL.SOLN 10 mg 2 mg/ml UDC 5 ml (10 mg) PO SCH ×2 (05:46→09:13)
[2023-06-04] MEDS: Pantoprazole VIAL 40 MG VIAL IV SCH (08:59)
[2023-06-04 10:32] LABS: Anion Gap 10 mmol/L (2-16); Blood Urea Nitrogen 9 mg/dL (6-24); CO2 Carbon Dioxide 17 mmol/L (22-32); Calcium 7.8 mg/dL (8.6-10.3); Chloride 109 mmol/L (101-111); Creatinine, Serum 0.59 mg/dL (0.51-0.95); Glucose 138 mg/dL (70-100); Sodium 136 mmol/L (135-145); eGFR CKD-EPI 104.4 (>60)
[2023-06-04 11:04] LABS: Hematocrit 36.6 % (35-45); Hemoglobin 11.9 g/dL (11.5-14.3); Mean Corpuscular Hemoglobin 28.4 pg (27-33); Mean Corpuscular Hgb Conc 32.5 g/dL (31-36); Mean Corpuscular Volume 87.4 fL (80-97); Mean Platelet Volume 9.9 fL (7.5-11.2); Platelet Count 356 10^3/uL (150-450); Red Blood Count 4.19 10^6/uL (3.63-4.92); Red Cell Distribution Width 17.1 % (12-17)
[2023-06-04 11:05] LABS: ABS Basophils 0.2 10^3/uL (0.0-0.1); ABS Eosinophils 0.2 10^3/uL (0.0-0.5); ABS Monocytes 0.9 10^3/uL (0.0-0.9); ABS Neutrophils 9.7 10^3/uL (1.5-7.6); Eosinophil % 1.8 %; Lymphocyte % 8.3 %
[2023-06-04 11:10] VITALS: BP 109/76
[2023-06-04 11:15] LABS: Potassium Redraw 3.5 mmol/L (3.5-5.0)
== END 2023-06-04 12:45 | DRG 870 ==
LOC: ED 11:51 → ICU 15:25 → SUATTDRO 16:01 → ICU 16:01 → MED 06-03 11:13
PROVIDERS: ADMIT Student in an Organized Health Care Education/Training Program; ATTEND Surgery Surgical Critical Care

== ENCOUNTER 2023-06-04 10:07 | Inpatient (IN) ==
[2023-06-04] MEDS ORDERED: Senna TAB 8.6 mg TAB PO PRN (17:05)
[2023-06-04] MEDS ORDERED: Dextrose 50% Syringe 50 ml 25 GM/50 ML SYRINGE IV PUSH PRN (17:12)
[2023-06-04] MEDS ORDERED: Morphine ORAL.SOLN 10 mg 2 mg/ml UDC 5 ml (10 mg) PO PRN (17:16)
[2023-06-04] MEDS: ceFAZolin 2 GM in NS PREMIX 2 GM/100 ML BAG IVPB SCH (19:52)
[2023-06-04] MEDS ORDERED: Albuterol/Ipratropium NEB.SOL (2.5/0.5 MG) 3 ML NEB.SOLN INH PRN (20:15)
[2023-06-04] MEDS: oxyCODONE SR 10 mg TAB PO SCH (20:43)
[2023-06-04] MEDS: Enoxaparin 40 MG/0.4 ML SYR SUBCUT SCH (20:44)
[2023-06-05] MEDS: ceFAZolin 2 GM in NS PREMIX 2 GM/100 ML BAG IVPB SCH ×3 (01:58→17:40)
[2023-06-05] MEDS: oxyCODONE SR 10 mg TAB PO SCH ×2 (08:20→20:20)
[2023-06-05] MEDS: Nystatin TOP POWDER 15 GM BTL TOPICAL SCH ×2 (09:34→22:48)
[2023-06-05] MEDS: Enoxaparin 40 MG/0.4 ML SYR SUBCUT SCH (20:19)
[2023-06-06] MEDS: ceFAZolin 2 GM in NS PREMIX 2 GM/100 ML BAG IVPB SCH ×2 (01:50→12:33)
[2023-06-06 07:46] LABS: ALT 11 U/L (7-52); Albumin 2.7 g/dL (3.2-5.2); Albumin/Globulin Ratio 0.9 (1-3); Alkaline Phosphatase 113 U/L (35-149); Blood Urea Nitrogen 6 mg/dL (6-24); Calcium 7.7 mg/dL (8.6-10.3); Chloride 111 mmol/L (101-111); Creatinine, Serum 0.52 mg/dL (0.51-0.95); Glucose 118 mg/dL (70-100); Sodium 137 mmol/L (135-145); Total Bilirubin 0.3 mg/dL (0.2-1.0); Total Protein 5.7 g/dL (6.4-8.9); eGFR CKD-EPI 107.6 (>60)
[2023-06-06 08:41] LABS: Anion Gap 12 mmol/L (2-16); CO2 Carbon Dioxide 14 mmol/L (22-32)
[2023-06-06] MEDS: oxyCODONE SR 10 mg TAB PO SCH ×2 (09:32→20:32)
[2023-06-06 12:15] LABS: Venous Bicarbonate HCO3 21.7 mmol/L (24-28)
[2023-06-06 12:26] LABS: ABS Basophils 0.1 10^3/uL (0.0-0.1); ABS Eosinophils 0.3 10^3/uL (0.0-0.5); ABS Neutrophils 7.2 10^3/uL (1.5-7.6); Eosinophil % 3.3 %; Hematocrit 35.7 % (35-45); Hemoglobin 11.6 g/dL (11.5-14.3); Lymphocyte % 9.9 %; Mean Corpuscular Hemoglobin 27.9 pg (27-33); Mean Corpuscular Hgb Conc 32.4 g/dL (31-36); Mean Platelet Volume 9.4 fL (7.5-11.2); Platelet Count 371 10^3/uL (150-450); Red Blood Count 4.16 10^6/uL (3.63-4.92); Red Cell Distribution Width 16.9 % (12-17); White Blood Count 9.6 10^3/uL (3.8-11.8)
[2023-06-06] MEDS: Nystatin TOP POWDER 15 GM BTL TOPICAL SCH ×2 (12:37→21:53)
[2023-06-06 12:48] LABS: Potassium Redraw 3.9 mmol/L (3.5-5.0)
[2023-06-06] MEDS ORDERED: ceFAZolin 2 GM/50 ML BAG IV ONE (13:00)
[2023-06-06 13:35] LABS: Magnesium 1.8 mg/dL (1.9-2.7); Phosphorus 3.1 mg/dL (2.5-5.0)
[2023-06-06] MEDS ORDERED: Iodixanol (CONTRAST) 320 MG/ML 100 ML SDV IV ONE (13:41)
[2023-06-06] MEDS: ceFAZolin 2 GM PREMIX 2 GM/50 ML BAG IV SCH (17:54)
[2023-06-06] MEDS: Mometasone/Formoter 200/5 MDI INH SCH (18:34)
[2023-06-06] MEDS: Enoxaparin 40 MG/0.4 ML SYR SUBCUT SCH (20:32)
[2023-06-07] MEDS: ceFAZolin 2 GM PREMIX 2 GM/50 ML BAG IV SCH ×3 (02:30→17:45)
[2023-06-07] MEDS: oxyCODONE SR 10 mg TAB PO SCH ×2 (07:55→21:01)
[2023-06-07] MEDS: Mometasone/Formoter 200/5 MDI INH SCH ×2 (08:01→18:00)
[2023-06-07] MEDS: Nystatin TOP POWDER 15 GM BTL TOPICAL SCH ×2 (11:14→21:01)
[2023-06-07] MEDS: Enoxaparin 40 MG/0.4 ML SYR SUBCUT SCH (21:00)
[2023-06-08] MEDS: ceFAZolin 2 GM PREMIX 2 GM/50 ML BAG IV SCH ×3 (02:04→17:27)
[2023-06-08 06:45] LABS: Creatinine, Serum 0.51 mg/dL (0.51-0.95); Magnesium 1.7 mg/dL (1.9-2.7); Potassium 3.4 mmol/L (3.5-5.0); eGFR CKD-EPI 108.1 (>60)
[2023-06-08] MEDS ORDERED: Magnesium Sulfate IV 1GM/100ML 1 GM/100 ML BAG IV ONE (09:11)
[2023-06-08] MEDS: oxyCODONE SR 10 mg TAB PO SCH ×2 (09:25→21:02)
[2023-06-08] MEDS: Potassium Chlor 20 meq TAB.ER PO SCH ×2 (09:29→21:02)
[2023-06-08] MEDS: Mometasone/Formoter 200/5 MDI INH SCH ×2 (09:30→19:02)
[2023-06-08] MEDS: Nystatin TOP POWDER 15 GM BTL TOPICAL SCH ×2 (09:31→21:03)
[2023-06-08] MEDS: Enoxaparin 40 MG/0.4 ML SYR SUBCUT SCH (21:02)
[2023-06-09] MEDS: ceFAZolin 2 GM PREMIX 2 GM/50 ML BAG IV SCH ×3 (02:02→18:09)
[2023-06-09 06:14] LABS: Calcium 8.5 mg/dL (8.6-10.3); Creatinine, Serum 0.57 mg/dL (0.51-0.95); Magnesium 1.9 mg/dL (1.9-2.7); eGFR CKD-EPI 105.3 (>60)
[2023-06-09] MEDS: Potassium Chlor 20 meq TAB.ER PO SCH ×2 (07:33→20:55)
[2023-06-09] MEDS: oxyCODONE SR 10 mg TAB PO SCH (07:33)
[2023-06-09] MEDS: Mometasone/Formoter 200/5 MDI INH SCH ×2 (07:35→20:52)
[2023-06-09] MEDS: Nystatin TOP POWDER 15 GM BTL TOPICAL SCH ×2 (07:36→21:01)
[2023-06-09 07:57] LABS: C Reactive Protein 14.01 mg/L (<8.01)
[2023-06-09] MEDS: Morphine ER 15 mg TAB ** extended release PO SCH (20:58)
[2023-06-09] MEDS: Enoxaparin 40 MG/0.4 ML SYR SUBCUT SCH (20:59)
[2023-06-10] MEDS: ceFAZolin 2 GM PREMIX 2 GM/50 ML BAG IV SCH ×3 (01:53→18:22)
[2023-06-10] MEDS: Mometasone/Formoter 200/5 MDI INH SCH ×2 (05:32→19:36)
[2023-06-10] MEDS: Potassium Chlor 20 meq TAB.ER PO SCH (07:42)
[2023-06-10] MEDS: Morphine ER 15 mg TAB ** extended release PO SCH ×2 (07:42→20:57)
[2023-06-10] MEDS: Nystatin TOP POWDER 15 GM BTL TOPICAL SCH ×2 (07:45→20:58)
[2023-06-10] MEDS: Enoxaparin 40 MG/0.4 ML SYR SUBCUT SCH (20:58)
[2023-06-11] MEDS: ceFAZolin 2 GM PREMIX 2 GM/50 ML BAG IV SCH ×3 (01:56→18:59)
[2023-06-11] MEDS: Mometasone/Formoter 200/5 MDI INH SCH ×2 (06:01→21:23)
[2023-06-11] MEDS: Potassium Chlor 20 meq TAB.ER PO SCH (08:09)
[2023-06-11] MEDS: Morphine ER 15 mg TAB ** extended release PO SCH ×2 (08:09→21:26)
[2023-06-11] MEDS: Nystatin TOP POWDER 15 GM BTL TOPICAL SCH ×2 (08:10→21:26)
[2023-06-11] MEDS: Enoxaparin 40 MG/0.4 ML SYR SUBCUT SCH (21:24)
[2023-06-12] MEDS: ceFAZolin 2 GM PREMIX 2 GM/50 ML BAG IV SCH ×3 (01:57→18:19)
[2023-06-12] MEDS: Morphine ER 15 mg TAB ** extended release PO SCH ×2 (07:45→20:53)
[2023-06-12] MEDS: Potassium Chlor 20 meq TAB.ER PO SCH (07:45)
[2023-06-12] MEDS: Mometasone/Formoter 200/5 MDI INH SCH ×2 (07:47→19:30)
[2023-06-12] MEDS: Nystatin TOP POWDER 15 GM BTL TOPICAL SCH ×2 (08:00→20:54)
[2023-06-12] MEDS: Enoxaparin 40 MG/0.4 ML SYR SUBCUT SCH (20:54)
[2023-06-13] MEDS: ceFAZolin 2 GM PREMIX 2 GM/50 ML BAG IV SCH ×3 (01:57→23:09)
[2023-06-13 06:17] LABS: ABS Basophils 0.1 10^3/uL (0.0-0.1); ABS Eosinophils 0.2 10^3/uL (0.0-0.5); ABS Monocytes 0.6 10^3/uL (0.0-0.9); ABS Neutrophils 4.2 10^3/uL (1.5-7.6); ABS Nucleated RBC 0.01 10^3/ul; Eosinophil % 3.9 %; Hematocrit 30.2 % (35-45); Lymphocyte % 16.4 %; Mean Corpuscular Hemoglobin 28.7 pg (27-33); Mean Corpuscular Hgb Conc 33.2 g/dL (31-36); Mean Corpuscular Volume 86.4 fL (80-97); Mean Platelet Volume 8.4 fL (7.5-11.2); Nucleated Red Blood Cells % 0.1 %/100WBC (0.0-0.8); Platelet Count 168 10^3/uL (150-450); Red Cell Distribution Width 17.7 % (12-17); White Blood Count 6.2 10^3/uL (3.8-11.8)
[2023-06-13 06:32] LABS: Albumin 3.1 g/dL (3.2-5.2); Albumin/Globulin Ratio 1.1 (1-3); C Reactive Protein 19.27 mg/L (<8.01); Calcium 8.5 mg/dL (8.6-10.3); Creatinine, Serum 0.51 mg/dL (0.51-0.95); Globulin 2.7 g/dL (2-4); Potassium 3.6 mmol/L (3.5-5.0); Total Bilirubin 0.3 mg/dL (0.2-1.0); Total Protein 5.8 g/dL (6.4-8.9); eGFR CKD-EPI 108.1 (>60)
[2023-06-13] MEDS: Potassium Chlor 20 meq TAB.ER PO SCH (08:07)
[2023-06-13] MEDS: Morphine ER 15 mg TAB ** extended release PO SCH ×2 (08:08→20:00)
[2023-06-13] MEDS: Mometasone/Formoter 200/5 MDI INH SCH ×2 (08:11→19:59)
[2023-06-13] MEDS: Nystatin TOP POWDER 15 GM BTL TOPICAL SCH (08:11)
[2023-06-13] MEDS ORDERED: Alteplase (CATHFLO) 2 MG VIAL IV ONE (14:00)
[2023-06-13 15:19] LABS: Ferritin 190.9 ng/mL (11-307)
[2023-06-13 15:21] LABS: % Iron Saturation 14 % (15-55); .Transferrin 211 mg/dL (203-362); Iron 42 ug/dL (50-212); Total Iron Binding Capacity 295 mcg/dL (250-450); Unsaturated Iron Binding 253 ug/dL
[2023-06-13 15:22] LABS: Folate > 20.00 ng/mL (5.90-24.80)
[2023-06-13 15:23] LABS: Vitamin B12 972 pg/mL (180-914)
[2023-06-13] MEDS: Enoxaparin 40 MG/0.4 ML SYR SUBCUT SCH (20:00)
[2023-06-14] MEDS: ceFAZolin 2 GM PREMIX 2 GM/50 ML BAG IV SCH ×3 (05:14→22:18)
[2023-06-14] MEDS: Potassium Chlor 20 meq TAB.ER PO SCH (08:34)
[2023-06-14] MEDS: Morphine ER 15 mg TAB ** extended release PO SCH ×2 (08:36→20:57)
[2023-06-14] MEDS: Multivitamins/Minerals TAB PO SCH (11:13)
[2023-06-14] MEDS: Mometasone/Formoter 200/5 MDI INH SCH ×2 (12:27→18:09)
[2023-06-14] MEDS: Enoxaparin 40 MG/0.4 ML SYR SUBCUT SCH (20:56)
[2023-06-15] MEDS: ceFAZolin 2 GM PREMIX 2 GM/50 ML BAG IV SCH ×3 (05:50→21:57)
[2023-06-15] MEDS: Mometasone/Formoter 200/5 MDI INH SCH ×2 (05:50→19:24)
[2023-06-15] MEDS: Morphine ER 15 mg TAB ** extended release PO SCH ×2 (07:41→20:48)
[2023-06-15] MEDS: Multivitamins/Minerals TAB PO SCH (07:41)
[2023-06-15] MEDS: Potassium Chlor 20 meq TAB.ER PO SCH (07:41)
[2023-06-15] MEDS: Enoxaparin 40 MG/0.4 ML SYR SUBCUT SCH (20:47)
[2023-06-16] MEDS: ceFAZolin 2 GM PREMIX 2 GM/50 ML BAG IV SCH ×2 (04:59→13:01)
[2023-06-16 05:45] VITALS: BP 112/78
[2023-06-16 05:52] LABS: ABS Eosinophils 0.2 10^3/uL (0.0-0.5); ABS Lymphocytes 1.2 10^3/uL (1.0-4.8); ABS Monocytes 0.6 10^3/uL (0.0-0.9); Eosinophil % 4.3 %; Hematocrit 30.8 % (35-45); Hemoglobin 10.3 g/dL (11.5-14.3); Mean Corpuscular Hemoglobin 29.1 pg (27-33); Mean Corpuscular Hgb Conc 33.6 g/dL (31-36); Mean Corpuscular Volume 86.7 fL (80-97); Mean Platelet Volume 8.8 fL (7.5-11.2); Platelet Count 176 10^3/uL (150-450); Red Blood Count 3.55 10^6/uL (3.63-4.92); Red Cell Distribution Width 17.8 % (12-17); White Blood Count 5.1 10^3/uL (3.8-11.8)
[2023-06-16 06:10] LABS: Albumin 3.2 g/dL (3.2-5.2); Albumin/Globulin Ratio 1.2 (1-3); C Reactive Protein 7.5 mg/L (<8.01); Calcium 8.6 mg/dL (8.6-10.3); Creatinine, Serum 0.51 mg/dL (0.51-0.95); Globulin 2.6 g/dL (2-4); Potassium 3.9 mmol/L (3.5-5.0); Total Bilirubin 0.2 mg/dL (0.2-1.0); Total Protein 5.8 g/dL (6.4-8.9); eGFR CKD-EPI 108.1 (>60)
[2023-06-16] MEDS: Morphine ER 15 mg TAB ** extended release PO SCH (09:34)
[2023-06-16] MEDS: Mometasone/Formoter 200/5 MDI INH SCH (10:22)
[2023-06-16] MEDS: Potassium Chlor 20 meq TAB.ER PO SCH (10:23)
[2023-06-16] MEDS: Multivitamins/Minerals TAB PO SCH (10:23)
== END 2023-06-16 14:54 | disposition home or self-care (01) | DRG 91 ==
LOC: PMRU 13:04
PROVIDERS: ADMIT Physical Medicine & Rehabilitation; ATTEND Physical Medicine & Rehabilitation

== ENCOUNTER 2023-07-01 18:27 | Inpatient (IN) ==
[2023-07-01 19:15] LABS: Hematocrit 42.3 % (35-45); Hemoglobin 13.3 g/dL (11.5-14.3); Mean Corpuscular Hemoglobin 27.7 pg (27-33); Mean Corpuscular Hgb Conc 31.3 g/dL (31-36); Mean Corpuscular Volume 88.4 fL (80-97); Mean Platelet Volume 8.6 fL (7.5-11.2); Platelet Count 362 10^3/uL (150-450); Red Blood Count 4.79 10^6/uL (3.63-4.92); Red Cell Distribution Width 17.1 % (12-17); White Blood Count 38.9 10^3/uL (3.8-11.8)
[2023-07-01 19:32] LABS: Anion Gap 11 mmol/L (2-16); Blood Urea Nitrogen 29 mg/dL (6-24); C Reactive Protein 407.74 mg/L (<8.01); CO2 Carbon Dioxide 16 mmol/L (22-32); Calcium 7.8 mg/dL (8.6-10.3); Chloride 100 mmol/L (101-111); Creatinine, Serum 2.08 mg/dL (0.51-0.95); Glucose 120 mg/dL (70-100); Potassium 5.1 mmol/L (3.5-5.0); Sodium 127 mmol/L (135-145); eGFR CKD-EPI 27.1 (>60)
[2023-07-01 19:36] LABS: ALT < 3 U/L (7-52); AST 12 U/L (13-39); Albumin 2.8 g/dL (3.2-5.2); Alkaline Phosphatase 214 U/L (35-149); Globulin 2.8 g/dL (2-4); Magnesium 1.6 mg/dL (1.9-2.7); Total Bilirubin 0.4 mg/dL (0.2-1.0); Total Protein 5.6 g/dL (6.4-8.9)
[2023-07-01 19:38] LABS: High Sens Troponin Baseline 107 pg/mL (<15)
[2023-07-01 19:40] LABS: Activated Partial Thrombo Time 43.8 seconds (26.0-38.0); INR 1.42 (0.83-1.13)
[2023-07-01 20:08] LABS: ABS Basophils 0.1 10^3/uL (0.0-0.1); ABS Lymphocytes 1.4 10^3/uL (1.0-4.8); ABS Monocytes 3.1 10^3/uL (0.0-0.9); ABS Neutrophils 34.3 10^3/uL (1.5-7.6); ABS Nucleated RBC 0.01 10^3/ul; Eosinophil % 0.1 %; Hypochromasia 1+; Lymphocyte % 3.5 %; Toxic Granulation 2+
[2023-07-01] MEDS: NS 0.9% 1000 ml BAG 1,000 ML IV SCH (20:31)
[2023-07-01] MEDS: Piperacillin/Tazobac 3.375 BAG 3.375 GM/100 ML BAG IV ONE (20:43)
[2023-07-01] MEDS ORDERED: Norepinephrine 4 MG/250mL D5W 4,000 MCG/250 ML BAG IV ONE (22:09)
[2023-07-01] MEDS: Norepinephrine 4 MG/250mL NS 4,000 MCG/250 ML BAG IV SCH (22:13)
[2023-07-01] MEDS ORDERED: Vancomycin 1,000 MG in NS 0.9% 250 ml 250 ML IVPB ONE (23:19)
[2023-07-01 23:40] LABS: High Sensitivity Troponin 1 Hr 22 pg/mL (<15)
[2023-07-01] MEDS ORDERED: Zosyn per Pharmacy NOTE FOLLOW UP SCH (23:45)
[2023-07-01] MEDS ORDERED: Vancomycin per Pharmacy 1 EA NOTE FOLLOW UP SCH (23:45)
[2023-07-01] MEDS: Lactated Ringers 1000 ml BAG 1,000 ML IV ONE (23:45)
[2023-07-02] MEDS: Vancomycin 1,250 MG in NS 0.9% 250 ml 250 ML IVPB ONE (00:20)
[2023-07-02] MEDS ORDERED: Norepinephrine 4 MG/250mL D5W 4,000 MCG/250 ML BAG IV ONE (00:37)
[2023-07-02] MEDS: ZOSYN 3.375 GM Q8H per EXTENDED INFUSION IV SCH ×2 (02:00→09:22)
[2023-07-02] MEDS: Norepinephrine 4 MG/250mL D5W 4,000 MCG/250 ML BAG IV ONE (02:23)
[2023-07-02] MEDS: Ondansetron 4 mg VIAL 2 MG/ML 2 ml VIAL IV ONE (04:49)
[2023-07-02] MEDS: Hydrocortisone INJ 100 MG/2ML 2 ML VIAL IV ONE (04:49)
[2023-07-02] MEDS: Vancomycin 750 MG in NS 0.9% 250 ML IVPB SCH ×2 (04:50→22:35)
[2023-07-02] MEDS: Ondansetron 4 mg VIAL 2 MG/ML 2 ml VIAL ONE ×2 (04:58→11:32)
[2023-07-02] MEDS: NS 0.9% 1000 ml BAG 1,000 ML IV SCH (04:59)
[2023-07-02] MEDS: fentaNYL 100 mcg/2 ml 50 MCG/ML VIAL IV SLOW PU ONE (05:00)
[2023-07-02] MEDS: Iodixanol (CONTRAST) 320 MG/ML 100 ML SDV IV ONE (05:00)
[2023-07-02] MEDS: Morphine ER 15 mg TAB ** extended release PO SCH (05:03)
[2023-07-02 05:10] LABS: ABS Basophils 0.1 10^3/uL (0.0-0.1); ABS Eosinophils 0.3 10^3/uL (0.0-0.5); ABS Lymphocytes 1.4 10^3/uL (1.0-4.8); ABS Neutrophils 36.5 10^3/uL (1.5-7.6); ABS Nucleated RBC 0.03 10^3/ul; Eosinophil % 0.7 %; Hematocrit 38.6 % (35-45); Hemoglobin 12.6 g/dL (11.5-14.3); Lymphocyte % 3.4 %; Mean Corpuscular Hemoglobin 28.3 pg (27-33); Mean Corpuscular Hgb Conc 32.5 g/dL (31-36); Mean Corpuscular Volume 86.9 fL (80-97); Mean Platelet Volume 8.3 fL (7.5-11.2); Nucleated Red Blood Cells % 0.1 %/100WBC (0.0-0.8); Platelet Count 349 10^3/uL (150-450); Red Blood Count 4.44 10^6/uL (3.63-4.92); Red Cell Distribution Width 17.3 % (12-17); White Blood Count 42.3 10^3/uL (3.8-11.8)
[2023-07-02] MEDS: Norepinephrine 4 MG/250mL D5W 4,000 MCG/250 ML BAG IV SCH (05:10)
[2023-07-02 05:21] LABS: ALT < 3 U/L (7-52); AST 10 U/L (13-39); Albumin 2.3 g/dL (3.2-5.2); Alkaline Phosphatase 182 U/L (35-149); Anion Gap 10 mmol/L (2-16); Blood Urea Nitrogen 28 mg/dL (6-24); CO2 Carbon Dioxide 13 mmol/L (22-32); Calcium 6.8 mg/dL (8.6-10.3); Chloride 103 mmol/L (101-111); Creatinine, Serum 1.83 mg/dL (0.51-0.95); Globulin 2.4 g/dL (2-4); Glucose 212 mg/dL (70-100); Magnesium 1.4 mg/dL (1.9-2.7); Potassium 4.6 mmol/L (3.5-5.0); Sodium 126 mmol/L (135-145); Total Bilirubin 0.3 mg/dL (0.2-1.0); Total Protein 4.7 g/dL (6.4-8.9); eGFR CKD-EPI 31.6 (>60)
[2023-07-02] MEDS: Lactated Ringers 1000 ml BAG 1,000 ML IV SCH (07:22)
[2023-07-02] MEDS: Enoxaparin 30 MG/0.3 ML SYR SUBCUT SCH (07:59)
[2023-07-02] MEDS: metroNIDAZOLE IV 500 MG/100ML 500 MG/100 ML BAG IVPB SCH (08:00)
[2023-07-02] MEDS: Magnesium Sulf 4 GM/100 ML IV 4,000 MG/100 ML BAG IVPB ONE (08:22)
[2023-07-02] MEDS: Magnesium Sulfate 2 gm BAG 2 GM/50 ML BAG IVPB ONE (09:02)
[2023-07-02] MEDS: CALCIUM GLUCONATE 1GM/50ML NS BAG IV SCH (11:16)
[2023-07-02] MEDS: Hydrocortisone INJ 100 MG/2ML 2 ML VIAL IV SCH (11:16)
[2023-07-02] MEDS ORDERED: Hydrocortisone INJ 100 MG/2ML 2 ML VIAL IV SCH (12:00)
[2023-07-02] MEDS: Calcium Gluconate 2 GM in NS 0.9% 100 ml BAG 100 ML IVPB ONE (12:08)
[2023-07-02] MEDS: ceFAZolin 2 GM PREMIX 2 GM/50 ML BAG IV SCH (13:39)
[2023-07-02] MEDS: Ondansetron 4 mg VIAL 2 MG/ML 2 ml VIAL IV PRN (18:24)
[2023-07-03 04:15] LABS: Hematocrit 37.1 % (35-45); Mean Corpuscular Hemoglobin 27.8 pg (27-33); Mean Corpuscular Hgb Conc 32.2 g/dL (31-36); Mean Corpuscular Volume 86.3 fL (80-97); Mean Platelet Volume 8.7 fL (7.5-11.2); Platelet Count 283 10^3/uL (150-450); Red Cell Distribution Width 17.4 % (12-17); White Blood Count 31.4 10^3/uL (3.8-11.8)
[2023-07-03 04:16] LABS: Urine Appearance Turbid; Urine Bilirubin Negative (Negative); Urine Blood Negative (Negative); Urine Color Yellow; Urine Glucose Negative (Negative); Urine Ketones Trace (Negative); Urine Nitrite Negative (Negative); Urine Protein 1+ (>=30 mg/dL) (Negative); Urine Specific Gravity 1.017 (1.002-1.030); Urine Urobilinogen Negative (Negative); Urine pH 5.5 (5.0-8.0)
[2023-07-03 04:25] LABS: Urine Bacteria Absent /HPF (Absent); Urine Red Blood Cell Absent /HPF (0-Trace); Urine White Blood Cell Trace(0-5/hpf) /HPF (0-Trace)
[2023-07-03 04:48] LABS: ABS Basophils 0.1 10^3/uL (0.0-0.1); ABS Eosinophils 0.3 10^3/uL (0.0-0.5); ABS Monocytes 2.1 10^3/uL (0.0-0.9); ABS Nucleated RBC 0.01 10^3/ul; Eosinophil % 0.8 %; Lymphocyte % 3.1 %
[2023-07-03 04:53] LABS: Calcium 7.2 mg/dL (8.6-10.3); Creatinine, Serum 1.85 mg/dL (0.51-0.95); Magnesium 2.4 mg/dL (1.9-2.7); Potassium 4.2 mmol/L (3.5-5.0); eGFR CKD-EPI 31.2 (>60)
[2023-07-03] MEDS: Nystatin SUSPENSION 100,000 UNITS/ML UDC PO ONE (11:24)
[2023-07-03] MEDS: CALCIUM GLUCONATE 1GM/50ML NS 1 GM/50 ML BAG IV ONE (11:24)
[2023-07-03] MEDS ORDERED: ceFAZolin 2 GM in NS PREMIX 2 GM/100 ML BAG IVPB SCH (16:00)
[2023-07-03] MEDS: ceFAZolin 2 GM PREMIX 2 GM/50 ML BAG IV SCH (16:37)
[2023-07-03] MEDS: Mometasone/Formoter 200/5 MDI INH SCH (19:56)
[2023-07-04 04:58] LABS: Hematocrit 32.5 % (35-45); Hemoglobin 10.6 g/dL (11.5-14.3); Mean Corpuscular Hemoglobin 27.9 pg (27-33); Mean Corpuscular Hgb Conc 32.6 g/dL (31-36); Mean Corpuscular Volume 85.6 fL (80-97); Mean Platelet Volume 8.3 fL (7.5-11.2); Platelet Count 249 10^3/uL (150-450); Red Cell Distribution Width 17.6 % (12-17)
[2023-07-04 05:19] LABS: Calcium 7.3 mg/dL (8.6-10.3); Creatinine, Serum 1.38 mg/dL (0.51-0.95); Magnesium 2.4 mg/dL (1.9-2.7); Potassium 4.5 mmol/L (3.5-5.0); eGFR CKD-EPI 44.4 (>60)
[2023-07-04 06:03] LABS: ABS Basophils 0.1 10^3/uL (0.0-0.1); ABS Lymphocytes 0.6 10^3/uL (1.0-4.8); ABS Monocytes 0.8 10^3/uL (0.0-0.9); ABS Neutrophils 13.6 10^3/uL (1.5-7.6); ABS Nucleated RBC 0.01 10^3/ul; Lymphocyte % 4.1 %; Toxic Granulation 3+
[2023-07-04] MEDS: NORMOSOL-R pH 7.4 1000 mL BAG 1,000 ML IV SCH (10:40)
[2023-07-04] MEDS: Hydrocortisone INJ 100 MG/2ML 2 ML VIAL IV SCH (14:21)
[2023-07-04] MEDS: ceFAZolin 2 GM PREMIX 2 GM/50 ML BAG IV SCH (14:21)
[2023-07-04] MEDS ORDERED: Vancomycin Trough Check NOTE FOLLOW UP ONE (21:30)
[2023-07-05 06:20] LABS: Calcium 7.2 mg/dL (8.6-10.3); Creatinine, Serum 0.92 mg/dL (0.51-0.95); Potassium 4.2 mmol/L (3.5-5.0); eGFR CKD-EPI 72.2 (>60)
[2023-07-05 06:28] LABS: Hematocrit 32.2 % (35-45); Hemoglobin 10.7 g/dL (11.5-14.3); Mean Corpuscular Hemoglobin 28.5 pg (27-33); Mean Corpuscular Volume 86.3 fL (80-97); Mean Platelet Volume 8.3 fL (7.5-11.2); Platelet Count 254 10^3/uL (150-450); Red Blood Count 3.73 10^6/uL (3.63-4.92); Red Cell Distribution Width 17.9 % (12-17); White Blood Count 8.6 10^3/uL (3.8-11.8)
[2023-07-05 07:20] LABS: ABS Lymphocytes 0.7 10^3/uL (1.0-4.8); ABS Monocytes 0.7 10^3/uL (0.0-0.9); ABS Neutrophils 7.2 10^3/uL (1.5-7.6); ABS Nucleated RBC 0.02 10^3/ul; Eosinophil % 0.1 %; Lymphocyte % 7.9 %; Nucleated Red Blood Cells % 0.2 %/100WBC (0.0-0.8)
[2023-07-06] MEDS: Calcium Carb (TUMS) 500 mg CHEW TAB PO PRN (00:18)
[2023-07-06 06:30] LABS: Hematocrit 33.3 % (35-45); Hemoglobin 11.1 g/dL (11.5-14.3); Mean Corpuscular Hemoglobin 28.7 pg (27-33); Mean Corpuscular Hgb Conc 33.4 g/dL (31-36); Mean Platelet Volume 8.1 fL (7.5-11.2); Platelet Count 250 10^3/uL (150-450); Red Blood Count 3.87 10^6/uL (3.63-4.92); Red Cell Distribution Width 17.9 % (12-17); White Blood Count 6.4 10^3/uL (3.8-11.8)
[2023-07-06 06:45] LABS: Anion Gap 4 mmol/L (2-16); Blood Urea Nitrogen 22 mg/dL (6-24); CO2 Carbon Dioxide 21 mmol/L (22-32); Calcium 7.2 mg/dL (8.6-10.3); Chloride 108 mmol/L (101-111); Creatinine, Serum 0.67 mg/dL (0.51-0.95); Glucose 105 mg/dL (70-100); Potassium 4.1 mmol/L (3.5-5.0); Sodium 133 mmol/L (135-145); eGFR CKD-EPI 101.2 (>60)
[2023-07-06 06:49] LABS: ALT < 3 U/L (7-52); AST 37 U/L (13-39); Albumin 2.3 g/dL (3.2-5.2); Albumin/Globulin Ratio 1.2 (1-3); Alkaline Phosphatase 163 U/L (35-149); Total Bilirubin 0.2 mg/dL (0.2-1.0); Total Protein 4.3 g/dL (6.4-8.9)
[2023-07-06 07:18] LABS: ABS Lymphocytes 0.6 10^3/uL (1.0-4.8); ABS Monocytes 0.5 10^3/uL (0.0-0.9); ABS Neutrophils 5.2 10^3/uL (1.5-7.6); ABS Nucleated RBC 0.01 10^3/ul; Eosinophil % 0.1 %; Nucleated Red Blood Cells % 0.2 %/100WBC (0.0-0.8)
[2023-07-06 07:20] LABS: Anisocytosis 1+
[2023-07-06] MEDS: Enoxaparin 40 MG/0.4 ML SYR SUBCUT SCH (08:36)
[2023-07-07] MEDS: Influenza vaccine *QUAD* *2023-24* 0.5 ML SYRINGE IM ONE (09:24)
[2023-07-08 20:36] VITALS: BP 113/76
== END 2023-07-08 15:50 | disposition home or self-care (01) | DRG 871 ==
LOC: ED 18:27 → SUATTDRO 23:06 → EDHOLD 23:06 → ICU 07-02 00:57 → MEDTELE 07-04 17:05
PROVIDERS: ADMIT Internal Medicine Pulmonary Disease; ATTEND Internal Medicine

== ENCOUNTER 2024-05-03 21:18 | Inpatient (IN) ==
[2024-05-03] MEDS: Morphine 10 MG/ML VIAL (1 ml) IV ONE (22:18)
[2024-05-03] MEDS: Lactated Ringers 1000 ml BAG 1,000 ML IV SCH (22:18)
[2024-05-03 22:23] LABS: ABS Eosinophils 0.1 10^3/uL (0.0-0.5); ABS Monocytes 0.8 10^3/uL (0.0-0.9); ABS Neutrophils 5.6 10^3/uL (1.5-7.6); ABS Nucleated RBC 0.02 10^3/ul; Eosinophil % 0.9 %; Hematocrit 38.7 % (35-45); Hemoglobin 12.8 g/dL (11.5-14.3); Lymphocyte % 13.2 %; Mean Corpuscular Volume 87.7 fL (80-97); Mean Platelet Volume 8.3 fL (7.5-11.2); Nucleated Red Blood Cells % 0.2 %/100WBC (0.0-0.8); Platelet Count 263 10^3/uL (150-450); Red Blood Count 4.41 10^6/uL (3.63-4.92); Red Cell Distribution Width 15.5 % (12-17); White Blood Count 7.5 10^3/uL (3.8-11.8)
[2024-05-03 23:34] LABS: ALT 16 U/L (7-52); Albumin 3.2 g/dL (3.2-5.2); Albumin/Globulin Ratio 1.3 (1-3); Alkaline Phosphatase 114 U/L (35-149); Anion Gap 8 mmol/L (2-16); Blood Urea Nitrogen 14 mg/dL (6-24); C Reactive Protein 78.26 mg/L (<8.01); CO2 Carbon Dioxide 22 mmol/L (22-32); Calcium 8.3 mg/dL (8.6-10.3); Chloride 105 mmol/L (101-111); Creatinine, Serum 0.91 mg/dL (0.51-0.95); Globulin 2.5 g/dL (2-4); Glucose 116 mg/dL (70-100); Lipase 12 U/L (11.0-82.0); Sodium 135 mmol/L (135-145); Total Bilirubin 0.4 mg/dL (0.2-1.0); Total Protein 5.7 g/dL (6.4-8.9); eGFR CKD-EPI 72.7 (>60)
[2024-05-03] MEDS: Iohexol 350 (CONTRAST) 500 ML MDV IV ONE (23:37)
[2024-05-03] MEDS: NS 0.9% 1000 ml BAG 2,000 ML IV ONE (23:59)
[2024-05-04] MEDS: Lactated Ringers 1000 ml BAG 1,000 ML IV ONE (00:03)
[2024-05-04 01:00] LABS: Potassium Redraw 3.9 mmol/L (3.5-5.0)
[2024-05-04 03:09] LABS: Urine Appearance Clear; Urine Bilirubin Negative (Negative); Urine Blood Negative (Negative); Urine Color Light-Yellow; Urine Glucose Negative (Negative); Urine Ketones Negative (Negative); Urine Nitrite Negative (Negative); Urine Protein Negative (Negative); Urine Specific Gravity 1.043 (1.002-1.030); Urine Urobilinogen Negative (Negative)
[2024-05-04] MEDS: Lactated Ringers 1000 ml BAG 1,000 ML IV SCH ×2 (03:43→15:06)
[2024-05-04] MEDS: Morphine 2 MG/ML SYRINGE IV PRN ×3 (04:00→14:33)
[2024-05-04] MEDS ORDERED: Albuterol/Ipratropium NEB.SOL (2.5/0.5 MG) 3 ML NEB.SOLN INH PRN (04:33)
[2024-05-04] MEDS: Hydrocortisone INJ 100 MG VIAL IV SCH (05:21)
[2024-05-04 06:23] LABS: ABS Eosinophils 0.1 10^3/uL (0.0-0.5); ABS Lymphocytes 1.4 10^3/uL (1.0-4.8); ABS Monocytes 1.2 10^3/uL (0.0-0.9); ABS Neutrophils 6.6 10^3/uL (1.5-7.6); ABS Nucleated RBC 0.01 10^3/ul; Eosinophil % 0.8 %; Hematocrit 30.4 % (35-45); Hemoglobin 10.5 g/dL (11.5-14.3); Lymphocyte % 15.1 %; Mean Corpuscular Hemoglobin 30.2 pg (27-33); Mean Corpuscular Hgb Conc 34.4 g/dL (31-36); Mean Corpuscular Volume 87.8 fL (80-97); Nucleated Red Blood Cells % 0.1 %/100WBC (0.0-0.8); Platelet Count 204 10^3/uL (150-450); Red Blood Count 3.46 10^6/uL (3.63-4.92); White Blood Count 9.4 10^3/uL (3.8-11.8)
[2024-05-04 07:07] LABS: Calcium 7.5 mg/dL (8.6-10.3); Creatinine, Serum 0.59 mg/dL (0.51-0.95); Magnesium 1.4 mg/dL (1.9-2.7); Potassium 3.9 mmol/L (3.5-5.0); eGFR CKD-EPI 103.8 (>60)
[2024-05-04] MEDS: Mometasone/Formoter 200/5 MDI INH SCH (07:24)
[2024-05-04] MEDS ORDERED: Morphine 2 MG/ML SYRINGE IV PRN (07:57)
[2024-05-04] MEDS: Magnesium Sulf 4 GM/100 ML IV 4,000 MG/100 ML BAG IVPB ONE (08:21)
[2024-05-04] MEDS: Enoxaparin 40 MG/0.4 ML SYR SUBCUT SCH (08:23)
[2024-05-04] MEDS ORDERED: Lorazepam PYXIS KEY PRN (10:08)
[2024-05-04] MEDS: LORazepam 2 mg VIAL 1 ml IV PUSH PRN (10:41)
[2024-05-04] MEDS: Diatrizoate Meg/Sod(CONTRAST) 30 ML ORAL.SOLN PO ONE (13:00)
[2024-05-04] MEDS: Metoclopramide 5 MG/ML VIAL (10 mg) IV PRN (19:51)
[2024-05-05 05:58] LABS: Hematocrit 34.2 % (35-45); Hemoglobin 11.5 g/dL (11.5-14.3); Mean Corpuscular Hgb Conc 33.6 g/dL (31-36); Mean Corpuscular Volume 86.5 fL (80-97); Mean Platelet Volume 8.2 fL (7.5-11.2); Platelet Count 265 10^3/uL (150-450); Red Blood Count 3.95 10^6/uL (3.63-4.92); Red Cell Distribution Width 14.9 % (12-17); White Blood Count 9.6 10^3/uL (3.8-11.8)
[2024-05-05 06:54] LABS: Calcium 7.7 mg/dL (8.6-10.3); Creatinine, Serum 0.48 mg/dL (0.51-0.95); Potassium 3.6 mmol/L (3.5-5.0)
[2024-05-05] MEDS: KCL 20 MEQ/100 ML IVPREMIX 20 MEQ/100 ML BAG IV SCH (07:44)
[2024-05-05] MEDS: Ondansetron 4 mg VIAL 2 MG/ML 2 ml VIAL IV PRN (08:14)
[2024-05-05] MEDS ORDERED: fentaNYL 250 mcg/5 ml 50 MCG/ML 5 ml VIAL (250 MCG) ONE (10:30)
[2024-05-05] MEDS ORDERED: Propofol 10 MG/ML 20 ML BTL ONE (10:33)
[2024-05-05] MEDS ORDERED: Lidocaine 2% PF 5 ML VIAL ONE (10:33)
[2024-05-05] MEDS ORDERED: Midazolam 2 mg/2 ml VIAL 1 mg/ml 2 ml VIAL (2 mg) ONE (10:34)
[2024-05-05] MEDS ORDERED: Albumin Human 5% 12.5 GM/250 ML BTL IV ONE (10:35)
[2024-05-05] MEDS ORDERED: ceFAZolin 2 GM PREMIX 2 GM/50 ML BAG ONE (10:46)
[2024-05-05] MEDS ORDERED: Bupivacaine 0.25% EPI 200,000 30 ML SDV ONE (11:00)
[2024-05-05] MEDS ORDERED: Phenylephrine 40 mcg/mL 10mL (400mcg) SYRINGE ONE (11:58)
[2024-05-05] MEDS ORDERED: Hydrocortisone INJ 100 MG/2ML 2 ML VIAL ONE (12:07)
[2024-05-05] MEDS ORDERED: Ondansetron 4 mg VIAL 2 MG/ML 2 ml VIAL ONE (12:24)
[2024-05-05] MEDS ORDERED: Acetaminophen IV 1 GM/100ML 1,000 MG/100 ML BAG IV ONE (12:28)
[2024-05-05] MEDS ORDERED: KETAMINE HCL 10 MG/ML 20 ml VIAL (200 MG) ONE (12:39)
[2024-05-05] MEDS ORDERED: HYDROmorphone 0.5 MG/0.5 ML SYRINGE ONE (12:39)
[2024-05-05] MEDS ORDERED: fentaNYL 100 mcg/2 ml 50 MCG/ML VIAL ONE (13:20)
[2024-05-05] MEDS ORDERED: Naloxone 0.4 mg VIAL 0.4 mg/ml 1 ml VIAL IV PRN (15:12)
[2024-05-05] MEDS ORDERED: HYDROmorphone 1 MG/1 ML SYRINGE ONE ×2 (15:35→16:31)
[2024-05-05] MEDS: HYDROmorphone 1 MG/1 ML SYRINGE IV PRN (15:39)
[2024-05-05] MEDS: HYDROmorphone 0.5 MG/0.5 ML SYRINGE IV SLOW PU PRN (16:35)
[2024-05-05] MEDS: ceFAZolin 2 GM PREMIX 2 GM/50 ML BAG IV ONE (17:03)
[2024-05-05] MEDS: KCL 20 MEQ/100 ML IVPREMIX 20 MEQ/100 ML BAG ONE (18:43)
[2024-05-05] MEDS: ZOSYN 3.375 GM x ONE DOSE over 30 miuntes IV (19:30)
[2024-05-05 19:40] LABS: Anion Gap 8 mmol/L (2-16); Blood Urea Nitrogen 8 mg/dL (6-24); CO2 Carbon Dioxide 23 mmol/L (22-32); Calcium 8.1 mg/dL (8.6-10.3); Chloride 106 mmol/L (101-111); Creatinine, Serum 0.57 mg/dL (0.51-0.95); Glucose 189 mg/dL (70-100); Sodium 137 mmol/L (135-145); eGFR CKD-EPI 104.6 (>60)
[2024-05-05] MEDS ORDERED: HYDROmorphone 0.5 MG/0.5 ML SYRINGE IV SLOW PU PRN (20:30)
[2024-05-05] MEDS: HYDROmorphone 1 MG/1 ML SYRINGE IV SLOW PU PRN (20:56)
[2024-05-05] MEDS: Piperacillin/Tazobac 3.375 BAG 3.375 GM/100 ML BAG IV SCH (22:07)
[2024-05-05] MEDS: Metoprolol Tartrate 5 mg VIAL 5 ml VIAL (1 mg/ml) IV SCH (22:49)
[2024-05-06 06:09] LABS: ABS Lymphocytes 1.5 10^3/uL (1.0-4.8); ABS Monocytes 1.1 10^3/uL (0.0-0.9); Hematocrit 37.7 % (35-45); Hemoglobin 12.4 g/dL (11.5-14.3); Lymphocyte % 8.8 %; Mean Corpuscular Hemoglobin 28.7 pg (27-33); Mean Corpuscular Volume 87.1 fL (80-97); Mean Platelet Volume 8.6 fL (7.5-11.2); Platelet Count 302 10^3/uL (150-450); Red Blood Count 4.33 10^6/uL (3.63-4.92); Red Cell Distribution Width 15.4 % (12-17); White Blood Count 16.6 10^3/uL (3.8-11.8)
[2024-05-06 06:42] LABS: Calcium 7.4 mg/dL (8.6-10.3); Creatinine, Serum 0.56 mg/dL (0.51-0.95); Magnesium 1.6 mg/dL (1.9-2.7); Potassium 4.3 mmol/L (3.5-5.0); eGFR CKD-EPI 105.1 (>60)
[2024-05-06] MEDS: Magnesium Sulf 4 GM/100 ML IV 4,000 MG/100 ML BAG IVPB ONE (08:46)
[2024-05-06] MEDS: HYDROmorphone 1 MG/1 ML SYRINGE IV SLOW PU PRN ×2 (09:06→15:36)
[2024-05-06] MEDS: Pantoprazole VIAL 40 MG VIAL IV SCH (09:26)
[2024-05-06] MEDS ORDERED: Phenol 1.4% Throat Spray BTL MT PRN (13:00)
[2024-05-06] MEDS: Enoxaparin 40 MG/0.4 ML SYR SUBCUT SCH (17:39)
[2024-05-06] MEDS: Acetaminophen IV 1 GM/100ML 1,000 MG/100 ML BAG IV PRN (18:08)
[2024-05-07 06:22] LABS: ABS Eosinophils 0.1 10^3/uL (0.0-0.5); ABS Lymphocytes 1.2 10^3/uL (1.0-4.8); ABS Monocytes 0.9 10^3/uL (0.0-0.9); ABS Neutrophils 9.6 10^3/uL (1.5-7.6); Eosinophil % 0.4 %; Hematocrit 30.2 % (35-45); Hemoglobin 9.9 g/dL (11.5-14.3); Lymphocyte % 10.2 %; Mean Corpuscular Hemoglobin 28.9 pg (27-33); Mean Corpuscular Hgb Conc 32.7 g/dL (31-36); Mean Corpuscular Volume 88.2 fL (80-97); Platelet Count 257 10^3/uL (150-450); Red Blood Count 3.43 10^6/uL (3.63-4.92); Red Cell Distribution Width 15.4 % (12-17); White Blood Count 11.7 10^3/uL (3.8-11.8)
[2024-05-07 06:30] LABS: Creatinine, Serum 0.55 mg/dL (0.51-0.95); Magnesium 2.1 mg/dL (1.9-2.7); Potassium 3.8 mmol/L (3.5-5.0); eGFR CKD-EPI 105.5 (>60)
[2024-05-07] MEDS: KCL 20 MEQ/100 ML IVPREMIX 20 MEQ/100 ML BAG IV ONE (12:24)
[2024-05-07] MEDS: Acetaminophen IV 1 GM/100ML 1,000 MG/100 ML BAG IV SCH (21:03)
[2024-05-08 06:10] LABS: Hematocrit 27.9 % (35-45); Hemoglobin 9.2 g/dL (11.5-14.3); Mean Corpuscular Hemoglobin 29.1 pg (27-33); Mean Corpuscular Volume 88.1 fL (80-97); Mean Platelet Volume 7.7 fL (7.5-11.2); Platelet Count 259 10^3/uL (150-450); Red Blood Count 3.17 10^6/uL (3.63-4.92); Red Cell Distribution Width 15.2 % (12-17); White Blood Count 9.8 10^3/uL (3.8-11.8)
[2024-05-08 06:24] LABS: Calcium 7.4 mg/dL (8.6-10.3); Creatinine, Serum 0.45 mg/dL (0.51-0.95); Potassium 4.3 mmol/L (3.5-5.0); eGFR CKD-EPI 110.8 (>60)
[2024-05-08] MEDS: Lactated Ringers 1000 ml BAG 1,000 ML IV SCH (11:23)
[2024-05-08] MEDS: LORazepam 2 mg VIAL 1 ml IV PUSH PRN (22:22)
[2024-05-10 06:23] LABS: ABS Eosinophils 0.2 10^3/uL (0.0-0.5); ABS Lymphocytes 0.9 10^3/uL (1.0-4.8); ABS Monocytes 0.6 10^3/uL (0.0-0.9); ABS Neutrophils 5.3 10^3/uL (1.5-7.6); Eosinophil % 3.1 %; Hemoglobin 10.3 g/dL (11.5-14.3); Lymphocyte % 12.5 %; Mean Corpuscular Hemoglobin 29.3 pg (27-33); Mean Corpuscular Hgb Conc 33.1 g/dL (31-36); Mean Corpuscular Volume 88.5 fL (80-97); Mean Platelet Volume 7.4 fL (7.5-11.2); Platelet Count 339 10^3/uL (150-450); Red Cell Distribution Width 15.5 % (12-17); White Blood Count 7.1 10^3/uL (3.8-11.8)
[2024-05-10 06:43] LABS: Albumin 2.3 g/dL (3.5-5.7); Albumin/Globulin Ratio 1.1 (1-3); Calcium 7.6 mg/dL (8.6-10.3); Creatinine, Serum 0.37 mg/dL (0.51-0.95); Globulin 2.1 g/dL (2-4); Magnesium 1.7 mg/dL (1.9-2.7); Potassium 3.9 mmol/L (3.5-5.0); Total Bilirubin 0.3 mg/dL (0.2-1.0); Total Protein 4.4 g/dL (6.4-8.9); eGFR CKD-EPI 116.1 (>60)
[2024-05-10] MEDS: Magnesium Sulfate 2 gm BAG 2 GM/50 ML BAG IVPB ONE (09:24)
[2024-05-10] MEDS: CMC:Leflunomide 10 mg TAB (NF) PO SCH (09:31)
[2024-05-10] MEDS: Venlafaxine XR 75 mg PO SCH (09:32)
[2024-05-11 05:28] VITALS: BP 123/77
== END 2024-05-11 10:37 | disposition home or self-care (01) | DRG 330 ==
LOC: EDHOLD 21:18 → ED 21:18 → SSU 05-04 14:14 → SUATTDRO 05-05 13:02
PROVIDERS: ADMIT Student in an Organized Health Care Education/Training Program; ATTEND Student in an Organized Health Care Education/Training Program